=== PATIENT | female | born 1995 | race Caucasian/White ===

== ENCOUNTER 2024-05-28 10:17 | Outpatient (OUT) | payer OTHER, SELFPAY ==
--- NOTE | 2024-05-28 10:20 | US_ITS ---
[address] [address] Patient Name: GREGORIO HESS MRN: [id number] date: 1995 Sex: F Assigned Patient Location: [facility] Current Patient Location: Accession/Order Number: [id number] Exam Date: 05/28/2024 10:20 Report Date: 05/29/2024 04:13 At the request of: GIOVANY ARVIZU Procedure: US OB transvaginal EXAMINATION: US OB transvaginal HISTORY: ABDOMINAL CRAMPING IN EARLY COMPARISON: No relevant comparison available. FINDINGS: GESTATIONAL SAC: Present and normal appearing. YOLK SAC: Present and normal appearing. POLE: Present and normal appearing. CARDIAC: Present. UTERUS: Normal size and appearance. OVARIES: Right: Corpus lutein cyst. Left: Normal. CERVIX: 3.6 cm in length and closed. CUL-DE-SAC: Normal. OTHER: None. AGE BY LMP: 6 weeks 3 days PRICE BY LMP: 01/18/2025 AGE BY US CRL: 6 weeks 0 days PRICE BY US CRL: 01/21/2025 US/US OB transvaginal IMPRESSION: 1. Single live intrauterine . Electronically authenticated by: CONSUELO SILVERMAN Date: 05/29/2024 04:13
== END 2024-05-28 10:18 | disposition home or self-care (01) ==
LOC: NOMS 10:18
PROVIDERS: PCP Nurse Practitioner Family; Visit Provider Obstetrics & Gynecology
DX: O26.891 Other specified pregnancy related conditions, first trimester (principal); Z3A.01 Less than 8 weeks gestation of pregnancy; R10.9 Unspecified abdominal pain; N92.6 Irregular menstruation, unspecified
CPT/HCPCS: 76817

== ENCOUNTER 2024-06-26 06:43 | Outpatient (OUT) | payer OTHER, SELFPAY ==
--- OUTSIDE RECORDS SUMMARY | 2024-06-26 06:47 | XMS_ITS | CCD ---
Author Organization [facility] Care Team Providers Care Instructor Dancing Name Role Phone Delgado Segoviayse Torri Primary Care Physician [phone] [facility] Primary Care Unavailable EBEN BRUNNER Admitting Unavailable EBEN BRUNNER Attending Unavailable EBEN BRUNNER Consulting Unavailable AMEILA HAYWARD Attending Unavailable AMELIA HAYWARD Referring Unavailable MACHELLE VIVEROS Primary Care Physician [phone] AMELIA HAYWARD Admitting Unavailable AMELIA HAYWARD Attending Unavailable AMELIA HAYWARD Referring Unavailable MACHELLE VIVEROS Primary Care Unavailable Giovany GROSS R Attending Unavailable MACHELLE VIVEROS Primary Care Unavailable GINNY, Giovany R Admitting Unavailable AMELIA HAYWARD Attending Unavailable AMELIA HAYWARD Referring Unavailable GIOVANY GROSS Attending Unavailable MACHELLE VIVEROS Primary Care Unavailable GINNY, Giovany R Admitting Unavailable GINNY, Giovany R Attending Unavailable Gold ACUNA, p Primary Care Provider Medications Current Medications Medication Drug Class(es) Dates Sig (Normalized) Sig (Original) cephalexin 500 mg oral capsule (5 sources) Cephalosporin Antibacterial Start: 12-24-2021 take 1 capsule by mouth four times daily cephalexin 500 mg Cap 500 mg = 1 cap(s), Oral, QID, # 40 cap(s), Refills(s) 0, Pharmacy: [facility], 165.1, cm, 12/24/21 19:35:00 EDT, Height/Length Dosing, 77.5, kg, 12/24/21 19:35:00 EDT, Weight Dosing Start Date: 12/24/21 Status: Ordered ibuprofen 600 mg oral tablet (5 sources) Nonsteroidal Anti-inflammatory Drug Start: 06-12-2022 take 1 tablet by mouth every six hours ibuprofen 600 mg Tab 600 mg = 1 tab(s), Oral, q6hr, # 40 tab(s), Refills(s) 0, Pharmacy: [facility] 1985, 165.1, cm, 12/24/21 19:35:00 EDT, Height/Length Dosing, 77.5, kg, 12/24/21 19:35:00 EDT, Weight Dosing Start Date: 12/24/21 Status: Ordered norethindrone 0.35 mg oral tablet (6 sources) Start: 10-28-2017 take 1 tablet by mouth once daily norethindrone 0.35 mg oral tablet 0.35 mg = 1 tab(s), Oral, Daily, # 28 tab(s), Refills(s) 0 Start Date: 10/28/17 Status: Ordered Zofran ODT 4 mg Tab-Dis (6 sources) Start: 10-28-2017 take 1 tablet by mouth three times daily Zofran ODT 4 mg Tab-Dis 4 mg = 1 tab(s), Oral, TID, # 15 tab(s), Refills(s) 0 Start Date: 10/28/17 Status: Ordered Completed/Discontinued Medications Medication Drug Class(es) Dates Sig (Normalized) Sig (Original) [id number] 200 actuat albuterol 0.09 mg/actuat metered dose inhaler (2 sources) beta2-Adrenergic Agonist Start: 4 End: 4 albuterol HFA 90 mcg/act inhaler Inhale every 4 (four) hours if needed 10/29/2023 05/28/2024 Discontinued ALPRAZolam 0.5 mg oral tablet (2 sources) Benzodiazepine Start: 4 End: 4 take 1 tablet by mouth twice daily as needed ALPRAZolam (Xanax) 0.5 MG tablet Take 0.5 mg by mouth 2 (two) times a day as needed 08/01/2023 05/28/2024 Discontinued Ethinyl Estradiol / Ferrous fumarate / Norethindrone (2 sources) Estrogen Start: 4 End: 4 take 1 tablet by mouth once daily Caty Fe 08/03 1-20 MG-MCG tablet Take 1 tablet by mouth Daily 11/16/2023 05/28/2024 Discontinued 3 ml liraglutide 6 mg/ml pen injector (2 sources) GLP-1 Receptor Agonist Start: 3 End: 4 inject 1.8 mg by subcutaneous injection once daily Victoza 18 MG/3ML injection Inject 1.8 mg under the skin Daily 06/21/2023 05/28/2024 Discontinued lisdexamfetamine dimesylate 50 mg oral capsule (2 sources) Central Nervous System Stimulant End: 4 take 1 capsule by mouth in the morning lisdexamfetamine (Vyvanse) 50 MG capsule Take 60 mg by mouth in the morning. 1 capsule in the morning . 05/28/2024 Discontinued rizatriptan 10 mg oral tablet (2 sources) Serotonin-1b and Serotonin-1d Receptor Agonist Start: 4 End: 4 take 1 tablet by mouth once rizatriptan (Maxalt) 10 MG tablet Indications: Intractable migraine without aura and without status migrainosus (CMS/HCC) Take 1 tablet (10 mg) by mouth 1 (one) time if needed for migraine (may repeat x1) for up to 9 doses May repeat in 2 hours if unresolved. Do not exceed 30 mg in 24 hours. 9 tablet 11/18/2023 05/28/2024 Discontinued tiZANidine 4 mg oral tablet (2 sources) Central alpha-2 Adrenergic Agonist Start: 4 End: 4 tiZANidine (Zanaflex) 4 MG tablet Indications: Chronic daily headache 1/2-1 po QHS 30 tablet 2 11/18/2023 05/28/2024 Discontinued vortioxetine 10 mg oral tablet (2 sources) End: 4 take 1 tablet by mouth once daily Vortioxetine HBr (Trintellix) 10 MG tablet Take 1 tablet by mouth Daily 05/28/2024 Discontinued Problems Active Problems Problem Classification Problem Date Documented Da te Episodic/Chronic Headache; including migraine (4 sources) Migraine; Translations: [Migraine, unspecified, not intractable, without status migrainosus] Onset: 11-16-2023 11-16-2023 Chronic Menstrual disorders (2 sources) Missed period; Translations: [Irregular menstruation, unspecified] 05-28-2024 Chronic Nausea and vomiting (4 sources) Vomiting, unspecified; Translations: [VOMITING UNSPECIFIED] Onset: 09-25-2022 Episodic Other aftercare (1 source) 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; Translations: [OTH [facility] CURRENT DRUG THERAPY] Onset: 09-27-2022 Episodic Other complications of (2 sources) Complication of , childbirth and/or the puerperium; Translations: [Other specified related conditions, unspecified trimester] 05-28-2024 Episodic Other gastrointestinal disorders (1 source) Diarrhea, unspecified; Translations: [DIARRHEA UNSPECIFIED] Onset: 09-27-2022 Episodic Other nervous system disorders (6 sources) H/O: brain disorder 09-24-2014 Episodic Residual codes; unclassified (2 sources) Hypersomnia; Translations: [Hypersomnia, unspecified] Onset: 11-16-2023 11-16-2023 Chronic Skin and subcutaneous tissue infections (1 source) Cellulitis; Translations: [Cellulitis of unspecified part of limb] Onset: 12-24-2021 Episodic Past or Other Problems Problem Classification Problem Date Documented Da te Episodic/Chronic Epilepsy; convulsions (8 sources) Seizure; Translations: [Unspecified convulsions] Onset: 11-16-2023 12-31-2013 Episodic Headache; including migraine (2 sources) Chronic daily headache; Translations: [Chronic daily headache] Onset: 11-18-2023 11-18-2023 Episodic Unclassified (1 source) Exposure to 2019 novel coronavirus; Translations: [Contact with and (suspected) exposure to COVID19] Unclassified (3 sources) couplets( Confirmed ) 09-30-2012 Unclassified (12 sources) Onset: 06-14-2014 Resolved: 09-09-2016 01-20-2015 Unclassified (3 sources) couplets 09-30-2012 Results Test Name Value Interpretation Reference Range Facility Urinalysis macro (dipstick) panel (U)on 05-28-2024 Bilirubin, UA Negative Negative - 4(70) +++ mg/dL [facility] Blood, UA Negative Negative - 50 Theodore/mcL [facility] Clarity, UA Clear [facility] Color, UA Yellow [facility] Glucose, UA Negative Negative - 2000(110) ++++ mg/dL [facility] Interpretation and review of laboratory results Normal [facility] Ketones, UA Negative Negative - 160(16) ++++ mg/dL [facility] Leukocytes, UA Negative Negative - 500+++ Mike/mcL [facility] Nitrite, UA Negative Negative - Positive [facility] pH, UA 7 5 - 9 [facility] Healthcar [facility] Protein, UA Negative Negative - 2000(20) ++++ mg/dL [facility] Spec Grav, UA 1.025 1 - 1.03 [facility] Urobilinogen, UA 0.2 0.2 - 12 mg/dL [facility] BhCG Quanton 05-27-2024 [place] [address] m[IU]/mL High 1-3 [facility] Comment on above: Result Comment: 'F N ON < 1 - 3' ' 0.2 - 1 WEEK = 5 TO 50' ' 1 - 2 WEEKS = 50 - 500' ' 2 - 3 WEEKS = 100 - 5000' ' 3 - 4 WEEKS = 500 - 22590' ' 4 - 5 WEEKS = 1000 - 23508' ' 5 - 6 WEEKS = 60929 - 779073' ' 6 - 8 WEEKS = 43922 - 437715' ' 8 - 12 WEEKS = 29855 - 262173' Performed By: #### 2 [id number] #### [facility] [address] [place] [address] CHEMISTRYOrdered By: SYSTEM SYSTEM on 05-27-2024 [place] [address] m[IU]/mL High 1 - 3 mIU/mL [facility] Comment on above: Result Comment: 'F N ON < 1 - 3' ' 0.2 - 1 WEEK = 5 TO 50' ' 1 - 2 WEEKS = 50 - 500' ' 2 - 3 WEEKS = 100 - 5000' ' 3 - 4 WEEKS = 500 - 45113' ' 4 - 5 WEEKS = 1000 - 45360' ' 5 - 6 WEEKS = 19705 - 559916' ' 6 - 8 WEEKS = 01778 - 425548' ' 8 - 12 WEEKS = 58166 - 046679' MRI Brain w/o Contraston MRI Brain w/o Contrast Exam Date/Time: 11/21/2023 19:49 EDT Reason for Exam: R41.3 Report IMPRESSION: NO ACUTE INTRACRANIAL PROCESS. EXAM: MRI of the brain without contrast History: Changes and memory Technique: Multiplanar multisequence MRI of the brain was performed without contrast. Comparison: None available Findings: Brain volume is age-appropriate. Ventricular morphology is within normal limits. No edema, hemorrhage, mass, mass effect, midline shift, or abnormal extra-axial fluid collection. Midline structures are within normal limits. The posterior fossa is within normal limits. There is no diffusion restriction. No susceptibility artifact is identified on the gradient echo sequence. The major intracranial vascular flow voids are maintained. Cranial nerves 7/8 complexes appear grossly unremarkable. The visualized paranasal sinuses and bilateral mastoid air cells are clear. Ordering Provider: , FINAL REPORT Dictated: 11/24/2023 12:58 pm Ralph Galaviz DO Signed (Electronic Signature): 11/24/2023 12:58 pm Signed by: Ralph Galaviz DO Transcribed by: TEJAL Technologist: KALYN [facility] Consent for Treatmenton Consent for Treatment [id number] E9#1.00TIFF [facility] RAD - MRI Screening Formon 0 11-21-2023 RAD - MRI Screening Form [id number]#1.00TIFF [facility] Physician Orderon 11-20-2023 Physician Order [id number] C0#1.00TIFF [facility] CHEMISTRYOrdered By: SYSTEM SYSTEM on 10-29-2022 Cobalamin (Vitamin B12) [Mass/Vol] 460 pg/mL Normal 50 - 1500 pg/mL [facility] Remisol Folate [Mass/Vol] 8.4 ng/mL Normal >=6.7ng/mL [facility] Re misol Magnesium [Mass/Vol] 2.1 mg/dL Normal 1.3 - 2 .4 mg/dL [facility] Remisol AMYLASEon 09-25-2022 Amylase [Catalytic activity/Vol] 65 U/L Normal 25-115 [facility] Comment on above: Performed By: #### L IPA, DENNIS, CMP #### [facility] [address] [address] [address] Flores Arroyo CBC AUTO DIFFon 09-25-2022 BASO # 0.0 103/ul Normal 0.0-0.1 [facility] Comment on above: Performed By: #### C BC #### [facility] [address] [address] [address] Flores Arroyo Basophils/100 WBC (Bld) 0.2 % Normal 0.2-2.0 [facility] Comment on above: Performed By: #### C BC #### [facility] [address] [place] [address] Dr. Flores Arroyo EO # 0.1 103/ul Normal 0.0-0.7 [facility] Comment on above: Performed By: #### C BC #### [facility] [address] [place] [address] Dr. Flores Arroyo Eosinophils/100 WBC (Bld) 0.3 % Critically low 0.9-7.0 [facility] Comment on above: Performed By: #### C BC #### [facility] [address] [place] [address] Dr. Flores Arroyo Erythrocyte distribution width (RBC) [Ratio] 13.7 % Normal 11.0-15.0 [facility] Comment on above: Performed By: #### C BC #### [facility] [address] [place] [address] Dr. Flores Arroyo Hematocrit (Bld) [Volume fraction] 44.0 % Normal 36.0-48.0 [facility] Comment on above: Performed By: #### C BC #### [facility] [address] [place] [address] Dr. Flores Arroyo Hemoglobin (Bld) [Mass/Vol] 14.7 g/dL Normal 12.0-16.0 [facility] Comment on above: Performed By: #### C BC #### [facility] [address] [place] [address] Dr. Flores Arroyo IG # 0.07 10e3/ul Critically high 0.00-0.03 [facility] Comment on above: Performed By: #### C BC #### [facility] [address] [place] [address] Dr. Flores Arroyo IG % 0.4 % Normal 0.0-0.5 [facility] Comment on above: Performed By: #### C BC #### [facility] [address] [place] [address] Dr. Flores Arroyo LYMPH # 2.4 103/ul Normal 1.2-3.8 [facility] Comment on above: Performed By: #### C BC #### [facility] [address] [place] [address] Dr. Flores Arroyo Lymphocytes/100 WBC (Bld) 12.7 % Critically low 20.5-60.0 [facility] Comment on above: Performed By: #### C BC #### [facility] [address] [place] [address] Dr. Flores Arroyo MANUAL DIFF REQ NO Normal [facility] Comment on above: Performed By: #### C BC #### [facility] [address] [place] [address] Dr. Flores Arroyo MCH (RBC) [Entitic mass] 29.5 pg Normal 26.7-34.0 [facility] Comment on above: Performed By: #### C BC #### [facility] [address] [place] [address] Dr. Flores Arroyo MCHC (RBC) [Mass/Vol] 33.4 g/dL Normal 29.9-35.2 [facility] Comment on above: Performed By: #### C BC #### [facility] [address] [place] [address] Dr. Flores Arroyo MCV (RBC) [Entitic vol] 88.4 fL Normal 81.0-99.0 [facility] Comment on above: Performed By: #### C BC #### [facility] [address] [place] [address] Dr. Flores Arroyo MONO # 1.3 103/ul Critically high 0.3-0.8 [facility] Comment on above: Performed By: #### C BC #### [facility] [address] [address] [address] Flores Arroyo Monocytes/100 WBC (Bld) 7.2 % Normal 1.7-12.0 [facility] Comment on above: Performed By: #### C BC #### [facility] [address] [address] [address] Flores Arroyo NEUT # 14.8 103/ul Critically high 1.4-6.5 [facility] Comment on above: Performed By: #### C BC #### [facility] [address] [address] [address] Flores Arroyo Neutrophils/100 WBC (Bld) 79.2 % Critically high 43.0-75.0 [facility] Comment on above: Performed By: #### C BC #### [facility] [address] [place] [address] Dr. Flores Arroyo Platelet mean volume (Bld) [Entitic vol] 10.8 fL Normal 9.5-13.5 [facility] Comment on above: Performed By: #### C BC #### [facility] [address] [place] [address] Dr. Flores Arroyo PLT 306 103/ul Normal 150-450 [facility] Comment on above: Performed By: #### C BC #### [facility] [address] [place] [address] Dr. Flores Arroyo RBC 4.98 106/ul Normal 4.20-5.40 [facility] Comment on above: Performed By: #### C BC #### [facility] [address] [place] [address] Dr. Flores Arroyo WBC 18.7 103/ul Critically high 4.0-11.0 [facility] Comment on above: Performed By: #### C BC #### [facility] [address] [place] [address] Dr. Flores Arroyo CULTURE URINEon 09-25-2022 CULTURE URINE Culture Observations: MODERATE GROWTH OF MIXED GENITAL MIS. NO POTENTIAL PATHOGENS SEEN. Normal [facility] Comment on above: Performed By: #### U RCX #### [facility] [address] [address] [address] Flores Arroyo ER URINE PROFILEon 3 Bilirubin Ql (U) Negative Normal NEGATIVE [facility] Comment on above: Performed By: #### U MICRO, ERUR #### [facility] [address] [place] [address] Dr. Flores Arroyo Clarity (U) CLEAR Normal CLEAR [facility] Comment on above: Performed By: #### U MICRO, ERUR #### [facility] [address] [address] [address] Flores Arroyo Color (U) YELLOW Normal YELLOW [facility] Comment on above: Performed By: #### U MICRO, ERUR #### [facility] [address] [place] [address] Dr. Flores Arroyo ERUCHEYENNED A micrscopic examination will be performed if indicated. Normal [facility] Comment on above: Performed By: #### U MICRO, ERUR #### [facility] [address] [place] [address] Dr. Flores Arroyo Glucose Ql (U) Negative Normal NEGATIVE [facility] Comment on above: Performed By: #### U MICRO, ERUR #### [facility] [address] [place] [address] Dr. Flores Arroyo Hemoglobin Ql (U) Negative Normal NEGATIVE [facility] Comment on above: Performed By: #### U MICRO, ERUR #### [facility] [address] [address] [address] Flores Arroyo Ketones Ql (U) Negative Normal NEGATIVE [facility] Comment on above: Performed By: #### U MICRO, ERUR #### [facility] [address] [address] [address] Flores Arroyo LEUKOCYTES Negative Normal NEGATIVE [facility] Comment on above: Performed By: #### U MICRO, ERUR #### [facility] [address] [place] [address] Dr. Flores Arroyo Nitrite Ql (U) Negative Normal NEGATIVE [facility] Comment on above: Performed By: #### U MICRO, ERUR #### [facility] [address] [place] [address] Dr. Flores Arroyo pH (U) 5.5 [pH] Normal 5-9 [facility] Comment on above: Performed By: #### U MICRO, ERUR #### [facility] [address] [place] [address] Dr. Flores Arroyo Protein (U) [Mass/Vol] 30 mg/dL Abnormal NEGATIVE/ TRACE [facility] Comment on above: Performed By: #### U MICRO, ERUR #### [facility] [address] [place] [address] Dr. Flores Arroyo SPEC GRAVITY >=1.030 Abnormal 1.005-<=1.025 [facility] Comment on above: Performed By: #### U MICRO, ERUR #### [facility] [address] [place] [address] Dr. Flores Arroyo UR MICRO IND INDICATED Normal [facility] Comment on above: Performed By: #### U MICRO, ERUR #### [facility] [address] [place] [address] Dr. Flores Arroyo Urobilinogen Qn (U) 0.2 {Salty'U}/dL Normal 0.2 - 1. 0 [facility] Comment on above: Performed By: #### U MICRO, ERUR #### [facility] [address] [place] [address] Dr. Flores Arroyo LACTATE/LACTIC ACIDon 2022 Lactate [Moles/Vol] 1.6 mmol/L Normal 0.4-2.0 [facility] Comment on above: Performed By: #### L ACT #### [facility] [address] [place] [address] Dr. Flores Arroyo LIPASEon 09-25-2022 Lipase [Catalytic activity/Vol] 95.0 U/L Normal 73.0-393.0 [facility] Comment on above: Performed By: #### L IPA, DENNIS, CMP #### [facility] [address] [place] [address] Dr. Flores Arroyo PROF 14(COMP METB)on 023 Albumin [Mass/Vol] 4.4 g/dL Normal 3.4-5.0 [facility] Comment on above: Performed By: #### L DENNIS MARTINES, CMP #### [facility] [address] [address] [address] Flores Arroyo Albumin/Globulin [Mass ratio] 1.2 {ratio} Normal [facility] Comment on above: Performed By: #### L DENNIS MARTINES, CMP #### [facility] [address] [address] [address] Flores Arroyo ALP [Catalytic activity/Vol] 86 U/L Normal 46-116 [facility] Comment on above: Performed By: #### L DENNIS MARTINES, CMP #### [facility] [address] [address] [address] Flores Arroyo ALT [Catalytic activity/Vol] 41 U/L Normal 14-59 [facility] Comment on above: Performed By: #### L DENNIS MARTINES, CMP #### [facility] [address] [address] [address] Flores Arroyo Anion gap [Moles/Vol] 11.4 mmol/L Normal [facility] Comment on above: Performed By: #### L DENNIS MARTINES, CMP #### [facility] [address] [address] [address] Flores Arroyo AST [Catalytic activity/Vol] 29 U/L Normal 15-37 [facility] Comment on above: Performed By: #### L DENNIS MARTINES, CMP #### [facility] [address] [address] [address] Flores Arroyo Bilirubin [Mass/Vol] 0.3 mg/dL Normal 0.2-1.0 [facility] Comment on above: Performed By: #### L DENNIS MARTINES, CMP #### [facility] [address] [address] [address] Flores Arroyo Calcium [Mass/Vol] 9.3 mg/dL Normal 8.5-10.1 [facility] Comment on above: Performed By: #### L DENNIS MARTINES, CMP #### [facility] [address] [address] [address] Flores Arroyo Chloride [Moles/Vol] 102 mmol/L Normal 98-107 [facility] Comment on above: Performed By: #### L DENNIS MARTINES, CMP #### [facility] [address] [address] [address] Flores Arroyo CO2 [Moles/Vol] 26.3 mmol/L Normal 21.0-32.0 [facility] Comment on above: Performed By: #### L DENNIS MARTINES, CMP #### [facility] [address] [address] [address] Flores Arroyo Creatinine [Mass/Vol] 0.85 mg/dL Normal 0.55-1.02 [facility] Comment on above: Performed By: #### L DENNIS MARTINES, CMP #### [facility] [address] [place] [address] Dr. Flores Arroyo EGFR-AF ROMANIAN >60 Normal >=60 [facility] Comment on above: Performed By: #### L DENNIS MARTINES, CMP #### [facility] [address] [place] [address] Dr. Flores Arroyo EGFR-NON AF ROMANIAN >60 Normal >=60 [facility] Comment on above: Performed By: #### L DENNIS MARTINES, CMP #### [facility] [address] [place] [address] Dr. Flores Arroyo Globulin (S) [Mass/Vol] 3.8 g/dL Normal [facility] Comment on above: Performed By: #### L DENNIS MARTINES, CMP #### [facility] [address] [place] [address] Dr. Flores Arroyo Glucose [Mass/Vol] 159 mg/dL Critically high 74-106 [facility] Comment on above: Performed By: #### L DENNIS MARTINES, CMP #### [facility] [address] [place] [address] Dr. Flores Arroyo Potassium [Moles/Vol] 3.7 mmol/L Normal 3.5-5.1 [facility] Comment on above: Performed By: #### L DENNIS MARTINES, CMP #### [facility] [address] [place] [address] Dr. Flores Arroyo Protein [Mass/Vol] 8.2 g/dL Normal 6.4-8.2 [facility] Comment on above: Performed By: #### L DENNIS MARTINES, CMP #### [facility] [address] [place] [address] Dr. Flores Arroyo Sodium [Moles/Vol] 136 mmol/L Normal 136-145 [facility] Comment on above: Performed By: #### L DENNIS MARTINES, CMP #### [facility] [address] [place] [address] Dr. Flores Arroyo Urea nitrogen [Mass/Vol] 11.0 mg/dL Normal 7.0-18.0 [facility] Comment on above: Performed By: #### L DENNIS MARTINES, CMP #### [facility] [address] [place] [address] Dr. Flores Arroyo Urea nitrogen/Creatinine [Mass ratio] 12.9 mg/mg Normal [facility] Comment on above: Performed By: #### L DNENIS MARTINES, CMP #### [facility] [address] [place] [address] Dr. Flores Arroyo URINE MICROSCOPIC ONLYon BACTERIA SMALL Abnormal NONE SEEN [facility] Comment on above: Performed By: #### U MICRO, ERUR #### [facility] [address] [place] [address] Dr. Flores Arroyo Bacteria identified Cx Nom (U) INDICATED Normal [facility] Comment on above: Performed By: #### U MICRO, ERUR #### [facility] [address] [place] [address] Dr. Flores Arroyo CAST NONE SEEN Normal NONE SEEN [facility] Comment on above: Performed By: #### U MICRO, ERUR #### [facility] [address] [place] [address] Dr. Flores Arroyo Crystals LM Nom (Urine sed) NONE SEEN Normal NONE SEEN [facility] Comment on above: Performed By: #### U MICRO, ERUR #### [facility] [address] [address] [address] Flores rAroyo Epithelial cells LM Ql (Urine sed) MODERATE Abnormal NONE SEEN /RARE [facility] Comment on above: Performed By: #### U MICRO, ERUR #### [facility] [address] [address] [address] Flores Arroyo MUCOUS MODERATE Abnormal NONE SEEN [facility] [facility] Comment on above: Performed By: #### U MICRO, ERUR #### [facility] [address] [address] [address] Flores Arroyo RBC 0-2 Normal 0-2 [facility] Comment on above: Performed By: #### U MICRO, ERUR #### [facility] [address] [address] [address] Flores Arroyo WBC 2-5 Abnormal NONE SEEN [facility] Comment on above: Performed By: #### U MICRO, ERUR #### [facility] [address] [address] [address] Flores Arroyo MICRO OTHER TESTSOrdered By: Ines Michel on 07-21-2021 Rapid COV Int NEG Ctl [place] (07/21/21 11:06 AM) Normal [facility] Man Sero Rapid COV Int POS Ctl [place] (07/21/21 11:06 AM) Normal [facility] SARS-CoV+SARS-CoV-2 (COVID-19) Ag IA.rapid Ql (Resp) Not Detected (07/21/21 11:06 AM) Normal Not Detected [facility] Vital Signs Date Time Vital Sign Value Performing Clinician Facility 05-28-2024 09:39-0500 Body mass index (BMI) [Ratio] 27.66 kg/m2 [employer] Work Phone: [facility] 05-28-2024 09:39-0500 Body weight 77.75 kg [employer] Work Phone: [facility] 05-28-2024 09:39-0500 Diastolic blood pressure 68 mm[Hg] [employer] Work Phone: [facility] 05-28-2024 09:39-0500 Systolic blood pressure 110 mm[Hg] Parabel DO Work Phone: [facility] 12-24-2021 21:08-0400 Diastolic blood pressure 81 mm[Hg] Jalen Ezekiel [facility] 12-24-2021 21:08-0400 Heart rate 79 /min Jalen Ezekiel [facility] 12-24-2021 21:08-0400 Respiratory rate 18 /min Jalen Ezekiel [facility] 12-24-2021 21:08-0400 SaO2% (BldA) [Mass fraction] 100 % Jalen Ezekiel [facility] 12-24-2021 21:08-0400 Systolic blood pressure 114 mm[Hg] Jalen Ezekiel [facility] 12-24-2021 19:32-0400 Body temperature 98.06 [degF] Jalen Ezekiel [facility] 12-24-2021 19:32-0400 Diastolic blood pressure 85 mm[Hg] Jalen Ezekiel [facility] 12-24-2021 19:32-0400 Heart rate 100 /min Jalen Ezekiel [facility] 12-24-2021 19:32-0400 Respiratory rate 16 /min Jalen Ezekiel [facility] 12-24-2021 19:32-0400 SaO2% (BldA) [Mass fraction] 100 % Jalen Ezekiel [facility] 12-24-2021 19:32-0400 Systolic blood pressure 121 mm[Hg] Jalen Ezekiel [facility] Encounters Encounter Date Encounter Type Care Provider Facility Start: 05-28-2024 End: 05-28-2024 Office outpatient visit 15 minutes Giovany Ginny DO Work Phone: [facility] Comment on above: Abdominal cramping a ffecting ; Missed menses Start: 05-28-2024 End: 05-28-2024 ambulatory GIOVANY DE JESUSO Not Available Start: 05-27-2024 End: 05-27-2024 ambulatory Giovany R GINNY Facility:[facility] Start: 05-27-2024 End: 05-27-2024 Patient encounter procedure Giovany R GINNY [facility] Start: 11-21-2023 End: 11-21-2023 ambulatory AMELIA MARCIALMOR Facility:[facility] Start: 11-21-2023 End: 11-21-2023 Patient encounter procedure AMELIA BOTELLOR [facility] Start: 11-19-2023 End: 11-19-2023 ambulatory AMELIA GILLMOR Not Available Start: 11-19-2023 End: 11-19-2023 ambulatory AMELIA GILLMOR Not Available Start: 11-18-2023 End: 11-18-2023 ambulatory AMELIA GILLMOR Not Available Start: 11-18-2023 End: 11-18-2023 ambulatory AMELIA GILLMOR Not Available Start: 10-29-2022 End: 10-29-2022 Lab Drop off MACHELLE VIVEROS [facility] Start: 09-25-2022 End: 09-25-[address] DOCTOR BAILEY Facility: Start: 02-06-2022 End: 02-06-2022 Lab Drop off TIESHA FINLEY [facility] Start: 12-24-2021 End: 12-24-2021 Emergency department patient visit Jalen Falcon [facility] Start: 07-20-2021 End: 10-19-2021 Recurring Sumit Scott [facility] Procedures Date Procedure Procedure Detail Performing Clinician Start: 05-28-2024 Urnls dip stick/tabl et rgnt non-auto w/o micrscp Giovaynlaura Gross DO Work Phone: Tonsillectomy Sumit Scott Plan of Treatment Date Care Activity Detail Author Start: 06-25-2024 End: 06-25-2024 ambulatory 06/25/2024 2:30 PM EST Initial [facility] [address] [place] [address] [facility] Start: 06-25-2024 End: 06-25-2024 Professional / ancillary services management 06/25/2024 2:00 PM EST Ancillary Procedure [facility] [address] [place], [place] [address] [address] [facility] Start: 05-28-2024 End: 05-28-2025 US for US OB > 14 WEEKS Imaging Routine Abdominal cramping affecting Missed menses Expected: 05/28/2024 (Approximate), Expires: 05/28/2025 [facility] Comment on above: Expected: 05/28/2024 (Approximate), Expires: 05/28/2025 Start: 05-28-2024 End: 05-28-2025 US Pelvis transvaginal US OB transvaginal Imaging Routine Abdominal cramping affecting Missed menses Expected: 05/28/2024 (Approximate), Expires: 05/28/2025 [facility] Work Phone: Comment on above: Expected: 05/28/2024 (Approximate), Expires: 05/28/2025 Start: 03-15-2024 Influenza vaccination Influenza Vacc ine (#1) [facility] Immunizations Immunization Date Immunization Notes Care Provider Fa cili 04-27-2021 influenza virus vaccine, unspecified formulation Giovanylaura Gross DO Work Phone: [facility] 01-15-2015 measles, mumps and rubella virus vaccine Sumit Link [facility] Comment on above: Reason for Medicatio n: Other (see comment) 01-15-2015 tetanus toxoid, redu carly diphtheria toxoid, and acellular pertussis vaccine, adsorbed Sumit Link [facility] Comment on above: Reason for Medicatio n: Other (see comment) Payers Date Payer Category Payer Private Health Insurance [facility] MEDICAID [id number] 1995 Unknown [id number] 1995 Unknown [id number] 1996 Unknown [id number] 1996 Unknown [id number] 1996 Unknown [id number] 1996 Unknown [id number] 1959 Unknown [id number] Social History Date Type Detail Facility Tobacco smoking status Never smoker [facility] Start: 11-16-2023 End: 11-18-2023 Sex Assigned At Female [facility] Tobacco smoking status No Smokin g Status Entered [facility] Tobacco smoking status No Smokin g Status Entered [facility] Start: 11-18-2023 [facility] Start: 11-18-2023 Tobacco use and exposure Smokeless tobacco non-user [facility] Start: 05-28-2024 Alcoholic beverage intake Current drinker of alcohol (finding) [facility] Start: 11-16-2023 End: 11-18-2023 History of Social function [facility] How often to you hav e a drink containing alcohol? Monthly or less [facility] How many standard drinks containing alcohol do you have on a typical day? 1 or 2 [facility] How often do you hav e 6 or more drinks on 1 occasion? Never [facility] Start: 11-16-2023 Alcohol Comment caffeine: 1-2 cups per day [facility] Start: 1995 Sex assigned at Female [facility] Start: 04-15-2024 Gender identity Identifies as female gender (finding) [facility] Functional Status Date Assessment Result Facility 12-24-2021 Functional Status No [facility] History of Present illness Narrative 05-28-2024 Nano Reyez LPN - 05/28/2024 9:20 AM EST Note Date & Type Note Facility 05-28-2024 History of Presen t illness Narrative Reason for Appointment: Patient ID: Stephon Zuleta is a 29 y.o. female who presents for cramping in Patient presents today for Consult appointment. MEDICATIONS No current outpatient medications ALLERGIES No Known Allergies PROBLEMS Active Ambulatory Problems Diagnosis Date Noted Seizure (CMS/HCC) 11/16/2023 Migraine ([facility]/HCC) 11/16/2023 Intractable migraine without aura and without status migrainosus ([facility]) 11/16/2023 Hypersomnia 11/16/2023 Chronic daily headache 11/18/2023 Resolved Ambulatory Problems Diagnosis Date Noted No Resolved Ambulatory Problems Past Medical History: Diagnosis Date Anxiety Depression (CMS/HCC) HISTORY PAST MEDICAL HISTORY SOCIAL HISTORY Past Medical History: Diagnosis Date Anxiety Depression ([facility]) Social History Tobacco Use Smoking status: Never Smokeless tobacco: Never Substance Use Topics Alcohol use: Yes Comment: caffeine: 1-2 cups per day Drug use: Never FAMILY HISTORY Family History Problem Relation Name Age of Onset Achalasia Mother Hypertension Mother Migraines Mother Cancer Father SURGICAL HISTORY History reviewed. No pertinent surgical history. REVIEW OF SYSTEMS Review of Systems: Review of Systems All other systems reviewed and are negative. OBJECTIVE Objective: Physical Exam Constitutional: Appearance: Normal appearance. She is well-developed. Cardiovascular: Rate and Rhythm: Normal rate and regular rhythm. Pulmonary: Effort: Pulmonary effort is normal. Breath sounds: Normal breath sounds. Abdominal: General: Bowel sounds are normal. There is no distension. Palpations: Abdomen is soft. Tenderness: There is no abdominal tenderness. There is no guarding or rebound. Musculoskeletal: General: No swelling. Normal range of motion. Right lower leg: No edema. Left lower leg: No edema. Neurological: Mental Status: She is alert and oriented to person, place, and time. Skin: General: Skin is warm and dry. Psychiatric: Mood and Affect: Mood normal. Behavior: Behavior normal. Vitals and nursing note reviewed. Exam conducted with a traveling electrician present. Vitals: Estimated body mass index is 27.66 kg/m as calculated from the following: Height as of 11/18/23: 5' 6 . Weight as of this encounter: 171 lb 6.4 oz. BP: 110/68 Patient's last menstrual period was 04/13/2024. ASSESSMENT & PLAN ICD-10-CM 1. Abdominal cramping affecting O26.899 POCT urinalysis dipstick manually resulted R10.9 Patient presents today for abdominal cramps in early . Will order US for patient to have done for reassurance & patient to return to clinic as scheduled already. Documented by Nano Reyez LPN on behalf of: Giovany Gross DO documented in this encounter [facility] Evaluation + Plan note 10-29-2022 Note Date & Type Note Facility 10-29-2022 Evaluation + Plan note Diagnostic Tests PendingDHEAS 10/29/22Testosterone F&T 10/29/22Insulin Level Total 10/29/22FSH and LH 10/29/22Cortisol 10/29/22Estradiol Level 10/29/22 [facility] Evaluation + Plan note 02-06-2022 Note Date & Type Note Facility 02-06-2022 Evaluation + Plan note Diagnostic Tests PendingCOVID-19 ([facility]) 02/06/22 [facility] Hospital Discharge instructions 12-24-2021 Note Date & Type Note Facility 12-24-2021 Hospital Discharg e instructions Patient Education 12/24/2021 21:12:52 Cellulitis, Adult, Ebai-pc-Komb Cellulitis, Adult Cellulitis is a skin infection. The infected area is often warm, red, swollen, and sore. It occurs most often in the arms and lower legs. It is very important to get treated for this condition. What are the causes? This condition is caused by bacteria. The bacteria enter through a break in the skin, such as a cut, burn, insect bite, open sore, or crack. What increases the risk? This condition is more likely to occur in people who: Have a weak body defense system (immune system). Have open cuts, kirk, bites, or scrapes on the skin. Are older than 60 years of age. Have a blood sugar problem (diabetes). Have a long-lasting (chronic) liver disease (cirrhosis) or kidney disease. Are very overweight (obese). Have a skin problem, such as: ?Itchy rash (eczema). ?Slow movement of blood in the veins (venous stasis). ?Fluid buildup below the skin (edema). Have been treated with high-energy rays (radiation). Use IV drugs. What are the signs or symptoms? Symptoms of this condition include: Skin that is: ?Red. ?Streaking. ?Spotting. ?Swollen. ?Sore or painful when you touch it. ?Warm. A fever. Chills. Blisters. How is this diagnosed? This condition is diagnosed based on: Medical history. Physical exam. Blood tests. Imaging tests. How is this treated? Treatment for this condition may include: Medicines to treat infections or allergies. Home care, such as: ?Rest. ?Placing cold or warm cloths (compresses) on the skin. Hospital care, if the condition is very bad. Follow these instructions at home: Medicines Take qzrq-kij-mplpmcm and prescription medicines only as told by your doctor. If you were prescribed an antibiotic medicine, take it as told by your doctor. Do not stop taking it even if you start to feel better. General instructions Drink enough fluid to keep your pee (urine) pale yellow. Do not touch or rub the infected area. Raise (elevate) the infected area above the level of your heart while you are sitting or lying down. Place cold or warm cloths on the area as told by your doctor. Keep all follow-up visits as told by your doctor. This is important. Contact a doctor if: You have a fever. You do not start to get better after 1 2 days of treatment. Your bone or joint under the infected area starts to hurt after the skin has healed. Your infection comes back. This can happen in the same area or another area. You have a swollen bump in the area. You have new symptoms. You feel ill and have muscle aches and pains. Get help right away if: Your symptoms get worse. You feel very sleepy. You throw up (vomit) or have watery poop (diarrhea) for a long time. You see red streaks coming from the area. Your red area gets larger. Your red area turns dark in color. These symptoms may represent a serious problem that is an emergency. Do not wait to see if the symptoms will go away. Get medical help right away. Call your local emergency services (911 in the [place] Do not drive yourself to the hospital. Summary Cellulitis is a skin infection. The area is often warm, red, swollen, and sore. This condition is treated with medicines, rest, and cold and warm cloths. Take all medicines only as told by your doctor. Tell your doctor if symptoms do not start to get better after 1 2 days of treatment. This information is not intended to replace advice given to you by your health care provider. Make sure you discuss any questions you have with your health care provider. Document Released: 12/17/2008 Document Revised: 11/20/2018 Document Reviewed: 11/20/2018 [employer] Patient Education 2020 Jump or Fall. Follow Up Care 12/24/2021 19:31:22 With:Ros Segovia Address: [address] [place] [address]- Business (1) When:12/27/2021 20:50:34 [facility] Evaluation + Plan note Note Date & Type Note Facility Evaluation + Plan note No data available for this section [facility] Evaluation note Note Date & Type Note Facility Evaluation note Diagnosis Abdominal cramping affecting Missed menses documented in this encounter [facility] Hospital Discharge instructions Note Date & Type Note Facility Hospital Discharge instructions No data available for this section [facility] Progress note Note Date & Type Note Facility Progress note No data available for this section [facility] Summary Purpose Family History No Family History Records FoundNo Family History Records Found No data available for this section No data available for this section No Family History Records FoundNo Family History Records FoundNo Family History Records Found Advance Directives No Advanced Directives Records FoundNo Advanced Directives Records FoundNo Advanced Directives Records FoundNo Advanced Directives Records FoundNo Advanced Directives Records Found Additional Source Comments Care Team (unrecognized sect ion and content) Instructor Dancing Relationship Specialty Start Date End Date Lan Malcolm MD [address] [place] [id number] PCP - General Family Medicine 11/18/23 INFORMATION SOURCE (unrecogn ized section and content) DATE CREATED AUTHOR 10/01/2022 [facility] DATE CREATED AUTHOR AUTHOR'S ORGANIZ ATION 11/20/2023 [facility] EPIC DATE CREATED AUTHOR AUTHOR'S ORGANIZ ATION 05/30/2024 [facility] DATE CREATED AUTHOR AUTHOR'S ORGANIZ ATION 05/30/2024 [facility] EPIC DATE CREATED AUTHOR AUTHOR'S ORGANIZ ATION 06/02/2024 [facility] Reason for Visit (unrecogniz ed section and content) Reason Comments cramping in FOR RECORDS PERTAINING TO PATIENTS WHO ARE OR HAVE BEEN ENROLLED IN A CHEMICAL DEPENDENCY/SUBSTANCEABUSE PROGRAM, SOME INFORMATION MAY BE OMITTED. This clinical summary was aggregated from multiple sources. Caution should be exercised in using it in the provision of clinical care. This summary normalizes information from multiple sources, and as a consequence, information in this document may materially change the coding, format and clinical context of patient data. In addition, data may be omitted in some cases. CLINICAL DECISIONS SHOULD BE BASED ON THE PRIMARY CLINICAL RECORDS. [facility] [employer] [facility]. provides no warranty or guarantee of the accuracy or completeness of information in this document.
[2024-06-26 08:26] LABS: Basophils Percent Auto 0.1 % (0.2-2.0); Eosinophils Absolute Auto 0.1 10^3/uL (0.0-0.7); Eosinophils Percent Auto 0.9 % (0.9-7.0); Hematocrit 36.9 % (36.0-48.0); Hemoglobin 12.4 g/dL (12.0-16.0); Immature Granulocytes Abs Auto 0.03 10^3/uL (0.00-0.03); Immature Granulocytes Pct Auto 0.4 % (0.0-0.5); Lymphocytes Absolute Auto 2.2 10^3/uL (1.2-3.8); Lymphocytes Percent Auto 32.8 % (20.5-60.0); Mean Corpuscular HGB Conc 33.6 g/dL (29.9-35.2); Mean Corpuscular Volume 92.3 fL (81.0-99.0); Mean Platelet Volume 11.8 fL (9.5-13.5); Monocytes Absolute Auto 0.4 10^3/uL (0.3-0.8); Monocytes Percent Auto 6.3 % (1.7-12.0); Neutrophils Percent Auto 59.5 % (43.0-75.0); Platelet Count 193 10^3/uL (150-450); Red Cell Distribution Width 12.9 % (11.0-15.0); White Blood Count 6.7 10^3/uL (4.0-11.0)
[2024-06-26 08:26] LABS: Amphetamine Screen Urine NEGATIVE (NEGATIVE); Benzodiazepines Screen Urine NEGATIVE (NEGATIVE); Cannabinoid Screen Urine NEGATIVE (NEGATIVE); Cocaine Screen Urine NEGATIVE (NEGATIVE); Methamphetamines Screen Urine NEGATIVE (NEGATIVE); Opiate Screen Urine NEGATIVE (NEGATIVE); Phencyclidine Screen Urine NEGATIVE (NEGATIVE)
[2024-06-26 08:27] LABS: Barbiturates Screen Urine NEGATIVE (NEGATIVE); Buprenorphine Screen Urine NEGATIVE (NEGATIVE); Methadone Screen Urine NEGATIVE (NEGATIVE); Oxycodone Screen Urine NEGATIVE (NEGATIVE); Tricyclic Antidepressant Urine NEGATIVE (NEGATIVE)
[2024-06-26 10:05] LABS: Estimated Average Glucose 97 mg/dL
[2024-06-26 11:34] LABS: BOX Test Reference Lab UNITY; BOX Test Sent Out UNITY BOX
[2024-06-27 08:11] LABS: HBsAg Screen Negative (Negative); HCV Ab Non Reactive (Non Reactive); HIV Ab/p24 Ag Screen Non Reactive (Non Reactive)
[2024-06-27 09:11] LABS: Rubella Antibodies, IgG 1.04 index (Immune >0.99)
[2024-06-27 10:12] LABS: Rapid Plasma Reagin, Quant Non Reactive titer (NonRea<1:1)
== END 2024-06-26 06:44 | disposition home or self-care (01) ==
LOC: LAB 06:45
PROVIDERS: PCP Nurse Practitioner Family; Visit Provider Obstetrics & Gynecology
DX: Z34.01 Encounter for supervision of normal first pregnancy, first trimester (principal); Z36.0 Encounter for antenatal screening for chromosomal anomalies; N92.6 Irregular menstruation, unspecified
CPT/HCPCS: 36415; 80307; 83036; 85025; 86592; 86762; 86803; 86850; 86900; 86901; 87086; 87340; 87389

== ENCOUNTER 2024-08-04 11:36 | Emergency (ER) | payer OTHER, SELFPAY ==
[2024-08-04] VITALS (15 sets, daily range): BP systolic 90–144; BP diastolic 64–80; PULSE 101–145; TEMP 37.2–37.8; O2SAT 97–100; BMI 29.6
--- NOTE | 2024-08-04 11:51 | ECG_ITS ---
[facility] Test Date: 2024-08-04 Pat Name: GREGORIO HESS Department: Room: - Gender: Female Airport Guide: : 1995 Requested By: Order Number: [id number] Reading MD: VIVIENNE JARVIS Measurements Intervals [place] Rate: 139 P: 56 MA: 160 QRS: 35 QRSD: 70 T: 33 QT: 318 QTc: 399 Interpretive Statements 1120 Sinus tachycardia 4068 Nonspecific Twave abnormality 6220 Possible left atrial enlargement 9140 abnormal rhythm ECG No previous ECG available for comparison Electronically Signed On 08-04-2024 20:54:13 EST by VIVIENNE JARVIS
--- NOTE | 2024-08-04 11:52 | US_ITS ---
The [address] [address] Patient Name: GREGORIO HESS MRN: [id number] date: 1995 Sex: F Assigned Patient Location: ER Current Patient Location: ER Accession/Order Number: [id number] Exam Date: 08/04/2024 12:10 Report Date: 08/04/2024 12:43 At the request of: ANTONY ORO Procedure: US OB limited EXAMINATION: US OB limited HISTORY: cramping COMPARISON: Ultrasound OB transvaginal 05/28/2024 FINDINGS: GESTATIONAL SAC: Present YOLK SAC: Absent POLE: Present CARDIAC: 170 bpm UTERUS: Anterior placenta without abruption or subchorionic hematoma. OVARIES: Right: Not seen. Left: Not seen. CUL-DE-SAC: Normal. OTHER: None. AGE BY LMP: 16 weeks 1 day PRICE BY LMP: 01/18/2025 US/US OB limited IMPRESSION: 1. Single live intrauterine . 2. No acute or suspicious findings to account for patient's symptoms. Electronically authenticated by: CONSUELO SILVERMAN Date: 08/04/2024 12:43
--- OUTSIDE RECORDS SUMMARY | 2024-08-04 11:58 | XMS_ITS | CCD ---
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 Role Phone Ros Segovia Torri Primary [facility] Primary Care Unavailable EBEN BRUNNER Admitting Unavailable EBEN BRUNNER Attending Unavailable EBEN BRUNNER Consulting Unavailable AMELIA HAYWARD Attending Unavailable AMELIA HAYWARD Referring Unavailable MACHELLE VIVEROS Primary Care Physician [phone] AMELIA HAYWARD Admitting Unavailable AMELIA HAYWARD Attending Unavailable AMELIA HAYWARD Referring Unavailable MACHELLE VIVEROS Primary Care Unavailable Giovany GROSS Attending Unavailable MACHELLE VIVEROS Primary Care Unavailable GINNY, Giovany R Admitting Unavailable MACHELLE VIVEROS Primary Care Unavailable GINNY, Giovany R Admitting Unavailable GINNY, Giovany R Attending Unavailable Lan Malcolm MD Primary Care Provider [phone] AMELIA HAYWARD Attending Unavailable AMELIA HAYWARD Referring Unavailable GIOVANY GROSS Attending Unavailable GIOVANY GROSS Attending Unavailable Allergies Allergy Classification Reported Allergen(s) Allergy Type Date of Onset Reaction(s) Facility (5 sources) Losartan Drug Allergy 06-25-2024 [facility] Medications Current Medications Medication Drug Class(es) Dates Sig (Normalized) Sig (Original) cephalexin 500 mg oral capsule (5 sources) Cephalosporin Antibacterial Start: 12-24-2021 take 1 capsule by mouth four times daily cephalexin 500 mg Cap 500 mg = 1 cap(s), Oral, QID, # 40 cap(s), Refills(s) 0, Pharmacy: [facility] 1985, 165.1, cm, 12/24/21 19:35:00 EDT, Height/Length Dosing, 77.5, kg, 12/24/21 19:35:00 EDT, Weight Dosing Start Date: 12/24/21 Status: Ordered ibuprofen 600 mg oral tablet (5 sources) Nonsteroidal Anti-inflammatory Drug Start: 12-24-2021 take 1 tablet by mouth every six hours ibuprofen 600 mg Tab 600 mg = 1 tab(s), Oral, q6hr, # 40 tab(s), Refills(s) 0, Pharmacy: [facility], 165.1, cm, 12/24/21 19:35:00 EDT, Height/Length [...] Drug Class(es) Dates Sig (Normalized) Sig (Original) [id number] 200 actuat albuterol 0.09 mg/actuat metered dose [...] Documented Da te Episodic/Chronic Headache; including migraine (14 sources) Migraine; Translations: [Migraine, unspecified, not intractable, without status migrainosus] Onset: 11-16-2023 11-16-2023 Chronic Menstrual disorders (3 sources) Missed period; Translations: [Irregular menstruation, unspecified] 05-28-2024 Chronic Nausea and vomiting (4 sources) Vomiting, unspecified; Translations: [VOMITING UNSPECIFIED] Onset: 09-25-2022 Episodic Other aftercare (1 source) 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; Translations: [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] Onset: 09-27-2022 Episodic Other complications of (2 sources) Complication of , childbirth and/or the puerperium; Translations: [Other specified related conditions, unspecified trimester] 05-28-2024 Episodic Other gastrointestinal disorders (1 source) Diarrhea, unspecified; Translations: [DIARRHEA UNSPECIFIED] Onset: 09-27-2022 Episodic Other nervous system disorders (6 sources) H/O: brain disorder 09-24-2014 Episodic Other and delivery including normal (4 sources) ; Translations: [Encounter for supervision of normal , unspecified, unspecified trimester] 06-25-2024 Episodic Residual codes; unclassified (7 sources) Hypersomnia; Translations: [Hypersomnia, unspecified] Onset: 11-16-2023 11-16-2023 Chronic Residual codes; unclassified (2 sources) Gestation period, 12 weeks; Translations: [12 weeks gestation of ] 07-09-2024 Episodic Skin and subcutaneous tissue infections (1 source) Cellulitis; Translations: [Cellulitis of unspecified part of limb] Onset: 12-24-2021 Episodic Unclassified (3 sources) OB Reminders Onset: 06-27-2024 06-27-2024 Past or Other Problems Problem Classification Problem Date Documented Da te Episodic/Chronic Epilepsy; convulsions (13 sources) Seizure; Translations: [Unspecified convulsions] Onset: 11-16-2023 12-31-2013 Episodic Headache; including migraine (7 sources) Chronic daily headache; Translations: [Chronic daily headache] Onset: 11-18-2023 11-18-2023 Episodic Unclassified (1 source) Exposure to 2019 novel coronavirus; Translations: [Contact with and (suspected) exposure to COVID19] Unclassified (3 sources) couplets( Confirmed ) 09-30-2012 Unclassified (12 sources) Onset: 06-14-2014 Resolved: 09-09-2016 01-20-2015 Unclassified (3 sources) couplets 09-30-2012 Results Test Name Value Interpretation Reference Range Facility Urinalysis macro (dipstick) panel (U)on 07-09-2024 Bilirubin, UA Negative Negative - 4(70) +++ mg/dL [facility] Blood, UA Negative Negative - 50 Theodore/mcL [facility] Clarity, UA Clear [facility] re Color, UA Yellow [facility] e Glucose, UA Negative Negative - 1999(110) ++++ mg/dL [facility] Interpretation and review of laboratory results Abnormal [facility] Ketones, UA Positive Negative - 160(16) ++++ mg/dL [facility] Comment on above: trace Leukocytes, UA Negative Negative - 500+++ Mike/mcL [facility] Nitrite, UA Negative Negative - Positive [facility] pH, UA 6 5 - 9 [facility] Protein, UA Trace Negative - 1999(20) ++++ mg/dL [facility] Spec Grav, UA 1.025 1 - 1.03 [facility] Urobilinogen, UA 1.0 0.2 - 12 mg/dL [facility] HCG ( test) Ql (U)o n 06-26-2024 Interpretation and review of laboratory results Abnormal [facility] Preg Test, Ur Positive Negative [facility] TBH DRUG SCREEN RAPID (URINE )on 06-26-2024 AMPHETAMINE SCREEN URINE Negative NEGATIVE [facility] BARBITURATES SCREEN URINE Negative NEGATIVE [facility] BENZODIAZEPINES SCREEN URINE Negative NEGATIVE [facility] BUPRENORPHINE SCREEN URINE Negative NEGATIVE [facility] Comment on above: DRUG CLASS TEST SYST EM CUT-OFF CONCENTRATIONS ARE FOLLOWS: AMP (Amphetamine): 500 ng/mL BAR (Barbiturates): 200 ng/mL BZO (Benzodiazepines): 150 ng/mL BUP (Buprenorphine): 10 ng/mL JAYE (Cocaine): 150 ng/mL mAMP (Methamphetamine): 500 ng/mL MTD (Methadone): 200 ng/mL OPI (Opiates): 100 ng/mL OXY (Oxycodone): 100 ng/mL PCP (Phencyclidine): 25 ng/mL THC (Cannabinoids): 50 ng/mL TCA (Trycyclic Antidepressants): 300 ng/mL CANNABINOID SCREEN URINE Negative NEGATIVE [facility] COCAINE SCREEN URINE Negative NEGATIVE [facility] METHADONE SCREEN URINE Negative NEGATIVE [facility] METHAMPHETAMINES SCREEN URINE Negative NEGATIVE [facility] OPIATE SCREEN URINE Negative NEGATIVE [facility] OXYCODONE SCREEN URINE Negative NEGATIVE [facility] PHENCYCLIDINE SCREEN URINE Negative NEGATIVE [facility] TRICYCLIC ANTIDEPRESSANT URINE Negative NEGATIVE [facility] Urinalysis macro (dipstick) panel (U)on 06-26-2024 Bilirubin, UA Negative Negative - 4(70) +++ mg/dL [facility] Blood, UA Negative Negative - 50 Theodore/mcL [facility] Clarity, UA Clear [facility] re Color, UA Yellow [facility] Glucose, UA Negative Negative - 1999(110) ++++ mg/dL [facility] Interpretation and review of laboratory results Abnormal [facility] Ketones, UA Negative Negative - 160(16) ++++ mg/dL [facility] Leukocytes, UA Trace Negative - 500+++ Mike/mcL [facility] Nitrite, UA Negative Negative - Positive [facility] pH, UA 7 5 - 9 [facility] Protein, UA Negative Negative - 1999(20) ++++ mg/dL [facility] Spec Grav, UA 1.015 1 - 1.03 [facility] Urobilinogen, UA 1.0 0.2 - 12 mg/dL [facility] Urinalysis macro (dipstick) panel (U)on 05-28-2024 Bilirubin, UA Negative Negative - 4(70) +++ mg/dL [facility] Blood, UA Negative Negative - 50 Theodore/mcL [facility] Clarity, UA Clear [facility] Color, UA Yellow [facility] Glucose, UA Negative Negative - 1999(110) ++++ mg/dL [facility] Interpretation and review of laboratory results Normal [facility] Ketones, UA Negative Negative - 160(16) ++++ mg/dL [facility] Leukocytes, UA Negative Negative - 500+++ Mike/mcL [facility] Nitrite, UA Negative Negative - Positive [facility] pH, UA 7 5 - 9 [facility] Protein, UA Negative Negative - 1999(20) ++++ mg/dL [facility] Spec Grav, UA 1.025 1 - 1.03 [facility] Urobilinogen, UA 0.2 0.2 - 12 mg[facility] Quant[facility] 05-27-20[place] [address] m[IU]/mL High 1-3 [facility] Comment on above: Result Comment: 'F N ON < 1 - 3' ' 0.2 - 1 WEEK = 5 TO 50' ' 1 - 2 WEEKS = 50 - 500' ' 2 - 3 WEEKS = 100 - 5000' ' 3 - 4 WEEKS = 500 - 34227' ' 4 - 5 WEEKS = 1000 - 70804' ' 5 - 6 WEEKS = 72042 - 128225' ' 6 - 8 WEEKS = 48025 - 410981' ' 8 - 12 WEEKS = 06444 - 952902' Performed By: #### 2 [id number] #### [facility] [address] [place] [address] CHEMISTRYOrdered By: SYSTEM SYSTEM on 05-27-2024 [place] [address] m[IU]/mL High 1 - 3 mIU/mL [facility] Comment on above: Result Comment: 'F N ON < 1 - 3' ' 0.2 - 1 WEEK = 5 TO 50' ' 1 - 2 WEEKS = 50 - 500' ' 2 - 3 WEEKS = 100 - 5000' ' 3 - 4 WEEKS = 500 - 45266' ' 4 - 5 WEEKS = 1000 - 28041' ' 5 - 6 WEEKS = 06167 - 649038' ' 6 - 8 WEEKS = 86872 - 911858' ' 8 - 12 WEEKS = 83332 - 758550' MRI Brain w/o Contraston MRI Brain w/o [...] Galaviz DO Transcribed by: TEJAL Technologist: KALYN [facility] Consent for Treatmenton 05-0 Consent for Treatment [id number] E9#1.00TIFF [facility] RAD - MRI Screening Formon 0 11-21-2023 RAD - MRI Screening Form [id number]#1.00TIFF [facility] Physician Orderon 11-20-2023 Physician Order [id number] C0#1.00TIFF [facility] CHEMISTRYOrdered By: SYSTEM SYSTEM on 10-29-2022 Cobalamin (Vitamin B12) [Mass/Vol] 460 pg/mL Normal 50 - 1500 pg/mL [facility] Remisol Folate [Mass/Vol] 8.4 ng/mL Normal >=6.7ng/mL [facility] Re misol Magnesium [Mass/Vol] 2.1 mg/dL Normal 1.3 - 2 .4 mg/dL [facility] Remisol AMYLASEon 09-25-2022 Amylase [Catalytic activity/Vol] 65 U/L Normal 25-115 [facility] Comment on above: Performed By: #### L IPA, PAZ, CMP #### [facility] [address] [place] [address] Dr. Flores Arroyo CBC AUTO DIFFon 09-25-2022 BASO # 0.0 103/ul Normal 0.0-0.1 [facility] Comment on above: Performed By: #### C BC #### [facility] [address] [place] [address] Dr. Flores Arroyo Basophils/100 WBC (Bld) 0.2 % Normal 0.2-2.0 [facility] Comment on above: Performed By: #### C BC #### [facility] [address] [place] [address] Dr. Flores Arroyo EO # 0.1 103/ul Normal 0.0-0.7 [facility] Comment on above: Performed By: #### C BC #### [facility] [address] [place] [address] Dr. Flores Arroyo Eosinophils/100 WBC (Bld) 0.3 % Critically low 0.9-7.0 [facility] Comment on above: Performed By: #### C BC #### [facility] [address] [place] [address] Dr. Flores Arroyo Erythrocyte distribution width (RBC) [Ratio] 13.7 % Normal 11.0-15.0 [facility] Comment on above: Performed By: #### C BC #### [facility] [address] [place] [address] Dr. Flores Arroyo Hematocrit (Bld) [Volume fraction] 44.0 % Normal 36.0-48.0 [facility] Comment on above: Performed By: #### C BC #### [facility] [address] [place] [address] Dr. Flores Arroyo Hemoglobin (Bld) [Mass/Vol] 14.7 g/dL Normal 12.0-16.0 [facility] Comment on above: Performed By: #### C BC #### [facility] [address] [place] [address] Dr. Flores Arroyo IG # 0.07 10e3/ul Critically high 0.00-0.03 [facility] Comment on above: Performed By: #### C BC #### [facility] [address] [place] [address] Dr. Flores Arroyo IG % 0.4 % Normal 0.0-0.5 [facility] Comment on above: Performed By: #### C BC #### [facility] [address] [place] [address] Dr. Flores Arroyo LYMPH # 2.4 103/ul Normal 1.2-3.8 [facility] Comment on above: Performed By: #### C BC #### [facility] [address] [place] [address] Dr. Flores Arroyo Lymphocytes/100 WBC (Bld) 12.7 % Critically low 20.5-60.0 [facility] Comment on above: Performed By: #### C BC #### [facility] [address] [place] [address] Dr. Flores Arroyo MANUAL DIFF REQ NO Normal [facility] Comment on above: Performed By: #### C BC #### [facility] [address] [place] [address] Dr. Flores Arroyo MCH (RBC) [Entitic mass] 29.5 pg Normal 26.7-34.0 [facility] Comment on above: Performed By: #### C BC #### [facility] [address] [place] [address] Dr. Flores Arroyo MCHC (RBC) [Mass/Vol] 33.4 g/dL Normal 29.9-35.2 [facility] Comment on above: Performed By: #### C BC #### [facility] [address] [place] [address] Dr. Flores Arroyo MCV (RBC) [Entitic vol] 88.4 fL Normal 81.0-99.0 [facility] Comment on above: Performed By: #### C BC #### [facility] [address] [place] [address] Dr. Flores Arroyo MONO # 1.3 103/ul Critically high 0.3-0.8 [facility] Comment on above: Performed By: #### C BC #### [facility] [address] [place] [address] Dr. Flores Arroyo Monocytes/100 WBC (Bld) 7.2 % Normal 1.7-12.0 [facility] Comment on above: Performed By: #### C BC #### [facility] [address] [place] [address] Dr. Flores Arroyo NEUT # 14.8 103/ul Critically high 1.4-6.5 [facility] Comment on above: Performed By: #### C BC #### [facility] [address] [place] [address] Dr. Flores Arroyo Neutrophils/100 WBC (Bld) 79.2 % Critically high 43.0-75.0 [facility] Comment on above: Performed By: #### C BC #### [facility] [address] [place] [address] Dr. Flores Arroyo Platelet mean volume (Bld) [Entitic vol] 10.8 fL Normal 9.5-13.5 [facility] Comment on above: Performed By: #### C BC #### [facility] [address] [place] [address] Dr. Flores Arroyo PLT 306 103/ul Normal 150-450 [facility] Comment on above: Performed By: #### C BC #### [facility] [address] [place] [address] Dr. Flores Arroyo RBC 4.98 106/ul Normal 4.20-5.40 [facility] Comment on above: Performed By: #### C BC #### [facility] [address] [place] [address] Dr. Flores Arroyo WBC 18.7 103/ul Critically high 4.0-11.0 [facility] Comment on above: Performed By: #### C BC #### [facility] [address] [place] [address] Dr. Flores Arroyo CULTURE URINEon 09-25-2022 CULTURE URINE Culture Observations: MODERATE GROWTH OF MIXED GENITAL MIS. NO POTENTIAL PATHOGENS SEEN. Normal [facility] Comment on above: Performed By: #### U RCX #### [facility] [address] [place] [address] Dr. Flores Arroyo ER URINE PROFILEon 3 Bilirubin Ql (U) Negative Normal NEGATIVE [facility] Comment on above: Performed By: #### U MICRO, ERUR #### [facility] [address] [place] [address] Dr. Flores Arroyo Clarity (U) CLEAR Normal CLEAR [facility] Comment on above: Performed By: #### U MICRO, ERUR #### [facility] [address] [address] [address] Flores Arroyo Color (U) YELLOW Normal YELLOW [facility] Comment on above: Performed By: #### U MICRO, ERUR #### [facility] [address] [address] [address] Flores CAPPSAHD A micrscopic examination will be performed if indicated. Normal [facility] Comment on above: Performed By: #### U MICRO, ERUR #### [facility] [address] [address] [address] Flores Arroyo Glucose Ql (U) Negative Normal NEGATIVE [facility] Comment on above: Performed By: #### U MICRO, ERUR #### [facility] [address] [place] [address] Dr. Flores Arroyo Hemoglobin Ql (U) Negative Normal NEGATIVE [facility] Comment on above: Performed By: #### U MICRO, ERUR #### [facility] [address] [address] [address] Flores Arroyo Ketones Ql (U) Negative Normal NEGATIVE [facility] Comment on above: Performed By: #### U MICRO, ERUR #### [facility] [address] [address] [address] Flores Arroyo LEUKOCYTES Negative Normal NEGATIVE [facility] Comment on above: Performed By: #### U MICRO, ERUR #### [facility] [address] [address] [address] Flores Arroyo Nitrite Ql (U) Negative Normal NEGATIVE [facility] Comment on above: Performed By: #### U MICRO, ERUR #### [facility] [address] [address] [address] Flores Arroyo pH (U) 5.5 [pH] Normal 5-9 [facility] Comment on above: Performed By: #### U MICRO, ERUR #### [facility] [address] [address] [address] Flores Arroyo Protein (U) [Mass/Vol] 30 mg/dL Abnormal NEGATIVE/ TRACE [facility] Comment on above: Performed By: #### U MICRO, ERUR #### [facility] [address] [place] [address] Dr. Flores Arroyo SPEC GRAVITY >=1.030 Abnormal 1.005-<=1.025 [facility] Comment on above: Performed By: #### U MICRO, ERUR #### [facility] [address] [place] [address] Dr. Flores Arroyo UR MICRO IND INDICATED Normal [facility] Comment on above: Performed By: #### U MICRO, ERUR #### [facility] [address] [place] [address] Dr. Flores Arroyo Urobilinogen Qn (U) 0.2 {Salty'U}/dL Normal 0.2 - 1. 0 [facility] Comment on above: Performed By: #### U MICRO, ERUR #### [facility] [address] [place] [address] Dr. Flores Arroyo LACTATE/LACTIC ACIDon 2022 Lactate [Moles/Vol] 1.6 mmol/L Normal 0.4-2.0 [facility] Comment on above: Performed By: #### L ACT #### [facility] [address] [place] [address] Dr. Flores Arroyo LIPASEon 09-25-2022 Lipase [Catalytic activity/Vol] 95.0 U/L Normal 73.0-393.0 [facility] Comment on above: Performed By: #### L PAZ MARTINES, CMP #### [facility] [address] [place] [address] Dr. lFores Arroyo PROF 14(COMP METB)on 023 Albumin [Mass/Vol] 4.4 g/dL Normal 3.4-5.0 [facility] Comment on above: Performed By: #### L PAZ MARTINES, CMP #### [facility] [address] [place] [address] Dr. Flores Arroyo Albumin/Globulin [Mass ratio] 1.2 {ratio} Normal [facility] Comment on above: Performed By: #### L IPA, PAZ, CMP #### [facility] [address] [address] [address] Flores Arroyo ALP [Catalytic activity/Vol] 86 U/L Normal 46-116 [facility] Comment on above: Performed By: #### L IPA, PAZ, CMP #### [facility] [address] [address] [address] Flores Arroyo ALT [Catalytic activity/Vol] 41 U/L Normal 14-59 [facility] Comment on above: Performed By: #### L IPA, PAZ, CMP #### [facility] [address] [address] [address] Flores Arroyo Anion gap [Moles/Vol] 11.4 mmol/L Normal [facility] Comment on above: Performed By: #### L IPA, PAZ, CMP #### [facility] [address] [address] [address] Flores Arroyo AST [Catalytic activity/Vol] 29 U/L Normal 15-37 [facility] Comment on above: Performed By: #### L IPA, PAZ, CMP #### [facility] [address] [address] [address] Flores Arroyo Bilirubin [Mass/Vol] 0.3 mg/dL Normal 0.2-1.0 [facility] Comment on above: Performed By: #### L IPA, PAZ, CMP #### [facility] [address] [address] [address] Flores Arroyo Calcium [Mass/Vol] 9.3 mg/dL Normal 8.5-10.1 [facility] Comment on above: Performed By: #### L IPA, PAZ, CMP #### [facility] [address] [address] [address] Flores Arroyo Chloride [Moles/Vol] 102 mmol/L Normal 98-107 [facility] Comment on above: Performed By: #### L IPA, PAZ, CMP #### [facility] [address] [address] [address] Flores Arroyo CO2 [Moles/Vol] 26.3 mmol/L Normal 21.0-32.0 [facility] Comment on above: Performed By: #### L IPA, PAZ, CMP #### [facility] [address] [address] [address] Flores Arroyo Creatinine [Mass/Vol] 0.85 mg/dL Normal 0.55-1.02 [facility] Comment on above: Performed By: #### L IPA, PAZ, CMP #### [facility] [address] [address] [address] Flores Arroyo EGFR-AF TAIWANESE >60 Normal >=60 [facility] Comment on above: Performed By: #### L IPA, PAZ, CMP #### [facility] [address] [address] [address] Flores Arroyo EGFR-NON AF TAIWANESE >60 Normal >=60 [facility] Comment on above: Performed By: #### L IPA, PAZ, CMP #### [facility] [address] [address] [address] Flores Arroyo Globulin (S) [Mass/Vol] 3.8 g/dL Normal [facility] Comment on above: Performed By: #### L IPA, PAZ, CMP #### [facility] [address] [address] [address] Flores Arroyo Glucose [Mass/Vol] 159 mg/dL Critically high 74-106 [facility] Comment on above: Performed By: #### L IPA, PAZ, CMP #### [facility] [address] [address] [address] Flores Arroyo Potassium [Moles/Vol] 3.7 mmol/L Normal 3.5-5.1 [facility] Comment on above: Performed By: #### L IPA, PAZ, CMP #### [facility] [address] [address] [address] Flores Arroyo Protein [Mass/Vol] 8.2 g/dL Normal 6.4-8.2 [facility] Comment on above: Performed By: #### L IPA, PAZ, CMP #### [facility] [address] [address] [address] Flores Arroyo Sodium [Moles/Vol] 136 mmol/L Normal 136-145 [facility] Comment on above: Performed By: #### L PAZ MARTINES, CMP #### [facility] [address] [place] [address] Dr. Flores Arroyo Urea nitrogen [Mass/Vol] 11.0 mg/dL Normal 7.0-18.0 [facility] Comment on above: Performed By: #### L PAZ MARTINES, CMP #### [facility] [address] [place] [address] Dr. Flores Arroyo Urea nitrogen/Creatinine [Mass ratio] 12.9 mg/mg Normal [facility] Comment on above: Performed By: #### L PAZ MARTINES, CMP #### [facility] [address] [place] [address] Dr. Flores Arroyo URINE MICROSCOPIC ONLYon BACTERIA SMALL Abnormal NONE SEEN [facility] Comment on above: Performed By: #### U MICRO, ERUR #### [facility] [address] [place] [address] Dr. Flores Arroyo Bacteria identified Cx Nom (U) INDICATED Normal [facility] Comment on above: Performed By: #### U MICRO, ERUR #### [facility] [address] [place] [address] Dr. Flores Arroyo CAST NONE SEEN Normal NONE SEEN [facility] Comment on above: Performed By: #### U MICRO, ERUR #### [facility] [address] [place] [address] Dr. Flores Arroyo Crystals LM Nom (Urine sed) NONE SEEN Normal NONE SEEN [facility] Comment on above: Performed By: #### U MICRO, ERUR #### [facility] [address] [place] [address] Dr. Flores Arroyo Epithelial cells LM Ql (Urine sed) MODERATE Abnormal NONE SEEN /RARE [facility] Comment on above: Performed By: #### U MICRO, ERUR #### [facility] [address] [place] [address] Dr. Flores Arroyo MUCOUS MODERATE Abnormal NONE SEEN [facility] Comment on above: Performed By: #### U MICRO, ERUR #### [facility] [address] [address] [address] Flores Arroyo RBC 0-2 Normal 0-2 [facility] Comment on above: Performed By: #### U MICRO, ERUR #### [facility] [address] [address] [address] Flores Arroyo WBC 2-5 Abnormal NONE SEEN [facility] Comment on above: Performed By: #### U MICRO, ERUR #### [facility] [address] [address] [address] Flores ACOSTA OTHER TESTSOrdered By: Ines Michel on 07-21-2021 Rapid COV Int NEG Ctl [place] (07/21/21 11:06 AM) Normal [facility] Rapid COV Int POS [facility]l [place] (07/21/21 11:06 AM) Normal [facility] Sero SARS-CoV+SARS-CoV-2 (COVID-19) Ag IA.rapid Ql (Resp) Not Detected (07/21/21 11:06 AM) Normal Not Detected [facility] Vital Signs Date Time Vital Sign Value Performing Clinician Facility 07-09-2024 11:53-0500 Body mass index (BMI) [Ratio] 29.02 kg/m2 [employer] Work Phone: [facility] 07-09-2024 11:53-0500 Body weight 81.56 kg GiovanyWordster Work Phone: [facility] 07-09-2024 11:53-0500 Diastolic blood pressure 70 mm[Hg] [employer] Work Phone: [facility] 07-09-2024 11:53-0500 Systolic blood pressure 120 mm[Hg] [employer] Work Phone: [facility] 05-28-2024 09:39-0500 Body mass index (BMI) [Ratio] 27.66 kg/m2 [employer] Work Phone: [facility] 05-28-2024 09:39-0500 Body weight 77.75 kg [employer] Work Phone: [facility] 05-28-2024 09:39-0500 Diastolic blood pressure 68 mm[Hg] Giovany Ginny DO Work Phone: [facility] 05-28-2024 09:39-0500 Systolic blood pressure 110 mm[Hg] Giovany Ginny DO Work Phone: [facility] 12-24-2021 21:08-0400 Diastolic blood pressure 81 mm[Hg] Jalen Ezekiel [facility] 12-24-2021 21:08-0400 Heart rate 79 /min Jalen Ezekiel [facility] 12-24-2021 21:08-0400 Respiratory rate 18 /min Jalen Ezekiel [facility] 12-24-2021 21:08-0400 SaO2% (BldA) [Mass fraction] 100 % Jalen Ezekiel [facility] 12-24-2021 21:08-0400 Systolic blood pressure 114 mm[Hg] Jalen Ezekiel [facility] 12-24-2021 19:32-0400 Body temperature 98.06 [degF] Jalen Ezekiel [facility] 12-24-2021 19:32-0400 Diastolic blood pressure 85 mm[Hg] Jalen Ezekiel [facility] 12-24-2021 19:32-0400 Heart rate 100 /min Jalen Ezekiel [facility] 12-24-2021 19:32-0400 Respiratory rate 16 /min Jalen Ezekiel [facility] 12-24-2021 19:32-0400 SaO2% (BldA) [Mass fraction] 100 % Jalen Ezekiel [facility] 12-24-2021 19:32-0400 Systolic blood pressure 121 mm[Hg] Jalen Falcon [facility] Encounters Encounter Date Encounter Type Care Provider Facility Start: 07-09-2024 End: 07-09-2024 Bamboo flowsheet Giovany Ginny DO Work Phone: [facility] Start: 07-09-2024 End: 07-09-2024 Bamboo flowsheet Giovany Ginny DO Work Phone: [facility] Start: 07-09-2024 End: 07-09-2024 Office outpatient visit 15 minutes Giovany Ginny DO Work Phone: [facility] Comment on above: 12 weeks gestation o f ; First trimester Start: 07-09-2024 End: 07-09-2024 ambulatory GIOVANY GINNY Not Available Start: 06-26-2024 End: 06-26-2024 Clinisync Result Encounter Giovany Ginny DO Work Phone: [facility] Unsolicited Start: 06-26-2024 End: 06-26-2024 Clinisync Result Encounter Giovany Ginny DO Work Phone: [facility] Unsolicited Start: 06-25-2024 End: 06-25-2024 Office outpatient visit 5 minutes [facility] Ginny Nurse [facility] Comment on above: GA: 10w3d Start: 06-25-2024 End: 06-25-2024 ambulatory AMELIA HAYWARD Not Available Start: 05-28-2024 End: 05-28-2024 Office outpatient visit 15 minutes Giovany Ginny DO Work Phone: [facility] Comment on above: Abdominal cramping a ffecting ; Missed menses Start: 05-28-2024 End: 05-28-2024 ambulatory GIOVANY GINNY Not Available Start: 05-27-2024 End: 05-27-2024 ambulatory Giovany R GINNY [place] Start: 05-27-2024 End: 05-27-2024 Patient encounter procedure Giovany R GINNY [facility] Start: 11-21-2023 End: 11-21-2023 ambulatory AMELIA HAYWARD [facility] Start: 11-21-2023 End: 11-21-2023 Patient encounter procedure AMELIA HAYWARD [facility] Start: 11-19-2023 End: 11-19-2023 ambulatory AMELIA BOTELLOR Not Available Start: 11-19-2023 End: 11-19-2023 ambulatory AMELIA BOTELLOR Not Available Start: 11-18-2023 End: 11-18-2023 ambulatory AMELIA BOTELLOR Not Available Start: 11-18-2023 End: 11-18-2023 ambulatory AMELIA BOTELLOR Not Available Start: 10-29-2022 End: 10-29-2022 Lab Drop off MACHELLE VIVEROS [facility] Start: 09-25-2022 End: 09-25-[address] BRAGG [facility] Facility: Start: 02-06-2022 End: 02-06-2022 Lab Drop off TIESHA FINLEY [facility] Start: 12-24-2021 End: 12-24-2021 Emergency department patient visit Jalen Falcon [facility] Start: 07-20-2021 End: 10-19-2021 Recurring Sumit Scott [facility] Procedures Date Procedure Procedure Detail Performing Clinician Start: 07-09-2024 Urnls dip stick/tabl et rgnt non-auto w/o micrscp Giovany Ginny DO Work Phone: Start: 06-26-2024 End: 06-26-2024 Urnls dip stick/tablet rgnt non-auto w/o micrscp Giovany Ginny DO Work Phone: Start: 06-26-2024 [facility] DRUG SCREEN RAPI D (URINE) Giovany Ginny DO Work Phone: Start: 05-28-2024 Urnls dip stick/tabl et rgnt non-auto w/o micrscp Giovany Ginny DO Work Phone: Tonsillectomy Sumit Link Plan of Treatment Date Care Activity Detail Author Start: 08-10-2024 End: 08-10-2024 Patient encounter procedure 08/10/2024 9:50 AM EST Routine [facility] [address] [place] [address] Paz Varela PA [address] [place], [place] [id number] [facility] Start: 07-09-2024 End: 07-09-2024 Patient encounter procedure [facility] Comment on above: Arrived Start: 06-25-2024 End: 06-25-2024 ambulatory 06/25/2024 2:30 PM EST Initial [facility] [address] [place] [address] [facility] Start: 06-25-2024 End: 06-25-2025 ABO/Rh ABO/Rh Lab Routine Missed menses , unspecified gestational age Expected: 06/25/2024 (Approximate), Expires: 06/25/2025 [facility] Comment on above: Expected: 06/25/2024 (Approximate), Expires: 06/25/2025 Start: 06-25-2024 End: 06-25-2025 Blood type and Indirect antibody screen panel - Blood Type and screen Lab Routine Missed menses , unspecified gestational age Expected: 06/25/2024 (Approximate), Expires: 06/25/2025 [facility] Work Phone: Comment on above: Expected: 06/25/2024 (Approximate), Expires: 06/25/2025 Start: 06-25-2024 End: 06-25-2025 Drugs of abuse panel - Urine by Screen method Rapid drug screen, urine Lab Routine , unspecified gestational age Encounter for supervision of normal first in first trimester Expected: 06/25/2024 (Approximate), Expires: 06/25/2025 [facility] Comment on above: Expected: 06/25/2024 (Approximate), Expires: 06/25/2025 Start: 06-25-2024 End: 06-25-2024 Professional / ancillary services management 06/25/2024 2:00 PM EST Ancillary Procedure [facility] [address] [place] [address] [facility] Start: 06-25-2024 End: 06-25-2025 US Pelvis transvaginal US OB transvaginal Imaging Routine Missed menses Expected: 06/25/2024 (Approximate), Expires: 06/25/2025 [facility] Comment on above: Expected: 06/25/2024 (Approximate), Expires: 06/25/2025 Start: 05-28-2024 End: 05-28-2025 US for US OB > 14 WEEKS Imaging Routine Abdominal cramping affecting Missed menses Expected: 05/28/2024 (Approximate), Expires: 05/28/2025 [facility] Comment on above: Expected: 05/28/2024 (Approximate), Expires: 05/28/2025 Start: 05-28-2024 End: 05-28-2025 US Pelvis transvaginal US OB transvaginal Imaging Routine Abdominal cramping affecting Missed menses Expected: 05/28/2024 (Approximate), Expires: 05/28/2025 [facility] Work Phone: Comment on above: Expected: 05/28/2024 (Approximate), Expires: 05/28/2025 Start: 03-15-2024 Influenza vaccination Influenza Vacc ine (#1) [facility] Bacteria identified in Urine by Culture Urine culture Microbiology Routine Missed menses Ordered: 06/25/2024 [facility] Comment on above: Ordered: 06/25/2024 CBC W Auto Different ial panel - Blood CBC and differential Lab Routine Missed menses , unspecified gestational age Ordered: 06/25/2024 [facility] Comment on above: Ordered: 06/25/2024 Hemoglobin A1c/Hemoglobin.total in Blood Hemoglobin A1c Lab Routine Missed menses , unspecified gestational age Ordered: 06/25/2024 [facility] Comment on above: Ordered: 06/25/2024 Hepatitis B virus surface Ag [Presence] in Serum or Plasma by Immunoassay Hepatitis B surface antigen Lab Routine Missed menses , unspecified gestational age Ordered: 06/25/2024 [facility] Comment on above: Ordered: 06/25/2024 Hepatitis C virus Ab [Presence] in Serum or Plasma by Immunoassay Hepatitis C antibody Lab Routine Missed menses , unspecified gestational age Ordered: 06/25/2024 [facility] Comment on above: Ordered: 06/25/2024 HIV-1/HIV-2 antigen/antibody combination immunoassay HIV-1 and HIV-2 antibodies Lab Routine Missed menses , unspecified gestational age Ordered: 06/25/2024 [facility] Comment on above: Ordered: 06/25/2024 Reagin Ab [Presence] in Serum by RPR RPR Lab Routine Missed menses , unspecified gestational age Ordered: 06/25/2024 [facility] Comment on above: Ordered: 06/25/2024 Rubella antibody, IgG Rubella an tibody, IgG Lab Routine Missed menses , unspecified gestational age Ordered: 06/25/2024 [facility] Comment on above: Ordered: 06/25/2024 Immunizations Immunization Date Immunization Notes Care Provider Lexi edge 04-27-2021 influenza virus vaccine, unspecified formulation Giovany Gross DO Work Phone: [facility] 01-15-2015 measles, mumps and rubella virus vaccine [facility] Comment on above: Reason for Medicatio n: Other (see comment) 01-15-2015 tetanus toxoid, redu carly diphtheria toxoid, and acellular pertussis vaccine, adsorbed [facility] Comment on above: Reason for Medicatio n: Other (see comment) Payers Date Payer Category Payer Private Health Insurance [facility] MEDICAID [id number] 1996 Unknown [id number] 1996 Unknown [id number] 1259 1996 Unknown [id number] [id number] 1996 Unknown [id number] 1996 Unknown [id number] 1996 Unknown [id number] 1259 1996 Unknown [id number] 1259 1996 Unknown [id number] 1259 1996 Unknown [id number] 1259 1959 Unknown [id number] Social History Date Type Detail Facility Tobacco smoking status Never smoker [facility] Start: 11-16-2023 End: 11-18-2023 Sex Assigned At Female [facility] Tobacco smoking status No Smokin g Status Entered [facility] Tobacco smoking status No Smokin g Status Entered [facility] Start: 11-18-2023 Tobacco smoking stat us NHIS Never smoked tobacco [facility] Start: 11-18-2023 Tobacco use and exposure Smokeless tobacco non-user [facility] Start: 05-28-2024 End: 07-09-2024 Alcoholic beverage intake Current drinker of alcohol [...] Start: 1995 Sex assigned at Female [facility] Start: 04-15-2024 Gender identity Identifies as female gender (finding) [facility] Start: 04-27-2024 [facility] Goals Date Patient Goal Desired Activity /State Personal health goal Functional Status Date Assessment Result Facility 12-24-2021 Functional Status No [facility] Clinical Notes 12-24-2021 to 07-09-2024 Giovanna Wise, [facility] - 07/09/2024 11:30 AM Buffy Oneal, [facility] - 06/25/2024 2:30 PM Denise Reyez, [facility] - 05/28/2024 9:20 AM EST Note Date & Type Note Facility 07-09-2024 History of Presen t illness Narrative Reason for Appointment: Patient ID: Stephon Zuleta is a 29 y.o. female who presents for Routine Visit Patient presents today for Return OB appointment. MEDICATIONS No current outpatient medications ALLERGIES Allergies Allergen Reactions Losartan Other Reaction(s): Unknown PROBLEMS Active Ambulatory Problems Diagnosis Date Noted Seizure ([facility]) 11/16/2023 Migraine ([facility]) 11/16/2023 Intractable migraine without aura and without status migrainosus ([facility]) 11/16/2023 Hypersomnia 11/16/2023 Chronic daily headache 11/18/2023 Resolved Ambulatory Problems Diagnosis Date Noted No Resolved Ambulatory Problems Past Medical History: Diagnosis Date Anxiety Depression (CMS/HCC) History of petit-mal seizures HISTORY PAST MEDICAL HISTORY SOCIAL HISTORY Past Medical History: Diagnosis Date Anxiety Depression (CMS/HCC) History of petit-mal seizures Social History Tobacco Use Smoking status: Never Smokeless tobacco: Never Substance Use Topics Alcohol use: Yes Comment: caffeine: 1-2 cups per day Drug use: Never FAMILY HISTORY Family History Problem Relation Name Age of Onset Achalasia Mother Hypertension Mother Migraines Mother Cancer Father SURGICAL HISTORY History reviewed. No pertinent surgical history. REVIEW OF SYSTEMS Review of Systems: Review of Systems Constitutional: Negative. HENT: Negative. Eyes: Negative. Respiratory: Negative. Cardiovascular: Negative. Gastrointestinal: Negative. Genitourinary: Negative. Musculoskeletal: Negative. Skin: Negative. Neurological: Negative. All other systems reviewed and are negative. Hematological: Negative. Endocrine: Negative. Allergic/Immunologic: Negative. OBJECTIVE Objective: Physical Exam Constitutional: Appearance: Normal [...] nursing note reviewed. Exam conducted with a front desk clerk present. Vitals: Estimated body mass index is 29.02 kg/m as calculated from the following: Height as of 11/18/23: 5' 6 . Weight as of this encounter: 179 lb 12.8 oz. BP: 120/70 Patient's last menstrual period was 04/13/2024. ASSESSMENT & PLAN ICD-10-CM 1. 12 weeks gestation of Z3A.12 POCT urinalysis dipstick manually resulted 2. First trimester Z34.91 POCT urinalysis dipstick manually resulted New OB: Patient presents today for 1st time obstetrics appointment with provider. Patient is currently 12w3d . Patients history has been reviewed in great detail including any potential risks. Patient stated she currently has no complaints. Expectations throughout regarding labs, ultrasounds, and appointments have been discussed with the patient in detail. It was reiterated that the patient is to drink 6-8 glasses of water a day, eat 6 small meals a day, do not consume raw or undercooked meat, and stay away from [facility]. Patient has been consulted regarding any further do's and don'ts of . Patient voiced understanding and all questions and concerns were answered. Orders Placed This Encounter Procedures POCT urinalysis dipstick manually resulted Follow Up: Patient is to return in 4 weeks for routine OB appointment. Documented by Giovanna Wise LPN on behalf of: Giovany Gross DO documented in this encounter [facility] 06-25-2024 History of Presen t illness Narrative Reason for Appointment: Patient ID: Stephon Zuleta is a 29 y.o. female who presents for Amenorrhea Patient presents today for a Nurse OB Intake appointment. Patient is 10w4d with a Estimated Date of Delivery: 01/18/25 OB History Para Term AB Living 7 2 4 SAB IAB Ectopic Multiple Live Births # Outcome Date GA Lbr Bret/2nd Weight Sex Type Anes PTL Lv 7 Current 6 5 4 3 2 AB 1 AB Current Medications: currently has no medications in their medication list. Medical History: Active Ambulatory Problems Diagnosis Date Noted Seizure ([facility]) 11/16/2023 Migraine ([facility]) 11/16/2023 Intractable migraine without aura and without status migrainosus ([facility]) 11/16/2023 Hypersomnia 11/16/2023 Chronic daily headache 11/18/2023 Resolved Ambulatory Problems Diagnosis Date Noted No Resolved Ambulatory Problems Past Medical History: Diagnosis Date Anxiety Depression ([facility]) History of petit-mal seizures Family History Problem Relation Name Age of Onset Achalasia Mother Hypertension Mother Migraines Mother Cancer Father Social History Tobacco Use Smoking status: Never Smokeless tobacco: Never Substance Use Topics Alcohol use: Yes Comment: caffeine: 1-2 cups per day Drug use: Never History reviewed. No pertinent surgical history. Allergies Allergen Reactions Losartan Other Reaction(s): Unknown Vitals: Estimated body mass index is 27.66 kg/m as calculated from the following: Height as of 11/18/23: 5' 6 . Weight as of 05/28/24: 171 lb 6.4 oz. BP: Patient's last menstrual period was 04/13/2024. Assessment/Plan Diagnoses and all orders for this visit: Missed menses - Type and screen; Future - ABO/Rh; Future - CBC and differential - Hemoglobin A1c - RPR - Rubella antibody, IgG - Hepatitis B surface antigen - Hepatitis C antibody - HIV-1 and HIV-2 antibodies - Urine culture - US OB transvaginal; Future - POCT , urine manually resulted - POCT urinalysis dipstick manually resulted , unspecified gestational age - Type and screen; Future - ABO/Rh; Future - CBC and differential - Hemoglobin A1c - RPR - Rubella antibody, IgG - Hepatitis B surface antigen - Hepatitis C antibody - HIV-1 and HIV-2 antibodies - Rapid drug screen, urine; Future Encounter for supervision of normal first in first trimester - Rapid drug screen, urine; Future Nurse Note: OB Intake: Patient presents today for first OB visit. Patients history has been reviewed in great detail including any potential risks. Patient signed consent forms and patient desires testing in both trimesters. Patient currently has no complaints and has been advised to drink 6-8 glasses of water a day, eat no raw or undercooked meat, and stay away from [facility]. Patient has also been advised to not change litter boxes and eat 6 small meals a day. Patient has been consulted regarding the do's and don'ts of . Patient was given labs and all questions and concerns were answered. Follow Up: Patient is to return in 4 weeks for routine OB appointment. Follow Up: Patient is to have labs drawn at directed and return to office for initial OB appointment with provider. Patient may call office as needed with any concerns or questions. Nurse Visit Completed by: Suzanna Oneal LPN documented in this encounter [facility] 05-28-2024 History of Presen t illness Narrative Reason for Appointment: Patient ID: Stephon Zuleta is a 29 y.o. female who presents for cramping in Patient presents today for Consult appointment. MEDICATIONS No current outpatient medications ALLERGIES No Known Allergies PROBLEMS Active Ambulatory Problems Diagnosis Date Noted [place] 11/16/2023 Migraine [place] 11/16/2023 Intractable migraine without aura and without status migrainosus ([facility]) 11/16/2023 Hypersomnia 11/16/2023 Chronic daily headache 11/18/2023 Resolved Ambulatory Problems Diagnosis Date Noted No Resolved Ambulatory Problems Past Medical History: Diagnosis Date Anxiety Depression ([facility]) HISTORY PAST MEDICAL HISTORY SOCIAL HISTORY Past Medical History: Diagnosis Date Anxiety Depression ([facility]) Social History Tobacco Use Smoking status: Never [...] nursing note reviewed. Exam conducted with a front desk clerk present. Vitals: Estimated body mass index is [...] Giovany Gross DO documented in this encounter [facility] 10-29-2022 Evaluation + Plan note Diagnostic Tests PendingDHEAS 10/29/22Testosterone F&T 10/29/22Insulin Level Total 10/29/22FSH and LH 10/29/22Cortisol 10/29/22Estradiol Level 10/29/22 [facility] 02-06-2022 Evaluation + Plan note Diagnostic Tests PendingCOVID-19 ([facility] 02/06/22 [facility] 12-24-2021 Hospital Discharg e instructions Patient Education 12/24/2021 21:12:52 Cellulitis, Adult, [id number] Cellulitis, Adult Cellulitis is a skin infection. [...] Follow these instructions at home: Medicines Take etdm-mbr-ghfljea and prescription medicines only as told by [...] 12/17/2008 Document Revised: 11/20/2018 Document Reviewed: 11/20/2018 [employer] Patient Education 2020 [facility] Follow Up Care 12/24/2021 19:31:22 With:Ros Segovia Address: [address] [place] [address] [place] [address]- Business (1) When:12/27/2021 20:50:34 [facility] Evaluation + Plan note No data available for this section [facility] Evaluation note Diagnosis Abdominal cramping affecting Missed menses [facility] Diagnosis Missed menses , unspecified gestational age Encounter for supervision of normal first in first trimester [facility] Diagnosis 12 weeks gestation of First trimester state, incidental [facility] No data available for this section [facility] No data available for this section [facility] Summary Purpose Family History No Family History [...] Care Team (unrecognized sect ion and content) [employer] Relationship Specialty Start Date End Date Lan Malcolm MD [address] [place] [address] PCP - General Family Medicine 11/18/23 [employer] Relationship Specialty Start Date End Date Lan Malcolm MD [address] [place] [address] PCP - General Family Medicine 11/18/23 [employer] Relationship Specialty Start Date End Date Lan Malcolm MD [address] [place] [address] PCP - General Family Medicine 11/18/23 [employer] Relationship Specialty Start Date End Date Lan Malcolm MD [address] [place] [address] PCP - General [facility] 11/18/23 [employer] Relationship Specialty Start Date End Date Lan Malcolm MD [address] [place] [address] PCP - General Family Medicine 11/18/23 INFORMATION SOURCE (unrecogn ized section and content) DATE CREATED AUTHOR 10/01/[address] [facility] DATE CREATED AUTHOR AUTHOR'S ORGANIZ ATION 11/20/2023 [facility] DATE CREATED AUTHOR AUTHOR'S ORGANIZ ATION 05/30/2024 [facility] DATE CREATED AUTHOR AUTHOR'S ORGANIZ ATION 06/02/2024 [facility] DATE CREATED AUTHOR AUTHOR'S ORGANIZ ATION 07/10/2024 [facility] Reason for Visit (unrecogniz ed section and content) Reason Comments cramping in Reason Comments Amenorrhea Reason Comments Routine Visit FOR RECORDS PERTAINING TO PATIENTS WHO ARE [...] BE BASED ON THE PRIMARY CLINICAL RECORDS. [employer] provides no warranty or guarantee of the accuracy or completeness of information in this document.
[2024-08-04] MEDS: 0.9 % SODIUM CHLORIDE 1,000 ML 1000 ML IV ×2 (12:05→13:11)
[2024-08-04] MEDS: ACETAMINOPHEN 325 MG TABLET 650 MG PO (12:06)
[2024-08-04] MEDS: ONDANSETRON PF 4 MG/2 ML VIAL IV (12:06)
[2024-08-04 12:12] LABS: Bilirubin Urine NEGATIVE (NEGATIVE); Blood Urine NEGATIVE (NEGATIVE); Clarity Urine CLEAR (CLEAR); Color Urine YELLOW (YELLOW); Glucose Urine UA 250 mg/dL (NEGATIVE); Ketones Urine NEGATIVE (NEGATIVE); Leukocyte Esterase Urine TRACE (NEGATIVE); Nitrite Urine NEGATIVE (NEGATIVE); Protein Urine NEGATIVE (NEG/TRACE)
[2024-08-04 12:16] LABS: Basophils Percent Auto 0.1 % (0.2-2.0); Eosinophils Percent Auto 0.5 % (0.9-7.0); Hematocrit 37.4 % (36.0-48.0); Hemoglobin 12.8 g/dL (12.0-16.0); Immature Granulocytes Abs Auto 0.15 10^3/uL (0.00-0.03); Immature Granulocytes Pct Auto 1.8 % (0.0-0.5); Lymphocytes Absolute Auto 0.9 10^3/uL (1.2-3.8); Lymphocytes Percent Auto 10.3 % (20.5-60.0); Mean Corpuscular HGB Conc 34.2 g/dL (29.9-35.2); Mean Corpuscular Hemoglobin 30.8 pg (26.7-34.0); Mean Corpuscular Volume 90.1 fL (81.0-99.0); Mean Platelet Volume 12.3 fL (9.5-13.5); Monocytes Absolute Auto 0.6 10^3/uL (0.3-0.8); Monocytes Percent Auto 7.6 % (1.7-12.0); Neutrophils Absolute Auto 6.7 10^3/uL (1.4-6.5); Neutrophils Percent Auto 79.7 % (43.0-75.0); Platelet Count 173 10^3/uL (150-450); Red Blood Count 4.15 10^6/uL (4.20-5.40); Red Cell Distribution Width 12.9 % (11.0-15.0); White Blood Count 8.4 10^3/uL (4.0-11.0)
[2024-08-04 12:26] LABS: Urine Microscopic Indicated YES
[2024-08-04 12:29] LABS: Bacteria Urine MODERATE #/HPF (NONE SEEN); Mucus Urine SMALL (NONE SEEN); RBC Urine NONE SEEN #/HPF (0-2); Squamous Epithelial Cell Urine MODERATE #/LPF (NONE/RARE)
[2024-08-04 12:32] LABS: Urine Culture Indicated YES
[2024-08-04 12:35] LABS: Influenza Virus A Antigen Negative; Influenza Virus B Antigen Negative; Internal Control Within Normal Limits; Respiratory Syncytial Virus Not Detected (NOT DETECTE)
[2024-08-04 12:41] LABS: Alanine Aminotransferase 28 U/L (14-59); Albumin Globulin Ratio 0.8; Albumin Level 3.1 g/dL (3.4-5.0); Alkaline Phosphatase 66 U/L (46-116); Anion Gap 12.8; Aspartate Amino Transferase 19 U/L (15-37); BUN Creatinine Ratio 8.6; Bilirubin Total 0.2 mg/dL (0.2-1.0); Calcium 9.4 mg/dL (8.5-10.1); Carbon Dioxide 25.6 mmol/L (21.0-32.0); Chloride 101 mmol/L (98-107); Estimated GFR (African America >60 (>=60 mL/min/1.73m^2); Estimated GFR (Non-African Ame >60 (>=60 mL/min/1.73m^2); Glucose 88 mg/dL (74-106); Potassium 3.4 mmol/L (3.5-5.1); Sodium 136 mmol/L (136-145); Total Protein 7.1 g/dL (6.4-8.2)
[2024-08-04 12:43] LABS: Troponin I High Sensitivity <4.0 pg/mL (4.0-51.3)
--- NOTE | 2024-08-04 13:14 | ED_ITS ---
HPI - Syncope General Chief Complaint: Syncope Stated Complaint: 16 WEEKS ABDOMINAL CRAMPING DEHYDRATED Time Seen by Provider: 08/04/24 11:39 History of Present Illness HPI narrative: The patient coming to the ER after she has been exposed to her boyfriend who had similar symptoms, has been complaining of runny nose body aches and decreased appetite for the last 2 days she also mentioned some mild shortness of breath she denies any chest pain or any nausea vomiting or diarrhea She mentioned having left lower quadrant abdominal pain for the which is not new for her The patient is 16 weeks and this is her seventh , with 2 miscarriages history as well Related Data Previous Rx's ?Medication ?Instructions ?Recorded nitrofurantoin 100 mg PO BID 5 days #10 caps 08/04/24 monohydrate/macrocrystals 100 mg capsule (Macrobid) Allergies Allergy/AdvReac Type Severity Reaction Status Date / Time No Known Drug Allergies Allergy Verified 08/04/24 11:41 Review of Systems ROS Status of ROS 10 or more systems reviewed and unremark able except as noted in history and below PFSH PFSH Social History Little interest or pleasure in doing things: not at all Feeling down, depressed, or hopeless: not at all Exam Narrative Exam Narrative: Nurses notes and vital signs reviewed and patient is not hypoxic. General: Well-appearing and in no apparent distress. Skin: Warm, dry, no pallor noted. No rash. Head: Normocephalic, atraumatic. Neck: Supple, non-tender. Eye: Pupils are equal, round and EOMI. No scleral icterus. Ears, Nose, Mouth, and Throat: TM are clear, no nasal mucosal hypertrophy. Oral mucosa is moist, no posterior oropharynx erythema, uvula is mid-line Cardiovascular: Regular Rate and Rhythm without murmur, gallop or rub. Respiratory: No accessory muscle use or respiratory distress. Lungs are clear to auscultation, no wheezing, rales or rhonchi Chest Wall: no tenderness Back: No midline thoracic or lumbar vertebral tenderness. No CVA tenderness Musculoskeletal: normal ROM, no calf or popliteal tenderness, no lower extremity edema/swelling GI: Abdomen is soft, non-distended. Normal bowel sounds. No masses appreciated. No tenderness to palpation. No rebound, guarding, or rigidity noted. Neurological: A&O x4. No cranial nerve dysfunction observed. No truncal ataxia. Moves all extremities. Sensation intact. Psychiatric: Cooperative and interactive. Normal mood and affect. Constitutional Vital Signs, click to edit/add: Last Vital Signs Temp 98.9 F 08/04/24 13:00 Pulse 109 H 08/04/24 12:20 Resp 21 H 08/04/24 12:20 BP 109/68 08/04/24 12:03 Pulse Ox 100 08/04/24 12:20 O2 Del Method Room Air 08/04/24 11:41 Course Vital Signs Vital signs: Vital Signs Temperature 100.1 F 08/04/24 11:41 Pulse Rate 139 H 08/04/24 11:41 Respiratory Rate 20 08/04/24 11:41 Blood Pressure 144/80 H 08/04/24 11:41 Pulse Oximetry 100 08/04/24 11:41 Oxygen Delivery Method Room Air 08/04/24 11:41 Temperature 98.9 F 08/04/24 13:00 Pulse Rate 109 H 08/04/24 12:20 Respiratory Rate 21 H 08/04/24 12:20 Blood Pressure 109/68 08/04/24 12:03 Pulse Oximetry 100 08/04/24 12:20 Oxygen Delivery Method Room Air 08/04/24 11:41 MDM - Syncope MDM Narrative Medical decision making narrative: Other than tachycardia patient did not have any other concerning finding on examination EKG showing sinus tach cardia with a heart rate of [address] elevation or depression The patient mentioned that she felt that she was going to pass out while she is taking shower and she also mentioned that she was healing from a viral illness herself mostly sinus infection the patient had blood workup showed no acute pathology although her D-dimer was obtained just because of the tachycardia and it was elevated Chest x-ray showed no acute pathology the patient was not showing any distress at any time she also had no elevation in troponin and no hypoxemia at any moment The patient was feeling much better after being treated with 2 L of fluid she was able to ambulate with no difficulty and having no dizziness I did explain to her that right now she did not present to us with any hypoxemia and the fact that she has already exposure to her boyfriend who had a viral illness and her symptoms of runny nose and bodyaches mostly correlating with viral illness I do not think that she need to be exposed for congestion and irrigation with her for a low risk of the PE specially with her feeling much better She is to go home and hydrate well and monitor her symptom for the next 2 days with no exertion The patient agree with above-mentioned plan Patient also covered with Macrobid for asymptomatic bacteriuria in The patient is to follow up with primary care physician in next 2-3 days or to return to the emergency department should any of the signs or symptoms worsen or new symptoms develop. The patient agrees with the following Diagnosis and Treatment plan and the patient will be discharged home. Lab Data Labs: Lab Results 08/04/24 08/04/24 08/04/24 Range/Units 11:45 11:55 11:57 WBC 8.4 (4.0-11.0) 10^3/uL RBC 4.15 L (4.20-5.40) 10^6/uL Hgb 12.8 (12.0-16.0) g/dL Hct 37.4 (36.0-48.0) % MCV 90.1 (81.0-99.0) fL MCH 30.8 (26.7-34.0) pg MCHC 34.2 (29.9-35.2) g/dL RDW 12.9 (11.0-15.0) % Plt Count 173 (150-450) 10^3/uL MPV 12.3 (9.5-13.5) fL Neut % (Auto) 79.7 H (43.0-75.0) % Lymph % (Auto) 10.3 L (20.5-60.0) % Angelina % (Auto) 7.6 (1.7-12.0) % Eos % (Auto) 0.5 L (0.9-7.0) % Baso % (Auto) 0.1 L (0.2-2.0) % Neut # (Auto) 6.7 H (1.4-6.5) 10^3/uL Lymph # (Auto) 0.9 L (1.2-3.8) 10^3/uL Angelina # (Auto) 0.6 (0.3-0.8) 10^3/uL Eos # (Auto) 0.0 (0.0-0.7) 10^3/uL Baso # (Auto) 0.0 (0.0-0.1) 10^3/uL Abs Immat Gran (auto) 0.15 H (0.00-0.03) 10^3/uL Imm/Tot Granulo (auto) 1.8 H (0.0-0.5) % D-Dimer 0.69 H* (<=0.59) mg/L FEU Sodium 136 (136-145) mmol/L Potassium 3.4 L (3.5-5.1) mmol/L Chloride 101 (98-107) mmol/L Carbon Dioxide 25.6 (21.0-32.0) mmol/L Anion Gap 12.8 BUN 6.0 L (7.0-18.0) mg/dL Creatinine 0.70 (0.55-1.02) mg/dL Est GFR ( Amer) >60 (>=60 mL/min/1.73m^2) Est GFR (Non-Af Amer) >60 (>=60 mL/min/1.73m^2) BUN/Creatinine Ratio 8.6 Glucose 88 (74-106) mg/dL Calcium 9.4 (8.5-10.1) mg/dL Total Bilirubin 0.2 (0.2-1.0) mg/dL AST 19 (15-37) U/L ALT 28 (14-59) U/L Alkaline Phosphatase 66 (46-116) U/L Troponin I High Sens <4.0 L (4.0-51.3) pg/mL Total Protein 7.1 (6.4-8.2) g/dL Albumin 3.1 L (3.4-5.0) g/dL Globulin 4.0 g/dL Albumin/Globulin Ratio 0.8 Urine Color Yellow (YELLOW) Urine Clarity Clear (CLEAR) Urine pH 6.0 (5.0-9.0) Ur Specific Auxier 1.020 (1.005-1.025) Urine Protein Negative (NEG/TRACE) mg/dL Urine Glucose (UA) 250 A (NEGATIVE) mg/dL Urine Ketones Negative (NEGATIVE) mg/dL Urine Occult Blood Negative (NEGATIVE) Urine Nitrite Negative (NEGATIVE) Urine Bilirubin Negative (NEGATIVE) Urine Urobilinogen 1.0 (0.2-1.0) EU/dL Ur Leukocyte Esterase Trace A (NEGATIVE) Urine RBC None seen (0-2) #/HPF Urine WBC 2-5 A (NONE SEEN) #/HPF Ur Squamous Epith Cells Moderate A (NONE/RARE) #/LPF Urine Bacteria Moderate A (NONE SEEN) #/HPF Urine Mucus Small A (NONE SEEN) Ur Culture Indicated? Yes Influenza Type A Ag Negative Influenza Type B Ag Negative RSV Antigen Not detected (NOT DETECTE) SARS-CoV-2 Ag (CV2AG) (NEGATIVE) Blood Type O Positive Antibody Screen Negative 08/04/24 Range/Units 12:35 WBC (4.0-11.0) 10^3/uL RBC (4.20-5.40) 10^6/uL Hgb (12.0-16.0) g/dL Hct (36.0-48.0) % MCV (81.0-99.0) fL MCH (26.7-34.0) pg MCHC (29.9-35.2) g/dL RDW (11.0-15.0) % Plt Count (150-450) 10^3/uL MPV (9.5-13.5) fL Neut % (Auto) (43.0-75.0) % Lymph % (Auto) (20.5-60.0) % Angelina % (Auto) (1.7-12.0) % Eos % (Auto) (0.9-7.0) % Baso % (Auto) (0.2-2.0) % Neut # (Auto) (1.4-6.5) 10^3/uL Lymph # (Auto) (1.2-3.8) 10^3/uL Angelina # (Auto) (0.3-0.8) 10^3/uL Eos # (Auto) (0.0-0.7) 10^3/uL Baso # (Auto) (0.0-0.1) 10^3/uL Abs Immat Gran (auto) (0.00-0.03) 10^3/uL Imm/Tot Granulo (auto) (0.0-0.5) % D-Dimer (<=0.59) mg/L FEU Sodium (136-145) mmol/L Potassium (3.5-5.1) mmol/L Chloride (98-107) mmol/L Carbon Dioxide (21.0-32.0) mmol/L Anion Gap BUN (7.0-18.0) mg/dL Creatinine (0.55-1.02) mg/dL Est GFR ( Amer) (>=60 mL/min/1.73m^2) Est GFR (Non-Af Amer) (>=60 mL/min/1.73m^2) BUN/Creatinine Ratio Glucose (74-106) mg/dL Calcium (8.5-10.1) mg/dL Total Bilirubin (0.2-1.0) mg/dL AST (15-37) U/L ALT (14-59) U/L Alkaline Phosphatase (46-116) U/L Troponin I High Sens (4.0-51.3) pg/mL Total Protein (6.4-8.2) g/dL Albumin (3.4-5.0) g/dL Globulin g/dL Albumin/Globulin Ratio Urine Color (YELLOW) Urine Clarity (CLEAR) Urine pH (5.0-9.0) Ur Specific Auxier (1.005-1.025) Urine Protein (NEG/TRACE) mg/dL Urine Glucose (UA) (NEGATIVE) mg/dL Urine Ketones (NEGATIVE) mg/dL Urine Occult Blood (NEGATIVE) Urine Nitrite (NEGATIVE) Urine Bilirubin (NEGATIVE) Urine Urobilinogen (0.2-1.0) EU/dL Ur Leukocyte Esterase (NEGATIVE) Urine RBC (0-2) #/HPF Urine WBC (NONE SEEN) #/HPF Ur Squamous Epith Cells (NONE/RARE) #/LPF Urine Bacteria (NONE SEEN) #/HPF Urine Mucus (NONE SEEN) Ur Culture Indicated? Influenza Type A Ag Influenza Type B Ag RSV Antigen (NOT DETECTE) SARS-CoV-2 Ag (CV2AG) Negative (NEGATIVE) Blood Type Antibody Screen Discharge Plan Discharge Chief Complaint: Syncope Clinical Impression: Dehydration, Acute viral syndrome, Antepartum asymptomatic bacteriuria in second trimester Patient Disposition: Home, Self-Care Time of Disposition Decision: 14:04 Condition: Good Prescriptions / Home Meds: New nitrofurantoin monohyd/m-cryst [Macrobid] 100 mg capsule 100 mg PO BID 5 Days Qty: 10 0RF Rx Instructions: must administer with a meal/food Print Language: [place] Instructions: Dehydration (DC), Viral Syndrome (ED) Referrals: MACHELLE VIVEROS [Primary Care Provider] - 1 week
[2024-08-04 13:15] LABS: Internal Control Within Normal Limits; SARS-CoV-2 Ag NEGATIVE (NEGATIVE)
--- NOTE | 2024-08-04 13:16 | XR_ITS ---
The [address] [address] Patient Name: GREGORIO HESS MRN: [id number] date: 1995 Sex: F Assigned Patient Location: ER Current Patient Location: ER Accession/Order Number: [id number] Exam Date: 08/04/2024 13:10 Report Date: 08/04/2024 13:50 At the request of: ANTONY ORO Procedure: XR chest 1V EXAMINATION: XR chest 1V HISTORY: shortness of breath COMPARISON: No relevant comparison available. FINDINGS: LUNGS: No significant pulmonary parenchymal abnormalities. VASCULATURE: No increased pulmonary vasculature. PLEURA: No pneumothorax, effusion, or pleural thickening. CARDIAC: No cardiomegaly or cardiac silhouette abnormality. MEDIASTINUM: No visible mass or adenopathy. BONES: No fracture or visible bone lesion. OTHER: Negative. XR/XR chest 1V IMPRESSION: 1. No acute cardiopulmonary process. Electronically authenticated by: CONSUELO SILVERMAN Date: 08/04/2024 13:50
[2024-08-04 13:25] LABS: D Dimer 0.69 mg/L FEU (<=0.59)
== END 2024-08-04 14:13 | disposition home or self-care (01) ==
PROVIDERS: Emergency Provider Emergency Medicine; PCP Nurse Practitioner Family
DX: O99.282 Endocrine, nutritional and metabolic diseases complicating pregnancy, second trimester (principal); E86.0 Dehydration; O98.512 Other viral diseases complicating pregnancy, second trimester; B34.9 Viral infection, unspecified; O26.892 Other specified pregnancy related conditions, second trimester; R10.32 Left lower quadrant pain; R82.71 Bacteriuria; Z3A.16 16 weeks gestation of pregnancy
CPT/HCPCS: 36415; 71045; 76815; 80053; 81001; 84484; 84702; 85025; 85378; 86850; 86900; 86901; 87086; 87420; 87804; 87811; 93005; 96361; 96374; 99285; J2405

== ENCOUNTER 2024-08-13 19:08 | Outpatient (REF) | payer OTHER, SELFPAY ==
--- OUTSIDE RECORDS SUMMARY | 2024-08-13 19:14 | XMS_ITS | CCD ---
Author Organization [facility] Care Team Providers Care Menu Planner Name Role Phone Ros Segovia Torri Primary Care Physician [phone] DO Reyes Rodriguez Attending Provider MISTorri, DR BRAGG Primary Care Unavailable EBEN BRUNNER Admitting Unavailable EBEN BRUNNER Attending Unavailable EBEN BRUNNER Consulting Unavailable AMELIA HAYWARD Attending Unavailable AMELIA HAYWARD Referring Unavailable MACHELLE VIVEROS Primary Care Physician AMELIA HAYWARD Admitting Unavailable AMELIA HAYWARD Attending Unavailable AMELIA HAYWARD Referring Unavailable MACHELLE VIVEROS Primary Care Unavailable Giovany GROSS Attending Unavailable MACHELLE VIVEROS Primary Care Unavailable GINNY, Giovany R Admitting Unavailable MACHELLE VIVEROS Primary Care Unavailable GINNY, Giovany R Admitting Unavailable Betty GROSSy R Attending Unavailable Lan Malcolm MD Primary Care Provider AMELIA HAYWARD Attending Unavailable AMELIA HAYWARD Referring Unavailable GIOVANY GROSS Attending Unavailable GIOVANY GROSS Attending Unavailable Allergies Allergy Classification Reported Allergen(s) Allergy Type Date of Onset Reaction(s) Facility (8 sources) Losartan Drug Allergy 06-25-2024 [facility] Medications Current Medications Medication Drug Class(es) Dates Sig (Normalized) Sig (Original) cephalexin 500 mg oral capsule (5 sources) Cephalosporin Antibacterial Start: 12-24-2021 take 1 capsule by mouth four times daily cephalexin 500 mg Cap 500 mg = 1 cap(s), Oral, QID, # 40 cap(s), Refills(s) 0, Pharmacy: [facility], 165.1, cm, 12/24/21 19:35:00 EDT, Height/Length Dosing, 77.5, kg, 12/24/21 19:35:00 EDT, Weight Dosing Start Date: 12/24/21 Status: Ordered ibuprofen 600 mg oral tablet (5 sources) Nonsteroidal Anti-inflammatory Drug Start: 12-24-2021 take 1 tablet by mouth every six hours ibuprofen 600 mg Tab 600 mg = 1 tab(s), Oral, q6hr, # 40 tab(s), Refills(s) 0, Pharmacy: [facility] 1985, 165.1, cm, 12/24/21 19:35:00 EDT, Height/Length Dosing, 77.5, kg, 12/24/21 19:35:00 EDT, Weight Dosing Start Date: 12/24/21 Status: Ordered norethindrone 0.35 mg oral tablet (6 sources) Start: 10-28-2017 take 1 tablet by mouth once daily norethindrone 0.35 mg oral tablet 0.35 mg = 1 tab(s), Oral, Daily, # 28 tab(s), Refills(s) 0 Start Date: 10/28/17 Status: Ordered MV & Min w/FA-DHA ( ADULT GUMMY/DHA/FA PO) (3 sources) take 1 dose by mouth once daily MV & Min w/FA-DHA ( ADULT GUMMY/DHA/FA PO) Take 1 each by mouth Daily Active Vit-Fe Fumarate-FA ( Vitamins) 28-0.8 MG tablet (3 sources) Start: 08-06-2024 End: 08-06-2025 take 1 tablet by mouth once daily Vit-Fe Fumarate-FA ( Vitamins) 28-0.8 MG tablet Indications: 12 weeks gestation of Take 1 tablet by mouth Daily 30 tablet 08/06/2024 08/06/2025 Active Zofran ODT 4 mg Tab-Dis (6 sources) Start: 10-28-2017 take 1 tablet by mouth three times daily Zofran ODT 4 mg Tab-Dis 4 mg = 1 tab(s), Oral, TID, # 15 tab(s), Refills(s) 0 Start Date: 10/28/17 Status: Ordered Completed/Discontinued Medications Medication Drug Class(es) Dates Sig (Normalized) Sig (Original) [id number] 200 actuat albuterol 0.09 mg/actuat metered dose [...] (2 sources) Central alpha-2 Adrenergic Agonist Start: End: tiZANidine (Zanaflex) 4 MG tablet Indications: Chronic daily headache 1/2-1 po QHS 30 tablet 2 11/18/2023 05/28/2024 Discontinued vortioxetine 10 mg oral tablet (2 sources) End: take 1 tablet by mouth once daily Vortioxetine HBr (Trintellix) 10 MG tablet Take 1 tablet by mouth Daily 05/28/2024 Discontinued Problems Active Problems Problem Classification Problem Date Documented Da te Episodic/Chronic Headache; including migraine (20 sources) Migraine; Translations: [Migraine, unspecified, not intractable, without status migrainosus] Onset: 11-16-2023 11-16-2023 Chronic Immunizations and screening for infectious disease (2 sources) Exposure to sexually transmissible disorder; Translations: [Contact with and (suspected) exposure to infections with a predominantly sexual mode of transmission] 08-13-2024 Episodic Menstrual disorders (3 sources) Missed period; Translations: [Irregular menstruation, unspecified] 05-28-2024 Chronic Nausea and vomiting (4 sources) Vomiting, unspecified; Translations: [VOMITING UNSPECIFIED] Onset: 09-25-2022 Episodic Other aftercare (1 source) Other care home (current) drug therapy; Translations: [OTH HOT TAR ROOFER CURRENT DRUG THERAPY] Onset: 09-27-2022 Episodic Other complications of (2 sources) Complication of , childbirth and/or the puerperium; Translations: [Other specified related conditions, unspecified trimester] 05-28-2024 Episodic Other female genital disorders (2 sources) Vaginal discharge; Translations: [Other specified noninflammatory disorders of vagina] 08-13-2024 Episodic Other gastrointestinal disorders (1 source) Diarrhea, unspecified; Translations: [DIARRHEA UNSPECIFIED] Onset: 09-27-2022 Episodic Other nervous system disorders (6 sources) H/O: brain disorder 09-24-2014 Episodic Other and delivery including normal (6 sources) ; Translations: [Encounter for supervision of normal , unspecified, unspecified trimester] 06-25-2024 Episodic Other screening for suspected conditions (not mental disorders or infectious disease) (2 sources) Patient encounter status; Translations: [Encounter for other specified screening] 08-13-2024 Episodic Residual codes; unclassified (10 sources) Hypersomnia; Translations: [Hypersomnia, unspecified] Onset: 11-16-2023 11-16-2023 Chronic Residual codes; unclassified (2 sources) Gestation period, 12 weeks; Translations: [12 weeks gestation of ] 07-09-2024 Episodic Residual codes; unclassified (2 sources) Gestation period, 17 weeks; Translations: [17 weeks gestation of ] 08-13-2024 Episodic Skin and subcutaneous tissue infections (1 source) Cellulitis; Translations: [Cellulitis of unspecified part of limb] Onset: 12-24-2021 Episodic Unclassified (6 sources) OB Reminders Onset: 06-27-2024 06-27-2024 Past or Other Problems Problem Classification Problem Date Documented Da te Episodic/Chronic Epilepsy; convulsions (16 sources) Seizure; Translations: [Unspecified convulsions] Onset: 11-16-2023 12-31-2013 Episodic Headache; including migraine (10 sources) Chronic daily headache; Translations: [Chronic daily headache] Onset: 11-18-2023 11-18-2023 Episodic Unclassified (1 source) Exposure to 2019 novel coronavirus; Translations: [Contact with and (suspected) exposure to COVID19] Unclassified (3 sources) couplets( Confirmed ) 09-30-2012 Unclassified (12 sources) Onset: 06-14-2014 Resolved: 09-09-2016 01-20-2015 Unclassified (3 sources) couplets 09-30-2012 Results Test Name Value Interpretation Reference Range Facility Urinalysis macro (dipstick) panel (U)on 08-13-2024 Bilirubin, UA Negative Negative - 4(70) +++ mg/dL [facility] Blood, UA Negative Negative - 50 Theodore/mcL [facility] Clarity, UA Clear [facility] re Color, UA Yellow [facility] Glucose, UA Positive Negative - 2000(110) ++++ mg/dL [facility] Comment on above: 100 Interpretation and review of laboratory results Abnormal [facility] Ketones, UA Negative Negative - 160(16) ++++ mg/dL [facility] Leukocytes, UA Negative Negative - 500+++ Mike/mcL [facility] Nitrite, UA Negative Negative - Positive [facility] pH, UA 5.5 5 - 9 [facility] Protein, UA Trace Negative - 1999(20) ++++ mg/dL [facility] Spec Grav, UA 1.03 1 - 1.03 [facility] Urobilinogen, UA 0.2 0.2 - 12 mg/dL [facility] Urinalysis macro (dipstick) panel (U)on 07-09-2024 Bilirubin, UA Negative Negative - 4(70) +++ mg/dL [facility] Blood, UA Negative Negative - 50 Theodore/mcL [facility] Clarity, UA Clear [facility] re Color, UA Yellow [facility] Glucose, UA Negative Negative - 1999(110) ++++ mg/dL [facility] Interpretation and review of laboratory results Abnormal [facility] Ketones, UA Positive Negative - 160(16) ++++ mg/dL [facility] Comment on above: trace Leukocytes, UA Negative Negative - 500+++ Mike/mcL [facility] Nitrite, UA Negative Negative - Positive [facility] pH, UA 6 5 - 9 [facility] e Protein, UA Trace Negative - 1999(20) ++++ mg/dL [facility] Spec Grav, UA 1.025 1 - 1.03 [facility] Urobilinogen, UA 1.0 0.2 - 12 mg/dL [facility] HCG ( test) Ql (U)o n 06-26-2024 Interpretation and review of laboratory results Abnormal [facility] Preg Test, Ur Positive Negative [facility] DRUG SCREEN RAPID (URINE )on 06-26-2024 AMPHETAMINE SCREEN URINE Negative NEGATIVE [facility] BARBITURATES SCREEN URINE Negative NEGATIVE [facility] BENZODIAZEPINES SCREEN URINE Negative NEGATIVE [facility] BUPRENORPHINE SCREEN URINE Negative NEGATIVE [facility] Comment on above: DRUG CLASS TEST [...] 300 ng/mL CANNABINOID SCREEN URINE Negative NEGATIVE [facility] COCAINE SCREEN URINE Negative NEGATIVE [facility] METHADONE SCREEN URINE Negative NEGATIVE [facility] METHAMPHETAMINES SCREEN URINE Negative NEGATIVE [facility] OPIATE SCREEN URINE Negative NEGATIVE [facility] OXYCODONE SCREEN URINE Negative NEGATIVE [facility] PHENCYCLIDINE SCREEN URINE Negative NEGATIVE [facility] TRICYCLIC ANTIDEPRESSANT URINE Negative NEGATIVE [facility] Health[facility] e Urinalysis macro (dipstick) panel (U)on 06-26-2024 Bilirubin, UA Negative Negative - 4(70) +++ mg/dL [facility] Blood, UA Negative Negative - 50 Theodore/mcL [facility] Clarity, UA Clear [facility] Health[facility] re Color, UA Yellow [facility] Glucose, UA Negative Negative - 1999(110) ++++ mg/dL [facility] Interpretation and review of laboratory results Abnormal [facility] Ketones, UA Negative Negative - 160(16) ++++ mg/dL [facility] Leukocytes, UA Trace Negative - 500+++ Mike/mcL [facility] Nitrite, UA Negative Negative - Positive [facility] pH, UA 7 5 - 9 [facility], UA Negative Negative - 1999(20) ++++ mg/dL [facility] Spec Grav, UA 1.015 1 - 1.03 [facility] Urobilinogen, UA 1.0 0.2 - 12 mg/dL [facility] Urinalysis macro (dipstick) panel (U)on 05-28-2024 Bilirubin, UA Negative Negative - 4(70) +++ mg/dL [facility] Blood, UA Negative Negative - 50 Theodore/mcL [facility] Clarity, UA Clear [facility] Health[facility] re Color, UA Yellow [facility] Glucose, UA Negative Negative - 1999(110) ++++ mg/dL [facility] Interpretation and review of laboratory results Normal [facility] Ketones, UA Negative Negative - 160(16) ++++ mg/dL [facility] Leukocytes, UA Negative Negative - 500+++ Mike/mcL [facility] Nitrite, UA Negative Negative - Positive [facility] pH, UA 7 5 - 9 [facility] Protein, UA Negative Negative - 1999(20) ++++ mg/dL [facility] Spec Grav, UA 1.025 1 - 1.03 [facility] Urobilinogen, UA 0.2 0.2 - 12 mg/dL [facility] e BhCG Quanton 05-27-2024 [place] [address] m[IU]/mL High 1-[address] [facility] Comment on above: Result Comment: 'F N ON < 1 - 3' ' 0.2 - 1 WEEK = 5 TO 50' ' 1 - 2 WEEKS = 50 - 500' ' 2 - 3 WEEKS = 100 - 5000' ' 3 - 4 WEEKS = 500 - 80964' ' 4 - 5 WEEKS = 1000 - 13185' ' 5 - 6 WEEKS = 90288 - 087306' ' 6 - 8 WEEKS = 17144 - 186083' ' 8 - 12 WEEKS = 62405 - 190055' Performed By: #### 2 [id number] #### Haro [facility] [address] [place] [address] CHEMISTRYOrdered By: SYSTEM SYSTEM on 05-27-2024 [place] [address] m[IU]/mL High 1 - 3 mIU/mL [facility] Comment on above: Result Comment: 'F N ON < 1 - 3' ' 0.2 - 1 WEEK = 5 TO 50' ' 1 - 2 WEEKS = 50 - 500' ' 2 - 3 WEEKS = 100 - 5000' ' 3 - 4 WEEKS = 500 - 03104' ' 4 - 5 WEEKS = 1000 - 03886' ' 5 - 6 WEEKS = 89634 - 631711' ' 6 - 8 WEEKS = 39166 - 306886' ' 8 - 12 WEEKS = 50681 - 035481' MRI Brain w/o Contraston MRI Brain w/o [...] Galaviz DO Transcribed by: TEJAL Technologist: KALYN [facility] Consent for Treatmenton Consent for Treatment [id number] E9#[id number] [facility] RAD - MRI Screening Formon 0 11-21-2023 RAD - MRI Screening Form [id number]#1.00TIFF [facility] Physician Orderon 11-20-2023 Physician Order [id number] C0#1.00TIFF [facility] CHEMISTRYOrdered By: SYSTEM SYSTEM on 10-29-2022 Cobalamin (Vitamin B12) [Mass/Vol] 460 pg/mL Normal 50 - 1500 pg/mL [facility] Remisol Folate [Mass/Vol] 8.4 ng/mL Normal >=6.7ng/mL [facility] Re misol Magnesium [Mass/Vol] 2.1 mg/dL Normal 1.3 - 2 .4 mg/dL [facility] Remisol AMYLASEon 09-25-2022 Amylase [Catalytic activity/Vol] 65 U/L Normal 25-115 [facility] Comment on above: Performed By: #### L IPA, APZ, CMP #### [facility] [address] [place] [address] Dr. Flores Arroyo CBC AUTO DIFFon 09-25-2022 BASO # 0.0 103/ul Normal 0.0-0.1 [facility] Comment on above: Performed By: #### C BC #### [facility] [address] [place] [address] Dr. Flores Arroyo Basophils/100 WBC (Bld) 0.2 % Normal 0.2-2.0 [facility] Comment on above: Performed By: #### C BC #### [facility] [address] [place] [address] Dr. Flores Arroyo EO # 0.1 103/ul Normal 0.0-0.7 [facility] Comment on above: Performed By: #### C BC #### [facility] [address] [place] [address] Dr. Flores Arroyo Eosinophils/100 WBC (Bld) 0.3 % Critically low 0.9-7.0 [facility] Comment on above: Performed By: #### C BC #### [facility] [address] [place] [address] Dr. Flores Arroyo Erythrocyte distribution width (RBC) [Ratio] 13.7 % Normal 11.0-15.0 [facility] Comment on above: Performed By: #### C BC #### [facility] [address] [place] [address] Dr. Flores Arroyo Hematocrit (Bld) [Volume fraction] 44.0 % Normal 36.0-48.0 [facility] Comment on above: Performed By: #### C BC #### [facility] [address] [place] [address] Dr. Flores Arroyo Hemoglobin (Bld) [Mass/Vol] 14.7 g/dL Normal 12.0-16.0 [facility] Comment on above: Performed By: #### C BC #### [facility] [address] [place] [address] Dr. Flores Arroyo IG # 0.07 10e3/ul Critically high 0.00-0.03 [facility] Comment on above: Performed By: #### C BC #### [facility] [address] [place] [address] Dr. Flores Arroyo IG % 0.4 % Normal 0.0-0.5 [facility] Comment on above: Performed By: #### C BC #### [facility] [address] [place] [address] Dr. Flores Arroyo LYMPH # 2.4 103/ul Normal 1.2-3.8 [facility] Comment on above: Performed By: #### C BC #### [facility] [address] [place] [address] Dr. Flores Arroyo Lymphocytes/100 WBC (Bld) 12.7 % Critically low 20.5-60.0 [facility] Comment on above: Performed By: #### C BC #### [facility] [address] [place] [address] Dr. Flores Arroyo MANUAL DIFF REQ NO Normal [facility] Comment on above: Performed By: #### C BC #### [facility] [address] [place] [address] Dr. Flores Arroyo MCH (RBC) [Entitic mass] 29.5 pg Normal 26.7-34.0 [facility] Comment on above: Performed By: #### C BC #### [facility] [address] [place] [address] Dr. Flores Arroyo MCHC (RBC) [Mass/Vol] 33.4 g/dL Normal 29.9-35.2 [facility] Comment on above: Performed By: #### C BC #### [facility] [address] [place] [address] Dr. Flores Arroyo MCV (RBC) [Entitic vol] 88.4 fL Normal 81.0-99.0 [facility] Comment on above: Performed By: #### C BC #### [facility] [address] [place] [address] Dr. Flores Arroyo MONO # 1.3 103/ul Critically high 0.3-0.8 [facility] Comment on above: Performed By: #### C BC #### [facility] [address] [place] [address] Dr. Flores Arroyo Monocytes/100 WBC (Bld) 7.2 % Normal 1.7-12.0 [facility] Comment on above: Performed By: #### C BC #### [facility] [address] [address] [address] Flores Arroyo NEUT # 14.8 103/ul Critically high 1.4-6.5 [facility] Comment on above: Performed By: #### C BC #### [facility] [address] [place] [address] Dr. Flores Arroyo Neutrophils/100 WBC (Bld) 79.2 % Critically high 43.0-75.0 [facility] Comment on above: Performed By: #### C BC #### [facility] [address] [place] [address] Dr. Flores Arroyo Platelet mean volume (Bld) [Entitic vol] 10.8 fL Normal 9.5-13.5 [facility] Comment on above: Performed By: #### C BC #### [facility] [address] [place] [address] Dr. Flores Arroyo PLT 306 103/ul Normal 150-450 [facility] Comment on above: Performed By: #### C BC #### [facility] [address] [place] [address] Dr. Flores Arroyo RBC 4.98 106/ul Normal 4.20-5.40 [facility] Comment on above: Performed By: #### C BC #### [facility] [address] [place] [address] Dr. Flores Arroyo WBC 18.7 103/ul Critically high 4.0-11.0 [facility] Comment on above: Performed By: #### C BC #### [facility] [address] [place] [address] Dr. Flores Arroyo CULTURE URINEon 09-25-2022 CULTURE URINE Culture Observations: MODERATE GROWTH OF MIXED GENITAL MIS. NO POTENTIAL PATHOGENS SEEN. Normal [facility] Comment on above: Performed By: #### U RCX #### [facility] [address] [place] [address] Dr. Flores Arroyo ER URINE PROFILEon Bilirubin Ql (U) Negative Normal NEGATIVE [facility] Comment on above: Performed By: #### U MICRO, ERUR #### [facility] [address] [address] [address] Flores Arroyo Clarity (U) CLEAR Normal CLEAR [facility] Comment on above: Performed By: #### U MICRO, ERUR #### [facility] [address] [address] [address] Flores Arroyo Color (U) YELLOW Normal YELLOW [facility] Comment on above: Performed By: #### U MICRO, ERUR #### [facility] [address] [address] [address] Flores Arroyo ERUCHEYENNED A micrscopic examination will be performed if indicated. Normal [facility] Comment on above: Performed By: #### U MICRO, ERUR #### [facility] [address] [place] [address] Dr. Flores Arroyo Glucose Ql (U) Negative Normal NEGATIVE [facility] Comment on above: Performed By: #### U MICRO, ERUR #### [facility] [address] [place] [address] Dr. Flores Arroyo Hemoglobin Ql (U) Negative Normal NEGATIVE [facility] Comment on above: Performed By: #### U MICRO, ERUR #### [facility] [address] [address] [address] Flores Arroyo Ketones Ql (U) Negative Normal NEGATIVE [facility] Comment on above: Performed By: #### U MICRO, ERUR #### [facility] [address] [address] [address] Flores Arroyo LEUKOCYTES Negative Normal NEGATIVE [facility] Comment on above: Performed By: #### U MICRO, ERUR #### [facility] [address] [address] [address] Flores Arroyo Nitrite Ql (U) Negative Normal NEGATIVE [facility] Comment on above: Performed By: #### U MICRO, ERUR #### [facility] [address] [address] [address] Flores Arroyo pH (U) 5.5 [pH] Normal 5-9 [facility] Comment on above: Performed By: #### U MICRO, ERUR #### [facility] [address] [address] [address] Flores Arroyo Protein (U) [Mass/Vol] 30 mg/dL Abnormal NEGATIVE/ TRACE [facility] Comment on above: Performed By: #### U MICRO, ERUR #### [facility] [address] [address] [address] Flores Arroyo SPEC GRAVITY >=1.030 Abnormal 1.005-<=1.025 [facility] Comment on above: Performed By: #### U MICRO, ERUR #### [facility] [address] [address] [address] Flores Arroyo UR MICRO IND INDICATED Normal [facility] Comment on above: Performed By: #### U MICRO, ERUR #### [facility] [address] [place] [address] Dr. Flores Arroyo Urobilinogen Qn (U) 0.2 {Salty'U}/dL Normal 0.2 - 1. 0 [facility] Comment on above: Performed By: #### U MICRO, ERUR #### [facility] [address] [address] [address] Flores Arroyo LACTATE/LACTIC ACIDon 2022 Lactate [Moles/Vol] 1.6 mmol/L Normal 0.4-2.0 [facility] Comment on above: Performed By: #### L ACT #### [facility] [address] [place] [address] Dr. Flores Arroyo LIPASEon 09-25-2022 Lipase [Catalytic activity/Vol] 95.0 U/L Normal 73.0-393.0 [facility] Comment on above: Performed By: #### L APZ MARTINES, CMP #### [facility] [address] [place] [address] Dr. Flores Arroyo PROF 14(COMP METB)on 023 Albumin [Mass/Vol] 4.4 g/dL Normal 3.4-5.0 [facility] Comment on above: Performed By: #### L PAZ MARTINES, CMP #### [facility] [address] [address] [address] Flores Arroyo Albumin/Globulin [Mass ratio] 1.2 {ratio} Normal [facility] Comment on above: Performed By: #### L PAZ MARTINES, CMP #### [facility] [address] [address] [address] Flores Arroyo ALP [Catalytic activity/Vol] 86 U/L Normal 46-116 [facility] Comment on above: Performed By: #### L PAZ MARTINES, CMP #### [facility] [address] [address] [address] Flores Arroyo ALT [Catalytic activity/Vol] 41 U/L Normal 14-59 [facility] Comment on above: Performed By: #### L PAZ MARTINES, CMP #### [facility] [address] [address] [address] Flores Arroyo Anion gap [Moles/Vol] 11.4 mmol/L Normal [facility] Comment on above: Performed By: #### L PAZ MARTINES, CMP #### [facility] [address] [address] [address] Flores Arroyo AST [Catalytic activity/Vol] 29 U/L Normal 15-37 [facility] Comment on above: Performed By: #### L PAZ MARTINES, CMP #### [facility] [address] [address] [address] Flores Arroyo Bilirubin [Mass/Vol] 0.3 mg/dL Normal 0.2-1.0 [facility] Comment on above: Performed By: #### L PAZ MARTINES, CMP #### [facility] [address] [address] [address] Flores Arroyo Calcium [Mass/Vol] 9.3 mg/dL Normal 8.5-10.1 [facility] Comment on above: Performed By: #### L PAZ MARTINES, CMP #### [facility] [address] [address] [address] Flores Arroyo Chloride [Moles/Vol] 102 mmol/L Normal 98-107 [facility] Comment on above: Performed By: #### L PAZ MARTINES, CMP #### [facility] [address] [address] [address] Flores Arroyo CO2 [Moles/Vol] 26.3 mmol/L Normal 21.0-32.0 [facility] Comment on above: Performed By: #### L BOBBI PAZ, CMP #### [facility] [address] [address] [address] Flores Arroyo Creatinine [Mass/Vol] 0.85 mg/dL Normal 0.55-1.02 [facility] Comment on above: Performed By: #### L BOBBI PAZ, CMP #### [facility] [address] [address] [address] Flores Arroyo EGFR-AF [place] >60 Normal >=60 [facility] Comment on above: Performed By: #### L BOBBI PAZ, CMP #### [facility] [address] [address] [address] Flores Arroyo EGFR-NON AF [place] >60 Normal >=60 [facility] Comment on above: Performed By: #### L PAZ MARTINES, CMP #### [facility] [address] [address] [address] Flores Arroyo Globulin (S) [Mass/Vol] 3.8 g/dL Normal [facility] Comment on above: Performed By: #### L PAZ MARTINES, CMP #### [facility] [address] [address] [address] Flores Arroyo Glucose [Mass/Vol] 159 mg/dL Critically high 74-106 [facility] Comment on above: Performed By: #### L PAZ MARTINES, CMP #### [facility] [address] [address] [address] Flores Arroyo Potassium [Moles/Vol] 3.7 mmol/L Normal 3.5-5.1 [facility] Comment on above: Performed By: #### L PAZ MARTINES, CMP #### [facility] [address] [address] [address] Flores Arroyo Protein [Mass/Vol] 8.2 g/dL Normal 6.4-8.2 [facility] Comment on above: Performed By: #### L PAZ MARTINES, CMP #### [facility] [address] [address] [address] Flores Arroyo Sodium [Moles/Vol] 136 mmol/L Normal 136-145 [facility] Comment on above: Performed By: #### L PAZ MARTINES, CMP #### [facility] [address] [address] [address] Flores Arroyo Urea nitrogen [Mass/Vol] 11.0 mg/dL Normal 7.0-18.0 [facility] Comment on above: Performed By: #### L PAZ MARTINES, CMP #### [facility] [address] [address] [address] Flores Arroyo Urea nitrogen/Creatinine [Mass ratio] 12.9 mg/mg Normal [facility] Comment on above: Performed By: #### L PAZ MARTINES, CMP #### [facility] [address] [place] [address] Dr. Flores Arroyo URINE MICROSCOPIC ONLYon BACTERIA SMALL Abnormal NONE SEEN [facility] Comment on above: Performed By: #### U MICRO, ERUR #### [facility] [address] [address] [address] Flores Arroyo Bacteria identified Cx Nom (U) INDICATED Normal [facility] Comment on above: Performed By: #### U MICRO, ERUR #### [facility] [address] [place] [address] Dr. Flores Arroyo CAST NONE SEEN Normal NONE SEEN [facility] Comment on above: Performed By: #### U MICRO, ERUR #### [facility] [address] [address] [address] Flores Arroyo Crystals LM Nom (Urine sed) NONE SEEN Normal NONE SEEN [facility] Comment on above: Performed By: #### U MICRO, ERUR #### [facility] [address] [address] [address] Flores Arroyo Epithelial cells LM Ql (Urine sed) MODERATE Abnormal NONE SEEN /RARE [facility] Comment on above: Performed By: #### U MICRO, ERUR #### [facility] [address] [address] [address] Flores Arroyo MUCOUS MODERATE Abnormal NONE SEEN [facility] Comment on above: Performed By: #### U MICRO, ERUR #### [facility] [address] [address] [address] Flores Arroyo RBC 0-2 Normal 0-2 [facility] Comment on above: Performed By: #### U MICRO, ERUR #### [facility] [address] [address] [address] Flores Arroyo WBC 2-5 Abnormal NONE SEEN [facility] Comment on above: Performed By: #### U MICRO, ERUR #### [facility] [address] [address] [address] Flores Arroyo XR chest 1Von 10-31-2021 XR chest 1V [facility] Main [place] [address] [place] [address] XRay Report Signed Patient: GREGORIO HESS MR#: [id number] : 1995 Acct:[id number] Age/Sex: 26 / F ADM Date: 10/31/21 Loc: [place] Room: Type: [facility] Attending Dr: Reyes Rodriguez DO, [facility] Ordering Provider: Reyes Rodriguez DO Date of Service: 10/31/21 XR/XR chest 1V: POSITIVE PPD TEST Copies to: Reyes Rodriguez DO PA CHEST: CLINICAL HISTORY: Positive Tspot. COMPARISON: None FINDINGS: Heart is normal in size. Lungs are clear. No free air. XR/XR chest 1V IMPRESSION: NEGATIVE CHEST. Impression dictated by: Dirk Chaves Jr., D.OBeka10/31/2021 12:11 PM Dictation Location: [place] [address] Transcribed By: [facility] 10/31/21 1211 Dictated By: Dirk Chaves Jr, DO 10/31/21 1210 Signed By: 10/31/[address] [facility] MICRO OTHER TESTSOrdered By: Ines Michel on 07-21-2021 Rapid COV Int NEG Ctl Pass (07/21/21 11:06 AM) Normal [facility] Man Sero Rapid COV Int POS Ctl Pass (07/21/21 11:06 AM) Normal [facility] Man Sero SARS-CoV+SARS-CoV-2 (COVID-19) Ag IA.rapid Ql (Resp) Not Detected (07/21/21 11:06 AM) Normal Not Detected FT Man [facility] Vital Signs Date Time Vital Sign Value Performing Clinician Facility 08-13-2024 10:59-0500 Body mass index (BMI) [Ratio] 29.99 kg/m2 Paz SHIELDS Work Phone: [facility] 08-13-2024 10:59-0500 Body weight 84.28 kg Paz SHIELDS Work Phone: [facility] 08-13-2024 10:59-0500 Diastolic blood pressure 82 mm[Hg] Paz SHIELDS Work Phone: [facility] 08-13-2024 10:59-0500 Systolic blood pressure 120 mm[Hg] Paz SHIELDS Work Phone: [facility] 07-09-2024 11:53-0500 Body mass index (BMI) [Ratio] 29.02 kg/m2 Giovany Ginny DO Work Phone: [facility] 07-09-2024 11:53-0500 Body weight 81.56 kg Giovany Ginny DO Work Phone: [facility] 07-09-2024 11:53-0500 Diastolic blood pressure 70 mm[Hg] Giovany Ginny DO Work Phone: [facility] 07-09-2024 11:53-0500 Systolic blood pressure 120 mm[Hg] Giovany Ginny DO Work Phone: [facility] 05-28-2024 09:39-0500 Body mass index (BMI) [Ratio] 27.66 kg/m2 Giovany Ginny DO Work Phone: [facility] 05-28-2024 09:39-0500 Body weight 77.75 kg Giovany Ginny DO Work Phone: [facility] 05-28-2024 09:39-0500 Diastolic blood pressure 68 mm[Hg] Giovany Ginny DO Work Phone: [facility] 05-28-2024 09:39-0500 Systolic blood pressure 110 mm[Hg] Giovany Ginny DO Work Phone: [facility] 12-24-2021 21:08-0400 Diastolic blood pressure 81 mm[Hg] Jalen Ezekiel [facility] 12-24-2021 21:08-0400 Heart rate 79 /min Jalen Ezekiel [facility] 12-24-2021 21:08-0400 Respiratory rate 18 /min Jalen Ezekiel [facility] 12-24-2021 21:08-0400 SaO2% (BldA) [Mass fraction] 100 % Jalen Ezekiel [facility] 12-24-2021 21:08-0400 Systolic blood pressure 114 mm[Hg] Jalen Ezekiel [facility] 12-24-2021 19:32-0400 Body temperature 98.06 [degF] Jalen Ezekiel [facility] 12-24-2021 19:32-0400 Diastolic blood pressure 85 mm[Hg] Jalen Ezekiel [facility] 12-24-2021 19:32-0400 Heart rate 100 /min Jalen Ezekiel [facility] 12-24-2021 19:32-0400 Respiratory rate 16 /min Jalen Ezekiel [facility] 12-24-2021 19:32-0400 SaO2% (BldA) [Mass fraction] 100 % Jalen Ezekiel [facility] 12-24-2021 19:32-0400 Systolic blood pressure 121 mm[Hg] Jalen Ezekiel [facility] Encounters Encounter Date Encounter Type Care Provider Facility Start: 08-13-2024 End: 08-13-2024 Bamboo flowsheet Paz SHIELDS Work Phone: [facility] Start: 08-13-2024 End: 08-13-2024 Bamboo flowsheet Paz SHIELDS Work Phone: [facility] Start: 08-13-2024 End: 08-13-2024 Patient encounter procedure Paz SHILEDS Work Phone: [facility] Start: 08-13-2024 End: 08-13-2024 Periodic preventive med est patient 18-39 yrs Paz SHIELDS Work Phone: [facility] Comment on above: Screening, , for anatomic survey; Well woman exam with routine gynecological exam; Exposure to STD; Vaginal discharge; 17 weeks gestation of ; Second trimester Start: 07-09-2024 End: 07-09-2024 Bamboo flowsheet Giovany [...] 10w3d Start: 06-25-2024 End: 06-25-2024 ambulatory AMELIA MARCIALMOR Not Available Start: 05-28-2024 End: 05-28-2024 Office outpatient visit 15 minutes Giovany Ginny DO Work Phone: [facility] Comment on above: Abdominal cramping a ffecting ; Missed menses Start: 05-28-2024 End: 05-28-2024 ambulatory GIOVANY GINNY Not Available Start: 05-27-2024 End: 05-27-2024 ambulatory Giovany R GINNY Facility:[facility] Start: 05-27-2024 End: 05-27-2024 Patient encounter procedure Giovany R GINNY [facility] Start: 11-21-2023 End: 11-21-2023 ambulatory AMELIA MARCIALMOR Facility:[facility] Start: 11-21-2023 End: 11-21-2023 Patient encounter procedure AMELIA Jose MARCIALMOR [facility] Start: 11-19-2023 End: 11-19-2023 ambulatory AMELIA GILLMOR Not Available Start: 11-19-2023 End: 11-19-2023 ambulatory AMELIA GILLMOR Not Available Start: 11-18-2023 End: 11-18-2023 ambulatory AMELIA GILLMOR Not Available Start: 11-18-2023 End: 11-18-2023 ambulatory AMELIA GILLMOR Not Available Start: 10-29-2022 End: 10-29-2022 Lab Drop off MACHELLE VIVEROS [facility] Start: 09-25-2022 End: 09-25-[address] DOCTOR BAILEY Facility: Start: 02-06-2022 End: 02-06-2022 Lab Drop off TIESHA FINLEY [facility] Start: 12-24-2021 End: 12-24-2021 Emergency department patient visit Jalen Falcon [facility] Start: 10-31-2021 End: 10-31-2021 Departed Referred DO Reyes Rodriguez Work Phone: [facility] [address] Start: 07-20-2021 End: 10-19-2021 Recurring Sumit Scott [facility] Procedures Date Procedure Procedure Detail Performing Clinician Start: 08-13-2024 Urnls dip stick/tabl et rgnt non-auto w/o micrscp Paz SHIELDS Work Phone: Start: 07-09-2024 Urnls dip stick/tabl et rgnt non-auto w/o micrscp Giovany Ginny DO Work Phone: Start: 06-26-2024 End: 06-26-2024 Urnls dip stick/tablet rgnt non-auto w/o micrscp Giovany Ginny DO Work Phone: Start: 06-26-2024 [facility] DRUG SCREEN RAPI D (URINE) Giovany Ginny DO Work Phone: Start: 05-28-2024 Urnls dip stick/tabl et rgnt non-auto w/o micrscp Giovany Ginny DO Work Phone: Tonsillectomy Sumit Scott Plan of Treatment Date Care Activity Detail Author Start: 08-13-2024 End: 09-11-2024 Alpha fetoprotein, maternal Alpha fetoprotein, maternal Lab Routine 17 weeks gestation of Second trimester Expected: 08/13/2024 (Approximate), Expires: 09/11/2024 [facility] Comment on above: Expected: 08/13/2024 (Approximate), Expires: 09/11/2024 Start: 08-13-2024 End: 08-13-2025 US for US OB 14+ weeks anatomy scan Imaging Routine Screening, , for anatomic survey Expected: 08/13/2024, Expires: 08/13/2025 [facility] Comment on above: Expected: 08/13/2024 , Expires: 08/13/2025 Start: 08-13-2024 End: 08-13-2024 Patient encounter procedure 08/13/2024 10:50 AM EST Routine [facility] [address] [facility] [place] [address] Paz Varela PA [address] [place], [place] [id number] Arrived [facility] Comment on above: Arrived Start: 08-10-2024 End: 08-10-2024 Patient encounter procedure 08/10/2024 9:50 AM EST Routine [facility] [address] [facility] [place] [id number] Paz Varela PA [address] [place] [address] [facility] Start: 07-09-2024 End: 07-09-2024 Patient encounter procedure [facility] Comment on above: Arrived Start: 06-25-2024 End: 06-25-2024 ambulatory 06/25/2024 2:30 PM EST Initial [facility] [address] [facility] [place] [id number] [facility] Start: 06-25-2024 End: 06-25-2025 ABO/Rh ABO/Rh Lab Routine Missed menses , unspecified gestational age Expected: 06/25/2024 (Approximate), Expires: 06/25/2025 [facility] Comment on above: Expected: 06/25/2024 (Approximate), Expires: 06/25/2025 Start: 06-25-2024 End: 06-25-2025 Blood type and Indirect antibody screen panel - Blood Type and screen Lab Routine Missed menses , unspecified gestational age Expected: 06/25/2024 (Approximate), Expires: 06/25/2025 [facility] Work Phone: Comment on above: Expected: 06/25/2024 (Approximate), Expires: 06/25/2025 Start: 06-25-2024 End: 06-25-2025 Drugs of abuse panel - Urine by Screen method Rapid drug screen, urine Lab Routine , unspecified gestational age Encounter for supervision of normal first in first trimester Expected: 06/25/2024 (Approximate), Expires: 06/25/2025 [facility] Comment on above: Expected: 06/25/2024 (Approximate), Expires: 06/25/2025 Start: 06-25-2024 End: 06-25-2024 Professional / ancillary services management 06/25/2024 2:00 PM EST Ancillary Procedure [facility] [address] [place] [id number] [facility] Start: 06-25-2024 End: 06-25-2025 US Pelvis transvaginal US OB transvaginal Imaging Routine Missed menses Expected: 06/25/2024 (Approximate), Expires: 06/25/2025 [facility] Comment on above: Expected: 06/25/2024 (Approximate), Expires: 06/25/2025 Start: 05-28-2024 End: 05-28-2025 US for US OB > 14 WEEKS Imaging Routine Abdominal cramping affecting Missed menses Expected: 05/28/2024 (Approximate), Expires: 05/28/2025 [facility] Comment on above: Expected: 05/28/2024 (Approximate), Expires: 05/28/2025 Start: 05-28-2024 End: 05-28-2025 US Pelvis transvaginal US OB transvaginal Imaging Routine Abdominal cramping affecting Missed menses Expected: 05/28/2024 (Approximate), Expires: 05/28/2025 [facility] Work Phone: Comment on above: Expected: 05/28/2024 (Approximate), Expires: 05/28/2025 Start: 03-15-2024 Influenza vaccination Influenza Vacc ine (#1) [facility] Bacteria identified in Urine by Culture Urine culture Microbiology Routine Missed menses Ordered: 06/25/2024 [facility] Comment on above: Ordered: 06/25/2024 CBC W Auto Different ial panel - Blood CBC and differential Lab Routine Missed menses , unspecified gestational age Ordered: 06/25/2024 [facility] Comment on above: Ordered: 06/25/2024 CHLAMYDIA TRACHOMATI S (GENITO/STI) CHLAMYDIA TRACHOMATIS (GENITO/STI) Lab Routine Exposure to STD Ordered: 08/13/2024 [facility] Comment on above: Ordered: 08/13/2024 Cytology Cervical or vaginal smear or scraping study Pap Smear Pathology and Cytology Routine Well woman exam with routine gynecological exam Ordered: 08/13/2024 [facility] Comment on above: Ordered: 08/13/2024 Hemoglobin A1c/Hemoglobin.total in Blood Hemoglobin A1c Lab Routine Missed menses , unspecified gestational age Ordered: 06/25/2024 [facility] Comment on above: Ordered: 06/25/2024 Hepatitis B virus surface Ag [Presence] in Serum or Plasma by Immunoassay Hepatitis B surface antigen Lab Routine Missed menses , unspecified gestational age Ordered: 06/25/2024 [facility] Comment on above: Ordered: 06/25/2024 Hepatitis C virus Ab [Presence] in Serum or Plasma by Immunoassay Hepatitis C antibody Lab Routine Missed menses , unspecified gestational age Ordered: 06/25/2024 [facility] Comment on above: Ordered: 06/25/2024 HIV-1/HIV-2 antigen/antibody combination immunoassay HIV-1 and HIV-2 antibodies Lab Routine Missed menses , unspecified gestational age Ordered: 06/25/2024 [facility] Comment on above: Ordered: 06/25/2024 Neisseria gonorrhoea e DNA [Presence] in Unspecified specimen by DONALD with probe detection Neisseria gonorrhea DNA probe, direct Lab Routine Exposure to STD Ordered: 08/13/2024 [facility] Comment on above: Ordered: 08/13/2024 Reagin Ab [Presence] in Serum by RPR RPR Lab Routine Missed menses , unspecified gestational age Ordered: 06/25/2024 [facility] Comment on above: Ordered: 06/25/2024 Rubella antibody, IgG Rubella an tibody, IgG Lab Routine Missed menses , unspecified gestational age Ordered: 06/25/2024 [facility] Comment on above: Ordered: 06/25/2024 SURESWAB(R) ADVANCED VAGINITIS PLUS, TMA SURESWAB(R) ADVANCED VAGINITIS PLUS, TMA Pathology and Cytology Routine Vaginal discharge Ordered: 08/13/2024 [facility] Work Phone: Comment on above: Ordered: 08/13/2024 Immunizations Immunization Date Immunization Notes Care Provider Fa cility 04-27-2021 influenza virus vaccine, unspecified formulation Giovany Gross DO Work Phone: [facility] 01-15-2015 measles, mumps and rubella virus vaccine Sumit Link [facility] Comment on above: Reason for Medicatio n: Other (see comment) 01-15-2015 tetanus toxoid, redu carly diphtheria toxoid, and acellular pertussis vaccine, adsorbed Sumit Link [facility] Comment on above: Reason for Medicatio n: Other (see comment) Payers Date Payer Category Payer Private Health Insurance [facility]ICA[facility] [id number] 1995 Unknown [id number] 1996 Unknown [id number] 1259 1996 Unknown [id number]. 1259 1996 Unknown [id number] 1996 Unknown [id number] 727 1996 Unknown [id number] 9 1996 Unknown [id number] 9 1996 Unknown [id number] 9 1996 Unknown [id number] 1259 1959 Unknown [id number] Self-pay Self Pay [id number] Social History Date Type Detail Facility Tobacco smoking status Unknown if ever sm oked [facility] Start: 11-16-2023 End: 11-18-2023 Sex Assigned At Female [facility] Start: 1995 Sex Assigned At Female [facility] Tobacco smoking status No Smokin g Status Entered [facility] Tobacco smoking status No Smokin g Status Entered [facility] Start: 11-18-2023 Tobacco smoking stat [facility] Never smoked tobacco [facility] Start: 11-18-2023 [...] 1-2 cups per day [facility] Start: 04-15-2024 Gender identity Identifies as female gender (finding) [facility] Start: 04-27-2024 [facility] Go[facility] Date Patient Goal Desired Activity /State Personal health goal Functional Status Date Assessment Result Facility 12-24-2021 Functional Status No Haro - T [facility] Clinical Notes 12-24-2021 to 08-13-2024 Paz Varela, CORNELIUS - 08/13/2024 10:50 AM Celestine Wise, [facility] - 07/09/2024 11:30 AM Buffy Oneal, [facility] - 06/25/2024 2:30 PM Denise Reyez, [facility] - 05/28/2024 9:20 AM EST Note Date & Type Note Facility 08-13-2024 History of Presen t illness Narrative Reason for Appointment: Patient ID: Gregorio Hess is a 29 y.o. female who presents for Routine Visit Patient presents today for Annual Exam. and Return OB appointment. MEDICATIONS Current Outpatient Medications Medication Instructions MV & Min w/FA-DHA ( ADULT GUMMY/DHA/FA PO) 1 each, Daily Vit-Fe Fumarate-FA ( Vitamins) 28-0.8 MG tablet 1 tablet, Oral, Daily ALLERGIES Allergies Allergen Reactions Losartan Other Reaction(s): Unknown PROBLEMS Active Ambulatory Problems Diagnosis Date Noted Seizure (CMS/[facility]) 11/16/2023 Migraine ([facility]) 11/16/2023 Intractable migraine without aura and without status migrainosus (CMS/HCC) 11/16/2023 Hypersomnia 11/16/2023 Chronic daily headache 11/18/2023 Resolved Ambulatory Problems Diagnosis Date Noted No Resolved Ambulatory Problems Past Medical History: Diagnosis Date Anxiety Depression (CMS/[facility]) History of petit-mal seizures HISTORY PAST MEDICAL HISTORY SOCIAL HISTORY Past Medical History: Diagnosis Date Anxiety Depression ([facility]) History of petit-mal seizures Social History Tobacco [...] Constitutional: Appearance: Normal appearance. She is well-developed. Genitourinary: Vulva normal. Right Adnexa: not tender and no mass present. Left Adnexa: not tender and no mass present. No cervical discharge. Breasts: Breasts are soft. Right: Normal. Left: Normal. HENT: Head: Normocephalic. Nose: Nose normal. Mouth/Throat: Mouth: Mucous membranes are moist. Cardiovascular: Rate and Rhythm: Normal rate and regular rhythm. Pulmonary: Effort: Pulmonary effort is normal. Breath sounds: Normal breath sounds. Abdominal: General: Bowel sounds are normal. There is no distension. Palpations: Abdomen is soft. Tenderness: There is no abdominal tenderness. There is no guarding or rebound. Musculoskeletal: General: No swelling. Normal range of motion. Cervical back: Normal range of motion. Right lower leg: No edema. Left lower leg: No edema. Neurological: General: No focal deficit present. Mental Status: She is alert and oriented to person, place, and time. Skin: General: Skin is warm and dry. Psychiatric: Mood and Affect: Mood normal. Behavior: Behavior normal. Vitals and nursing note reviewed. Exam conducted with a insurance risk analyst present. Vitals: Estimated body mass index is 29.99 kg/m as calculated from the following: Height as of 11/18/23: 5' 6 . Weight as of this encounter: 185 lb 12.8 oz. BP: 120/82 Patient's last menstrual period was 04/13/2024. ASSESSMENT & PLAN ICD-10-CM 1. Screening, , for anatomic survey Z36.89 US OB 14+ weeks anatomy scan US OB 14+ weeks anatomy scan 2. Well woman exam with routine gynecological exam Z01.419 Pap Smear 3. Exposure to STD Z20.2 CHLAMYDIA TRACHOMATIS (GENITO/STI) Neisseria gonorrhea DNA probe, direct 4. Vaginal discharge N89.8 SURESWAB(R) ADVANCED VAGINITIS PLUS, TMA 5. 17 weeks gestation of Z3A.17 POCT urinalysis dipstick manually resulted Alpha fetoprotein, maternal Alpha fetoprotein, maternal 6. Second trimester Z34.92 Alpha fetoprotein, maternal Alpha fetoprotein, maternal Return OB/Annual Exam: Patient presents today for an annual exam/routine obstetrics appointment. Patient is currently 17w3d . Patient is doing well and states she has no complaints. Pap/cultures was obtained without difficulty and patient was given msAFP order to have obtained. Orders Placed This Encounter Procedures US OB 14+ weeks anatomy scan CHLAMYDIA TRACHOMATIS (GENITO/STI) Neisseria gonorrhea DNA probe, direct Alpha fetoprotein, maternal POCT urinalysis dipstick manually resulted Follow Up: Patient is to return to our office in 4 weeks for routine OB appointment Documented by Suzanna Oneal LPN on behalf of: CORNELIUS Crenshaw documented in this encounter [facility] 07-09-2024 History of Presen t illness Narrative Reason for Appointment: Patient ID: Gregorio Hess is a 29 y.o. female who presents for Routine Visit Patient presents today for Return OB appointment. MEDICATIONS No current outpatient medications ALLERGIES Allergies Allergen Reactions Losartan Other Reaction(s): Unknown PROBLEMS Active Ambulatory Problems Diagnosis Date Noted Seizure ([facility]) 11/16/2023 Migraine ([facility]) 11/16/2023 Intractable migraine without aura and without status migrainosus ([facility]) 11/16/2023 Hypersomnia 11/16/2023 Chronic daily headache 11/18/2023 Resolved Ambulatory Problems Diagnosis Date Noted No Resolved Ambulatory Problems Past Medical History: Diagnosis Date Anxiety Depression ([facility]) History of petit-mal seizures HISTORY PAST MEDICAL HISTORY SOCIAL HISTORY Past Medical History: Diagnosis Date Anxiety Depression ([facility]) History of petit-mal seizures Social History Tobacco [...] nursing note reviewed. Exam conducted with a insurance risk analyst present. Vitals: Estimated body mass index is [...] or undercooked meat, and stay away from [facility]. Patient has been consulted regarding any further do's and don'ts of . Patient voiced understanding and all questions and concerns were answered. Orders Placed This Encounter Procedures POCT urinalysis dipstick manually resulted Follow Up: Patient is to return in 4 weeks for routine OB appointment. Documented by Giovanna Wise LPN on behalf of: Giovany Gross DO documented in this encounter [facility] 06-25-2024 History of Presen t illness Narrative Reason for Appointment: Patient ID: Gregorio Hess is a 29 y.o. female who presents [...] Active Ambulatory Problems Diagnosis Date Noted Seizure ([facility]) 11/16/2023 Migraine ([facility]) 11/16/2023 Intractable migraine without aura and without status migrainosus ([facility]) 11/16/2023 Hypersomnia 11/16/2023 Chronic daily headache 11/18/2023 Resolved Ambulatory Problems Diagnosis Date Noted No Resolved Ambulatory Problems Past Medical History: Diagnosis Date Anxiety Depression ([facility]) History of petit-mal seizures Family History Problem [...] or undercooked meat, and stay away from [facility]. Patient has also been advised to not [...] Suzanna Oneal LPN documented in this encounter [facility] 05-28-2024 History of Presen t illness Narrative Reason for Appointment: Patient ID: Gregorio Hess is a 29 y.o. female who presents for cramping in Patient presents today for Consult appointment. MEDICATIONS No current outpatient medications ALLERGIES No Known Allergies PROBLEMS Active Ambulatory Problems Diagnosis Date Noted Seizure ([facility]) 11/16/2023 Migraine ([facility]) 11/16/2023 Intractable migraine without aura and without status migrainosus ([facility]) 11/16/2023 Hypersomnia 11/16/2023 Chronic daily headache 11/18/2023 Resolved Ambulatory Problems Diagnosis Date Noted No Resolved Ambulatory Problems Past Medical History: Diagnosis Date Anxiety Depression (CMS/HCC) HISTORY PAST MEDICAL HISTORY SOCIAL HISTORY Past Medical History: Diagnosis Date Anxiety Depression (CMS/HCC) Social History Tobacco Use Smoking status: Never [...] nursing note reviewed. Exam conducted with a insurance risk analyst present. Vitals: Estimated body mass index is [...] Giovany Gross DO documented in this encounter [facility] 10-29-2022 Evaluation + Plan note Diagnostic Tests PendingDHEAS 10/29/22Testosterone F&T 10/29/22Insulin Level Total 10/29/22FSH and LH 10/29/22Cortisol 10/29/22Estradiol Level 10/29/22 [facility] 02-06-2022 Evaluation + Plan note Diagnostic Tests PendingCOVID-19 ([facility]) 02/06/22 [facility] 12-24-2021 Hospital Discharg e instructions Patient Education 12/24/2021 21:12:52 Cellulitis, Adult, [id number] Cellulitis, Adult Cellulitis is a skin infection. [...] Follow these instructions at home: Medicines Take [id number]-[id number] and prescription medicines only as told by [...] 12/17/2008 Document Revised: 11/20/2018 Document Reviewed: 11/20/2018 [employer] Patient Education 2020 [employer]. Follow Up Care 12/24/2021 19:31:22 With:Ros Segovia Address: [address], [facility] [address] [place] [address] Business (1) When:12/27/2021 20:50:34 [facility] Evaluation + Plan note No data available for this section [facility] Evaluation note No assessment inform ation available [facility] Work Phone: Evaluation note Diagnosis Abdominal cramping affecting Missed menses documented in this encounter [facility] HealthcareEvaluation note* Diagnosis Missed menses , unspecified gestational age Encounter for supervision of normal first in first trimester documented in this encounter [facility] HealthcareEvaluation note* Diagnosis 12 weeks gestation of First trimester state, incidental documented in this encounter [facility]* Diagnosis Screening, , for anatomic survey Encounter for anatomic survey Well woman exam with routine gynecological exam Routine gynecological examination Exposure to STD Vaginal discharge Leukorrhea, not specified as infective 17 weeks gestation of Second trimester state, incidental documented in this encounter [facility] Dis[facility] No data available for this section [facility] No data available for this section [facility] Chief Complaint and Reason for Visit Chief Complaint X RAY Summary Purpose Family History No Family History [...] Directives Records Found Additional Source Comments Care Teams (unrecognized sec tion and content) Team Status: Inactive Member Role Status Dates Reyes Rodriguez , [facility] Attending Provider Active Menu Planner Relationship Specialty Start Date End Date Lan Malcolm MD [address] [place] [address] PCP - General Family Medicine 11/18/23 Menu Planner Relationship Specialty Start Date End Date Lan Malcolm MD [address] [place] [address] PCP - General Family Medicine 11/18/23 Menu Planner Relationship Specialty Start Date End Date Lan Malcolm MD [address] [place] [address] PCP - General Family Medicine 11/18/23 Menu Planner Relationship Specialty Start Date End Date Lan Malcolm MD [address] [place] [address] PCP - General Family Medicine 11/18/23 Menu Planner Relationship Specialty Start Date End Date Lan Malcolm MD [address] [place] [address] PCP - General Family Medicine 11/18/23 Menu Planner Relationship Specialty Start Date End Date Lan Malcolm MD [address] [place] [address] PCP - General Family Medicine 11/18/23 Goals (unrecognized section and content) Goals may be documented in a n alternate section INFORMATION SOURCE (unrecogn ized section and content) DATE CREATED AUTHOR 11/01/2021 [facility] DATE CREATED AUTHOR AUTHOR'S ORGANIZ ATION 10/01/2022 [facility] DATE CREATED AUTHOR AUTHOR'S ORGANIZ ATION 11/20/2023 [facility] EPIC DATE CREATED AUTHOR AUTHOR'S ORGANIZ ATION 05/30/2024 [facility] DATE CREATED AUTHOR AUTHOR'S ORGANIZ ATION 06/02/2024 [facility] DATE CREATED AUTHOR AUTHOR'S ORGANIZ ATION 07/10/2024 [facility] EPIC Reason for Visit (unrecogniz [...] BE BASED ON THE PRIMARY CLINICAL RECORDS. [employer] provides no warranty or guarantee of the accuracy or completeness of information in this document.
[2024-08-24 15:07] LABS: Age Gdln ACOG Testing Note (.); IGP, rfx Aptima HPV ASCU Note (.)
== END 2024-08-13 19:09 | disposition home or self-care (01) ==
LOC: LAB 19:08
PROVIDERS: PCP Nurse Practitioner Family; Visit Provider Physician Assistant
DX: Z01.419 Encounter for gynecological examination (general) (routine) without abnormal findings (principal)
CPT/HCPCS: 88175

== ENCOUNTER 2024-09-09 06:33 | Outpatient (OUT) | payer OTHER, SELFPAY ==
--- OUTSIDE RECORDS SUMMARY | 2024-09-09 06:36 | XMS_ITS | CCD ---
Author Organization [facility] Care Team Providers Care Electronic Equipment Repairer Name Role Phone Ros Segovia Primary Care Physician DO Reyes Rodriguez Attending Provider [phone] [facility] [place], [facility] BRAGG Primary Care Unavailable EBEN BRUNNER Admitting Unavailable EBEN BRUNNER Attending Unavailable EBEN BRUNNER Consulting Unavailable AMELIA HAYWARD Attending Unavailable AMELIA HAYWARD Referring Unavailable MACHELLE VIVEROS Primary Care Physician [phone] AMELIA HAYWARD Admitting Unavailable AMELIA HAYWARD Attending Unavailable AMELIA HAYWARD Referring Unavailable MACHELLE VIVEROS Primary Care Unavailable Giovany GROSS R Attending Unavailable MACHELLE VIVEROS Primary Care Unavailable GINNY, Giovany R Admitting Unavailable MACHELLE VIVEROS Primary Care Unavailable GINNY, Giovany R Admitting Unavailable GINNY, Giovany R Attending Unavailable Gold ACUNA, tony Primary Care Provider PAZ METZGER Attending Unavailable AMELIA HAYWARD Attending Unavailable AMELIA HAYWARD Referring Unavailable GIOVANY GROSS Attending Unavailable GIOVANY GROSS Attending Unavailable Allergies Allergy Classification Reported Allergen(s) Allergy Type Date of Onset Reaction(s) Facility (10 sources) Losartan Drug Allergy 06-25-2024 [facility] Healthcare Medications Current Medications Medication Drug Class(es) Dates Sig (Normalized) Sig (Original) cephalexin 500 mg oral capsule (5 sources) Cephalosporin Antibacterial Start: 12-24-2021 take 1 capsule by mouth four times daily cephalexin 500 mg Cap 500 mg = 1 cap(s), Oral, QID, # 40 cap(s), Refills(s) 0, Pharmacy: [facility] 1985, 165.1, cm, 12/24/21 19:35:00 EDT, Height/Length Dosing, 77.5, kg, 12/24/21 19:35:00 EDT, Weight Dosing Start Date: 12/24/21 Status: Ordered ibuprofen 600 mg oral tablet (5 sources) Nonsteroidal Anti-inflammatory Drug Start: 12-24-2021 take 1 tablet by mouth every six hours ibuprofen 600 mg Tab 600 mg = 1 tab(s), Oral, q6hr, # 40 tab(s), Refills(s) 0, Pharmacy: [facility], 165.1, cm, 12/24/21 [...] & Min w/FA-DHA ( ADULT GUMMY/DHA/FA PO) (5 sources) take 1 dose by mouth once daily MV & Min w/FA-DHA ( ADULT GUMMY/DHA/FA PO) Take 1 each by mouth Daily Active Vit-Fe Fumarate-FA ( Vitamins) 28-0.8 MG tablet (5 sources) Start: 08-06-2024 End: 08-06-2025 take 1 tablet by mouth once daily Vit-Fe Fumarate-FA ( Vitamins) 28-0.8 MG tablet Indications: 12 weeks gestation of Take 1 tablet by mouth Daily 30 tablet 11 08/06/2024 08/06/2025 Active Zofran ODT 4 mg Tab-Dis (6 sources) Start: 10-28-2017 take 1 tablet by mouth three times daily Zofran ODT 4 mg Tab-Dis 4 mg = 1 tab(s), Oral, TID, # 15 tab(s), Refills(s) 0 Start Date: 10/28/17 Status: Ordered Completed/Discontinued Medications Medication Drug Class(es) Dates Sig (Normalized) Sig (Original) [id number] 200 actuat albuterol 0.09 mg/actuat metered dose [...] 09-25-2022 Episodic Other aftercare (1 source) 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; Translations: [OTH SKILLED NURSING CURRENT DRUG THERAPY] Onset: 09-27-2022 Episodic Other [...] specified screening] 08-13-2024 Episodic Residual codes; unclassified (12 sources) Hypersomnia; Translations: [Hypersomnia, unspecified] Onset: 11-16-2023 11-16-2023 Chronic Residual codes; unclassified (2 sources) Gestation period, 12 weeks; Translations: [12 weeks gestation of ] 07-09-2024 Episodic Residual codes; unclassified (2 sources) Gestation period, 17 weeks; Translations: [17 weeks gestation of ] 08-13-2024 Episodic Skin and subcutaneous tissue infections (1 source) Cellulitis; Translations: [Cellulitis of unspecified part of limb] Onset: 12-24-2021 Episodic Unclassified (8 sources) OB Reminders Onset: 06-27-2024 06-27-2024 Past or Other Problems Problem Classification Problem Date Documented Da te Episodic/Chronic Epilepsy; convulsions (18 sources) Seizure; Translations: [Unspecified convulsions] Onset: 11-16-2023 12-31-2013 Episodic Headache; including migraine (12 sources) Chronic daily headache; Translations: [Chronic daily headache] Onset: 11-18-2023 11-18-2023 Episodic Unclassified (1 source) Exposure to 2019 novel coronavirus; Translations: [Contact with and (suspected) exposure to COVID19] Unclassified (3 sources) couplets( Confirmed ) 09-30-2012 Unclassified (12 sources) Onset: 06-14-2014 Resolved: 09-09-2016 01-20-2015 Unclassified (3 sources) couplets 09-30-2012 Results Test Name Value Interpretation Reference Range Facility IGP,APTIMA HPV,AGE GDLNon AGE GDLN ACOG TESTING Note . [facility] Comment on above: TESTS RESULT FLAG UN ITS REF RANGE LAB Clinician Provided Cytology Information Source.............Cervix Other.............. No. of containers..01 ThinPrep Vial Age Devang Olmos... FLAG LEGEND: L-Low Normal,H-High Normal,LL-Alert Low,HH-Alert High <-Panic Low,>-Panic High,A-Abnormal,AA-Critical Abnormal Performed at: 01 =G [facility] [address] [id number] Huma Hicks MD, IGP, RFX APTIMA HPV ASCU Note . [facility] Comment on above: TESTS RESULT FLAG UN ITS REF RANGE LAB DIAGNOSIS: 02 NEGATIVE FOR INTRAEPITHELIAL LESION OR MALIGNANCY. REACTIVE CELLULAR CHANGES AND/OR REPAIR ARE PRESENT. Specimen adequacy: 02 Satisfactory for evaluation. No endocervical component is identified. An endocervical component is not commonly seen in the patient. Performed by: 03 Yolanda Winter, Die Grinder (ASCP) Electronically si... 02 Keara Campos MD, Pathologist . 02 Note: Note 02 The Pap smear is a screening test designed to aid in the detection of premalignant and malignant conditions of the uterine cervix. It is not a diagnostic procedure and should not be used as the sole means of detecting cervical cancer. Both false-positive and false-negative reports do occur. Test Methodology: Note 02 The NightOwl(R) Acquisition Professional was unable to read this specimen. Therefore a manual review was performed. FLAG LEGEND: L-Low Normal,H-High Normal,LL-Alert Low,HH-Alert High <-Panic Low,>-Panic High,A-Abnormal,AA-Critical Abnormal Performed at: [address] [id number] Huma Hicks MD, 03 RUST [facility] [address] [address] [facility] [address] [place] [id number] Georgina Romeo MD, . 02 The HPV DNA reflex criteria were not met with this specimen result therefore, no HPV testing was performed. The HPV DNA reflex criteria were not met with this specimen result therefore, no HPV testing was performed. Performed at: = - [facility] [id number] Drill Press Operator: Huma Hicks MD, Phone: [phone] Performed at: [facility] [id number] Drill Press Operator: Huma Hicks MD, Phone: [phone] SPATULA-ALONE CERVIX [facility] RECURRENT VAGINITIS (HTRX)on 08-14-2024 ATOPOBIUM VAGINAE 0 [facility] ATOPOBIUM VAGINAE Not detected [facility] BVAB 2,3 (BACTERIAL VAGINOSIS ASSOCIATED BACTERIA 2, 3); MOBILUNCUS SPP 27.061 Abnormal [facility] BVAB 2,3 (BACTERIAL VAGINOSIS ASSOCIATED BACTERIA 2, 3); MOBILUNCUS SPP Detected Abnormal [facility] [place] ALBICANS, PARAPSILOSIS, TROPICALIS 0 [facility] [place] ALBICANS, PARAPSILOSIS, TROPICALIS Not detected [facility] [place] GLABRATA 0 [facility] [place] GLABRATA Not detected [facility] [place] KRUSEI 0 [facility] [place] KRUSEI Not detected [facility] CHLAMYDIA TRACHOMATIS 0 [facility] CHLAMYDIA TRACHOMATIS Not detected [facility] GARDNERELLA VAGINALIS 0 [facility] GARDNERELLA VAGINALIS Not detected [facility] Interpretation and review of laboratory results Abnormal [facility] MEGASPHAERA (TYPES 1, 2) 0 [facility] MEGASPHAERA (TYPES 1, 2) Not detected [facility] MYCOPLASMA GENITALIUM 0 [facility] MYCOPLASMA GENITALIUM Not detected [facility] NEISSERIA GONORRHOEAE 0 [facility] NEISSERIA GONORRHOEAE Not detected [facility] TRICHOMONAS VAGINALIS 0 [facility] TRICHOMONAS VAGINALIS Not detected [facility] US OB 14+ WEEKS ANATOMY SCAN on 08-13-2024 US OB 14+ WEEKS ANATOMY SCAN EXAM: US OB 14+ WEEKS ANATOMY SCAN HISTORY: anatomy. TECHNIQUE: Two-dimensional transabdominal grayscale ultrasound imaging of the pelvis was performed. FINDINGS: Gestation: Single Presentation: Cephalic Cardiac Activity: 156 beats per minute Placental Location: Anterior - low-lying Distance from Placental Tip to Cervix: 0.7 cm Cervical Length: 4.7 cm Amniotic Fluid: Appears adequate MEASUREMENTS: BPD: 4.7 cm EGA: 20 weeks 1 days HC: 17.8 cm EGA: 20 weeks 2 days AC: 15.5 cm EGA: 20 weeks 4 days FL: 3.4 cm EGA: 20 weeks 3 days HC/AC Ratio: 1.15 The gestational age by today's ultrasound is 20 weeks 3 days (+/- 10 days gestation). Estimated Weight: 360 grams, +/- 54 grams ( 0 lb 13 oz). Weight Percentile for gestational age: 68 % ANATOMY C-Spine: Unremarkable T-Spine: Unremarkable L-Spine: Unremarkable Sacrum: Unremarkable Four Chamber Heart: Unremarkable LVOT: Unremarkable RVOT: Unremarkable Stomach: Unremarkable Kidneys: Unremarkable Bladder: Unremarkable Diaphragm: Unremarkable Cord insertion: Unremarkable Cord vessels: Three Lateral Ventricles: Unremarkable Cerebellum: Unremarkable Cisterna Magna: Unremarkable Posterior Fossa: Unremarkable Right Femur: Unremarkable Left Femur: Unremarkable Right Tib/Fib: Unremarkable Left Tib/Fib: Unremarkable Right Rad/Ulnar: Unremarkable Left Rad/Ulnar: Unremarkable Right Humerus: Unremarkable Left Humerus: Unremarkable Nose/Lips: Unremarkable Profile: Unremarkable Orbits: Unremarkable IMPRESSION: 1. Single, live intrauterine gestation 20 weeks, 1 days by LMP. Today's ultrasound measurements correlate with a gestational age of 20 weeks 3 days. Estimated weight is 360 grams, +/- 54 grams ( 0 lb 13 oz) which correlates to 68 %. PRICE is 01/16/2025. 2. Unremarkable ultrasound of the anatomy. Electronically Signed:Electronically signed by TONE MITCHELL II, MD, PHD at 02-Sep-2024 08:04:31 AM [facility] Normal Not Available Comment on above: Order Comment: US OB ANATOMY SINGLE W US OB CERVICAL LENGTH Estimated Date of Delivery: 01/18/25 Gestational Age as of 08/13/2024: 17w3d Urinalysis macro (dipstick) panel (U)on 08-13-2024 Bilirubin, UA Negative Negative - 4(70) +++ mg/dL [facility] Blood, UA Negative Negative - 50 Theodore/mcL [facility] Clarity, UA Clear [facility] Color, UA Yellow [facility] Glucose, UA Positive Negative - 1999(110) ++++ mg/dL [facility] Comment on above: 100 Interpretation and review of laboratory results Abnormal [facility] Ketones, UA Negative Negative - 160(16) ++++ mg/dL [facility] Leukocytes, UA Negative Negative - 500+++ Mike/mcL [facility] Nitrite, UA Negative Negative - Positive [facility] pH, UA 5.5 5 - 9 [facility] Protein, UA Trace Negative - 1999(20) ++++ mg/dL [facility] Spec Grav, UA 1.03 1 - 1.03 [facility] Urobilinogen, UA 0.2 0.2 - 12 mg/dL [facility] Urinalysis macro (dipstick) panel (U)on 07-09-2024 Bilirubin, UA Negative Negative - 4(70) +++ mg/dL [facility] Blood, UA Negative Negative - 50 Theodore/mcL [facility] Clarity, UA Clear [facility] Color, UA Yellow [facility] Glucose, UA Negative Negative - 2000(110) ++++ mg/dL [facility] Interpretation and review of laboratory results Abnormal [facility] Ketones, UA Positive Negative - 160(16) ++++ mg/dL [facility] Comment on above: trace Leukocytes, UA Negative Negative - 500+++ Mike/mcL [facility] Nitrite, UA Negative Negative - Positive [facility] pH, UA 6 5 - 9 [facility] Protein, UA Trace Negative - 1999(20) ++++ mg/dL [facility] Spec Grav, UA 1.025 1 - 1.03 [facility] Urobilinogen, UA 1.0 0.2 - 12 mg/dL [facility] HCG ( test) Ql (U)o n 06-26-2024 Interpretation and review of laboratory results Abnormal [facility] Preg Test, Ur Positive Negative [facility] TBH DRUG SCREEN RAPID (URINE )on 06-26-2024 AMPHETAMINE SCREEN URINE Negative NEGATIVE [facility] BARBITURATES SCREEN URINE Negative NEGATIVE [facility] BENZODIAZEPINES SCREEN URINE Negative NEGATIVE [facility] BUPRENORPHINE SCREEN URINE Negative NEGATIVE [facility] Comment on above: DRUG CLASS TEST SYST [...] 300 ng/mL CANNABINOID SCREEN URINE Negative NEGATIVE [facility] COCAINE SCREEN URINE Negative NEGATIVE [facility] METHADONE SCREEN URINE Negative NEGATIVE [facility] METHAMPHETAMINES SCREEN URINE Negative NEGATIVE [facility] OPIATE SCREEN URINE Negative NEGATIVE [facility] OXYCODONE SCREEN URINE Negative NEGATIVE [facility] PHENCYCLIDINE SCREEN URINE Negative NEGATIVE [facility] TRICYCLIC ANTIDEPRESSANT URINE Negative NEGATIVE [facility] Urinalysis macro (dipstick) panel (U)on 06-26-2024 Bilirubin, UA Negative Negative - 4(70) +++ mg/dL [facility] Blood, UA Negative Negative - 50 Theodore/mcL [facility] Clarity, UA Clear [facility] Color, UA Yellow [facility] Glucose, UA Negative Negative - 1999(110) ++++ mg/dL [facility] Interpretation and review of laboratory results Abnormal [facility] Ketones, UA Negative Negative - 160(16) ++++ mg/dL [facility] Leukocytes, UA Trace Negative - 500+++ Mike/mcL [facility] Nitrite, UA Negative Negative - Positive [facility] pH, UA 7 5 - 9 [facility] Protein, UA Negative Negative - 1999(20) ++++ mg/dL [facility] Spec Grav, UA 1.015 1 - 1.03 [facility] Urobilinogen, UA 1.0 0.2 - 12 mg/dL [facility] Urinalysis macro (dipstick) panel (U)on 05-28-2024 Bilirubin, UA Negative Negative - 4(70) +++ mg/dL [facility] Blood, UA Negative Negative - 50 Theodore/mcL [facility] Clarity, UA Clear [facility] Color, UA Yellow [facility] Glucose, UA Negative Negative - 1999(110) ++++ mg/dL [facility] Interpretation and review of laboratory results Normal [facility] Ketones, UA Negative Negative - 160(16) ++++ mg/dL [facility] Leukocytes, UA Negative Negative - 500+++ Mike/mcL [facility] Nitrite, UA Negative Negative - Positive [facility] pH, UA 7 5 - 9 [facility] Protein, UA Negative Negative - 1999(20) ++++ mg/dL [facility] Spec Grav, UA 1.025 1 - 1.03 [facility] Urobilinogen, UA 0.2 0.2 - 12 mg/dL [facility] BhCG Quanton 05-27-2024 [place] [address] m[IU]/mL High 1-3 F [facility] Comment on above: Result Comment: 'F N ON < 1 - 3' ' 0.2 - 1 WEEK = 5 TO 50' ' 1 - 2 WEEKS = 50 - 500' ' 2 - 3 WEEKS = 100 - 5000' ' 3 - 4 WEEKS = 500 - 18979' ' 4 - 5 WEEKS = 1000 - 18279' ' 5 - 6 WEEKS = 45476 - 189917' ' 6 - 8 WEEKS = 70908 - 082809' ' 8 - 12 WEEKS = 90886 - 270308' Performed By: #### 2 [id number] #### [facility] [address] [place] [address] CHEMISTRYOrdered By: SYSTEM SYSTEM on 05-27-2024 [place] [address] m[IU]/mL High 1 - 3 mIU/mL [facility] Comment on above: Result Comment: 'F N ON < 1 - 3' ' 0.2 - 1 WEEK = 5 TO 50' ' 1 - 2 WEEKS = 50 - 500' ' 2 - 3 WEEKS = 100 - 5000' ' 3 - 4 WEEKS = 500 - 96999' ' 4 - 5 WEEKS = 1000 - 96260' ' 5 - 6 WEEKS = 85422 - 562203' ' 6 - 8 WEEKS = 80046 - 282009' ' 8 - 12 WEEKS = 27077 - 979874' MRI Brain w/o Contraston MRI Brain w/o [...] Galaviz DO Transcribed by: TEJAL Technologist: KALYN [facility] Consent for Treatmenton Consent for Treatment [id number]#1 .00TIFF [facility] RAD - MRI Screening Formon 0 11-21-2023 RAD - MRI Screening Form [id number]# 1.00TIFF [facility] Physician Orderon 11-20-2023 Physician Order [id number]#1 .00TIFF Normal [facility] CHEMISTRYOrdered By: SYSTEM SYSTEM on 10-29-2022 Cobalamin (Vitamin B12) [Mass/Vol] 460 pg/mL Normal 50 - 1500 pg/mL [facility] Remisol Folate [Mass/Vol] 8.4 ng/mL Normal >=6.7ng/mL [facility] Re misol Magnesium [Mass/Vol] 2.1 mg/dL Normal 1.3 - 2 .4 mg/dL [facility] Remisol AMYLASEon 09-25-2022 Amylase [Catalytic activity/Vol] 65 U/L Normal 25-115 [facility] Comment on above: Performed By: #### L IPA, PAZ, CMP #### [facility] [address] [place] [address] Dr. Flores Arroyo CBC AUTO DIFFon 09-25-2022 BASO # 0.0 103/ul Normal 0.0-0.1 [facility] Comment on above: Performed By: #### C BC #### [facility] [address] [place] [address] Dr. Flores Arroyo Basophils/100 WBC (Bld) 0.2 % Normal 0.2-2.0 [facility] Comment on above: Performed By: #### C BC #### [facility] [address] [place] [address] Dr. Flores Arroyo EO # 0.1 103/ul Normal 0.0-0.7 [facility] Comment on above: Performed By: #### C BC #### [facility] [address] [place] [address] Dr. Flores Arroyo Eosinophils/100 WBC (Bld) 0.3 % Critically low 0.9-7.0 [facility] Comment on above: Performed By: #### C BC #### [facility] [address] [place] [address] Dr. Flores Arroyo Erythrocyte distribution width (RBC) [Ratio] 13.7 % Normal 11.0-15.0 [facility] Comment on above: Performed By: #### C BC #### [facility] [address] [place] [address] Dr. Flores Arroyo Hematocrit (Bld) [Volume fraction] 44.0 % Normal 36.0-48.0 [facility] Comment on above: Performed By: #### C BC #### [facility] [address] [place] [address] Dr. Flores Arroyo Hemoglobin (Bld) [Mass/Vol] 14.7 g/dL Normal 12.0-16.0 [facility] Comment on above: Performed By: #### C BC #### [facility] [address] [place] [address] Dr. Flores Arroyo IG # 0.07 10e3/ul Critically high 0.00-0.03 [facility] Comment on above: Performed By: #### C BC #### [facility] [address] [place] [address] Dr. Flores Arroyo IG % 0.4 % Normal 0.0-0.5 [facility] Comment on above: Performed By: #### C BC #### [facility] [address] [place] [address] Dr. Flores Arroyo LYMPH # 2.4 103/ul Normal 1.2-3.8 [facility] Comment on above: Performed By: #### C BC #### [facility] [address] [place] [address] Dr. Flores Arroyo Lymphocytes/100 WBC (Bld) 12.7 % Critically low 20.5-60.0 [facility] Comment on above: Performed By: #### C BC #### [facility] [address] [place] [address] Dr. Flores Arroyo MANUAL DIFF REQ NO Normal [facility] Comment on above: Performed By: #### C BC #### [facility] [address] [place] [address] Dr. Flores Arroyo MCH (RBC) [Entitic mass] 29.5 pg Normal 26.7-34.0 [facility] Comment on above: Performed By: #### C BC #### [facility] [address] [address] [address] Flores Arroyo MCHC (RBC) [Mass/Vol] 33.4 g/dL Normal 29.9-35.2 [facility] Comment on above: Performed By: #### C BC #### [facility] [address] [address] [address] Flores Arroyo MCV (RBC) [Entitic vol] 88.4 fL Normal 81.0-99.0 [facility] Comment on above: Performed By: #### C BC #### [facility] [address] [address] [address] Flores Arroyo MONO # 1.3 103/ul Critically high 0.3-0.8 [facility] Comment on above: Performed By: #### C BC #### [facility] [address] [address] [address] Flores Arroyo Monocytes/100 WBC (Bld) 7.2 % Normal 1.7-12.0 [facility] Comment on above: Performed By: #### C BC #### [facility] [address] [address] [address] lFores Arroyo NEUT # 14.8 103/ul Critically high 1.4-6.5 [facility] Comment on above: Performed By: #### C BC #### [facility] [address] [place] [address] Dr. Flores Arroyo Neutrophils/100 WBC (Bld) 79.2 % Critically high 43.0-75.0 [facility] Comment on above: Performed By: #### C BC #### [facility] [address] [id number] [address] Flores Arroyo Platelet mean volume (Bld) [Entitic vol] 10.8 fL Normal 9.5-13.5 [facility] Comment on above: Performed By: #### C BC #### [facility] [address] [place] [address] Dr. Flores Arroyo PLT 306 103/ul Normal 150-450 [facility] Comment on above: Performed By: #### C BC #### [facility] [address] [place] [address] Dr. Flores Arroyo RBC 4.98 106/ul Normal 4.20-5.40 [facility] Comment on above: Performed By: #### C BC #### [facility] [address] [place] [address] Dr. Flores Arroyo WBC 18.7 103/ul Critically high 4.0-11.0 [facility] Comment on above: Performed By: #### C BC #### [facility] [address] [place] [address] Dr. Flores Arroyo CULTURE URINEon 09-25-2022 CULTURE URINE Culture Observations : MODERATE GROWTH OF MIXED GENITAL MIS. NO POTENTIAL PATHOGENS SEEN. Normal [facility] Comment on above: Performed By: #### U RCX #### [facility] [address] [place] [address] Dr. Flores Arroyo ER URINE PROFILEon 3 Bilirubin Ql (U) Negative Normal NEGATIVE [facility] Comment on above: Performed By: #### U MICRO, ERUR #### [facility] [address] [place] [address] Dr. Flores Arroyo Clarity (U) CLEAR Normal CLEAR [facility] Comment on above: Performed By: #### U MICRO, ERUR #### [facility] [address] [place] [address] Dr. Flores Arroyo Color (U) YELLOW Normal YELLOW [facility] Comment on above: Performed By: #### U MICRO, ERUR #### [facility] [address] [place] [address] Dr. Flores Arroyo ERUAHD A micrscopic examination will be performed if indicated. Normal The [facility] Comment on above: Performed By: #### U MICRO, ERUR #### [facility] [address] [place] [address] Dr. Flores Arroyo Glucose Ql (U) Negative Normal NEGATIVE [facility] Comment on above: Performed By: #### U MICRO, ERUR #### [facility] [address] [place] [address] Dr. Flores Arroyo Hemoglobin Ql (U) Negative Normal NEGATIVE [facility] Comment on above: Performed By: #### U MICRO, ERUR #### [facility] [address] [address] [address] Flores Arroyo Ketones Ql (U) Negative Normal NEGATIVE [facility] Comment on above: Performed By: #### U MICRO, ERUR #### [facility] [address] [place] [address] Dr. Flores Arroyo LEUKOCYTES Negative Normal NEGATIVE [facility] Comment on above: Performed By: #### U MICRO, ERUR #### [facility] [address] [address] [address] Flores Arroyo Nitrite Ql (U) Negative Normal NEGATIVE [facility] Comment on above: Performed By: #### U MICRO, ERUR #### [facility] [address] [place] [address] Dr. Flores Arroyo pH (U) 5.5 [pH] Normal 5-9 [facility] Comment on above: Performed By: #### U MICRO, ERUR #### [facility] [address] [place] [address] Dr. Flores Arroyo Protein (U) [Mass/Vol] 30 mg/dL Abnormal NEGATIVE/ TRACE [facility] Comment on above: Performed By: #### U MICRO, ERUR #### [facility] [address] [place] [address] Dr. Flores Arroyo SPEC GRAVITY >=1.030 Abnormal 1.005-<=1.025 The [facility] Comment on above: Performed By: #### U MICRO, ERUR #### [facility] [address] [place] [address] Dr. Flores Arroyo UR MICRO IND INDICATED Normal [facility] Comment on above: Performed By: #### U MICRO, ERUR #### [facility] [address] [place] [address] Dr. Flores Arroyo Urobilinogen Qn (U) 0.2 {Salty'U}/dL Normal 0.2 - 1. 0 [facility] Comment on above: Performed By: #### U MICRO, ERUR #### [facility] [address] [place] [address] Dr. Flores Arroyo LACTATE/LACTIC ACIDon 2022 Lactate [Moles/Vol] 1.6 mmol/L Normal 0.4-2.0 [facility] Comment on above: Performed By: #### L ACT #### [facility] [address] [place] [address] Dr. Flores Arroyo LIPASEon 09-25-2022 Lipase [Catalytic activity/Vol] 95.0 U/L Normal 73.0-393.0 [facility] Comment on above: Performed By: #### L IPA PAZ, CMP #### [facility] [address] [place] [address] Dr. Flores Arroyo PROF 14(COMP METB)on 023 Albumin [Mass/Vol] 4.4 g/dL Normal 3.4-5.0 [facility] Comment on above: Performed By: #### L IPA PAZ, CMP #### [facility] [address] [place] [address] Dr. Flores Arroyo Albumin/Globulin [Mass ratio] 1.2 {ratio} Normal [facility] Comment on above: Performed By: #### L IPA PAZ, CMP #### [facility] [address] [place] [address] Dr. Flores Arroyo ALP [Catalytic activity/Vol] 86 U/L Normal 46-116 [facility] Comment on above: Performed By: #### L IPA PAZ, CMP #### [facility] [address] [place] [address] Dr. Flores Arroyo ALT [Catalytic activity/Vol] 41 U/L Normal 14-59 [facility] Comment on above: Performed By: #### L IPA PAZ, CMP #### [facility] [address] [place] [address] Dr. Flores Arroyo Anion gap [Moles/Vol] 11.4 mmol/L Normal [facility] Comment on above: Performed By: #### L IPA, PAZ, CMP #### [facility] [address] [place] [address] Dr. Flores Arroyo AST [Catalytic activity/Vol] 29 U/L Normal 15-37 [facility] Comment on above: Performed By: #### L PAZ MARTINES, CMP #### [facility] [address] [place] [address] Dr. Flores Arroyo Bilirubin [Mass/Vol] 0.3 mg/dL Normal 0.2-1.0 [facility] Comment on above: Performed By: #### L PAZ MARTINES, CMP #### [facility] [address] [place] [address] Dr. Flores Arroyo Calcium [Mass/Vol] 9.3 mg/dL Normal 8.5-10.1 [facility] Comment on above: Performed By: #### L PAZ MARTINES, CMP #### [facility] [address] [place] [address] Dr. Flores Arroyo Chloride [Moles/Vol] 102 mmol/L Normal 98-107 [facility] Comment on above: Performed By: #### L PAZ MARTINES, CMP #### [facility] [address] [place] [address] Dr. Flores Arroyo CO2 [Moles/Vol] 26.3 mmol/L Normal 21.0-32.0 [facility] Comment on above: Performed By: #### L PAZ MARTINES, CMP #### [facility] [address] [place] [address] Dr. Flores Arroyo Creatinine [Mass/Vol] 0.85 mg/dL Normal 0.55-1.02 [facility] Comment on above: Performed By: #### L PAZ MARTINES, CMP #### [facility] [address] [place] [address] Dr. Flores Arroyo EGFR-AF SLOVAK >60 Normal >=60 [facility] Comment on above: Performed By: #### L PAZ MARTINES, CMP #### [facility] [address] [place] [address] Dr. Flores Arroyo EGFR-NON AF SLOVAK >60 Normal >=60 [facility] Comment on above: Performed By: #### L PAZ MARTINES, CMP #### [facility] [address] [place] [address] Dr. Flores Arroyo Globulin (S) [Mass/Vol] 3.8 g/dL Normal [facility] Comment on above: Performed By: #### L PAZ MARTINES, CMP #### [facility] [address] [place] [address] Dr. Flores Arroyo Glucose [Mass/Vol] 159 mg/dL Critically high 74-[address] [facility] Comment on above: Performed By: #### L PAZ MARTINES, CMP #### [facility] [address] [place] [address] Dr. Flores Arroyo Potassium [Moles/Vol] 3.7 mmol/L Normal 3.5-5.1 [facility] Comment on above: Performed By: #### L PAZ MARTINES, CMP #### [facility] [address] [place] [address] Dr. Folres Arroyo Protein [Mass/Vol] 8.2 g/dL Normal 6.4-8.2 [facility] Comment on above: Performed By: #### L PAZ MARTINES, CMP #### [facility] [address] [place] [address] Dr. Flores Arroyo Sodium [Moles/Vol] 136 mmol/L Normal 136-145 [facility] Comment on above: Performed By: #### L PAZ MARTINES, CMP #### [facility] [address] [place] [address] Dr. Flores Arroyo Urea nitrogen [Mass/Vol] 11.0 mg/dL Normal 7.0-18.0 [facility] Comment on above: Performed By: #### L PAZ MARTINES, CMP #### [facility] [address] [place] [address] Dr. Flores Arroyo Urea nitrogen/Creatinine [Mass ratio] 12.9 mg/mg Normal [facility] Comment on above: Performed By: #### L PAZ MARTINES, CMP #### [facility] [address] [place] [address] Dr. Flores Arroyo URINE MICROSCOPIC ONLYon BACTERIA SMALL Abnormal NONE SEEN The [facility] Comment on above: Performed By: #### U MICRO, ERUR #### [facility] [address] [address] [address] Flores Arroyo Bacteria identified Cx Nom (U) INDICATED Normal [facility] Comment on above: Performed By: #### U MICRO, ERUR #### [facility] [address] [address] [address] Flores Arroyo CAST NONE SEEN Normal NONE SEEN The [facility] Comment on above: Performed By: #### U MICRO, ERUR #### [facility] [address] [address] [address] Flores Arroyo Crystals LM Nom (Urine sed) NONE SEEN Normal NONE SEEN The [facility] Comment on above: Performed By: #### U MICRO, ERUR #### [facility] [address] [address] [address] Flores Arroyo Epithelial cells LM Ql (Urine sed) MODERATE Abnormal NONE SEEN /RARE [facility] Comment on above: Performed By: #### U MICRO, ERUR #### [facility] [address] [address] [address] Flores Arroyo MUCOUS MODERATE Abnormal NONE SEEN The [facility] Comment on above: Performed By: #### U MICRO, ERUR #### [facility] [address] [address] [address] Flores Arroyo RBC 0-2 Normal 0-2 [facility] Comment on above: Performed By: #### U MICRO, ERUR #### [facility] [address] [address] [address] Flores Arroyo WBC 2-5 Abnormal NONE SEEN The [facility] Comment on above: Performed By: #### U MICRO, ERUR #### [facility] [address] [address] [address] Flores Arroyo XR chest 1Von 10-31-2021 XR chest 1V [facility] [address] XRay Report Signed Patient: GREGORIO HESS MR#: [id number] : 1995 Acct:[id number] Age/Sex: 26 / F ADM Date: 10/31/21 Loc: [place] Room: Type: REG REF Attending Dr: Reyes Rodriguez DO, [facility] Ordering Provider: Reyes Rodriguez DO Date of Service: 10/31/21 XR/XR chest 1V: POSITIVE PPD TEST Copies to: Reyes Rodriguez DO PA CHEST: CLINICAL HISTORY: Positive Tspot. COMPARISON: None FINDINGS: Heart is normal in size. Lungs are clear. No free air. XR/XR chest 1V IMPRESSION: NEGATIVE CHEST. Impression dictated by: Dirk Chaves Jr., D.OBeka10/31/2021 12:11 PM Dictation Location: [address] [address] Transcribed By: [facility] 10/31/21 1211 Dictated By: Dirk Chaves Jr, DO 10/31/21 1210 Signed By: 10/31/21 1211 [facility] MICRO OTHER TESTSOrdered By: Ines Michel on 07-21-2021 Rapid COV Int NEG Ctl Pass (07/21/21 11:06 AM) Normal [facility] Man Sero Rapid COV Int POS Ctl Pass (07/21/21 11:06 AM) Normal [facility] SARS-CoV+SARS-CoV-2 (COVID-19) Ag IA.rapid Ql (Resp) Not Detected (07/21/21 11:06 AM) Normal Not Detected [facility] Vital Signs Date Time Vital Sign Value Performing Clinician Facility 08-13-2024 10:59-0500 Body mass index (BMI) [Ratio] 29.99 kg/m2 Paz SHIELDS Work Phone: [facility] 08-13-2024 10:59-0500 Body weight 84.28 kg Paz SHIELDS Work Phone: [facility] 08-13-2024 10:59-0500 Diastolic blood pressure 82 mm[Hg] Paz SHIELDS Work Phone: [facility] 08-13-2024 10:59-0500 Systolic blood pressure 120 mm[Hg] Paz SHIELDS Work Phone: [facility] 07-09-2024 11:53-0500 Body mass index (BMI) [Ratio] 29.02 kg/m2 Giovany Ginny DO Work Phone: [facility] 07-09-2024 11:53-0500 Body weight 81.56 kg Giovany Ginny DO Work Phone: [facility] 07-09-2024 11:53-0500 Diastolic blood pressure 70 mm[Hg] Giovany Ginny DO Work Phone: [facility] 07-09-2024 11:53-0500 Systolic blood pressure 120 mm[Hg] Giovany Ginny DO Work Phone: [facility] 05-28-2024 09:39-0500 Body mass index (BMI) [Ratio] 27.66 kg/m2 Giovany Ginny DO Work Phone: [facility] 05-28-2024 09:39-0500 Body weight 77.75 kg Giovany Ginny DO Work Phone: [facility] 05-28-2024 09:39-0500 Diastolic blood pressure 68 mm[Hg] Giovany Ginny DO Work Phone: [facility] 05-28-2024 09:39-0500 Systolic blood pressure 110 mm[Hg] Giovany Ginny DO Work Phone: [facility] 12-24-2021 21:08-0400 Diastolic blood pressure 81 mm[Hg] Jalen Ezekiel [facility] 12-24-2021 21:08-0400 Heart rate 79 /min Jalen Ezekiel [facility] 12-24-2021 21:08-0400 Respiratory rate 18 /min Jalen Ezekiel [facility] 12-24-2021 21:08-0400 SaO2% (BldA) [Mass fraction] 100 % Jalen Ezekiel [facility] 12-24-2021 21:08-0400 Systolic blood pressure 114 mm[Hg] Jalen Ezekiel [facility] 12-24-2021 19:32-0400 Body temperature 98.06 [degF] Jalen Falcon [facility] 12-24-2021 19:32-0400 Diastolic blood pressure 85 mm[Hg] Jalen Ezekiel [facility] 12-24-2021 19:32-0400 Heart rate 100 /min Jalen Ezekiel [facility] 12-24-2021 19:32-0400 Respiratory rate 16 /min Jalen Ezekiel [facility] 12-24-2021 19:32-0400 SaO2% (BldA) [Mass fraction] 100 % Jalen Ezekiel [facility] 12-24-2021 19:32-0400 Systolic blood pressure 121 mm[Hg] [facility] Encounters Encounter Date Encounter Type Care Provider Facility Start: 09-01-2024 End: 09-01-2024 ambulatory PAZ METZGER Not Available Start: 08-13-2024 End: 08-13-2024 Bamboo flowsheet Paz SHIELDS Work Phone: [facility] Start: 08-13-2024 End: 08-24-2024 Bamboo flowsheet Paz SHIELDS Work Phone: [facility] Start: 08-13-2024 End: 08-24-2024 Clinisync Result Encounter Paz SHIELDS Work Phone: [facility] Unsolicited Start: 08-13-2024 End: 08-14-2024 External Result Encounter Paz SHIELDS Work Phone: [facility] Unsolicited Start: 08-13-2024 End: 08-13-2024 Patient encounter procedure Paz SHIELDS Work Phone: [facility] Start: 08-13-2024 End: 08-13-2024 Periodic preventive med est patient 18-39 yrs Paz [place] PA Work Phone: [facility] Comment on above: Screening, , for anatomic survey; Well woman exam with routine gynecological exam; Exposure to STD; Vaginal discharge; 17 weeks gestation of ; Second trimester Start: 08-13-2024 End: 08-13-2024 ambulatory PAZ METZGER Not Available Start: 07-09-2024 End: 07-09-2024 Bamboo flowsheet Giovany [...] End: 06-25-2024 Office outpatient visit 5 minutes [facility] Ginny Nurse [facility] Comment on above: GA: 10w3d Start: 06-25-2024 End: 06-25-2024 ambulatory PAZ METZGER Not Available Start: 05-28-2024 End: 05-28-2024 Office outpatient visit 15 minutes Giovany Ginny DO Work Phone: [facility] Comment on above: Abdominal cramping a ffecting ; Missed menses Start: 05-28-2024 End: 05-28-2024 ambulatory GIOVANY GINNY Not Available Start: 05-27-2024 End: 05-27-2024 ambulatory Giovany R GINNY Facility:[facility] Start: 05-27-2024 End: 05-27-2024 Patient encounter procedure Giovanylaura DE JESUSO [facility] Start: 11-21-2023 End: 11-21-2023 ambulatory AMELIA HAYWARD Facility:[facility] Start: 11-21-2023 End: 11-21-2023 Patient encounter procedure AMELIA HAYWARD [facility] Start: 11-19-2023 End: 11-19-2023 ambulatory AMELIA MARCIALMOR Not Available Start: 11-19-2023 End: 11-19-2023 ambulatory AMELIA GILLMOR Not Available Start: 11-18-2023 End: 11-18-2023 ambulatory AMELIA GILLMOR Not Available Start: 11-18-2023 End: 11-18-2023 ambulatory AMELIA GILLMOR Not Available Start: 10-29-2022 End: 10-29-2022 Lab Drop off MACHELLE VIVEROS [facility] Start: 09-25-2022 End: 09-25-[address] DOCTOR BAILEY Facility: Start: 02-06-2022 End: 02-06-2022 Lab Drop off TIESHA FINLEY [facility] Start: 12-24-2021 End: 12-24-2021 Emergency department patient visit Jalen Falcon [facility] Start: 10-31-2021 End: 10-31-2021 Departed Referred DO Reyes Rodriguez Work Phone: [facility] [address] Start: 07-20-2021 End: 10-19-2021 Recurring Sumit Scott [facility] Procedures Date Procedure Procedure Detail Performing Clinician Start: 08-13-2024 RECURRENT VAGINITIS (HTRX) Paz SHIELDS Work Phone: Start: 08-13-2024 Urnls dip stick/tabl et rgnt non-auto w/o micrscp Paz SHIELDS Work Phone: Start: 08-13-2024 IGP,APTIMA HPV,AGE GDLN Paz SHIELDS Work Phone: Start: 07-09-2024 Urnls dip stick/tabl et rgnt non-auto w/o micrscp Giovany Ginny DO Work Phone: Start: 06-26-2024 End: 06-26-2024 Urnls dip stick/tablet rgnt non-auto w/o micrscp Giovany Ginny DO Work Phone: Start: 06-26-2024 [facility] DRUG SCREEN RAPI D (URINE) Giovany Ginny DO Work Phone: Start: 05-28-2024 Urnls dip stick/tabl et rgnt non-auto w/o micrscp Giovany Ginny DO Work Phone: Tonsillectomy Sumit Scott Plan of Treatment Date Care Activity Detail Author Start: 09-10-2024 End: 09-10-2024 Patient encounter procedure 09/10/2024 8:40 AM EST Routine [facility] [address] [place] [address] Giovany Gross, DO [address], [place] [id number] [facility] Start: 09-01-2024 End: 09-01-2024 Professional / ancillary services management 09/01/2024 2:30 PM EST Ancillary Procedure [facility] [address] [place] [address] [facility] Start: 08-13-2024 End: 09-11-2024 Alpha fetoprotein, maternal Alpha fetoprotein, maternal Lab Routine 17 weeks gestation of Second trimester Expected: 08/13/2024 (Approximate), Expires: 09/11/2024 [facility] Comment on above: Expected: 08/13/2024 (Approximate), Expires: 09/11/2024 Start: 08-13-2024 End: 08-13-2025 US for US OB 14+ weeks anatomy scan Imaging Routine Screening, , for anatomic survey Expected: 08/13/2024, Expires: 08/13/2025 [facility] Comment on above: Expected: 08/13/2024 , Expires: 08/13/2025 Start: 08-13-2024 End: 08-13-2024 Patient encounter procedure 08/13/2024 10:50 AM EST Routine [facility] [address] [place] [address] Paz Metzger, PA [address] [place] [address] Arrived [facility] Comment on above: Arrived Start: 08-10-2024 End: 08-10-2024 Patient encounter procedure 08/10/2024 9:50 AM EST Routine [facility] [address] [place] [address] Paz Metzger, PA [address] [place] [address] [facility] Start: 07-09-2024 End: 07-09-2024 Patient encounter procedure [facility] Comment on above: Arrived Start: 06-25-2024 End: 06-25-2024 ambulatory 06/25/2024 2:30 PM EST Initial [facility] [address] [place] [address] [facility] Start: 06-25-2024 End: 06-25-2025 ABO/Rh ABO/Rh Lab Routine Missed menses , unspecified gestational age Expected: 06/25/2024 (Approximate), Expires: 06/25/2025 [facility] Comment on above: Expected: 06/25/2024 (Approximate), Expires: 06/25/2025 Start: 06-25-2024 End: 06-25-2025 Blood type and Indirect antibody screen panel - Blood Type and screen Lab Routine Missed menses , unspecified gestational age Expected: 06/25/2024 (Approximate), Expires: 06/25/2025 [facility] Work Phone: Comment on above: Expected: 06/25/2024 (Approximate), Expires: 06/25/2025 Start: 06-25-2024 End: 06-25-2025 Drugs of abuse panel - Urine by Screen method Rapid drug screen, urine Lab Routine , unspecified gestational age Encounter for supervision of normal first in first trimester Expected: 06/25/2024 (Approximate), Expires: 06/25/2025 [facility] Comment on above: Expected: 06/25/2024 (Approximate), Expires: 06/25/2025 Start: 06-25-2024 End: 06-25-2024 Professional / ancillary services management 06/25/2024 2:00 PM EST Ancillary Procedure [facility] [address] [facility] [place] [id number] [facility] Start: 06-25-2024 End: 06-25-2025 US Pelvis transvaginal US OB transvaginal Imaging Routine Missed menses Expected: 06/25/2024 (Approximate), Expires: 06/25/2025 [facility] Comment on above: Expected: 06/25/2024 (Approximate), Expires: 06/25/2025 Start: 05-28-2024 End: 05-28-2025 US for US OB > 14 WEEKS Imaging Routine Abdominal cramping affecting Missed menses Expected: 05/28/2024 (Approximate), Expires: 05/28/2025 [facility] Comment on above: Expected: 05/28/2024 (Approximate), Expires: 05/28/2025 Start: 05-28-2024 End: 05-28-2025 US Pelvis transvaginal US OB transvaginal Imaging Routine Abdominal cramping affecting Missed menses Expected: 05/28/2024 (Approximate), Expires: 05/28/2025 [facility] Work Phone: Comment on above: Expected: 05/28/2024 (Approximate), Expires: 05/28/2025 Start: 03-15-2024 Influenza vaccination Influenza Vacc ine (#1) [facility] Bacteria identified in Urine by Culture Urine culture Microbiology Routine Missed menses Ordered: 06/25/2024 [facility] Comment on above: Ordered: 06/25/2024 CBC W Auto Different ial panel - Blood CBC and differential Lab Routine Missed menses , unspecified gestational age Ordered: 06/25/2024 [facility] Comment on above: Ordered: 06/25/2024 CHLAMYDIA TRACHOMATI S (GENITO/STI) CHLAMYDIA TRACHOMATIS (GENITO/STI) Lab Routine Exposure to STD Ordered: 08/13/2024 [facility] Comment on above: Ordered: 08/13/2024 Cytology Cervical or vaginal smear or scraping study Pap Smear Pathology and Cytology Routine Well woman exam with routine gynecological exam Ordered: 08/13/2024 [facility] Comment on above: Ordered: 08/13/2024 Hemoglobin A1c/Hemoglobin.total in Blood Hemoglobin A1c Lab Routine Missed menses , unspecified gestational age Ordered: 06/25/2024 [facility] Comment on above: Ordered: 06/25/2024 Hepatitis B virus surface Ag [Presence] in Serum or Plasma by Immunoassay Hepatitis B surface antigen Lab Routine Missed menses , unspecified gestational age Ordered: 06/25/2024 [facility] Comment on above: Ordered: 06/25/2024 Hepatitis C virus Ab [Presence] in Serum or Plasma by Immunoassay Hepatitis C antibody Lab Routine Missed menses , unspecified gestational age Ordered: 06/25/2024 [facility] Comment on above: Ordered: 06/25/2024 HIV-1/HIV-2 antigen/antibody combination immunoassay HIV-1 and HIV-2 antibodies Lab Routine Missed menses , unspecified gestational age Ordered: 06/25/2024 [facility] Comment on above: Ordered: 06/25/2024 Neisseria gonorrhoea e DNA [Presence] in Unspecified specimen by DONALD with probe detection Neisseria gonorrhea DNA probe, direct Lab Routine Exposure to STD Ordered: 08/13/2024 [facility] Comment on above: Ordered: 08/13/2024 Reagin Ab [Presence] in Serum by RPR RPR Lab Routine Missed menses , unspecified gestational age Ordered: 06/25/2024 [facility] Comment on above: Ordered: 06/25/2024 Rubella antibody, IgG Rubella an tibody, IgG Lab Routine Missed menses , unspecified gestational age Ordered: 06/25/2024 [facility] Comment on above: Ordered: 06/25/2024 SURESWAB(R) ADVANCED VAGINITIS PLUS, TMA SURESWAB(R) ADVANCED VAGINITIS PLUS, TMA Pathology and Cytology Routine Vaginal discharge Ordered: 08/13/2024 [facility] Work Phone: Comment on above: Ordered: 08/13/2024 Immunizations Immunization Date Immunization Notes Care Provider Fa minesh 04-27-2021 influenza virus vaccine, unspecified formulation Giovanylaura Gross DO Work Phone: [facility] 01-15-2015 measles, mumps and rubella virus vaccine Sumit Link [facility] Comment on above: Reason for Medicatio n: Other (see comment) 01-15-2015 tetanus toxoid, redu carly diphtheria toxoid, and acellular pertussis vaccine, adsorbed Sumit Link [facility] Comment on above: Reason for Medicatio n: Other (see comment) Payers Date Payer Category Payer Private Health Insurance [facility] [id number] 1996 Unknown [id number] [id number]. 593 1996 Unknown [id number] 2.16.840.1.210171.3.579.2. 9 1996 Unknown [id number] 2.16.840.1.603968.3.579.2. 1259 1996 Unknown [id number] 2.16.840.1.485587.3.579.2. 727 1996 Unknown [id number] 2.16.840.1.635139.3.579.2. 727 1996 Unknown [id number] 2.16.840.1.981359.3.579.2. 1259 1996 Unknown [id number] 2.16.840.1.306807.3.579.2. 9 1996 Unknown [id number] 2.16.840.1.520902.3.579.2. 9 1996 Unknown [id number] 2.16.840.1.539520.3.579.2. 1259 1996 Unknown [id number] 2.16.840.1.559360.3.579.2. 1259 1996 Unknown [id number] 2.16.840.1.545244.3.579.2. 1259 1959 Unknown [id number] Self-pay Self Pay [id number] Social History Date Type Detail Facility Tobacco smoking status Unknown if ever sm oked [facility] Start: 11-16-2023 End: 11-18-2023 Sex Assigned At Female [facility] Start: 1996 Sex Assigned At Female [facility] Tobacco smoking status No Smokin g Status Entered [facility] Tobacco smoking status No Smokin g Status Entered [facility] Start: 11-18-2023 [facility] Start: 11-18-2023 Tobacco use and exposure Smokeless tobacco non-user [facility] Start: 05-28-2024 End: 08-13-2024 Alcoholic beverage intake Current drinker of alcohol [...] Assessment Result Facility 12-24-2021 Functional Status No [facility] Clinical Notes 12-24-2021 to 08-13-2024 CORNELIUS Crenshaw - 08/13/2024 10:50 AM Celestine Wise, [facility] - 07/09/2024 11:30 AM Buffy Oneal, [facility] - 06/25/2024 2:30 PM Denise Reyez, [facility] - 05/28/2024 9:20 AM EST Note [...] Diagnosis Date Noted Seizure (CMS/HCC) 11/16/2023 Migraine (CMS/HCC) 11/16/2023 Intractable migraine without aura and without [...] nursing note reviewed. Exam conducted with a superintendent building present. Vitals: Estimated body mass index is [...] obtained without difficulty and patient was given [facility] order to have obtained. Orders Placed This Encounter Procedures US OB 14+ weeks anatomy scan CHLAMYDIA TRACHOMATIS (GENITO/STI) Neisseria gonorrhea DNA probe, direct Alpha fetoprotein, maternal POCT urinalysis dipstick manually resulted Follow Up: Patient is to return to our office in 4 weeks for routine OB appointment Documented by Suzanna Oneal LPN on behalf of: CORNELIUS Crenshaw documented in this encounter [facility] 07-09-2024 History of Presen t illness Narrative Reason for Appointment: Patient ID: Gregorio Hess is a 29 y.o. female who presents for Routine Visit Patient presents today for Return OB appointment. MEDICATIONS No current outpatient medications ALLERGIES Allergies Allergen Reactions Losartan Other Reaction(s): Unknown PROBLEMS Active Ambulatory Problems Diagnosis Date Noted Seizure (CMS/HCC) 11/16/2023 Migraine (CMS/HCC) 11/16/2023 Intractable migraine without aura and without status migrainosus (CMS/[facility]) 11/16/2023 Hypersomnia 11/16/2023 Chronic daily headache 11/18/2023 Resolved Ambulatory Problems Diagnosis Date Noted No Resolved Ambulatory Problems Past Medical History: Diagnosis Date Anxiety Depression (CMS/[facility]) History of petit-mal seizures HISTORY PAST MEDICAL HISTORY SOCIAL HISTORY Past Medical History: Diagnosis Date Anxiety Depression ([facility]) History of petit-mal seizures Social History Tobacco [...] nursing note reviewed. Exam conducted with a superintendent building present. Vitals: Estimated body mass index is [...] or undercooked meat, and stay away from formerly [facility]. Patient has been consulted regarding any further do's and don'ts of . Patient voiced understanding and all questions and concerns were answered. Orders Placed This Encounter Procedures POCT urinalysis dipstick manually resulted Follow Up: Patient is to return in 4 weeks for routine OB appointment. Documented by Giovanna Wise LPN on behalf of: Giovany Gross DO documented in this encounter [facility] 06-25-2024 History of Presen t illness Narrative [...] Active Ambulatory Problems Diagnosis Date Noted Seizure ([facility]) 11/16/2023 Migraine ([facility]) 11/16/2023 Intractable migraine without aura and without status migrainosus ([facility]) 11/16/2023 Hypersomnia 11/16/2023 Chronic daily headache 11/18/2023 Resolved Ambulatory Problems Diagnosis Date Noted No Resolved Ambulatory Problems Past Medical History: Diagnosis Date Anxiety Depression ([facility]) History of petit-mal seizures Family History Problem [...] or undercooked meat, and stay away from formerly [facility]. Patient has also been advised to not [...] Suzanna Oneal LPN documented in this encounter [facility] 05-28-2024 History of Presen t illness Narrative Reason for Appointment: Patient ID: Gregorio Hess is a 29 y.o. female who presents for cramping in Patient presents today for Consult appointment. MEDICATIONS No current outpatient medications ALLERGIES No Known Allergies PROBLEMS Active Ambulatory Problems Diagnosis Date Noted Seizure ([facility]) 11/16/2023 Migraine ([facility]) 11/16/2023 Intractable migraine without aura and without status migrainosus ([facility]) 11/16/2023 Hypersomnia 11/16/2023 Chronic daily headache 11/18/2023 Resolved Ambulatory Problems Diagnosis Date Noted No Resolved Ambulatory Problems Past Medical History: Diagnosis Date Anxiety Depression ([facility]) HISTORY PAST MEDICAL HISTORY SOCIAL HISTORY Past Medical History: Diagnosis Date Anxiety Depression ([facility]) Social History Tobacco Use Smoking status: [...] nursing note reviewed. Exam conducted with a superintendent building present. Vitals: Estimated body mass index is [...] Giovany Gross DO documented in this encounter [facility] 10-29-2022 Evaluation + Plan note Diagnostic Tests PendingDHEAS 10/29/22Testosterone F&T 10/29/22Insulin Level Total 10/29/22FSH and LH 10/29/22Cortisol 10/29/22Estradiol Level 10/29/22 [facility] 02-06-2022 Evaluation + Plan note Diagnostic Tests PendingCOVID-19 (FT) 02/06/22 [facility] 12-24-2021 Hospital Discharg e instructions Patient Education 12/24/2021 21:12:52 Cellulitis, Adult, [id number] Cellulitis, Adult Cellulitis is a skin infection. [...] Follow these instructions at home: Medicines Take [id number] and prescription medicines only as told by [...] 12/17/2008 Document Revised: 11/20/2018 Document Reviewed: 11/20/2018 [employer] Patient Education 2020 [employer] Follow Up Care 12/24/2021 19:31:22 With:Ros Segovia Address: [address] [place] [address]- Business (1) When:12/27/2021 20:50:34 [facility] Evaluation + Plan note No data available for this section [facility] Evaluation note No assessment inform ation available [facility] Work Phone: Evaluation note Diagnosis Abdominal cramping [...] instructions No data available for this section [facility] No data available for this section [facility] Chief Complaint and Reason for Visit Chief [...] Inactive Member Role Status Dates Reyes Rodriguez DO [facility] Attending Provider Active Electronic Equipment Repairer Relationship Specialty Start Date End Date Lan Malcolm MD [address] [place] [address] PCP - General Family Medicine 11/18/23 Electronic Equipment Repairer Relationship Specialty Start Date End Date Lan Malcolm MD [address] [place] [address] PCP - General Family Medicine 11/18/23 Electronic Equipment Repairer Relationship Specialty Start Date End Date Lan Malcolm MD [address] [place] [address] PCP - General Family Medicine 11/18/23 Electronic Equipment Repairer Relationship Specialty Start Date End Date Lan Malcolm MD [address] [place] [address] PCP - General Family Medicine 11/18/23 Electronic Equipment Repairer Relationship Specialty Start Date End Date Lan Malcolm MD [address] [place] [address] PCP - General Family Medicine 11/18/23 Electronic Equipment Repairer Relationship Specialty Start Date End Date Lan Malcolm MD [address] [place] [address] PCP - General Family Medicine 11/18/23 Electronic Equipment Repairer Relationship Specialty Start Date End Date Lan Malcolm MD [address] [place] [id number] PCP - General Family Medicine 11/18/23 Goals (unrecognized section and content) Goals may be documented in a n alternate section INFORMATION SOURCE (unrecogn ized section and content) DATE CREATED AUTHOR 11/01/2021 [facility] DATE CREATED AUTHOR AUTHOR'S ORGANIZ ATION 10/01/2022 [facility] DATE CREATED AUTHOR AUTHOR'S ORGANIZ ATION 11/20/2023 [facility] DATE CREATED AUTHOR AUTHOR'S ORGANIZ ATION 05/30/2024 [facility] DATE CREATED AUTHOR AUTHOR'S ORGANIZ ATION 06/02/2024 [facility] DATE CREATED AUTHOR AUTHOR'S ORGANIZ ATION 09/03/2024 [facility] EPIC Reason for Visit (unrecogniz [...] BE BASED ON THE PRIMARY CLINICAL RECORDS. [facility]. provides no warranty or guarantee of the accuracy or completeness of information in this document.
[2024-09-11 01:08] LABS: AFP Value 47.8 ng/mL (.); Gest. Age on Collection Date 21.3 weeks (.); Insulin Dep Diabetes No (.); Maternal Age At EDD 28.8 yr (.); OSBR Risk 1 IN 10000 (.); Results Report (.)
== END 2024-09-09 06:34 | disposition home or self-care (01) ==
LOC: LAB 06:34
PROVIDERS: PCP Nurse Practitioner Family; Visit Provider Obstetrics & Gynecology
DX: Z34.92 Encounter for supervision of normal pregnancy, unspecified, second trimester (principal)
CPT/HCPCS: 36415; 82105

== ENCOUNTER 2024-09-29 06:23 | Outpatient (OUT) | payer OTHER, SELFPAY ==
--- OUTSIDE RECORDS SUMMARY | 2024-09-29 06:27 | XMS_ITS | CCD ---
Author Organization [facility] Care Team Providers Care Flat Polisher Name Role Phone Ros Segovia Primary Care Physician [phone] DO Reyes Rodriguez Attending Provider LYNN, DR BRAGG Primary Care Unavailable EBEN BRUNNER [...] GINNY, Giovany R Attending Unavailable Gold ACUNA, Lan Primary Care Provider PAZ METZGER Attending Unavailable GIOVANY GROSS Attending Unavailable AMELIA HAYWARD Attending Unavailable AMELIA HAYWARD Referring Unavailable GIOVANY GROSS Attending Unavailable GIOVANY GROSS Attending Unavailable Allergies Allergy Classification Reported Allergen(s) Allergy Type Date of Onset Reaction(s) Facility (14 sources) Losartan Drug Allergy 06-25-2024 [facility] Medications Current Medications Medication Drug Class(es) Dates Sig (Normalized) Sig (Original) cephalexin 500 mg oral capsule (5 sources) Cephalosporin Antibacterial Start: 12-24-2021 take 1 capsule by mouth four times daily cephalexin 500 mg Cap 500 mg = 1 cap(s), Oral, QID, # 40 cap(s), Refills(s) 0, Pharmacy: [facility], 165.1, cm, 12/24/21 19:35:00 EDT, Height/Length Dosing, 77.5, kg, 12/24/21 19:35:00 EDT, Weight Dosing Start Date: 12/24/21 Status: Ordered ibuprofen 600 mg oral tablet (5 sources) Nonsteroidal Anti-inflammatory Drug Start: 12-24-2021 take 1 tablet by mouth every six hours ibuprofen 600 mg Tab 600 mg = 1 tab(s), Oral, q6hr, # 40 tab(s), Refills(s) 0, Pharmacy: [facility] 1986, 165.1, cm, 12/24/21 19:35:00 EDT, Height/Length Dosing, [...] & Min w/FA-DHA ( ADULT GUMMY/DHA/FA PO) (9 sources) take 1 dose by mouth once daily MV & Min w/FA-DHA ( ADULT GUMMY/DHA/FA PO) Take 1 each by mouth Daily Active Vit-Fe Fumarate-FA ( Vitamins) 28-0.8 MG tablet (9 sources) Start: 08-06-2024 End: 08-06-2025 take 1 [...] Drug Class(es) Dates Sig (Normalized) Sig (Original) [id number] 200 actuat albuterol 0.09 mg/actuat metered dose [...] sources) Central alpha-2 Adrenergic Agonist Start: End: 4 tiZANidine (Zanaflex) 4 MG tablet [...] without status migrainosus] Onset: 11-16-2023 11-16-2023 Chronic Hemorrhage during ; abruptio placenta; placenta previa (2 sources) Low lying placenta; Translations: [Low lying placenta NOS or without hemorrhage, unspecified trimester] 09-10-2024 Episodic Immunizations and screening for infectious disease (2 sources) Exposure to sexually transmissible disorder; Translations: [Contact with and (suspected) exposure to infections with a predominantly sexual mode of transmission] 08-13-2024 Episodic Menstrual disorders (3 sources) Missed period; Translations: [Irregular menstruation, unspecified] 05-28-2024 Chronic Nausea and vomiting (4 sources) Vomiting, unspecified; Translations: [VOMITING UNSPECIFIED] Onset: 09-25-2022 Episodic Other aftercare (1 source) Other mcc (current) drug therapy; Translations: [OTH SENIOR CARE CURRENT DRUG THERAPY] Onset: 09-27-2022 Episodic Other [...] 09-24-2014 Episodic Other and delivery including normal (8 sources) ; Translations: [Encounter for supervision of normal , unspecified, unspecified trimester] 06-25-2024 Episodic Other screening for suspected conditions (not mental disorders or infectious disease) (4 sources) Patient encounter status; Translations: [Encounter for other specified screening] 08-13-2024 Episodic Residual codes; unclassified (16 sources) Hypersomnia; Translations: [Hypersomnia, unspecified] Onset: 11-16-2023 11-16-2023 Chronic Residual codes; unclassified (2 sources) Gestation period, 12 weeks; Translations: [12 weeks gestation of ] 07-09-2024 Episodic Residual codes; unclassified (2 sources) Gestation period, 17 weeks; Translations: [17 weeks gestation of ] 08-13-2024 Episodic Residual codes; unclassified (2 sources) Gestation period, 21 weeks; Translations: [21 weeks gestation of ] 09-10-2024 Episodic Skin and subcutaneous tissue infections (1 source) Cellulitis; Translations: [Cellulitis of unspecified part of limb] Onset: 12-24-2021 Episodic Unclassified (12 sources) OB Reminders Onset: 06-27-2024 06-27-2024 Past or Other Problems Problem Classification Problem Date Documented Da te Episodic/Chronic Epilepsy; convulsions (20 sources) Seizure; Translations: [Unspecified convulsions] Onset: 11-16-2023 12-31-2013 Episodic Headache; including migraine (16 sources) Chronic daily headache; Translations: [Chronic daily headache] Onset: 11-18-2023 11-18-2023 Episodic Unclassified (1 source) Exposure to 2019 novel coronavirus; Translations: [Contact with and (suspected) exposure to COVID19] Unclassified (3 sources) couplets( Confirmed ) 09-30-2012 Unclassified (12 sources) Onset: 06-14-2014 Resolved: 09-09-2016 01-20-2015 Unclassified (3 sources) couplets 09-30-2012 Results Test Name Value Interpretation Reference Range Facility AFP, SERUM, OPEN SPINA BIFID Aon 09-11-2024 AFP MOM 0.83 . [facility] AFP VALUE 47.8 ng/mL . [facility] COMMENT: Comment . [facility] Comment on above: Marci Cox , Ph.D., [facility] Director References: Available Upon Request. Multiples Of Median Cutoffs For AFP Elevations Webster 2.5 Black 2.8 IDD 2.0 Twins 4.5 Abbreviation Definitions IDD - Insulin Dep Diabetes OSBR - Open Spina Bifida Risk For further inquiries contact [facility] at [phone]. This test was developed and its performance characteristics determined by [employer]. It has not been cleared or approved by the Food and Drug Administration. Performed at: [facility] [address], [place] [id number] Zmt Operator: Arie Shipman [facility], Phone: [phone] GEST. AGE ON COLLECTION DATE 21.3 . weeks [facility] GESTAT. AGE BASED ON LMP . [facility] Comment on above: Recalculations are n ot recommended when gestational dating by LMP and ultrasound are within 10 days. INSULIN DEP DIABETES No . [facility] INTERPRETATION Comment . [facility] Comment on above: Interpretation: Scre en Negative This result is screen negative for OSB. The AFP MoM calculated is based on the gestational age provided. MS-AFP can identify up to 80% of open neural tube defects. Closed neural tube defects and some open defects may not be detected by this test. This test does not screen for Down Syndrome or Trisomy 18. If screening for Down Syndrome or Trisomy 18 is desired, contact [facility] to discuss available options. The [employer] recommends amniocentesis be offered to women age 35 and older. [age] [facility] MULTIPLE GESTATION No . [facility] OSBR RISK 1 [place] [id number] . [facility] RACE . [facility] RESULTS Report . [facility] TEST RESULTS: Negative . [facility] WEIGHT 186 . lbs [facility] N N LMP [id number] 3 17 N 1 186 N N N N N White/ [facility] IGP,APTIMA HPV,AGE GDLNon AGE GDLN ACOG TESTING Note . [facility] Comment on above: TESTS RESULT FLAG UN ITS REF RANGE LAB Clinician Provided Cytology Information Source.............Cervix Other.............. No. of containers..01 ThinPrep Vial Age Devang Olmos... FLAG LEGEND: L-Low Normal,H-High Normal,LL-Alert Low,HH-Alert High <-Panic Low,>-Panic High,A-Abnormal,AA-Critical Abnormal Performed at: 01 =G [facility] [address] Huma Hicks MD, IGP, RFX APTIMA HPV ASCU Note . [facility] Comment on above: TESTS RESULT FLAG UN ITS REF RANGE LAB DIAGNOSIS: 02 NEGATIVE FOR INTRAEPITHELIAL LESION OR MALIGNANCY. REACTIVE CELLULAR CHANGES AND/OR REPAIR ARE PRESENT. Specimen adequacy: 02 Satisfactory for evaluation. No endocervical component is identified. An endocervical component is not commonly seen in the patient. Performed by: 03 Yolanda Winter, [employer] (ASC) Electronically si... 02 Keara Campos MD, Pathologist [...] do occur. Test Methodology: Note 02 [employer](R) Director Radio was unable to read this specimen. Therefore a manual review was performed. FLAG LEGEND: L-Low Normal,H-High Normal,LL-Alert Low,HH-Alert High <-Panic Low,>-Panic High,A-Abnormal,AA-Critical Abnormal Performed at: [address] [address] Huma Hicks MD, 03 [facility] [address] [place] [address] Georgina Romeo MD, . 02 The HPV DNA reflex criteria were not met with this specimen result therefore, no HPV testing was performed. The HPV DNA reflex criteria were not met with this specimen result therefore, no HPV testing was performed. Performed at: = - [address] [id number] Zmt Operator: Huma Hicks MD, Phone: [phone] Performed at: [address] [id number] Zmt Operator: Huma Hicks MD, Phone: [phone] [facility] RECURRENT VAGINITIS (HTRX)on 08-14-2024 ATOPOBIUM VAGINAE 0 [facility] ATOPOBIUM VAGINAE Not detected [facility] BVAB 2,3 (BACTERIAL VAGINOSIS ASSOCIATED BACTERIA 2, 3); MOBILUNCUS SPP 27.061 Abnormal [facility] BVAB 2,3 (BACTERIAL VAGINOSIS ASSOCIATED BACTERIA [...] II, MD, PHD at 02-Sep-2024 08:04:31 AM [facility] Normal Not Available Comment on above: Order Comment: US OB ANATOMY SINGLE W US OB CERVICAL LENGTH Estimated Date of Delivery: 01/18/25 Gestational Age as of 08/13/2024: 17w3d Urinalysis macro (dipstick) panel (U)on 08-13-2024 Bilirubin, UA Negative Negative - 4(70) +++ mg/dL [facility] Blood, UA Negative Negative - 50 Theodore/mcL [facility] Clarity, UA Clear [facility] Color, UA Yellow [facility] Glucose, UA Positive Negative - 1999(110) ++++ mg/dL [facility] Comment on above: 100 Interpretation and review of laboratory results Abnormal [facility] Ketones, UA Negative Negative - 160(16) ++++ mg/dL [facility] Leukocytes, UA Negative Negative - 500+++ Mike/mcL [facility] Nitrite, UA Negative Negative - Positive [facility] pH, UA 5.5 5 - 9 [facility] Protein, UA Trace Negative - 2000(20) ++++ mg/dL [facility] Spec Grav, UA 1.03 1 - 1.03 [facility] Urobilinogen, UA 0.2 0.2 - 12 mg/dL [facility] Urinalysis macro (dipstick) panel (U)on 07-09-2024 Bilirubin, UA Negative Negative - 4(70) +++ mg/dL [facility] Blood, UA Negative Negative - 50 Theodore/mcL [facility] Clarity, UA Clear [facility] Color, UA Yellow [facility] Glucose, UA Negative Negative - 1999(110) ++++ mg/dL [facility] Interpretation and review of laboratory results Abnormal [facility] Ketones, UA Positive Negative - 160(16) ++++ mg/dL [facility] Comment on above: trace Leukocytes, UA Negative Negative - 500+++ Mike/mcL [facility] Nitrite, UA Negative Negative - Positive [facility] pH, UA 6 5 - 9 [facility] Protein, UA Trace Negative - 2000(20) ++++ mg/dL [facility] Spec Grav, UA 1.025 1 - 1.03 [facility] Urobilinogen, UA 1.0 0.2 - 12 mg/dL [facility] HCG ( test) Ql (U)o n 06-26-2024 Interpretation and review of laboratory results Abnormal [facility] Preg Test, Ur Positive Negative [facility] TBH DRUG SCREEN RAPID (URINE )on 06-26-2024 AMPHETAMINE SCREEN URINE Negative NEGATIVE [facility] BARBITURATES SCREEN URINE Negative NEGATIVE [facility] BENZODIAZEPINES SCREEN URINE Negative NEGATIVE [facility] BUPRENORPHINE SCREEN URINE Negative NEGATIVE [facility] Comment on above: DRUG CLASS TEST SYST [...] 300 ng/mL CANNABINOID SCREEN URINE Negative NEGATIVE [facility] COCAINE SCREEN URINE Negative NEGATIVE [facility] METHADONE SCREEN URINE Negative NEGATIVE [facility] METHAMPHETAMINES SCREEN URINE Negative NEGATIVE [facility] OPIATE SCREEN URINE Negative NEGATIVE [facility] OXYCODONE SCREEN URINE Negative NEGATIVE [facility] PHENCYCLIDINE SCREEN URINE Negative NEGATIVE [facility] TRICYCLIC ANTIDEPRESSANT URINE Negative NEGATIVE [facility] Urinalysis macro (dipstick) panel (U)on 06-26-2024 Bilirubin, UA Negative Negative - 4(70) +++ mg/dL [facility] Blood, UA Negative Negative - 50 Theodore/mcL [facility] Clarity, UA Clear [facility] Color, UA Yellow [facility] Glucose, UA Negative Negative - 1999(110) ++++ mg/dL [facility] Interpretation and review of laboratory results Abnormal [facility] Ketones, UA Negative Negative - 160(16) ++++ mg/dL [facility] Leukocytes, UA Trace Negative - 500+++ Mike/mcL [facility] Nitrite, UA Negative Negative - Positive [facility] pH, UA 7 5 - 9 [facility] Protein, UA Negative Negative - 1999(20) ++++ mg/dL [facility] Spec Grav, UA 1.015 1 - 1.03 [facility] Urobilinogen, UA 1.0 0.2 - 12 mg/dL [facility] Urinalysis macro (dipstick) panel (U)on 05-28-2024 Bilirubin, UA Negative Negative - 4(70) +++ mg/dL [facility] Blood, UA Negative Negative - 50 Theodore/mcL [facility] Clarity, UA Clear [facility] Color, UA Yellow [facility] Glucose, UA Negative Negative - 1999(110) ++++ mg/dL [facility] Interpretation and review of laboratory results Normal [facility] Ketones, UA Negative Negative - 160(16) ++++ mg/dL [facility] Leukocytes, UA Negative Negative - 500+++ Mike/mcL [facility] Nitrite, UA Negative Negative - Positive [facility] pH, UA 7 5 - 9 [facility] Protein, UA Negative Negative - 1999(20) ++++ mg/dL [facility] Spec Grav, UA 1.025 1 - 1.03 [facility] Urobilinogen, UA 0.2 0.2 - 12 mg/dL [facility] BhCG Quanton 05-27-2024 [place] [address] m[IU]/mL High 1-3 [facility] Comment on above: Result Comment: 'F N ON < 1 - 3' ' 0.2 - 1 WEEK = 5 TO 50' ' 1 - 2 WEEKS = 50 - 500' ' 2 - 3 WEEKS = 100 - 5000' ' 3 - 4 WEEKS = 500 - 04313' ' 4 - 5 WEEKS = 1000 - 40205' ' 5 - 6 WEEKS = 75013 - 824486' ' 6 - 8 WEEKS = 77145 - 607829' ' 8 - 12 WEEKS = 07072 - 580123' Performed By: #### 2 [id number] #### [facility] [address] [place] [address] CHEMISTRYOrdered By: SYSTEM SYSTEM on 05-27-2024 [place] [address] m[IU]/mL High 1 - 3 mIU/mL [facility] Comment on above: Result Comment: 'F N ON < 1 - 3' ' 0.2 - 1 WEEK = 5 TO 50' ' 1 - 2 WEEKS = 50 - 500' ' 2 - 3 WEEKS = 100 - 5000' ' 3 - 4 WEEKS = 500 - 48004' ' 4 - 5 WEEKS = 1000 - 56089' ' 5 - 6 WEEKS = 62197 - 916942' ' 6 - 8 WEEKS = 58483 - 641368' ' 8 - 12 WEEKS = 45610 - 268174' MRI Brain w/o Contraston MRI Brain w/o [...] Galaviz DO Transcribed by: TEJAL Technologist: KALYN Haro [facility] Consent for Treatmenton Consent for Treatment [id number]#1 .00TIFF Normal [facility] RAD - MRI Screening Formon 0 11-21-2023 RAD - MRI Screening Form [id number]# 1.00TIFF Normal [facility] Physician Orderon 11-20-2023 Physician Order [id number]#1 .00TIFF Normal [facility] CHEMISTRYOrdered By: SYSTEM SYSTEM on 10-29-2022 Cobalamin (Vitamin B12) [Mass/Vol] 460 pg/mL Normal 50 - 1500 pg/mL [facility] Remisol Folate [Mass/Vol] 8.4 ng/mL Normal >=6.7ng/mL [facility] Re misol Magnesium [Mass/Vol] 2.1 mg/dL Normal 1.3 - 2 .4 mg/dL [facility] Remisol AMYLASEon 09-25-2022 Amylase [Catalytic activity/Vol] 65 U/L Normal 25-115 [facility] Comment on above: Performed By: #### L IPA, PAZ, CMP #### [facility] [address] [place] [address] Dr. Flores Arroyo CBC AUTO DIFFon 09-25-2022 BASO # 0.0 103/ul Normal 0.0-0.1 [facility] Comment on above: Performed By: #### C BC #### [facility] [address] [place] [address] Dr. Flores Arroyo Basophils/100 WBC (Bld) 0.2 % Normal 0.2-2.0 [facility] Comment on above: Performed By: #### C BC #### [facility] [address] [place] [address] Dr. Flores Arroyo EO # 0.1 103/ul Normal 0.0-0.7 [facility] Comment on above: Performed By: #### C BC #### [facility] [address] [place] [address] Dr. Flores Arroyo Eosinophils/100 WBC (Bld) 0.3 % Critically low 0.9-7.0 [facility] Comment on above: Performed By: #### C BC #### [facility] [address] [place] [address] Dr. Flores Arroyo Erythrocyte distribution width (RBC) [Ratio] 13.7 % Normal 11.0-15.0 [facility] Comment on above: Performed By: #### C BC #### [facility] [address] [place] [address] Dr. Flores Arroyo Hematocrit (Bld) [Volume fraction] 44.0 % Normal 36.0-48.0 [facility] Comment on above: Performed By: #### C BC #### [facility] [address] [place] [address] Dr. Flores Arroyo Hemoglobin (Bld) [Mass/Vol] 14.7 g/dL Normal 12.0-16.0 [facility] Comment on above: Performed By: #### C BC #### [facility] [address] [place] [address] Dr. Flores Arroyo IG # 0.07 10e3/ul Critically high 0.00-0.03 [facility] Comment on above: Performed By: #### C BC #### [facility] [address] [place] [address] Dr. Flores Arroyo IG % 0.4 % Normal 0.0-0.5 [facility] Comment on above: Performed By: #### C BC #### [facility] [address] [place] [address] Dr. Flores Arroyo LYMPH # 2.4 103/ul Normal 1.2-3.8 [facility] Comment on above: Performed By: #### C BC #### [facility] [address] [place] [address] Dr. Flores Arroyo Lymphocytes/100 WBC (Bld) 12.7 % Critically low 20.5-60.0 [facility] Comment on above: Performed By: #### C BC #### [facility] [address] [place] [address] Dr. Flores Arroyo MANUAL DIFF REQ NO Normal [facility] Comment on above: Performed By: #### C BC #### [facility] [address] [address] [address] Flores Arroyo MCH (RBC) [Entitic mass] 29.5 pg Normal 26.7-34.0 [facility] Comment on above: Performed By: #### C BC #### [facility] [address] [place] [address] Dr. Flores Arroyo MCHC (RBC) [Mass/Vol] 33.4 g/dL Normal 29.9-35.2 [facility] Comment on above: Performed By: #### C BC #### [facility] [address] [place] [address] Dr. Flores Arroyo MCV (RBC) [Entitic vol] 88.4 fL Normal 81.0-99.0 [facility] Comment on above: Performed By: #### C BC #### [facility] [address] [place] [address] Dr. Flores Arroyo MONO # 1.3 103/ul Critically high 0.3-0.8 [facility] Comment on above: Performed By: #### C BC #### [facility] [address] [place] [address] Dr. Flores Arroyo Monocytes/100 WBC (Bld) 7.2 % Normal 1.7-12.0 [facility] Comment on above: Performed By: #### C BC #### [facility] [address] [place] [address] Dr. Flores Arroyo NEUT # 14.8 103/ul Critically high 1.4-6.5 [facility] Comment on above: Performed By: #### C BC #### [facility] [address] [place] [address] Dr. Flores Arroyo Neutrophils/100 WBC (Bld) 79.2 % Critically high 43.0-75.0 [facility] Comment on above: Performed By: #### C BC #### [facility] [address] [place] [address] Dr. Flores Arroyo Platelet mean volume (Bld) [Entitic vol] 10.8 fL Normal 9.5-13.5 [facility] Comment on above: Performed By: #### C BC #### [facility] [address] [place] [address] Dr. Flores Arroyo PLT 306 103/ul Normal 150-450 [facility] Comment on above: Performed By: #### C BC #### [facility] [address] [place] [address] Dr. Flores Arroyo RBC 4.98 106/ul Normal 4.20-5.40 [facility] Comment on above: Performed By: #### C BC #### [facility] [address] [place] [address] Dr. Flores Arroyo WBC 18.7 103/ul Critically high 4.0-11.0 [facility] Comment on above: Performed By: #### C BC #### [facility] [address] [place] [address] Dr. Flores Arroyo CULTURE URINEon 09-25-2022 CULTURE URINE Culture Observations : MODERATE GROWTH OF MIXED GENITAL MIS. NO POTENTIAL PATHOGENS SEEN. Normal [facility] Comment on above: Performed By: #### U RCX #### [facility] [address] [place] [address] Dr. Flores Arroyo ER URINE PROFILEon 3 Bilirubin Ql (U) Negative Normal NEGATIVE [facility] Comment on above: Performed By: #### U MICRO, ERUR #### [facility] [address] [place] [address] Dr. Flores Arroyo Clarity (U) CLEAR Normal CLEAR [facility] Comment on above: Performed By: #### U MICRO, ERUR #### [facility] [address] [place] [address] Dr. Flores Arroyo Color (U) YELLOW Normal YELLOW [facility] Comment on above: Performed By: #### U MICRO, ERUR #### [facility] [address] [place] [address] Dr. Flores MCHUGH A micrscopic examination will be performed if indicated. Normal [facility] Comment on above: Performed By: #### U MICRO, ERUR #### [facility] [address] [place] [address] Dr. Flores Arroyo Glucose Ql (U) Negative Normal NEGATIVE [facility] Comment on above: Performed By: #### U MICRO, ERUR #### [facility] [address] [address] [address] Flores Arroyo Hemoglobin Ql (U) Negative Normal NEGATIVE [facility] Comment on above: Performed By: #### U MICRO, ERUR #### [facility] [address] [address] [address] Flores Arroyo Ketones Ql (U) Negative Normal NEGATIVE [facility] Comment on above: Performed By: #### U MICRO, ERUR #### [facility] [address] [place] [address] Dr. Flores Arroyo LEUKOCYTES Negative Normal NEGATIVE [facility] Comment on above: Performed By: #### U MICRO, ERUR #### [facility] [address] [place] [address] Dr. Flores Arroyo Nitrite Ql (U) Negative Normal NEGATIVE [facility] Comment on above: Performed By: #### U MICRO, ERUR #### [facility] [address] [place] [address] Dr. Flores Arroyo pH (U) 5.5 [pH] Normal 5-9 [facility] Comment on above: Performed By: #### U MICRO, ERUR #### [facility] [address] [place] [address] Dr. Flores Arroyo Protein (U) [Mass/Vol] 30 mg/dL Abnormal NEGATIVE/ TRACE [facility] Comment on above: Performed By: #### U MICRO, ERUR #### [facility] [address] [place] [address] Dr. Flores Arroyo SPEC GRAVITY >=1.030 Abnormal 1.005-<=1.025 [facility] Comment on above: Performed By: #### U MICRO, ERUR #### [facility] [address] [place] [address] Dr. Flores Arroyo UR MICRO IND INDICATED Normal [facility] Comment on above: Performed By: #### U MICRO, ERUR #### [facility] [address] [place] [address] Dr. lFores Arroyo Urobilinogen Qn (U) 0.2 {Salty'U}/dL Normal 0.2 - 1. 0 [facility] Comment on above: Performed By: #### U MICRO, ERUR #### [facility] [address] [place] [address] Dr. Flores Arroyo LACTATE/LACTIC ACIDon 2022 Lactate [Moles/Vol] 1.6 mmol/L Normal 0.4-2.0 [facility] Comment on above: Performed By: #### L ACT #### [facility] [address] [place] [address] Dr. Flores Arroyo LIPASEon 09-25-2022 Lipase [Catalytic activity/Vol] 95.0 U/L Normal 73.0-393.0 [facility] Comment on above: Performed By: #### L IPA PAZ, CMP #### [facility] [address] [place] [address] Dr. Flores Arroyo PROF 14(COMP METB)on 023 Albumin [Mass/Vol] 4.4 g/dL Normal 3.4-5.0 [facility] Comment on above: Performed By: #### L IPA PAZ, CMP #### [facility] [address] [place] [address] Dr. Flores Arroyo Albumin/Globulin [Mass ratio] 1.2 {ratio} Normal [facility] Comment on above: Performed By: #### L IPA PAZ, CMP #### [facility] [address] [place] [address] Dr. Flores Arroyo ALP [Catalytic activity/Vol] 86 U/L Normal 46-116 [facility] Comment on above: Performed By: #### L IPA PAZ, CMP #### [facility] [address] [place] [address] Dr. Flores Arroyo ALT [Catalytic activity/Vol] 41 U/L Normal 14-59 [facility] Comment on above: Performed By: #### L IPA PAZ, CMP #### [facility] [address] [place] [address] Dr. Flores Arroyo Anion gap [Moles/Vol] 11.4 mmol/L Normal Th e [facility] Comment on above: Performed By: #### L PAZ MARTINES, CMP #### [facility] [address] [place] [address] Dr. Flores Arroyo AST [Catalytic activity/Vol] 29 U/L Normal 15-37 [facility] Comment on above: Performed By: #### L APZ MARTINES, CMP #### [facility] [address] [place] [address] Dr. Flores Arroyo Bilirubin [Mass/Vol] 0.3 mg/dL Normal 0.2-1.0 [facility] Comment on above: Performed By: #### L PAZ MARTINES, CMP #### [facility] [address] [place] [address] Dr. Flores Arroyo Calcium [Mass/Vol] 9.3 mg/dL Normal 8.5-10.1 [facility] Comment on above: Performed By: #### L PAZ MARTINES, CMP #### [facility] [address] [place] [address] Dr. Flores Arroyo Chloride [Moles/Vol] 102 mmol/L Normal 98-107 [facility] Comment on above: Performed By: #### L PAZ MARTINES, CMP #### [facility] [address] [place] [address] Dr. Flores Arroyo CO2 [Moles/Vol] 26.3 mmol/L Normal 21.0-32.0 [facility] Comment on above: Performed By: #### L PAZ MARTINES, CMP #### [facility] [address] [place] [address] Dr. Flores Arroyo Creatinine [Mass/Vol] 0.85 mg/dL Normal 0.55-1.02 [facility] Comment on above: Performed By: #### L PAZ MARTINES, CMP #### [facility] [address] [place] [address] Dr. Flores Arroyo EGFR-AF MAURITANIAN >60 Normal >=60 [facility] Comment on above: Performed By: #### L PAZ MARTINES, CMP #### [facility] [address] [place] [address] Dr. Flores Arroyo EGFR-NON AF MAURITANIAN >60 Normal >=60 [facility] Comment on above: Performed By: #### L PAZ MARTINES, CMP #### [facility] [address] [address] [address] Flores Arroyo Globulin (S) [Mass/Vol] 3.8 g/dL Normal [facility] Comment on above: Performed By: #### L PAZ MARTINES, CMP #### [facility] [address] [address] [address] Flores Arroyo Glucose [Mass/Vol] 159 mg/dL Critically high 74-106 [facility] Comment on above: Performed By: #### L PAZ MARTINES, CMP #### [facility] [address] [address] [address] Flores Arroyo Potassium [Moles/Vol] 3.7 mmol/L Normal 3.5-5.1 [facility] Comment on above: Performed By: #### L PAZ MARTINES, CMP #### [facility] [address] [place] [address] Dr. Flores Arroyo Protein [Mass/Vol] 8.2 g/dL Normal 6.4-8.2 [facility] Comment on above: Performed By: #### L PAZ MARTINES, CMP #### [facility] [address] [place] [address] Dr. Flores Arroyo Sodium [Moles/Vol] 136 mmol/L Normal 136-145 [facility] Comment on above: Performed By: #### L PAZ MARTINES, CMP #### [facility] [address] [place] [address] Dr. Flores Arroyo Urea nitrogen [Mass/Vol] 11.0 mg/dL Normal 7.0-18.0 [facility] Comment on above: Performed By: #### L PAZ MARTINES, CMP #### [facility] [address] [place] [address] Dr. Flores Arroyo Urea nitrogen/Creatinine [Mass ratio] 12.9 mg/mg Normal [facility] Comment on above: Performed By: #### L PAZ MARTINES, CMP #### [facility] [address] [address] [address] Flores Arroyo URINE MICROSCOPIC ONLYon BACTERIA SMALL Abnormal NONE SEEN [facility] Comment on above: Performed By: #### U MICRO, ERUR #### [facility] [address] [address] [address] Flores Arroyo Bacteria identified Cx Nom (U) INDICATED Normal [facility] Comment on above: Performed By: #### U MICRO, ERUR #### [facility] [address] [address] [address] Flores Arroyo CAST NONE SEEN Normal NONE SEEN [facility] Comment on above: Performed By: #### U MICRO, ERUR #### [facility] [address] [address] [address] Flores Arroyo Crystals LM Nom (Urine sed) NONE SEEN Normal NONE SEEN [facility] Comment on above: Performed By: #### U MICRO, ERUR #### [facility] [address] [address] [address] Flores Arroyo Epithelial cells LM Ql (Urine sed) MODERATE Abnormal NONE SEEN /RARE [facility] Comment on above: Performed By: #### U MICRO, ERUR #### [facility] [address] [address] [address] Flores Arroyo MUCOUS MODERATE Abnormal NONE SEEN [facility] Comment on above: Performed By: #### U MICRO, ERUR #### [facility] [address] [address] [address] Flores Arroyo RBC 0-2 Normal 0-2 [facility] Comment on above: Performed By: #### U MICRO, ERUR #### [facility] [address] [address] [address] Flores Arroyo WBC 2-5 Abnormal NONE SEEN [facility] Comment on above: Performed By: #### U MICRO, ERUR #### [facility] [address] [place] [address] Dr. Flores Arroyo XR chest 1Von 10-31-2021 XR chest 1V [facility] [place] [address] [place] [address] XRay Report Signed Patient: GREGORIO HESS MR#: [id number] : 1995 Acct:[id number] Age/Sex: 26 / F ADM Date: 10/31/21 Loc: [place] Room: Type: [facility] REF Attending Dr: Reyes Rodriguez DO, [facility] Ordering Provider: Reyes Rodriguez DO Date of Service: 10/31/21 XR/XR chest 1V: POSITIVE PPD TEST Copies to: Reyes Rodriguez DO PA CHEST: CLINICAL HISTORY: Positive Tspot. COMPARISON: None FINDINGS: Heart is normal in size. Lungs are clear. No free air. XR/XR chest 1V IMPRESSION: NEGATIVE CHEST. Impression dictated by: Dirk Chaves Jr., D.O.10/31/2021 12:11 PM Dictation Location: [place] [address] Transcribed By: [facility] 10/31/21 1211 Dictated By: Dirk Chaves Jr, DO 10/31/21 1210 Signed By: 10/31/21 1211 [facility] MICRO OTHER TESTSOrdered By: Ines Michel on 07-21-2021 Rapid COV Int NEG Ctl Pass (07/21/21 11:06 AM) Normal [facility] Man Sero Rapid COV Int POS Ctl Pass (07/21/21 11:06 AM) Normal [facility] Man Sero SARS-CoV+SARS-CoV-2 (COVID-19) Ag IA.rapid Ql (Resp) Not Detected (07/21/21 11:06 AM) Normal Not Detected [facility] Man Sero Vital Signs Date Time Vital Sign Value Performing Clinician Facility 09-10-2024 08:35-0500 Body mass index (BMI) [Ratio] 31.28 kg/m2 [facility] Work Phone: [facility] 09-10-2024 08:35-0500 Body weight 87.91 kg [employer] Work Phone: [facility] 09-10-2024 08:35-0500 Diastolic blood pressure 74 mm[Hg] [employer] Work Phone: [facility] 09-10-2024 08:35-0500 Systolic blood pressure 118 mm[Hg] Giovany Ginny DO Work Phone: [facility] 08-13-2024 10:59-0500 Body mass index (BMI) [Ratio] 29.99 kg/m2 Paz Metzger PA Work Phone: [facility] 08-13-2024 10:59-0500 Body weight 84.28 kg Paz Metzger PA Work Phone: [facility] 08-13-2024 10:59-0500 Diastolic blood pressure 82 mm[Hg] Paz Metzger PA Work Phone: [facility] 08-13-2024 10:59-0500 Systolic blood pressure 120 mm[Hg] Paz Metzger PA Work Phone: [facility] 07-09-2024 11:53-0500 Body mass index (BMI) [Ratio] 29.02 kg/m2 Giovany Ginny DO Work Phone: [facility] 07-09-2024 11:53-0500 Body weight 81.56 kg Giovany Ginny DO Work Phone: [facility] 07-09-2024 11:53-0500 Diastolic blood pressure 70 mm[Hg] Giovany Ginny DO Work Phone: [facility] 07-09-2024 11:53-0500 Systolic blood pressure 120 mm[Hg] Giovany Ginny DO Work Phone: [facility] 05-28-2024 09:39-0500 Body mass index (BMI) [Ratio] 27.66 kg/m2 Giovany Ginny DO Work Phone: [facility] 05-28-2024 09:39-0500 Body weight 77.75 kg Giovany Ginny DO Work Phone: [facility] 05-28-2024 09:39-0500 Diastolic blood pressure 68 mm[Hg] Giovany Ginny DO Work Phone: [facility] 05-28-2024 09:39-0500 Systolic blood pressure 110 mm[Hg] Giovany Ginny DO Work Phone: [facility] 12-24-2021 21:08-0400 Diastolic blood pressure 81 mm[Hg] Jalen Ezekiel [facility] 12-24-2021 21:08-0400 Heart rate 79 /min Jalen Ezekiel [facility] 12-24-2021 21:08-0400 Respiratory rate 18 /min Jalen Ezekiel [facility] 12-24-2021 21:08-0400 SaO2% (BldA) [Mass fraction] 100 % Jalen Ezekiel [facility] 12-24-2021 21:08-0400 Systolic blood pressure 114 mm[Hg] Jalen Ezekiel [facility] 12-24-2021 19:32-0400 Body temperature 98.06 [degF] Jalen Ezekiel [facility] 12-24-2021 19:32-0400 Diastolic blood pressure 85 mm[Hg] Jalen Ezekiel [facility] 12-24-2021 19:32-0400 Heart rate 100 /min Jalen Ezekiel [facility] 12-24-2021 19:32-0400 Respiratory rate 16 /min Jalen Ezekiel [facility] 12-24-2021 19:32-0400 SaO2% (BldA) [Mass fraction] 100 % Jalen Ezekiel [facility] 12-24-2021 19:32-0400 Systolic blood pressure 121 mm[Hg] Jalen Ezekiel [facility] Encounters Encounter Date Encounter Type Care Provider Facility Start: 09-10-2024 End: 09-10-2024 Bamboo flowsheet Giovany Ginny DO Work Phone: [facility] Start: 09-10-2024 End: 09-10-2024 Bamboo flowsheet Giovany Ginny DO Work Phone: [facility] Start: 09-10-2024 End: 09-10-2024 Office outpatient visit 15 minutes Giovany Ginny DO Work Phone: [facility] Comment on above: Second trimester pre gnancy; 21 weeks gestation of ; Diabetes mellitus screening; Low-lying placenta Start: 09-10-2024 End: 09-10-2024 ambulatory GIOVANY GINNY Not Available Start: 09-09-2024 End: 09-11-2024 Clinisync Result Encounter Giovany Ginny DO Work Phone: [facility] Unsolicited Start: 09-09-2024 End: 09-11-2024 Clinisync Result Encounter Giovany Ginny DO Work Phone: [facility] Unsolicited Start: 09-01-2024 End: 09-01-2024 ambulatory PAZ METZGER [...] Patient encounter procedure Paz SHIELDS Work Phone: [facility] Start: 08-13-2024 End: 08-13-2024 Periodic preventive med est patient 18-39 yrs Paz SHIELDS Work Phone: [facility] Comment on above: Screening, , for anatomic survey; Well woman exam with routine gynecological exam; Exposure to STD; Vaginal discharge; 17 weeks gestation of ; Second trimester Start: 08-13-2024 End: 08-13-2024 ambulatory PAZ DOMENICA Not Available Start: 07-09-2024 End: 07-09-2024 Bamboo [...] 10w3d Start: 06-25-2024 End: 06-25-2024 ambulatory PAZ DOMENICA Not Available Start: 05-28-2024 End: 05-28-2024 Office outpatient visit 15 minutes Giovany Ginny DO Work Phone: [facility] Comment on above: Abdominal cramping a ffecting ; Missed menses Start: 05-28-2024 End: 05-28-2024 ambulatory GIOVANY GINNY Not Available Start: 05-27-2024 End: 05-27-2024 ambulatory Giovany R GINNY Facility:[facility] Start: 05-27-2024 End: 05-27-2024 Patient encounter procedure Giovany GROSS [facility] Start: 11-21-2023 End: 11-21-2023 ambulatory AMELIA BOTELLOR Facility:[facility] Start: 11-21-2023 End: 11-21-2023 Patient encounter procedure AMELIA HAYWARD [facility] Start: 11-19-2023 End: 11-19-2023 ambulatory AMELIA GILLMOR Not Available Start: 11-19-2023 End: 11-19-2023 ambulatory AMELIA GILLMOR Not Available Start: 11-18-2023 End: 11-18-2023 ambulatory AMELIA GILLMOR Not Available Start: 11-18-2023 End: 11-18-2023 ambulatory AMELIA ANIKETMOR Not Available Start: 10-29-2022 End: 10-29-2022 Lab Drop off MACHELLE VIVEROS [facility] Start: 09-25-2022 End: 09-25-[address] BRAGG [facility] Facility: Start: 02-06-2022 End: 02-06-2022 Lab Drop off TIESHA FINLEY [facility] Start: 12-24-2021 End: 12-24-2021 Emergency department patient visit Jalen Falcon [facility] Start: 10-31-2021 End: 10-31-2021 Departed Referred DO Reyes Rodriguez Work Phone: [facility] [address] Start: 07-20-2021 End: 10-19-2021 Recurring Sumit Scott [facility] Procedures Date Procedure Procedure Detail Performing Clinician Start: 09-09-2024 AFP, SERUM, OPEN SPI NA BIFIDA Giovany Ginny DO Work Phone: Start: 08-13-2024 RECURRENT VAGINITIS (HTRX) Paz SHIELDS [...] Giovany Ginny DO Work Phone: Start: 06-26-2024 TB DRUG SCREEN RAPI D (URINE) Giovany Ginny DO Work Phone: Start: 05-28-2024 Urnls dip stick/tabl et rgnt non-auto w/o micrscp Giovany Ginny DO Work Phone: Tonsillectomy Sumit Link Plan of Treatment Date Care Activity Detail Author Start: 10-01-2024 End: 10-01-2024 Patient encounter procedure 10/01/2024 11:40 AM EDT Routine [facility] [address] [place] [address] Giovany Gross, DO [address] [place] [address] [facility] Start: 10-01-2024 End: 10-01-2024 Professional / ancillary services management 10/01/2024 10:30 AM EDT Ancillary Procedure [facility] [address] [place] [id number] [facility] Start: 09-10-2024 End: 09-10-2025 CBC panel - Blood by Automated count CBC Lab Routine Diabetes mellitus screening Expected: 09/10/2024 (Approximate), Expires: 09/10/2025 [facility] Work Phone: Comment on above: Expected: 09/10/2024 (Approximate), Expires: 09/10/2025 Start: 09-10-2024 End: 09-10-2025 Measurement of glucose 1 hour after glucose challenge for glucose tolerance test Glucose tolerance, 1 hour Lab Routine Diabetes mellitus screening Expected: 09/10/2024 (Approximate), Expires: 09/10/2025 [facility] Comment on above: Expected: 09/10/2024 (Approximate), Expires: 09/10/2025 Start: 09-10-2024 End: 09-10-2025 US for US OB limited 1+ fetuses Imaging Routine Low-lying placenta Expected: 09/10/2024, Expires: 09/10/2025 [facility] Comment on above: Expected: 09/10/2024 , Expires: 09/10/2025 Start: 09-10-2024 End: 09-10-2024 Patient encounter procedure [facility] Comment on above: Arrived Start: 09-01-2024 End: 09-01-2024 Professional / ancillary services management 09/01/2024 2:30 PM EST Ancillary Procedure [facility] [address] [place] [address] [facility] Start: 08-13-2024 End: 09-11-2024 Alpha fetoprotein, maternal Alpha fetoprotein, maternal Lab Routine 17 weeks gestation of Second trimester Expected: 08/13/2024 (Approximate), Expires: 09/11/2024 [facility] Comment on above: Expected: 08/13/2024 (Approximate), Expires: 09/11/2024 Start: 08-13-2024 End: 08-13-2025 US for US OB 14+ weeks anatomy scan Imaging Routine Screening, , for anatomic survey Expected: 08/13/2024, Expires: 08/13/2025 [facility] Comment on above: Expected: 08/13/2024 , Expires: 08/13/2025 Start: 08-13-2024 End: 08-13-2024 Patient encounter procedure 08/13/2024 10:50 AM EST Routine [facility] [address] [place] [address] Paz Metzger, PA [address] [place], [place] [id number] Arrived [facility] Comment on above: Arrived Start: 08-10-2024 End: 08-10-2024 Patient encounter procedure 08/10/2024 9:50 AM EST Routine [facility] [address] [place] [address] Paz Metzger, PA [address] [place] [address] [facility] Start: 07-09-2024 End: 07-09-2024 Patient encounter procedure [facility] Comment on above: Arrived Start: 06-25-2024 End: 06-25-2024 ambulatory 06/25/2024 2:30 PM EST Initial [facility] [address] [place] [id number] [facility] Start: 06-25-2024 End: 06-25-2025 [...] first trimester Expected: 06/25/2024 (Approximate), Expires: 06/25/2025 [facility] Comment on above: Expected: 06/25/2024 (Approximate), Expires: 06/25/2025 Start: 06-25-2024 End: 06-25-2024 Professional / ancillary services management 06/25/2024 2:00 PM EST Ancillary Procedure [facility] [address] [place] [address] [facility] Start: 06-25-2024 End: 06-25-2025 US Pelvis transvaginal US OB transvaginal Imaging Routine Missed menses Expected: 06/25/2024 (Approximate), Expires: 06/25/2025 [facility] Comment on above: Expected: 06/25/2024 (Approximate), Expires: 06/25/2025 Start: 05-28-2024 End: 05-28-2025 US for US OB > 14 WEEKS Imaging Routine Abdominal cramping affecting Missed menses Expected: 05/28/2024 (Approximate), Expires: 05/28/2025 [facility] Comment on above: Expected: 05/28/2024 (Approximate), Expires: 05/28/2025 Start: 05-28-2024 End: 05-28-2025 US Pelvis transvaginal US OB transvaginal Imaging Routine Abdominal cramping affecting Missed menses Expected: 05/28/2024 (Approximate), Expires: 05/28/2025 [facility] Work Phone: Comment on above: Expected: 05/28/2024 (Approximate), Expires: 05/28/2025 Start: 03-15-2024 Influenza vaccination Influenza Vacc ine (#1) [facility] Bacteria identified in Urine by Culture Urine culture Microbiology Routine Missed menses Ordered: 06/25/2024 [facility] Comment on above: Ordered: 06/25/2024 CBC W Auto Different ial panel - Blood CBC and differential Lab Routine Missed menses , unspecified gestational age Ordered: 06/25/2024 [facility] Comment on above: Ordered: 06/25/2024 CHLAMYDIA TRACHOMATI S (GENITO/STI) CHLAMYDIA TRACHOMATIS (GENITO/STI) Lab Routine Exposure to STD Ordered: 08/13/2024 [facility] Comment on above: Ordered: 08/13/2024 Cytology Cervical or vaginal smear or scraping study Pap Smear Pathology and Cytology Routine Well woman exam with routine gynecological exam Ordered: 08/13/2024 [facility] Comment on above: Ordered: 08/13/2024 Hemoglobin A1c/Hemoglobin.total in Blood Hemoglobin A1c Lab Routine Missed menses , unspecified gestational age Ordered: 06/25/2024 [facility] Comment on above: Ordered: 06/25/2024 Hepatitis B virus surface Ag [Presence] in Serum or Plasma by Immunoassay Hepatitis B surface antigen Lab Routine Missed menses , unspecified gestational age Ordered: 06/25/2024 [facility] Comment on above: Ordered: 06/25/2024 Hepatitis C virus Ab [Presence] in Serum or Plasma by Immunoassay Hepatitis C antibody Lab Routine Missed menses , unspecified gestational age Ordered: 06/25/2024 [facility] Comment on above: Ordered: 06/25/2024 HIV-1/HIV-2 antigen/antibody combination immunoassay HIV-1 and HIV-2 antibodies Lab Routine Missed menses , unspecified gestational age Ordered: 06/25/2024 [facility] Comment on above: Ordered: 06/25/2024 Neisseria gonorrhoea e DNA [Presence] in Unspecified specimen by DONALD with probe detection Neisseria gonorrhea DNA probe, direct Lab Routine Exposure to STD Ordered: 08/13/2024 [facility] Comment on above: Ordered: 08/13/2024 Reagin Ab [Presence] in Serum by RPR RPR Lab Routine Missed menses , unspecified gestational age Ordered: 06/25/2024 [facility] Comment on above: Ordered: 06/25/2024 Rubella antibody, IgG Rubella an tibody, IgG Lab Routine Missed menses , unspecified gestational age Ordered: 06/25/2024 [facility] Comment on above: Ordered: 06/25/2024 SURESWAB(R) ADVANCED VAGINITIS PLUS, TMA SURESWAB(R) ADVANCED VAGINITIS PLUS, TMA Pathology and Cytology Routine Vaginal discharge Ordered: 08/13/2024 [facility] Work Phone: Comment on above: Ordered: 08/13/2024 Immunizations Immunization Date Immunization Notes Care Provider Lexi edge 04-27-2021 influenza virus vaccine, unspecified formulation Giovany Gross DO Work Phone: [facility] 01-15-2015 measles, mumps and rubella virus vaccine Sumit Link [facility] Comment on above: Reason for Medicatio n: Other (see comment) 01-15-2015 tetanus toxoid, redu carly diphtheria toxoid, and acellular pertussis vaccine, adsorbed Sumit Link [facility] Comment on above: Reason for Medicatio n: Other (see comment) Payers Date Payer Category Payer Private Health Insurance [facility] MEDICAID [id number] 1995 Unknown [id number]. 593 1996 Unknown [id number] [id number]. 1259 1996 Unknown [id number] [id number]. 1259 1996 Unknown [id number]. 727 1996 Unknown [id number] [id number]. 727 1996 Unknown [id number] [id number]. 9 1996 Unknown [id number] [id number]. 1259 1996 Unknown [id number] [id number]. 9 1996 Unknown [id number] [id number]. 9 1996 Unknown [id number] 2.16.840.1.718268.3.579.2. 9 1996 Unknown [id number] [id number]. 1259 1996 Unknown [id number] [id number]. 1259 1959 Unknown [id number] Self-pay Self Pay [id number] Social History Date Type Detail Facility Tobacco smoking status Unknown if ever sm oked [facility] Start: 11-16-2023 End: 11-18-2023 Sex Assigned At Female [facility] Start: 1995 Sex Assigned At Female F [facility] Tobacco smoking status No Smokin g Status Entered [facility] Tobacco smoking status No Smokin g Status Entered [facility] Start: 11-18-2023 Tobacco smoking stat [facility] Never smoked tobacco [facility] Start: 11-18-2023 [...] Assessment Result Facility 12-24-2021 Functional Status No [facility] Clinical Notes 12-24-2021 to 09-10-2024 Nano Reyez, [facility] - 09/10/2024 8:40 AM Vernon Metzger, [facility] - 08/13/2024 10:50 AM Celestine Wise, [facility] - 07/09/2024 11:30 AM Buffy Oneal, [facility] - 06/25/2024 2:30 PM EST Note Date & Type Note Facility 09-10-2024 History of Presen t illness Narrative Reason for Appointment: Patient ID: Gregorio Hess is a 29 y.o. female who presents for Routine Visit Patient presents today for Return OB appointment. MEDICATIONS Current Outpatient Medications Medication Instructions MV & Min w/FA-DHA ( ADULT GUMMY/DHA/FA PO) 1 each, Daily Vit-Fe Fumarate-FA ( Vitamins) 28-0.8 MG tablet 1 tablet, Oral, Daily ALLERGIES Allergies Allergen Reactions Losartan Other Reaction(s): Unknown PROBLEMS Active Ambulatory Problems Diagnosis Date Noted Seizure ([facility]) 11/16/2023 Migraine ([facility]) 11/16/2023 Intractable migraine without aura and without status migrainosus ([facility]) 11/16/2023 Hypersomnia 11/16/2023 Chronic daily headache 11/18/2023 Resolved Ambulatory Problems Diagnosis Date Noted No Resolved Ambulatory Problems Past Medical History: Diagnosis Date Anxiety Depression ([facility]) History of petit-mal seizures HISTORY PAST MEDICAL HISTORY SOCIAL HISTORY Past Medical History: Diagnosis Date Anxiety Depression ([facility]) History of petit-mal seizures Social History Tobacco Use Smoking status: Never Smokeless tobacco: Never Substance Use Topics Alcohol use: Yes Comment: caffeine: 1-2 cups per day Drug use: Never FAMILY HISTORY Family History Problem Relation Name Age of Onset Achalasia Mother Hypertension Mother Migraines Mother Cancer Father SURGICAL HISTORY No past surgical history on file. REVIEW OF SYSTEMS Review of Systems: Review [...] nursing note reviewed. Exam conducted with a machine sneller present. Vitals: Estimated body mass index is 31.28 kg/m as calculated from the following: Height as of 11/18/23: 5' 6 . Weight as of this encounter: 193 lb 12.8 oz. BP: 118/74 Patient's last menstrual period was 04/13/2024. ASSESSMENT & PLAN ICD-10-CM 1. Second trimester Z34.92 POCT urinalysis dipstick manually resulted 2. 21 weeks gestation of Z3A.21 POCT urinalysis dipstick manually resulted 3. Diabetes mellitus screening Z13.1 CBC Glucose tolerance, 1 hour CBC Glucose tolerance, 1 hour 4. Low-lying placenta O44.40 US OB limited 1+ fetuses Patient presents today for a routine obstetrics appointment. Patient is currently 21w3d with a Estimated Date of Delivery: 01/18/25. Reviewed US with patient and pt given follow up order to check placenta. Patient to be on pelvic rest until low lying placenta clears. Patient start baby aspirin 81mg daily. Patient to RTC in 4 weeks. Documented by Nano Reyez LPN on behalf of: Giovany Gross DO documented in this encounter [facility] 08-13-2024 History of Presen t illness Narrative [...] Active Ambulatory Problems Diagnosis Date Noted Seizure ([facility]) 11/16/2023 Migraine ([facility]) 11/16/2023 Intractable migraine without aura and without status migrainosus ([facility]) 11/16/2023 Hypersomnia 11/16/2023 Chronic daily headache 11/18/2023 Resolved Ambulatory Problems Diagnosis Date Noted No Resolved Ambulatory Problems Past Medical History: Diagnosis Date Anxiety Depression ([facility]) History of petit-mal seizures HISTORY PAST MEDICAL HISTORY SOCIAL HISTORY Past Medical History: Diagnosis Date Anxiety Depression ([facility]) History of petit-mal seizures Social History [...] nursing note reviewed. Exam conducted with a machine sneller present. Vitals: Estimated body mass index is [...] obtained without difficulty and patient was given [facility] order to have obtained. Orders Placed This Encounter Procedures US OB 14+ weeks anatomy scan CHLAMYDIA TRACHOMATIS (GENITO/STI) Neisseria gonorrhea DNA probe, direct Alpha fetoprotein, maternal POCT urinalysis dipstick manually resulted Follow Up: Patient is to return to our office in 4 weeks for routine OB appointment Documented by Suzanna Oneal LPN on behalf of: CORNELIUS Crenshaw documented in this encounter [facility] 07-09-2024 History of Presen t illness Narrative Reason for Appointment: Patient ID: Gregorio Hess is a 29 y.o. female who presents for Routine Visit Patient presents today for Return OB appointment. MEDICATIONS No current outpatient medications ALLERGIES Allergies Allergen Reactions Losartan Other Reaction(s): Unknown PROBLEMS Active Ambulatory Problems Diagnosis Date Noted Seizure ([facility]) 11/16/2023 Migraine ([facility]) 11/16/2023 Intractable migraine without aura and without status migrainosus ([facility]) 11/16/2023 Hypersomnia 11/16/2023 Chronic daily headache 11/18/2023 Resolved Ambulatory Problems Diagnosis Date Noted No Resolved Ambulatory Problems Past Medical History: Diagnosis Date Anxiety Depression ([facility]) History of petit-mal seizures HISTORY PAST MEDICAL HISTORY SOCIAL HISTORY Past Medical History: Diagnosis Date Anxiety Depression ([facility]) History of petit-mal seizures Social History [...] nursing note reviewed. Exam conducted with a machine sneller present. Vitals: Estimated body mass index is [...] or undercooked meat, and stay away from [facility]. Patient has been consulted regarding any further do's and don'ts of . Patient voiced understanding and all questions and concerns were answered. Orders Placed This Encounter Procedures POCT urinalysis dipstick manually resulted Follow Up: Patient is to return in 4 weeks for routine OB appointment. Documented by Giovanna Wise LPN on behalf of: Giovany Gross DO documented in this encounter [facility] 06-25-2024 History of Presen t illness Narrative [...] Active Ambulatory Problems Diagnosis Date Noted Seizure ([facility]) 11/16/2023 Migraine ([facility]) 11/16/2023 Intractable migraine without aura and without status migrainosus ([facility]) 11/16/2023 Hypersomnia 11/16/2023 Chronic daily headache 11/18/2023 Resolved Ambulatory Problems Diagnosis Date Noted No Resolved Ambulatory Problems Past Medical History: Diagnosis Date Anxiety Depression (CMS/HCC) History of petit-mal seizures Family History Problem [...] or undercooked meat, and stay away from [facility]. Patient has also been advised to [...] Suzanna Oneal LPN documented in this encounter [facility] 05-28-2024 History of Presen t illness Narrative Reason for Appointment: Patient ID: Gregorio Hess is a 29 y.o. female who presents for cramping in Patient presents today for Consult appointment. MEDICATIONS No current outpatient medications ALLERGIES No Known Allergies PROBLEMS Active Ambulatory Problems Diagnosis Date Noted Seizure ([facility]) 11/16/2023 Migraine ([facility]) 11/16/2023 Intractable migraine without aura and without status migrainosus ([facility]) 11/16/2023 Hypersomnia 11/16/2023 Chronic daily headache 11/18/2023 Resolved Ambulatory Problems Diagnosis Date Noted No Resolved Ambulatory Problems Past Medical History: Diagnosis Date Anxiety Depression ([facility]) HISTORY PAST MEDICAL HISTORY SOCIAL HISTORY Past Medical History: Diagnosis Date Anxiety Depression ([facility]) Social History Tobacco Use Smoking [...] nursing note reviewed. Exam conducted with a machine sneller present. Vitals: Estimated body mass index is [...] Giovany Gross DO documented in this encounter [facility] 10-29-2022 Evaluation + Plan note Diagnostic Tests PendingDHEAS 10/29/22Testosterone F&T 10/29/22Insulin Level Total 10/29/22FSH and LH 10/29/22Cortisol 10/29/22Estradiol Level 10/29/22 [facility] 02-06-2022 Evaluation + Plan note Diagnostic Tests PendingCOVID-19 ([facility]) 02/06/22 [facility] 12-24-2021 Hospital Discharg e instructions Patient Education 12/24/2021 21:12:52 Cellulitis, Adult, Ueqv-qu-Umgf Cellulitis, Adult Cellulitis is a skin infection. [...] Follow these instructions at home: Medicines Take lmuy-yzb-xepykcw and prescription medicines only as told by [...] 12/17/2008 Document Revised: 11/20/2018 Document Reviewed: 11/20/2018 [employer] Patient Education 2020 [employer]. Follow Up Care 12/24/2021 19:31:22 With:Ros Segovia Address: [address] [place], [place] [address]dict Valeria Flynn , [address] [address] Business (1) When:12/27/2021 20:50:34 [facility] Evaluation + Plan note No data available for this section [facility] Evaluation note No assessment inform ation available [facility] Work Phone: Evaluation note Diagnosis Abdominal cramping affecting Missed menses [facility] Diagnosis Missed menses , unspecified gestational age Encounter for supervision of normal first in first trimester [facility]* Diagnosis 12 weeks gestation of First trimester state, incidental documented in this encounter [facility]* Diagnosis Screening, , for anatomic survey Encounter for anatomic survey Well woman exam with routine gynecological exam Routine gynecological examination Exposure to STD Vaginal discharge Leukorrhea, not specified as infective 17 weeks gestation of Second trimester state, incidental [facility]* Diagnosis Second trimester state, incidental 21 weeks gestation of Diabetes mellitus screening Screening for diabetes mellitus Low-lying placenta Hemorrhage from placenta previa, unspecified as to episode of care documented in this encounter [facility] Discharge instructions No data available for this section [facility] No data available for this section [facility] Chief Complaint and Reason for [...] Member Role Status Dates Reyes Rodriguez , DO [facility] Attending Provider Active Flat Polisher Relationship Specialty Start Date End Date Lan Malcolm MD [address] [place] [address] PCP - General Family Medicine 11/18/23 Flat Polisher Relationship Specialty Start Date End Date Lan Malcolm MD [address] [place] [address] PCP - General Family Medicine 11/18/23 Flat Polisher Relationship Specialty Start Date End Date Lan Malcolm MD [address] [place] [address] PCP - General Family Medicine 11/18/23 Flat Polisher Relationship Specialty Start Date End Date Lan Malcolm MD [address] [place] [address] PCP - General Family Medicine 11/18/23 Flat Polisher Relationship Specialty Start Date End Date Lan Malcolm MD [address] [place] [address] PCP - General Family Medicine 11/18/23 Flat Polisher Relationship Specialty Start Date End Date Lan Malcolm MD [address] [place] [address] PCP - General Family Medicine 11/18/23 Flat Polisher Relationship Specialty Start Date End Date Lan Malcolm MD [address] [place] [address] PCP - General [facility] Medicine 11/18/23 Flat Polisher Relationship Specialty Start Date End Date Lan Malcolm MD [address] [place] [address] PCP - General Family Medicine 11/18/23 Goals (unrecognized section and content) Goals may be documented in a n alternate section INFORMATION SOURCE (unrecogn ized section and content) DATE CREATED AUTHOR 11/01/2021 [facility] DATE CREATED AUTHOR AUTHOR'S ORGANIZ ATION 10/01/2022 [facility] DATE CREATED AUTHOR AUTHOR'S ORGANIZ ATION 11/20/2023 [facility] EPIC DATE CREATED AUTHOR AUTHOR'S ORGANIZ ATION 05/30/2024 [facility] DATE CREATED AUTHOR AUTHOR'S ORGANIZ ATION 06/02/2024 [facility] DATE CREATED AUTHOR AUTHOR'S ORGANIZ ATION 09/12/2024 [facility] EPIC Reason for [...] BE BASED ON THE PRIMARY CLINICAL RECORDS. [employer] provides no warranty or guarantee of the accuracy or completeness of information in this document.
[2024-09-29 07:40] LABS: Basophils Percent Auto 0.2 % (0.2-2.0); Eosinophils Absolute Auto 0.1 10^3/uL (0.0-0.7); Eosinophils Percent Auto 0.7 % (0.9-7.0); Hematocrit 32.2 % (36.0-48.0); Hemoglobin 10.6 g/dL (12.0-16.0); Immature Granulocytes Abs Auto 0.15 10^3/uL (0.00-0.03); Immature Granulocytes Pct Auto 1.7 % (0.0-0.5); Lymphocytes Absolute Auto 1.7 10^3/uL (1.2-3.8); Lymphocytes Percent Auto 19.7 % (20.5-60.0); Mean Corpuscular HGB Conc 32.9 g/dL (29.9-35.2); Mean Corpuscular Hemoglobin 30.1 pg (26.7-34.0); Mean Corpuscular Volume 91.5 fL (81.0-99.0); Mean Platelet Volume 11.8 fL (9.5-13.5); Monocytes Absolute Auto 0.5 10^3/uL (0.3-0.8); Monocytes Percent Auto 5.5 % (1.7-12.0); Neutrophils Absolute Auto 6.3 10^3/uL (1.4-6.5); Neutrophils Percent Auto 72.2 % (43.0-75.0); Platelet Count 178 10^3/uL (150-450); Red Blood Count 3.52 10^6/uL (4.20-5.40); Red Cell Distribution Width 14.3 % (11.0-15.0); White Blood Count 8.7 10^3/uL (4.0-11.0)
[2024-09-29 09:39] LABS: Glucose 1 Hour 131 mg/dL (<130)
== END 2024-09-29 06:24 | disposition home or self-care (01) ==
LOC: LAB 06:24
PROVIDERS: PCP Nurse Practitioner Family; Visit Provider Obstetrics & Gynecology
DX: Z13.1 Encounter for screening for diabetes mellitus (principal)
CPT/HCPCS: 36415; 82950; 85025

== ENCOUNTER 2024-10-15 08:40 | Outpatient (OUT) | payer OTHER, SELFPAY ==
[2024-10-15 09:01] LABS: Basophils Percent Auto 0.1 % (0.2-2.0); Eosinophils Percent Auto 0.3 % (0.9-7.0); Hematocrit 32.5 % (36.0-48.0); Hemoglobin 10.7 g/dL (12.0-16.0); Immature Granulocytes Abs Auto 0.14 10^3/uL (0.00-0.03); Immature Granulocytes Pct Auto 1.3 % (0.0-0.5); Lymphocytes Absolute Auto 1.9 10^3/uL (1.2-3.8); Mean Corpuscular HGB Conc 32.9 g/dL (29.9-35.2); Mean Corpuscular Hemoglobin 29.6 pg (26.7-34.0); Mean Corpuscular Volume 89.8 fL (81.0-99.0); Monocytes Absolute Auto 0.6 10^3/uL (0.3-0.8); Neutrophils Absolute Auto 7.8 10^3/uL (1.4-6.5); Neutrophils Percent Auto 74.3 % (43.0-75.0); Platelet Count 188 10^3/uL (150-450); Red Blood Count 3.62 10^6/uL (4.20-5.40); Red Cell Distribution Width 14.6 % (11.0-15.0); White Blood Count 10.5 10^3/uL (4.0-11.0)
[2024-10-16 05:07] LABS: Transferrin 418 mg/dL (192-364)
== END 2024-10-15 08:41 | disposition home or self-care (01) ==
LOC: LAB 08:41
PROVIDERS: PCP Nurse Practitioner Family; Visit Provider Obstetrics & Gynecology
DX: O99.013 Anemia complicating pregnancy, third trimester (principal)
CPT/HCPCS: 36415; 82728; 84466; 85025

== ENCOUNTER 2024-11-09 18:52 | Outpatient (OUT) | payer OTHER, SELFPAY ==
[2024-11-09 19:01] VITALS: BP 133/83; PULSE 104
== END 2024-11-09 19:30 | disposition home or self-care (01) ==
LOC: FBCO 18:52 → FBC 18:54
PROVIDERS: PCP Nurse Practitioner Family; Visit Provider Obstetrics & Gynecology
DX: O26.893 Other specified pregnancy related conditions, third trimester (principal); Z3A.30 30 weeks gestation of pregnancy
CPT/HCPCS: 59025

== ENCOUNTER 2024-11-12 09:47 | Outpatient (OUT) | payer OTHER, SELFPAY ==
--- NOTE | 2024-11-12 09:54 | US_ITS ---
[place] [id number] Patient Name: GREGORIO HESS MRN: [id number] date: 1995 Sex: F Assigned Patient Location: [facility] Current Patient Location: [facility] Accession/Order Number: [id number] Exam Date: 11/12/2024 10:30 Report Date: 11/12/2024 10:32 At the request of: GIOVANY ARVIZU DO Procedure: US OB BPP w non-stress Biophysical profile. History of preeclampsia. COMPARISON: None. TECHNIQUE: Transabdominal imaging of the gravid uterus was obtained Findings: Curb And Gutter Laborer reports a biophysical profile 8 out of 8. AIME is normal at 10.2 cm. heart rate 155 bpm. US/US OB BPP w non-stress Impression: BPP 8 out of 8. Impression dictated by: Dirk Chaves Jr., D.O. 11/12/2024 10:32 AM Dictation Location: [employer] Electronically authenticated by: [id number] Y Date: 11/12/2024 10:32
[2024-11-12 10:22] VITALS: BP 119/77; PULSE 95
== END 2024-11-12 10:57 | disposition home or self-care (01) ==
LOC: US 09:47 → FBC 09:49
PROVIDERS: PCP Nurse Practitioner Family; Visit Provider Obstetrics & Gynecology
DX: O09.893 Supervision of other high risk pregnancies, third trimester (principal); O09.293 Supervision of pregnancy with other poor reproductive or obstetric history, third trimester
CPT/HCPCS: 76818

== ENCOUNTER 2024-11-19 09:42 | Outpatient (OUT) | payer OTHER, SELFPAY ==
--- NOTE | 2024-11-19 | US_ITS ---
[place] [id number] Patient Name: GREGORIO HESS MRN: [id number] date: 1995 Sex: F Assigned Patient Location: [place] Current Patient Location: Accession/Order Number: [id number] Exam Date: 11/19/2024 10:58 Report Date: 11/19/2024 10:59 At the request of: GIOVANY ARVIZU DO Procedure: US OB BPP w non-stress Biophysical profile. History of preeclampsia. COMPARISON: 11/12/2024 TECHNIQUE: Transabdominal imaging of the gravid uterus was obtained Findings: Lead Tank Mechanic reports a biophysical profile 8 out of 8. AIME is normal at 13.3 cm. heart rate 148 bpm. US/US OB BPP w non-stress Impression: BPP 8 out of 8. Impression dictated by: Dirk Chaves Jr., D.O. 11/19/2024 10:59 AM Dictation Location: [employer] Electronically authenticated by: [id number] Y Date: 11/19/2024 10:59
[2024-11-19 10:24] VITALS: BP 132/78; PULSE 88
== END 2024-11-19 10:56 | disposition home or self-care (01) ==
LOC: US 09:43 → FBC 10:14
PROVIDERS: PCP Nurse Practitioner Family; Visit Provider Obstetrics & Gynecology
DX: O26.893 Other specified pregnancy related conditions, third trimester (principal)
CPT/HCPCS: 76818

== ENCOUNTER 2024-11-26 09:36 | Outpatient (OUT) | payer OTHER, SELFPAY ==
[2024-11-26 09:45] VITALS: BP 136/84; PULSE 100
--- OUTSIDE RECORDS SUMMARY | 2024-11-26 09:58 | XMS_ITS | CCD ---
Author Organization [facility] Care Team Providers Care Hander In Name Role Phone Ros Segovia Primary Care Physician [phone] DO Reyes Rodriguez Attending Provider MISTorri, DR BRAGG Primary Care Unavailable EBEN BRUNNER Admitting Unavailable EBEN BRUNNER Attending Unavailable EBEN BRUNNER Consulting Unavailable AMELIA HAYWARD Attending Unavailable AMELIA HAYWARD Referring Unavailable MACHELLE VIVEROS Primary Care Physician AMELIA HAYWARD Admitting Unavailable AMELIA HAYWARD Attending Unavailable AMELIA HAYWARD Referring Unavailable MACHELLE VIVEROS Primary Care Unavailable GINNY, Giovany R Attending Unavailable MACHELLE VIVEROS Primary Care Unavailable GINNY, Giovany R Admitting Unavailable MACHELLE VIVEROS Primary Care Unavailable GINNY, Giovany R Admitting Unavailable GINNY, Giovany R Attending Unavailable Lan Malcolm MD Primary Care Provider PAZ METZGER Attending Unavailable GINNY, GIOVANY Attending Unavailable GINNY, GIOVANY Referring Unavailable GINNY, GIOVANY Attending Unavailable GINNY, GIOVANY Attending Unavailable GINNY, GIOVANY Attending Unavailable GINNY, GIOVANY Attending Unavailable PAZ METZGER Attending Unavailable Allergies Allergy Classification Reported Allergen(s) Allergy Type Date of Onset Reaction(s) Facility (20 sources) Losartan Drug Allergy 06-25-2024 [facility] Healthcare Medications Current Medications Medication Drug Class(es) Dates Sig (Normalized) Sig (Original) cephalexin 500 mg oral capsule (5 sources) Cephalosporin Antibacterial Start: 12-24-2021 take 1 capsule by mouth four times daily cephalexin 500 mg Cap 500 mg = 1 cap(s), Oral, QID, # 40 cap(s), Refills(s) 0, Pharmacy: [facility], 165.1, cm, 12/24/21 19:35:00 EDT, Height/Length Dosing, 77.5, kg, 12/24/21 19:35:00 EDT, Weight Dosing Start Date: 12/24/21 Status: Ordered ibuprofen 600 mg oral tablet (5 sources) Nonsteroidal Anti-inflammatory Drug Start: 12-24-2021 take 1 tablet by mouth every six hours ibuprofen 600 mg Tab 600 mg = 1 tab(s), Oral, q6hr, # 40 tab(s), Refills(s) 0, Pharmacy: [facility] 1985, 165.1, cm, 12/24/21 19:35:00 EDT, Height/Length Dosing, 77.5, kg, 12/24/21 19:35:00 EDT, Weight Dosing Start Date: 12/24/21 Status: Ordered norethindrone 0.35 mg oral tablet (6 sources) Start: 10-28-2017 take 1 tablet by mouth once daily norethindrone 0.35 mg oral tablet 0.35 mg = 1 tab(s), Oral, Daily, # 28 tab(s), Refills(s) 0 Start Date: 10/28/17 Status: Ordered polysaccharide iron complex 391 mg oral capsule (3 sources) Start: 10-01-2024 End: 10-31-2024 take 1 capsule by mouth once daily iron polysaccharides (ProFe) 391.3 (180 Fe) MG capsule Indications: Anemia, unspecified type Take 1 capsule (391.3 mg) by mouth Daily 30 capsule 6 10/01/2024 10/31/2024 Active MV & Min w/FA-DHA ( ADULT GUMMY/DHA/FA PO) (19 sources) take 1 dose by mouth once daily MV & Min w/FA-DHA ( ADULT GUMMY/DHA/FA PO) Take 1 each by mouth Daily Active Vit-Fe Fumarate-FA ( Vitamins) 28-0.8 MG tablet (19 sources) Start: 08-06-2024 End: 08-06-2025 take 1 [...] Drug Class(es) Dates Sig (Normalized) Sig (Original) [id number] 200 actuat albuterol 0.09 mg/actuat metered dose [...] sources) Serotonin-1b and Serotonin-1d Receptor Agonist Start: End: take 1 tablet by mouth once rizatriptan [...] Classification Problem Date Documented Da te Episodic/Chronic Cardiac dysrhythmias (4 sources) Palpitations; Translations: [Palpitations] 11-06-2024 Episodic Deficiency and other anemia (2 sources) Anemia; Translations: [Anemia, unspecified] 10-01-2024 Episodic Headache; including migraine (20 sources) Migraine; Translations: [...] 09-25-2022 Episodic Other aftercare (1 source) 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; Translations: [OTH 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 CURRENT DRUG THERAPY] Onset: 09-27-2022 Episodic Other complications of (2 sources) Complication of , childbirth and/or the puerperium; Translations: [Other specified related conditions, unspecified trimester] 05-28-2024 Episodic Other complications of (2 sources) History of pre-eclampsia; Translations: [Supervision of with other poor reproductive or obstetric history, unspecified trimester] 11-05-2024 Episodic Other complications of (2 sources) H/O: premature delivery; Translations: [Supervision of other high risk pregnancies, unspecified trimester] 11-05-2024 Episodic Other female genital disorders (2 sources) Vaginal discharge; Translations: [Other specified noninflammatory disorders of vagina] 08-13-2024 Episodic Other gastrointestinal disorders (1 source) Diarrhea, unspecified; Translations: [DIARRHEA UNSPECIFIED] Onset: 09-27-2022 Episodic Other lower respiratory disease (4 sources) Dyspnea; Translations: [Shortness of breath] 11-06-2024 Episodic Other nervous system disorders (6 sources) H/O: brain disorder 09-24-2014 Episodic Other and delivery including normal (14 sources) ; Translations: [Encounter for supervision of normal , unspecified, unspecified trimester] 06-25-2024 Episodic Other screening for suspected conditions (not mental disorders or infectious disease) (4 sources) Patient encounter status; Translations: [Encounter for other specified screening] 08-13-2024 Episodic Residual codes; unclassified (20 sources) Hypersomnia; Translations: [Hypersomnia, unspecified] Onset: 11-16-2023 11-16-2023 Chronic Residual codes; unclassified (2 sources) Gestation period, 12 weeks; Translations: [12 weeks gestation of ] 07-09-2024 Episodic Residual codes; unclassified (2 sources) Gestation period, 17 weeks; Translations: [17 weeks gestation of ] 08-13-2024 Episodic Residual codes; unclassified (2 sources) Gestation period, 21 weeks; Translations: [21 weeks gestation of ] 09-10-2024 Episodic Residual codes; unclassified (2 sources) Gestation period, 24 weeks; Translations: [24 weeks gestation of ] 10-01-2024 Episodic Residual codes; unclassified (2 sources) Gestation period, 29 weeks; Translations: [29 weeks gestation of ] 11-05-2024 Episodic Residual codes; unclassified (2 sources) Gestation period, 31 weeks; Translations: [31 weeks gestation of ] 11-19-2024 Episodic Skin and subcutaneous tissue infections (1 source) Cellulitis; Translations: [Cellulitis of unspecified part of limb] Onset: 12-24-2021 Episodic Syncope (4 sources) Near syncope; Translations: [Syncope and collapse] 11-06-2024 Episodic Unclassified (20 sources) OB Reminders Onset: 06-27-2024 06-27-2024 Past or Other Problems Problem Classification Problem Date Documented Da te Episodic/Chronic Epilepsy; convulsions (20 sources) Seizure; Translations: [Unspecified convulsions] Onset: 11-16-2023 12-31-2013 Episodic Headache; including migraine (20 sources) Chronic daily headache; Translations: [Chronic daily headache] Onset: 11-18-2023 11-18-2023 Episodic Unclassified (1 source) Exposure to 2019 novel coronavirus; Translations: [Contact with and (suspected) exposure to COVID19] Unclassified (3 sources) couplets( Confirmed ) 09-30-2012 Unclassified (12 sources) Onset: 06-14-2014 Resolved: 09-09-2016 01-20-2015 Unclassified (3 sources) couplets 09-30-2012 Results Test Name Value Interpretation Reference Range Facility OB BPP W NON-STRESS on 11-19-2024 [place] [address] Ultrasound Report Signed Patient: GREGORIO HESS MR#: [id number] : 1995 Acct:[id number] Age/Sex: 29 / F ADM Date: 11/19/24 Loc: US Attending Dr: Giovany Gross D.O. Ordering Physician: Giovany Gross D.O. Date of Service: 11/19/24 Procedure(s): US OB BPP w non-stress Accession Number(s): [id number] cc: MACHELLE VIVEROS; Giovany Gross D.O. [place] [id number] Patient Name: GREGORIO HESS MRN: [facility]:[id number] date: 1995 Sex: F Assigned Patient Location: US Current Patient Location: Accession/Order Number: [id number] Exam Date: 11/19/2024 10:58 Report Date: 11/19/2024 10:59 At the request of: GIOVANY GROSS DO Procedure: US OB BPP w non-stress Biophysical profile. History of preeclampsia. COMPARISON: 11/12/2024 TECHNIQUE: Transabdominal imaging of the gravid uterus was obtained Findings: Edger Runner reports a biophysical profile 8 out of 8. AIME is normal at 13.3 cm. heart rate 148 bpm. US/US OB BPP w non-stress Impression: BPP 8 out of 8. Impression dictated by: Dirk Chaves Jr., D.O. 11/19/2024 10:59 AM Dictation Location: [place] [address] Electronically authenticated by: [id number] Y Date: 11/19/2024 10:59 Dictated By: Dirk Chaves M.D. Signed By: 11/19/24 1102 DD/ 1059 TD/TT: Vision Impaired Teacher: [facility] Radiology, Radiologist, MD - 11/19/2024 [place] [address] Ultrasound Report Signed Patient: GREGORIO HESS MR#: [id number] : 1995 Acct:[id number] Age/Sex: 29 / F ADM Date: 11/19/24 Loc: US Attending Dr: Giovany Gross D.O. Ordering Physician: Giovany Gross D.O. Date of Service: 11/19/24 Procedure(s): US OB BPP w non-stress Accession Number(s): [id number] cc: MACHELLE VIVEROS; Giovany Gross D.O. The [place] [id number] Patient Name: GREGORIO HESS MRN: [id number] date: 1995 Sex: F Assigned Patient Location: US Current Patient Location: Accession/Order Number: [id number] Exam Date: 11/19/2024 10:58 Report Date: 11/19/2024 10:59 At the request of: GIOVANY GROSS DO Procedure: US OB BPP w non-stress Biophysical profile. History of preeclampsia. COMPARISON: 11/12/2024 TECHNIQUE: Transabdominal imaging of the gravid uterus was obtained Findings: Edger Runner reports a biophysical profile 8 out of 8. AIME is normal at 13.3 cm. heart rate 148 bpm. US/US OB BPP w non-stress Impression: BPP 8 out of 8. Impression dictated by: Dirk Chaves Jr., D.O. 11/19/2024 10:59 AM Dictation Location: [place] [address] Electronically authenticated by: [id number] Y Date: 11/19/2024 10:59 Dictated By: Dirk Chaves M.D. Signed By: 11/19/24 1102 DD/ 1059 TD/TT: Vision Impaired Teacher: [facility] Radiology Study observation (narrative) [facility] US OB BPP W NON-STRESS Ordered By: Radiologist Radiology on 11-19-2024 [facility] Work Phone: US OB FOLLOW UP TRANSABDOMIN AL APPROACHon 11-19-2024 US OB FOLLOW UP TRANSABDOMINAL APPROACH EXAM: US OB FOLLOW UP TRANSABDOMINAL APPROACH [...] II, MD, PHD at 22-Nov-2024 08:21:01 PM [facility] Normal Not Available Comment on above: Order Comment: US OB SCAN FOR GROWTH Estimated Date of Delivery: 01/18/25 Gestational Age as of 11/05/2024: 29w3d Urinalysis macro (dipstick) panel (U)on 11-19-2024 Bilirubin, UA Negative Negative - 4(70) +++ mg/dL [facility] Blood, UA Negative Negative - 50 Theodore/mcL [facility] Clarity, UA Clear [facility] Color, UA Yellow [facility] Glucose, UA Positive Negative - 1999(110) ++++ mg/dL [facility] Comment on above: 100mg/dL Interpretation and review of laboratory results Abnormal [facility] Ketones, UA Negative Negative - 160(16) ++++ mg/dL [facility] Leukocytes, UA Trace Negative - 500+++ Mike/mcL [facility] Nitrite, UA Negative Negative - Positive [facility] pH, UA 6 5 - 9 [facility] Protein, UA Negative Negative - 2000(20) ++++ mg/dL [facility] Spec Grav, UA 1.01 1 - 1.03 [facility] Urobilinogen, UA 0.2 0.2 - 12 mg/dL [facility] US OB BPP W NON-STRESS on 11-12-2024 The [facility] [address] [place] [address] Ultrasound Report Signed Patient: GREGORIO HESS MR#: [id number] : 1995 Acct:[id number] Age/Sex: 29 / F ADM Date: 11/12/24 Loc: [facility] 250-[address]: Giovany Gross D.O. Ordering Physician: Giovany Gross D.O. Date of Service: 11/12/24 Procedure(s): US OB BPP w non-stress Accession Number(s): [id number] cc: MACHELLE VIVEROS; Giovany Gross D.O. The [place] [address] Patient Name: GREGORIO HESS MRN: [facility]:[id number] date: 1995 Sex: F Assigned Patient Location: [facility] Current Patient Location: [facility] Accession/Order Number: [id number] Exam Date: 11/12/2024 10:30 Report Date: 11/12/2024 10:32 At the request of: GIOVANY GROSS DO Procedure: US OB BPP w non-stress Biophysical profile. History of preeclampsia. COMPARISON: None. TECHNIQUE: Transabdominal imaging of the gravid uterus was obtained Findings: Edger Runner reports a biophysical profile 8 out of 8. AIME is normal at 10.2 cm. heart rate 155 bpm. US/US OB BPP w non-stress Impression: BPP 8 out of 8. Impression dictated by: Dirk Chaves Jr., D.O. 11/12/2024 10:32 AM Dictation Location: [place] [address] Electronically authenticated by: [id number] Y Date: 11/12/2024 10:32 Dictated By: Dirk Chaves M.D. Signed By: 11/12/24 1034 DD/ 1032 TD/TT: Vision Impaired Teacher: [facility] Radiology, Radiologist, MD - 11/12/2024 [place] [address] Ultrasound Report Signed Patient: GREGORIO HESS MR#: [id number] : 1995 Acct:[id number] Age/Sex: 29 / F ADM Date: 11/12/24 Loc: [facility] 250-[address]: Giovany Gross D.O. Ordering Physician: Giovany Gross D.O. Date of Service: 11/12/24 Procedure(s): US OB BPP w non-stress Accession Number(s): [id number] cc: MACHELLE VIVEROS; Giovany Gross D.O. [place] [address] Patient Name: GREGORIO HESS MRN: [facility]:[id number] date: 1995 Sex: F Assigned Patient Location: [facility] Current Patient Location: [facility] Accession/Order Number: [id number] Exam Date: 11/12/2024 10:30 Report Date: 11/12/2024 10:32 At the request of: GIOVANY GROSS DO Procedure: US OB BPP w non-stress Biophysical profile. History of preeclampsia. COMPARISON: None. TECHNIQUE: Transabdominal imaging of the gravid uterus was obtained Findings: Edger Runner reports a biophysical profile 8 out of 8. AIME is normal at 10.2 cm. heart rate 155 bpm. US/US OB BPP w non-stress Impression: BPP 8 out of 8. Impression dictated by: Dirk Chaves Jr., D.O. 11/12/2024 10:32 AM Dictation Location: [place] [address] Electronically authenticated by: [id number] Y Date: 11/12/2024 10:32 Dictated By: Dirk Chaves M.D. Signed By: 11/12/24 1034 DD/ 1032 TD/TT: Vision Impaired Teacher: [facility] Radiology Study observation (narrative) [facility] US OB BPP W NON-STRESS Ordered By: Radiologist Radiology on 11-12-2024 [facility] Work Phone: Urinalysis macro (dipstick) panel (U)on 11-05-2024 Bilirubin, UA Negative Negative - 4(70) +++ mg/dL [facility] Blood, UA Negative Negative - 50 Theodore/mcL [facility] Clarity, UA Clear [facility] Color, UA Yellow [facility] Glucose, UA Negative Negative - 2000(110) ++++ mg/dL [facility] Interpretation and review of laboratory results Normal [facility] Ketones, UA Negative Negative - 160(16) ++++ mg/dL [facility] Leukocytes, UA Trace Negative - 500+++ Mike/mcL [facility] Nitrite, UA Negative Negative - Positive [facility] pH, UA 7 5 - 9 [facility] Protein, UA Negative Negative - 2000(20) ++++ mg/dL [facility] Spec Grav, UA 1.015 1 - 1.03 [facility] Urobilinogen, UA 0.2 0.2 - 12 mg/dL [facility] ALL CBC WITH AUTO DIFFon BASOPHILS ABSOLUTE AUTO 0 [facility] Basophils/100 WBC (Bld) 0.1 % Low 0.2 - 2.0 % [facility] Eosinophils/100 WBC (Bld) 0.3 % Low 0.9 - 7.0 % [facility] Erythrocyte distribution width (RBC) [Ratio] 14.6 % 11.0 - 15.0 % [facility] Hematocrit (Bld) [Volume fraction] 32.5 % Low 36.0 - 48.0 % [facility] Hemoglobin (Bld) [Mass/Vol] 10.7 g/dL Low 12.0 - 16.0 g/dL [facility] IMMATURE GRANULOCYTES ABS AUTO 0.14 High [facility] Immature granulocytes/100 WBC (Bld) 1.3 % High 0.0 - 0.5 % [facility] Interpretation and review of laboratory results Abnormal [facility] LYMPHOCYTES ABSOLUTE AUTO 1.9 [facility] Lymphocytes/100 WBC (Bld) 18 % Low 20.5 - 60.0 % [facility] MCH (RBC) [Entitic mass] 29.6 pg 26.7 - 34.0 pg [facility] MCHC (RBC) [Mass/Vol] 32.9 g/dL 29.9 - 35.2 g/dL [facility] MCV (RBC) [Entitic vol] 89.8 fL 81.0 - 99.0 fL [facility] MONOCYTES ABSOLUTE AUTO 0.6 [facility] Monocytes/100 WBC (Bld) 6 % 1.7 - 12.0 % [facility] NEUTROPHILS ABSOLUTE AUTO 7.8 High [facility] Neutrophils/100 WBC (Bld) 74.3 % 43.0 - 75.0 % [facility] Platelet mean volume (Bld) [Entitic vol] 12 fL 9.5 - 13.5 fL [facility] EO # 0 [facility] PLT 188 [facility] RBC 3.62 Low [facility] WBC 10.5 [facility] US OB LIMITED 1+ FETUSESon 0 10-01-2024 US OB LIMITED 1+ FETUSES EXAM: US OB LIMITED 1+ FETUSES HISTORY: Low-lying placenta. COMPARISON: Ob ultrasound 09/01/2024. TECHNIQUE: Two-dimensional transabdominal grayscale ultrasound imaging of the pelvis was performed. FINDINGS: Gestation: Single Presentation: Cephalic Cardiac Activity: 145 beats per minute Placental Location: Anterior with no sonographic abnormalities identified. Distance from Placental Tip to Cervix: 6.5 cm Cervical Length: 5 cm Amniotic Fluid: Appears adequate IMPRESSION: 1. Single, live intrauterine gestation 24 weeks, 3 days by LMP. PRICE is 01/18/2025. 2. Placenta location is within normal limits. No evidence of low-lying placenta. Electronically Signed:Electronically signed by TONE MITCHELL II, MD, PHD at 02-Oct-2024 08:30:32 PM [facility] Normal Not Available Comment on above: Order Comment: US OB INCOMPLETE ANATOMY W US OB TRANSVAGINAL Estimated Date of Delivery: 01/18/25 Gestational Age as of 09/10/2024: 21w3d Urinalysis macro (dipstick) panel (U)on 10-01-2024 Bilirubin, UA Positive Negative - 4(70) +++ mg/dL [facility] Comment on above: small Blood, UA Negative Negative - 50 Theodore/mcL [facility] Clarity, UA Clear [facility] Color, UA Yellow [facility] Glucose, UA Positive Negative - 1999(110) ++++ mg/dL [facility] Comment on above: 100mg/dL Interpretation and review of laboratory results Abnormal [facility] Ketones, UA Positive Negative - 160(16) ++++ mg/dL [facility] Comment on above: 15mg/dL Leukocytes, UA Trace Negative - 500+++ Mike/mcL [facility] Nitrite, UA Negative Negative - Positive [facility] pH, UA 5.5 5 - 9 [facility] Protein, UA Positive Negative - 1999(20) ++++ mg/dL [facility] Comment on above: 100mg/dL Spec Grav, UA 1.03 1 - 1.03 [facility] Urobilinogen, UA 1.0 0.2 - 12 mg/dL [facility] AFP, SERUM, OPEN SPINA BIFID Aon 09-11-2024 AFP MOM 0.83 . [facility] AFP VALUE 47.8 ng/mL . [facility] COMMENT: Comment . [facility] Comment on above: Marci Cox , Ph.D., [facility] Director References: Available Upon Request. Multiples Of Median Cutoffs For AFP Elevations Webster 2.5 Black 2.8 IDD 2.0 Twins 4.5 Abbreviation Definitions IDD - Insulin Dep Diabetes OSBR - Open Spina Bifida Risk For further inquiries contact [facility] at [phone]. This test was developed and its performance characteristics determined by [employer]. It has not been cleared or approved by the Food and Drug Administration. Performed at: [facility] [address], [place] [id number] Economics Professor: Arie Shipman [facility], Phone: [phone] GEST. AGE ON COLLECTION DATE 21.3 . weeks [facility] GESTAT. AGE BASED ON LMP . [facility] Comment on above: Recalculations are n ot recommended when gestational dating by LMP and ultrasound are within 10 days. INSULIN DEP DIABETES No . [facility] INTERPRETATION Comment . [facility] Comment on above: Interpretation: Scre en Negative [...] Customer Services to discuss available options. The [employer] recommends amniocentesis be offered to women age 35 and older. [age]ICE [age] [facility] MULTIPLE GESTATION No . [facility] OSBR RISK 1 [place] [id number] . [facility] RACE . [facility] RESULTS Report . [facility] TEST RESULTS: Negative . [facility] WEIGHT 186 . lbs [facility] N N LMP [id number] 3 17 N 1 186 N N N N N White/ [facility] IGP,APTIMA HPV,AGE GDLNon AGE GDLN ACOG TESTING Note . [facility] Comment on above: TESTS RESULT [facility] REF RANGE LAB Clinician Provided Cytology Information Source.............Cervix Other.............. No. of containers..01 ThinPrep Vial Age Algo ACOG Amarilis... FLAG LEGEND: L-Low Normal,H-High Normal,LL-Alert Low,HH-Alert High <-Panic Low,>-Panic High,A-Abnormal,AA-Critical Abnormal Performed at: 01 =G [facility] [address] Huma Hicks MD, IGP, RFX APTIMA HPV ASCU Note . [facility] Comment on above: TESTS RESULT [facility] REF RANGE LAB DIAGNOSIS: 02 NEGATIVE FOR INTRAEPITHELIAL LESION OR MALIGNANCY. REACTIVE CELLULAR CHANGES AND/OR REPAIR ARE PRESENT. Specimen adequacy: 02 Satisfactory for evaluation. No endocervical component is identified. An endocervical component is not commonly seen in the patient. Performed by: 03 Yolanda Winter, Patient Accounts Manager (ASCP) Electronically si... Keara Campos MD, Pathologist . 02 Note: Note 02 The Pap smear is a screening test designed to aid in the detection of premalignant and malignant conditions of the uterine cervix. It is not a diagnostic procedure and should not be used as the sole means of detecting cervical cancer. Both false-positive and false-negative reports do occur. Test Methodology: Note 02 The [facility] Physician Assistant was unable to read this specimen. Therefore a manual review was performed. FLAG LEGEND: L-Low Normal,H-High Normal,LL-Alert Low,HH-Alert High <-Panic Low,>-Panic High,A-Abnormal,AA-Critical Abnormal Performed at: [address] [address] Huma Hicks MD, 03 [facility] [place] [address] [place] [address] [address] Georgina Romeo MD, . 02 The HPV DNA reflex criteria were not met with this specimen result therefore, no HPV testing was performed. The HPV DNA reflex criteria were not met with this specimen result therefore, no HPV testing was performed. Performed at: =[address] [id number] Economics Professor: Huma Hicks MD, Phone: [phone] Performed at: [address] [id number] Economics Professor: Huma Hicks MD, Phone: [phone] SPATULA-ALONE CERVIX [facility] Healthcare RECURRENT VAGINITIS (HTRX)on 08-14-2024 ATOPOBIUM VAGINAE 0 [facility] Healthcare ATOPOBIUM VAGINAE Not detected [facility] BVAB 2,3 (BACTERIAL VAGINOSIS ASSOCIATED BACTERIA 2, 3); MOBILUNCUS SPP 27.061 Abnormal [facility] BVAB 2,3 (BACTERIAL VAGINOSIS ASSOCIATED BACTERIA 2, 3); MOBILUNCUS SPP Detected Abnormal [facility] Healthcare [place] ALBICANS, PARAPSILOSIS, TROPICALIS 0 [facility] [place] ALBICANS, PARAPSILOSIS, TROPICALIS Not detected [facility] [place] GLABRATA 0 [facility] [place] GLABRATA Not detected [facility] [place] KRUSEI 0 [facility] [place] KRUSEI Not detected [facility] CHLAMYDIA TRACHOMATIS 0 [facility] CHLAMYDIA TRACHOMATIS Not detected [facility] GARDNERELLA VAGINALIS 0 [facility] GARDNERELLA VAGINALIS Not detected N S [facility] Interpretation and review of laboratory results Abnormal [facility] MEGASPHAERA (TYPES 1, 2) 0 [facility] MEGASPHAERA (TYPES 1, 2) Not detected [facility] MYCOPLASMA GENITALIUM 0 [facility] MYCOPLASMA GENITALIUM Not detected [facility] NEISSERIA GONORRHOEAE 0 [facility] NEISSERIA GONORRHOEAE Not detected [facility] TRICHOMONAS VAGINALIS 0 [facility] TRICHOMONAS VAGINALIS Not detected [facility] US OB 14+ WEEKS ANATOMY SCAN [...] II, MD, PHD at 02-Sep-2024 08:04:31 AM [facility] Normal Not Available Comment on above: Order Comment: US OB ANATOMY SINGLE W US OB CERVICAL LENGTH Estimated Date of Delivery: 01/18/25 Gestational Age as of 08/13/2024: 17w3d Urinalysis macro (dipstick) panel (U)on 08-13-2024 Bilirubin, UA Negative Negative - 4(70) +++ mg/dL [facility] Blood, UA Negative Negative - 50 Theodore/mcL [facility] Clarity, UA Clear [facility] Color, UA Yellow [facility] Glucose, UA Positive Negative - 1999(110) ++++ mg/dL [facility] Comment on above: 100 Interpretation and review of laboratory results Abnormal [facility] Ketones, UA Negative Negative - 160(16) ++++ mg/dL [facility] Leukocytes, UA Negative Negative - 500+++ Mike/mcL [facility] Nitrite, UA Negative Negative - Positive [facility] pH, UA 5.5 5 - 9 [facility] Protein, UA Trace Negative - 2000(20) ++++ mg/dL [facility] Spec Grav, UA 1.03 1 - 1.03 [facility] Urobilinogen, UA 0.2 0.2 - 12 mg/dL [facility] Urinalysis macro (dipstick) panel (U)on 07-09-2024 Bilirubin, UA Negative Negative - 4(70) +++ mg/dL [facility] Blood, UA Negative Negative - 50 Theodore/mcL [facility] Clarity, UA Clear [facility] Color, UA Yellow [facility] Glucose, UA Negative Negative - 1999(110) ++++ mg/dL [facility] Interpretation and review of laboratory results Abnormal [facility] Ketones, UA Positive Negative - 160(16) ++++ mg/dL [facility] Comment on above: trace Leukocytes, UA Negative Negative - 500+++ Mike/mcL [facility] Nitrite, UA Negative Negative - Positive [facility] pH, UA 6 5 - 9 [facility] Protein, UA Trace Negative - 1999(20) ++++ mg/dL [facility] Spec Grav, UA 1.025 1 - 1.03 [facility] Urobilinogen, UA 1.0 0.2 - 12 mg/dL [facility] HCG ( test) Ql (U)o n 06-26-2024 Interpretation and review of laboratory results Abnormal [facility] Preg Test, Ur Positive Negative [facility] TBH DRUG SCREEN RAPID (URINE )on 06-26-2024 AMPHETAMINE SCREEN URINE Negative NEGATIVE [facility] BARBITURATES SCREEN URINE Negative NEGATIVE [facility] BENZODIAZEPINES SCREEN URINE Negative NEGATIVE [facility] BUPRENORPHINE SCREEN URINE Negative NEGATIVE [facility] Comment on above: DRUG CLASS TEST [...] 300 ng/mL CANNABINOID SCREEN URINE Negative NEGATIVE [facility] COCAINE SCREEN URINE Negative NEGATIVE [facility] METHADONE SCREEN URINE Negative NEGATIVE [facility] METHAMPHETAMINES SCREEN URINE Negative NEGATIVE [facility] OPIATE SCREEN URINE Negative NEGATIVE [facility] OXYCODONE SCREEN URINE Negative NEGATIVE [facility] PHENCYCLIDINE SCREEN URINE Negative NEGATIVE [facility] TRICYCLIC ANTIDEPRESSANT URINE Negative NEGATIVE [facility] CLINISYNC [facility] Urinalysis macro (dipstick) panel (U)on 06-26-2024 Bilirubin, UA Negative Negative - 4(70) +++ mg/dL [facility] Blood, UA Negative Negative - 50 Theodore/mcL [facility] Clarity, UA Clear [facility] Color, UA Yellow [facility] Glucose, UA Negative Negative - 1999(110) ++++ mg/dL [facility] Interpretation and review of laboratory results Abnormal [facility] Ketones, UA Negative Negative - 160(16) ++++ mg/dL [facility] Leukocytes, UA Trace Negative - 500+++ Mike/mcL [facility] Nitrite, UA Negative Negative - Positive [facility] pH, UA 7 5 - 9 [facility] Protein, UA Negative Negative - 1999(20) ++++ mg/dL [facility] Spec Grav, UA 1.015 1 - 1.03 [facility] Urobilinogen, UA 1.0 0.2 - 12 mg/dL [facility] Urinalysis macro (dipstick) panel (U)on 05-28-2024 Bilirubin, UA Negative Negative - 4(70) +++ mg/dL [facility] Blood, UA Negative Negative - 50 Theodore/mcL [facility] Clarity, UA Clear [facility] Color, UA Yellow [facility] Glucose, UA Negative Negative - 1999(110) ++++ mg/dL [facility] Interpretation and review of laboratory results Normal [facility] Ketones, UA Negative Negative - 160(16) ++++ mg/dL [facility] Leukocytes, UA Negative Negative - 500+++ Mike/mcL [facility] Nitrite, UA Negative Negative - Positive [facility] pH, UA 7 5 - 9 [facility] Protein, UA Negative Negative - 1999(20) ++++ mg/dL [facility] Spec Grav, UA 1.025 1 - 1.03 [facility] Urobilinogen, UA 0.2 0.2 - 12 mg/dL [facility] BhCG Quanton 05-27-2024 [place] [address] m[IU]/mL High 1-3 [facility] Comment on above: Result Comment: 'F N ON < 1 - 3' ' 0.2 - 1 WEEK = 5 TO 50' ' 1 - 2 WEEKS = 50 - 500' ' 2 - 3 WEEKS = 100 - 5000' ' 3 - 4 WEEKS = 500 - 05575' ' 4 - 5 WEEKS = 1000 - 22141' ' 5 - 6 WEEKS = 71560 - 575976' ' 6 - 8 WEEKS = 92530 - 995161' ' 8 - 12 WEEKS = 80399 - 651677' Performed By: #### 2 [id number] #### [facility] [address] [place] [address] CHEMISTRYOrdered By: SYSTEM SYSTEM on 05-27-2024 [place] [address] m[IU]/mL High 1 - 3 mIU/mL [facility] Comment on above: Result Comment: 'F N ON < 1 - 3' ' 0.2 - 1 WEEK = 5 TO 50' ' 1 - 2 WEEKS = 50 - 500' ' 2 - 3 WEEKS = 100 - 5000' ' 3 - 4 WEEKS = 500 - 54416' ' 4 - 5 WEEKS = 1000 - 11275' ' 5 - 6 WEEKS = 91860 - 168889' ' 6 - 8 WEEKS = 19951 - 769418' ' 8 - 12 WEEKS = 64137 - 396299' MRI Brain w/o Contraston MRI Brain w/o [...] Galaviz DO Transcribed by: TEJAL Technologist: KALYN Sh[facility] Consent for Treatmenton Consent for Treatment [id number] .00TIFF [facility] RAD - MRI Screening Formon 0 11-21-2023 RAD - MRI Screening Form [id number] 1.00TIFF [facility] Physician Orderon 11-20-2023 Physician Order [id number]#1 .00TIFF [facility] CHEMISTRYOrdered By: SYSTEM SYSTEM on 10-29-2022 Cobalamin (Vitamin B12) [Mass/Vol] 460 pg/mL Normal 50 - 1500 pg/mL [facility] Remisol Folate [Mass/Vol] 8.4 ng/mL Normal >=6.7ng/mL [facility] Re misol Magnesium [Mass/Vol] 2.1 mg/dL Normal 1.3 - 2 .4 mg/dL [facility] Remisol AMYLASEon 09-25-2022 Amylase [Catalytic activity/Vol] 65 U/L Normal 25-115 [facility] Comment on above: Performed By: #### L IPA, PAZ, CMP #### [facility] [address] [place] [address] Dr. Flores Arroyo CBC AUTO DIFFon 09-25-2022 BASO # 0.0 103/ul Normal 0.0-0.1 [facility] Comment on above: Performed By: #### C BC #### [facility] [address] [place] [address] Dr. Flores Arroyo Basophils/100 WBC (Bld) 0.2 % Normal 0.2-2.0 [facility] Comment on above: Performed By: #### C BC #### [facility] [address] [place] [address] Dr. Flores Arroyo EO # 0.1 103/ul Normal 0.0-0.7 [facility] Comment on above: Performed By: #### C BC #### [facility] [address] [place] [address] Dr. Flores Arroyo Eosinophils/100 WBC (Bld) 0.3 % Critically low 0.9-7.0 [facility] Comment on above: Performed By: #### C BC #### [facility] [address] [place] [address] Dr. Flores Arroyo Erythrocyte distribution width (RBC) [Ratio] 13.7 % Normal 11.0-15.0 [facility] Comment on above: Performed By: #### C BC #### [facility] [address] [place] [address] Dr. Flores Arroyo Hematocrit (Bld) [Volume fraction] 44.0 % Normal 36.0-48.0 [facility] Comment on above: Performed By: #### C BC #### [facility] [address] [place] [address] Dr. Flores Arroyo Hemoglobin (Bld) [Mass/Vol] 14.7 g/dL Normal 12.0-16.0 [facility] Comment on above: Performed By: #### C BC #### [facility] [address] [place] [address] Dr. Flores Arroyo IG # 0.07 10e3/ul Critically high 0.00-0.03 [facility] Comment on above: Performed By: #### C BC #### [facility] [address] [place] [address] Dr. Flores Arroyo IG % 0.4 % Normal 0.0-0.5 [facility] Comment on above: Performed By: #### C BC #### [facility] [address] [place] [address] Dr. Flores Arroyo LYMPH # 2.4 103/ul Normal 1.2-3.8 [facility] Comment on above: Performed By: #### C BC #### [facility] [address] [place] [address] Dr. Flores Arroyo Lymphocytes/100 WBC (Bld) 12.7 % Critically low 20.5-60.0 [facility] Comment on above: Performed By: #### C BC #### [facility] [address] [place] [address] Dr. Flores Arroyo MANUAL DIFF REQ NO Normal [facility] Comment on above: Performed By: #### C BC #### [facility] [address] [place] [address] Dr. Flores Arroyo MCH (RBC) [Entitic mass] 29.5 pg Normal 26.7-34.0 [facility] Comment on above: Performed By: #### C BC #### [facility] [address] [place] [address] Dr. Flores Arroyo MCHC (RBC) [Mass/Vol] 33.4 g/dL Normal 29.9-35.2 [facility] Comment on above: Performed By: #### C BC #### [facility] [address] [place] [address] Dr. Flores Arroyo MCV (RBC) [Entitic vol] 88.4 fL Normal 81.0-99.0 [facility] Comment on above: Performed By: #### C BC #### [facility] [address] [place] [address] Dr. Flores Arroyo MONO # 1.3 103/ul Critically high 0.3-0.8 [facility] Comment on above: Performed By: #### C BC #### [facility] [address] [place] [address] Dr. Flores Arroyo Monocytes/100 WBC (Bld) 7.2 % Normal 1.7-12.0 [facility] Comment on above: Performed By: #### C BC #### [facility] [address] [place] [address] Dr. Flores Arroyo NEUT # 14.8 103/ul Critically high 1.4-6.5 [facility] Comment on above: Performed By: #### C BC #### [facility] [address] [place] [address] Dr. Flores Arroyo Neutrophils/100 WBC (Bld) 79.2 % Critically high 43.0-75.0 [facility] Comment on above: Performed By: #### C BC #### [facility] [address] [address] [address] Flores Arroyo Platelet mean volume (Bld) [Entitic vol] 10.8 fL Normal 9.5-13.5 [facility] Comment on above: Performed By: #### C BC #### [facility] [address] [place] [address] Dr. Flores Arroyo PLT 306 103/ul Normal 150-450 [facility] Comment on above: Performed By: #### C BC #### [facility] [address] [place] [address] Dr. Flores Arroyo RBC 4.98 106/ul Normal 4.20-5.40 [facility] Comment on above: Performed By: #### C BC #### [facility] [address] [place] [address] Dr. Flores Arroyo WBC 18.7 103/ul Critically high 4.0-11.0 [facility] Comment on above: Performed By: #### C BC #### [facility] [address] [place] [address] Dr. Flores Arroyo CULTURE URINEon 09-25-2022 CULTURE URINE Culture Observations : MODERATE GROWTH OF MIXED GENITAL MIS. NO POTENTIAL PATHOGENS SEEN. Normal [facility] Comment on above: Performed By: #### U RCX #### [facility] [address] [place] [address] Dr. Flores Arroyo ER URINE PROFILEon 3 Bilirubin Ql (U) Negative Normal NEGATIVE [facility] Comment on above: Performed By: #### U MICRO, ERUR #### [facility] [address] [place] [address] Dr. Flores Arroyo Clarity (U) CLEAR Normal CLEAR [facility] Comment on above: Performed By: #### U MICRO, ERUR #### [facility] [address] [place] [address] Dr. Flores Arroyo Color (U) YELLOW Normal YELLOW [facility] Comment on above: Performed By: #### U MICRO, ERUR #### [facility] [address] [address] [address] Flores MCHUGH A micrscopic examination will be performed if indicated. Normal [facility] Comment on above: Performed By: #### U MICRO, ERUR #### [facility] [address] [address] [address] Flores Arroyo Glucose Ql (U) Negative Normal NEGATIVE [facility] Comment on above: Performed By: #### U MICRO, ERUR #### [facility] [address] [address] [address] Flores Arroyo Hemoglobin Ql (U) Negative Normal NEGATIVE [facility] Comment on above: Performed By: #### U MICRO, ERUR #### [facility] [address] [address] [address] Flores Arroyo Ketones Ql (U) Negative Normal NEGATIVE [facility] Comment on above: Performed By: #### U MICRO, ERUR #### [facility] [address] [address] [address] Flores Arroyo LEUKOCYTES Negative Normal NEGATIVE [facility] Comment on above: Performed By: #### U MICRO, ERUR #### [facility] [address] [address] [address] Flores Arroyo Nitrite Ql (U) Negative Normal NEGATIVE [facility] Comment on above: Performed By: #### U MICRO, ERUR #### [facility] [address] [address] [address] Flores Arroyo pH (U) 5.5 [pH] Normal 5-9 [facility] Comment on above: Performed By: #### U MICRO, ERUR #### [facility] [address] [address] [address] Flores Arroyo Protein (U) [Mass/Vol] 30 mg/dL Abnormal NEGATIVE/ TRACE [facility] Comment on above: Performed By: #### U MICRO, ERUR #### [facility] [address] [place] [address] Dr. Flores Arroyo SPEC GRAVITY >=1.030 Abnormal 1.005-<=1.025 [facility] Comment on above: Performed By: #### U MICRO, ERUR #### [facility] [address] [address] [address] Flores Arroyo UR MICRO IND INDICATED Normal [facility] Comment on above: Performed By: #### U MICRO, ERUR #### [facility] [address] [address] [address] Flores Arroyo Urobilinogen Qn (U) 0.2 {Salty'U}/dL Normal 0.2 - 1. 0 [facility] Comment on above: Performed By: #### U MICRO, ERUR #### [facility] [address] [address] [address] Flores Arroyo LACTATE/LACTIC ACIDon 2022 Lactate [Moles/Vol] 1.6 mmol/L Normal 0.4-2.[address] [facility] Comment on above: Performed By: #### L ACT #### [facility] [address] [place] [address] Dr. Flores Arroyo LIPASEon 09-25-2022 Lipase [Catalytic activity/Vol] 95.0 U/L Normal 73.0-393.0 [facility] Comment on above: Performed By: #### L PAZ MARTINES, CMP #### [facility] [address] [place] [address] Dr. Flores Arroyo PROF 14(COMP METB)on 023 Albumin [Mass/Vol] 4.4 g/dL Normal 3.4-5.0 [facility] Comment on above: Performed By: #### L PAZ MARTINES, CMP #### [facility] [address] [place] [address] Dr. Flores Arroyo Albumin/Globulin [Mass ratio] 1.2 {ratio} Normal [facility] Comment on above: Performed By: #### L PAZ MARTINES, CMP #### [facility] [address] [place] [address] Dr. Flores Arroyo ALP [Catalytic activity/Vol] 86 U/L Normal 46-116 [facility] Comment on above: Performed By: #### L PAZ MARTINES, CMP #### [facility] [address] [address] [address] Flores Arroyo ALT [Catalytic activity/Vol] 41 U/L Normal 14-59 [facility] Comment on above: Performed By: #### L PAZ MARTINES, CMP #### [facility] [address] [address] [address] Folres Arroyo Anion gap [Moles/Vol] 11.4 mmol/L Normal [facility] Comment on above: Performed By: #### L PAZ MARTINES, CMP #### [facility] [address] [address] [address] Flores Arrooy AST [Catalytic activity/Vol] 29 U/L Normal 15-37 [facility] Comment on above: Performed By: #### L PAZ MARTINES, CMP #### [facility] [address] [place] [address] Dr. Flores Arroyo Bilirubin [Mass/Vol] 0.3 mg/dL Normal 0.2-1.0 [facility] Comment on above: Performed By: #### L PAZ MARTINES, CMP #### [facility] [address] [address] [address] Flores Arroyo Calcium [Mass/Vol] 9.3 mg/dL Normal 8.5-10.1 [facility] Comment on above: Performed By: #### L PAZ MARTINES, CMP #### [facility] [address] [place] [address] Dr. Flores Arroyo Chloride [Moles/Vol] 102 mmol/L Normal 98-107 [facility] Comment on above: Performed By: #### L PAZ MARTINES, CMP #### [facility] [address] [address] [address] Flores Arroyo CO2 [Moles/Vol] 26.3 mmol/L Normal 21.0-32.0 [facility] Comment on above: Performed By: #### L PAZ MARTINES, CMP #### [facility] [address] [address] [address] Flores Arroyo Creatinine [Mass/Vol] 0.85 mg/dL Normal 0.55-1.02 [facility] Comment on above: Performed By: #### L IPA PAZ, CMP #### [facility] [address] [address] [address] Flores Arroyo EGFR-AF PAKISTANI >60 Normal >=60 [facility] Comment on above: Performed By: #### L IPA, PAZ, CMP #### [facility] [address] [address] [address] Flores Arroyo EGFR-NON AF PAKISTANI >60 Normal >=60 [facility] Comment on above: Performed By: #### L IPA PAZ, CMP #### [facility] [address] [address] [address] Flores Arroyo Globulin (S) [Mass/Vol] 3.8 g/dL Normal [facility] Comment on above: Performed By: #### L BOBBI PAZ, CMP #### [facility] [address] [address] [address] Flores Arroyo Glucose [Mass/Vol] 159 mg/dL Critically high 74-106 [facility] Comment on above: Performed By: #### L PAZ MARTINES, CMP #### [facility] [address] [address] [address] Flores Arroyo Potassium [Moles/Vol] 3.7 mmol/L Normal 3.5-5.1 [facility] Comment on above: Performed By: #### L PAZ MARTINES, CMP #### [facility] [address] [address] [address] Flores Arroyo Protein [Mass/Vol] 8.2 g/dL Normal 6.4-8.2 [facility] Comment on above: Performed By: #### L PAZ MARTINES, CMP #### [facility] [address] [address] [address] Flores Arroyo Sodium [Moles/Vol] 136 mmol/L Normal 136-145 [facility] Comment on above: Performed By: #### L BOBBI PAZ, CMP #### [facility] [address] [address] [address] Flores Arroyo Urea nitrogen [Mass/Vol] 11.0 mg/dL Normal 7.0-18.0 [facility] Comment on above: Performed By: #### L PAZ MARTINES, CMP #### [facility] [address] [address] [address] Flores Arroyo Urea nitrogen/Creatinine [Mass ratio] 12.9 mg/mg Normal [facility] Comment on above: Performed By: #### L PAZ MARTINES, CMP #### [facility] [address] [place] [address] Dr. Flores Arroyo URINE MICROSCOPIC ONLYon BACTERIA SMALL Abnormal NONE SEEN [facility] Comment on above: Performed By: #### U MICRO, ERUR #### [facility] [address] [place] [address] Dr. Flores Arroyo Bacteria identified Cx Nom (U) INDICATED Normal [facility] Comment on above: Performed By: #### U MICRO, ERUR #### [facility] [address] [place] [address] Dr. Flores Arroyo CAST NONE SEEN Normal NONE SEEN [facility] Comment on above: Performed By: #### U MICRO, ERUR #### [facility] [address] [place] [address] Dr. Flores Arroyo Crystals LM Nom (Urine sed) NONE SEEN Normal NONE SEEN [facility] Comment on above: Performed By: #### U MICRO, ERUR #### [facility] [address] [place] [address] Dr. Flores Arroyo Epithelial cells LM Ql (Urine sed) MODERATE Abnormal NONE SEEN /RARE [facility] Comment on above: Performed By: #### U MICRO, ERUR #### [facility] [address] [place] [address] Dr. Flores Arroyo MUCOUS MODERATE Abnormal NONE SEEN [facility] Comment on above: Performed By: #### U MICRO, ERUR #### [facility] [address] [place] [address] Dr. Flores Arroyo RBC 0-2 Normal 0-2 [facility] Comment on above: Performed By: #### U MICRO, ERUR #### [facility] [address] [place] [address] Dr. Flores Arroyo WBC 2-5 Abnormal NONE SEEN [facility] Comment on above: Performed By: #### U MICRO, ERUR #### [facility] [address] [place], [place] [address] Dr. Flores Arroyo XR chest 1Von 10-31-2021 XR chest 1V [facility] [place] [address] [place] [id number] XRay Report Signed Patient: GREGORIO HESS MR#: [id number] : 1995 Acct:[id number] Age/Sex: 26 / F ADM Date: 10/31/21 Loc: [place] Room: Type: [facility] REF Attending Dr: Reyes Rodriguez DO, [facility] Ordering Provider: Reyes Rodriguez DO Date of Service: 10/31/21 XR/XR chest 1V: POSITIVE PPD TEST Copies to: DO CORNELIUS Smith CHEST: CLINICAL HISTORY: Positive Tspot. COMPARISON: None FINDINGS: Heart is normal in size. Lungs are clear. No free air. XR/XR chest 1V IMPRESSION: NEGATIVE CHEST. Impression dictated by: Dirk Chaves Jr., D.OBeka10/31/2021 12:11 PM Dictation Location: [place] [address] Transcribed By: [facility] 10/31/21 1211 Dictated By: Dirk Chaves Jr, DO 10/31/21 1210 Signed By: 10/31/21 1211 [facility] MICRO OTHER TESTSOrdered By: Ines Michel on 07-21-2021 Rapid COV Int NEG [facility] [place] (07/21/21 11:06 AM) Normal [facility] Sero Rapid COV Int POS Ctl [place] (07/21/21 11:06 AM) Normal [facility] SARS-CoV+SARS-CoV-2 (COVID-19) Ag IA.rapid Ql (Resp) Not Detected (07/21/21 11:06 AM) Normal Not Detected [facility] Vital Signs Date Time Vital Sign Value Performing Clinician Facility 11-19-2024 11:41-0400 Body mass index (BMI) [Ratio] 35.27 kg/m2 [facility] Work Phone: [facility] 11-19-2024 11:41-0400 Body weight 99.11 kg Paz SH[facility]EL[facility] Work Phone: [facility] 11-19-2024 11:41-0400 Diastolic blood pressure 72 mm[Hg] Paz Avery SHIELDS Work Phone: [facility] 11-19-2024 11:41-0400 Systolic blood pressure 114 mm[Hg] Paz Avery SHIELDS Work Phone: [facility] 11-05-2024 10:51-0400 Body mass index (BMI) [Ratio] 34.06 kg/m2 Giovany Ginny DO Work Phone: [facility] 11-05-2024 10:51-0400 Body weight 95.71 kg Giovany Ginny DO Work Phone: [facility] 11-05-2024 10:51-0400 Diastolic blood pressure 78 mm[Hg] Giovany Ginny DO Work Phone: [facility] 11-05-2024 10:51-0400 Systolic blood pressure 124 mm[Hg] Giovany Ginny DO Work Phone: [facility] 10-01-2024 10:43-0400 Body mass index (BMI) [Ratio] 32.3 kg/m2 Giovany Ginny DO Work Phone: [facility] 10-01-2024 10:43-0400 Body weight 90.77 kg Giovany Ginny DO Work Phone: [facility] 10-01-2024 10:43-0400 Diastolic blood pressure 82 mm[Hg] Giovany Ginny DO Work Phone: [facility] 10-01-2024 10:43-0400 Systolic blood pressure 110 mm[Hg] Giovany Ginny DO Work Phone: [facility] 09-10-2024 08:35-0500 Body mass index (BMI) [Ratio] 31.28 kg/m2 Giovany Ginny DO Work Phone: [facility] 09-10-2024 08:35-0500 Body weight 87.91 kg Giovany Ginny DO Work Phone: [facility] 09-10-2024 08:35-0500 Diastolic blood pressure 74 mm[Hg] Giovany Ginny DO Work Phone: [facility] 09-10-2024 08:35-0500 Systolic blood pressure 118 mm[Hg] Giovany Ginny DO Work Phone: [facility] 08-13-2024 10:59-0500 Body mass index (BMI) [Ratio] 29.99 kg/m2 Paz [place] PA Work Phone: [facility] 08-13-2024 10:59-0500 Body weight 84.28 kg Paz [place] PA Work Phone: [facility] 08-13-2024 10:59-0500 Diastolic blood pressure 82 mm[Hg] Paz [place] PA Work Phone: [facility] 08-13-2024 10:59-0500 Systolic blood pressure 120 mm[Hg] Paz Avery PA Work Phone: [facility] 07-09-2024 11:53-0500 Body mass index (BMI) [Ratio] 29.02 kg/m2 Giovany Ginny DO Work Phone: [facility] 07-09-2024 11:53-0500 Body weight 81.56 kg Giovany Ginny DO Work Phone: [facility] 07-09-2024 11:53-0500 Diastolic blood pressure 70 mm[Hg] Giovany Ginny DO Work Phone: [facility] 07-09-2024 11:53-0500 Systolic blood pressure 120 mm[Hg] Giovany Ginny DO Work Phone: [facility] 05-28-2024 09:39-0500 Body mass index (BMI) [Ratio] 27.66 kg/m2 Giovany Ginny DO Work Phone: [facility] 05-28-2024 09:39-0500 Body weight 77.75 kg Giovany Ginny DO Work Phone: [facility] 05-28-2024 09:39-0500 Diastolic blood pressure 68 mm[Hg] Giovany Ginny DO Work Phone: [facility] 05-28-2024 09:39-0500 Systolic blood pressure 110 mm[Hg] Giovany Ginny DO Work Phone: [facility] 12-24-2021 21:08-0400 Diastolic blood pressure 81 mm[Hg] Jalen Ezekiel [facility] 12-24-2021 21:08-0400 Heart rate 79 /min Jalen Ezekiel [facility] 12-24-2021 21:08-0400 Respiratory rate 18 /min Jalen Ezekiel [facility] 12-24-2021 21:08-0400 SaO2% (BldA) [Mass fraction] 100 % Jalen Ezekiel [facility] 12-24-2021 21:08-0400 Systolic blood pressure 114 mm[Hg] Jalen Ezekiel [facility] 12-24-2021 19:32-0400 Body temperature 98.06 [degF] Jalen Ezekiel [facility] 12-24-2021 19:32-0400 Diastolic blood pressure 85 mm[Hg] Jalen Ezekiel [facility] 12-24-2021 19:32-0400 Heart rate 100 /min Jalen Ezekiel [facility] 12-24-2021 19:32-0400 Respiratory rate 16 /min Jalen Ezekiel [facility] 12-24-2021 19:32-0400 SaO2% (BldA) [Mass fraction] 100 % Jalen Ezekiel [facility] 12-24-2021 19:32-0400 Systolic blood pressure 121 mm[Hg] Jalen Falcon [facility] Encounters Encounter Date Encounter Type Care Provider Facility Start: 11-19-2024 End: 11-19-2024 Clinisync Result Encounter Giovany Ginny DO Work Phone: [facility] Unsolicited Start: 11-19-2024 End: 11-19-2024 Clinisync Result Encounter Giovany Ginny DO Work Phone: [facility] Unsolicited Start: 11-19-2024 End: 11-19-2024 Office outpatient visit 15 minutes Paz SHIELDS Work Phone: [facility] Comment on above: Third trimester preg angelica; 31 weeks gestation of Start: 11-19-2024 End: 11-19-2024 ambulatory PAZ METZGER Not Available Start: 11-12-2024 End: 11-12-2024 Clinisync Result Encounter Giovany Ginny DO Work Phone: [facility] Unsolicited Start: 11-12-2024 End: 11-12-2024 Clinisync Result Encounter Giovany Ginny DO Work Phone: [facility] Unsolicited Start: 11-05-2024 End: 11-05-2024 Bamboo flowsheet Giovany Ginny DO Work Phone: [facility] Start: 11-05-2024 End: 11-05-2024 Bamboo flowsheet Giovany Ginny DO Work Phone: [facility] Start: 11-05-2024 End: 11-05-2024 Office outpatient visit 15 minutes Giovany Ginny DO Work Phone: [facility] Comment on above: Third trimester preg angelica; 29 weeks gestation of ; H/O pre-eclampsia in prior , currently ; H/O delivery, currently ; Heart palpitations; Shortness of breath; Seizures (CMS/HCC); Syncope, near Start: 11-05-2024 End: 11-05-2024 ambulatory GIOVANY GINNY Not Available Start: 10-15-2024 End: 10-15-2024 Clinisync Result Encounter Giovany Ginny DO Work Phone: [facility] Unsolicited Start: 10-15-2024 End: 10-15-2024 Clinisync Result Encounter Giovany Ginny DO Work Phone: [facility] Unsolicited Start: 10-01-2024 End: 10-01-2024 Office outpatient visit 15 minutes Giovany Ginny DO Work Phone: [facility] Comment on above: Anemia, unspecified type (Primary Dx); Second trimester ; 24 weeks gestation of Start: 10-01-2024 End: 10-01-2024 ambulatory GIOVANY GINNY Not Available Start: 09-10-2024 End: 09-10-2024 Bamboo flowsheet Giovany [...] patient 18-39 yrs Paz SHIELDS Work Phone: [facility] Comment on above: Screening, [...] 06-26-2024 End: 06-26-2024 Clinisync Result Encounter Giovany Elliottzio DO Work Phone: [facility] Unsolicited [...] 05-27-2024 End: 05-27-2024 ambulatory Giovany R GINNY Facility:[facility] Start: 05-27-2024 End: 05-27-2024 Patient encounter procedure Giovany R GINNY [facility] Start: 11-21-2023 End: 11-21-2023 ambulatory AMELIA M ANIKETMOR Facility:[facility] Start: 11-21-2023 End: 11-21-2023 Patient encounter procedure AMELIA M ANIKETMOR [facility] Start: 11-19-2023 End: 11-19-2023 ambulatory AMELIA ANIKETMOR Not Available Start: 11-18-2023 End: 11-18-2023 ambulatory AMELIA GILLMOR Not Available Start: 10-29-2022 End: 10-29-2022 Lab Drop off MACHELLE VIVEROS [facility] Start: 09-25-2022 End: 09-25-[address] DOCTOR BAILEY Facility: Start: 02-06-2022 End: 02-06-2022 Lab Drop off TIESHA FINLEY [facility] Start: 12-24-2021 End: 12-24-2021 Emergency department patient visit Jalen Falcon [facility] Start: 10-31-2021 End: 10-31-2021 Departed Referred DO Reyes Rodriguez Work Phone: [facility] [address] Start: 07-20-2021 End: 10-19-2021 Recurring Sumit Scott [facility] Procedures Date Procedure Procedure Detail Performing Clinician Start: 11-19-2024 Urnls dip stick/tabl et rgnt non-auto w/o micrscp Giovany Ginny DO Work Phone: Start: 11-19-2024 US OB BPP W NON-STRESS Giovany Ginny DO Work Phone: Start: 11-12-2024 US OB BPP W NON-STRESS Giovany Ginny DO Work Phone: Start: 11-05-2024 Urnls dip stick/tabl et rgnt non-auto w/o micrscp Giovany Ginny DO Work Phone: Start: 10-15-2024 ALL CBC WITH AUTO DIFF Giovany Ginny DO Work Phone: Start: 10-01-2024 Urnls dip stick/tabl et rgnt non-auto w/o micrscp Giovany Ginny DO Work Phone: Start: 09-09-2024 AFP, SERUM, OPEN SPI NA [...] Treatment Date Care Activity Detail Author Start: 03-15-2025 Influenza vaccination Influenz a Vaccine (Season Ended) [facility] Start: 12-03-2024 End: 12-03-2024 Patient encounter procedure 12/03/2024 10:00 AM EDT Routine [facility] [address] [place] [address] Giovany Gross DO [address] [facility] [address] [place], [place] [id number] [facility] Start: 11-19-2024 End: 11-19-2024 Patient encounter procedure 11/19/2024 11:30 AM EDT Routine [facility] [address] [facility] [place] [address] Paz Metzger PA [address] [place], [place] [id number] [facility] Start: 11-19-2024 End: 11-19-2024 Professional / ancillary services management 11/19/2024 11:00 AM EDT Ancillary Procedure [facility] [address] [facility] [place] [id number] [facility] Start: 11-05-2024 End: 05-07-2025 US biophysical profile w non stress test US biophysical profile w non stress test Imaging Routine H/O pre-eclampsia in prior , currently H/O delivery, currently Expected: 11/05/2024 (Approximate), Expires: 05/07/2025 [facility] Comment on above: Expected: 11/05/2024 (Approximate), Expires: 05/07/2025 Start: 11-05-2024 End: 03-07-2025 US for US OB follow up transabdominal approach Imaging Routine H/O pre-eclampsia in prior , currently H/O delivery, currently Expected: 11/05/2024, Expires: 03/07/2025 [facility] Work Phone: Comment on above: Expected: 11/05/2024 , Expires: 03/07/2025 Start: 11-05-2024 End: 11-05-2024 Patient encounter procedure 11/05/2024 10:40 AM EDT Routine [facility] [address] [place] [address] Giovany Gross DO [address] [place] [address] Arrived [facility] Comment on above: Arrived Start: 10-29-2024 End: 10-29-2024 Patient encounter procedure 10/29/2024 8:30 AM EDT Routine [facility] [address] [place] [id number] Paz Metzger PA [address] [place] [address] [facility] Start: 10-01-2024 End: 10-01-2024 Patient encounter procedure 10/01/2024 11:40 AM EDT Routine [facility] [address] [place] [id number] Giovany Gross, DO [address] [place], [place] [id number] [facility] Start: 10-01-2024 End: 10-01-2024 Professional / ancillary services management 10/01/2024 10:30 AM EDT Ancillary Procedure [facility] [address] [place] [address] [facility] Start: 09-10-2024 End: 09-10-2025 CBC panel - Blood by Automated count CBC Lab Routine Diabetes mellitus screening Expected: 09/10/2024 (Approximate), Expires: 09/10/2025 [facility] Work Phone: Comment on above: Expected: 09/10/2024 (Approximate), Expires: 09/10/2025 Start: 09-10-2024 End: 09-10-2025 Measurement of glucose 1 hour after glucose challenge for glucose tolerance test Glucose tolerance, 1 hour Lab Routine Diabetes mellitus screening Expected: 09/10/2024 (Approximate), Expires: 09/10/2025 [facility] Comment on above: Expected: 09/10/2024 (Approximate), Expires: 09/10/2025 Start: 09-10-2024 End: 09-10-2025 US for US OB limited 1+ fetuses Imaging Routine Low-lying placenta Expected: 09/10/2024, Expires: 09/10/2025 [facility] Comment on above: Expected: 09/10/2024 , Expires: 09/10/2025 Start: 09-10-2024 End: 09-10-2024 Patient encounter procedure [facility] Comment on above: Arrived Start: 09-01-2024 End: 09-01-2024 Professional / ancillary services management 09/01/2024 2:30 PM EST Ancillary Procedure [facility] [address] [place] [address] [facility] Start: 08-13-2024 End: [...] Routine [facility] [address] [place] [address] Paz Metzger, PA [address] [place] [address] Arrived [facility] Comment on above: Arrived Start: 08-10-2024 End: 08-10-2024 Patient encounter procedure 08/10/2024 9:50 AM EST Routine [facility] [address] [place] [address] Paz Metzger, PA [address] [place] [address] [facility] Start: 07-09-2024 End: 07-09-2024 Patient encounter procedure [facility] Comment on above: Arrived Start: 06-25-2024 End: 06-25-2024 ambulatory 06/25/2024 2:30 PM EST Initial [facility] [address] [place] [address] [facility] Start: 06-25-2024 End: 06-25-2025 ABO/Rh ABO/Rh Lab Routine Missed menses , unspecified gestational age Expected: 06/25/2024 (Approximate), Expires: 06/25/2025 [facility] Comment on above: Expected: 06/25/2024 [...] first trimester Expected: 06/25/2024 (Approximate), Expires: 06/25/2025 [facility] Comment on above: Expected: 06/25/2024 (Approximate), Expires: 06/25/2025 Start: 06-25-2024 End: 06-25-2024 Professional / ancillary services management 06/25/2024 2:00 PM EST Ancillary Procedure [facility] [address] [place] [address] [place] [address] [facility] Start: 06-25-2024 End: 06-25-2025 US Pelvis transvaginal US OB transvaginal Imaging Routine Missed menses Expected: 06/25/2024 (Approximate), Expires: 06/25/2025 [facility] Comment on above: Expected: 06/25/2024 (Approximate), [...] Missed menses Expected: 05/28/2024 (Approximate), Expires: 05/28/2025 [facility] Work Phone: Comment on above: Expected: 05/28/2024 (Approximate), Expires: 05/28/2025 Start: 03-15-2024 Influenza vaccination Influenza Vacc ine (#1) [facility] Bacteria identified in Urine by Culture Urine culture Microbiology Routine Missed menses Ordered: 06/25/2024 [facility] Comment on above: Ordered: 06/25/2024 CBC W Auto Different ial panel - Blood CBC and differential Lab Routine Missed menses , unspecified gestational age Ordered: 06/25/2024 [facility] Comment on above: Ordered: 06/25/2024 CBC W Auto Different ial panel - Blood CBC and differential Lab Routine Anemia, unspecified type Ordered: 10/01/2024 [facility] Work Phone: Comment on above: Ordered: 10/01/2024 CHLAMYDIA TRACHOMATI S (GENITO/STI) CHLAMYDIA TRACHOMATIS (GENITO/STI) Lab Routine Exposure to STD Ordered: 08/13/2024 [facility] Comment on above: Ordered: 08/13/2024 Cytology Cervical or vaginal smear or scraping study Pap Smear Pathology and Cytology Routine Well woman exam with routine gynecological exam Ordered: 08/13/2024 [facility] Comment on above: Ordered: 08/13/2024 Hemoglobin A1c/Hemoglobin.total in Blood Hemoglobin A1c Lab Routine Missed menses , unspecified gestational age Ordered: 06/25/2024 [facility] Comment on above: Ordered: 06/25/2024 Hepatitis B virus surface Ag [Presence] in Serum or Plasma by Immunoassay Hepatitis B surface antigen Lab Routine Missed menses , unspecified gestational age Ordered: 06/25/2024 [facility] Comment on above: Ordered: 06/25/2024 Hepatitis C virus Ab [Presence] in Serum or Plasma by Immunoassay Hepatitis C antibody Lab Routine Missed menses , unspecified gestational age Ordered: 06/25/2024 [facility] Comment on above: Ordered: 06/25/2024 HIV-1/HIV-2 antigen/antibody combination immunoassay HIV-1 and HIV-2 antibodies Lab Routine Missed menses , unspecified gestational age Ordered: 06/25/2024 [facility] Comment on above: Ordered: 06/25/2024 Neisseria gonorrhoea e DNA [Presence] in Unspecified specimen by DONALD with probe detection Neisseria gonorrhea DNA probe, direct Lab Routine Exposure to STD Ordered: 08/13/2024 [facility] Comment on above: Ordered: 08/13/2024 Reagin Ab [Presence] in Serum by RPR RPR Lab Routine Missed menses , unspecified gestational age Ordered: 06/25/2024 [facility] Comment on above: Ordered: 06/25/2024 Rubella antibody, IgG Rubella an tibody, IgG Lab Routine Missed menses , unspecified gestational age Ordered: 06/25/2024 [facility] Comment on above: Ordered: 06/25/2024 SURESWAB(R) ADVANCED VAGINITIS PLUS, TMA SURESWAB(R) ADVANCED VAGINITIS PLUS, TMA Pathology and Cytology Routine Vaginal discharge Ordered: 08/13/2024 [facility] Work Phone: Comment on above: Ordered: 08/13/2024 Immunizations Immunization Date Immunization Notes Care Provider [facility] 04-27-2021 influenza virus vaccine, unspecified formulation Giovany Gross DO Work Phone: [facility] 01-15-2015 measles, mumps and rubella virus vaccine Sumit Link [facility] Comment on above: Reason for Medicatio n: Other (see comment) 01-15-2015 tetanus toxoid, redu carly diphtheria toxoid, and acellular pertussis vaccine, adsorbed Sumit Link [facility] Comment on above: Reason for Medicatio n: Other (see comment) Payers Date Payer Category Payer Private Health Insurance [facility] [employer] [id number] 1996 Unknown [id number] [id number]. 593 1996 Unknown [id number] 2.16.840.1.805801.3.579.2. 1258 1996 Unknown [id number] 2.16.840.1.288428.3.579.2. 1258 1996 Unknown [id number] 2.16.840.1.190920.3.579.2. 727 1996 Unknown [id number] 2.16.840.1.950897.3.579.2. 72 1996 Unknown [id number] 2.16.840.1.227743.3.579.2. 1258 1996 Unknown [id number] 2.16840.1.406025.3.579.2. 1258 1996 Unknown [id number] 2.16840.1.619983.3.579.2. 1258 1996 Unknown [id number] 2.16840.1.337667.3.579.2. 1258 1996 Unknown [id number] 2.16.840.1.825924.3.579.2. 1258 1996 Unknown [id number] 2.16.840.1.885789.3.579.2. 1258 1996 Unknown [id number] 2.16.840.1.815508.3.579.2. 1258 1996 Unknown [id number] 2.16.840.1.863197.3.579.2. 1258 1996 Unknown [id number] 2.16.840.1.851055.3.579.2. 1258 1996 Unknown [id number] 2.16.840.1.632332.3.579.2. 1259 1996 Unknown [id number] 2.16.840.1.100202.3.579.2. 1259 1996 Unknown [id number] 2.16.840.1.103195.3.579.2. 1259 1959 Unknown [id number] Self-pay Self Pay [id number] Social History Date Type Detail Facility Tobacco smoking status Unknown if ever sm oked [facility] Start: 11-16-2023 End: 11-18-2023 Sex Assigned At Female [facility] Start: 1995 Sex Assigned At Female [facility] Tobacco smoking status No Smokin g Status Entered [facility] Tobacco smoking status No Smokin g Status Entered [facility] Start: 11-18-2023 Tobacco smoking stat [facility] Never smoked tobacco [facility] [...] Assessment Result Facility 12-24-2021 Functional Status No [facility] Clinical Notes 12-24-2021 to 11-19-2024 Sana Patel NP - 11/19/2024 11:30 AM Jyothi Pandey MA - 11/05/2024 10:40 AM Vance Reyez LPN - 09/10/2024 8:40 AM CORNELIUS Ojeda - 08/13/2024 10:50 AM EST Note Date & Type Note Facility 11-19-2024 History of Presen t illness Narrative Reason [...] Active Ambulatory Problems Diagnosis Date Noted Seizure ([facility]) 11/16/2023 Migraine 11/16/2023 Intractable migraine without aura and without status migrainosus ([facility]) 11/16/2023 Hypersomnia 11/16/2023 Chronic daily headache 11/18/2023 Resolved Ambulatory Problems Diagnosis Date Noted No Resolved Ambulatory Problems Past Medical History: Diagnosis Date Anxiety Depression ([facility]) History of petit-mal seizures HISTORY PAST MEDICAL HISTORY SOCIAL HISTORY Past Medical History: Diagnosis Date Anxiety Depression ([facility]) History of petit-mal seizures Social History Tobacco [...] nursing note reviewed. Exam conducted with a yard operator present. Vitals: Estimated body mass index is 35.27 kg/m as calculated from the following: Height [...] NP on behalf of: Sana Patel MSN, CMM TECHNICIAN-BC documented in this encounter [facility] 11-05-2024 History of Presen t illness Narrative Reason [...] Diagnosis Date Noted Seizure (CMS/HCC) 11/16/2023 Migraine 11/16/2023 Intractable migraine without aura [...] SYSTEMS Review of Systems: Review of Systems Cardiovascular: Positive for palpitations. Neurological: Positive for syncope. All other systems reviewed and are negative. OBJECTIVE Objective: OBGyn Exam Vitals: Estimated body mass index is 34.06 kg/m as calculated from the following: Height as of 11/18/23: 5' 6 . Weight as of this encounter: 211 lb. BP: 124/78 Patient's last menstrual period was 04/13/2024. ASSESSMENT & PLAN ICD-10-CM 1. Third trimester Z34.93 POCT urinalysis dipstick manually resulted 2. 29 weeks gestation of Z3A.29 3. H/O pre-eclampsia in prior , currently O09.299 US OB follow up transabdominal approach US biophysical profile w non stress test 4. H/O delivery, currently O09.899 US OB follow up transabdominal approach US biophysical profile w non stress test 5. Heart palpitations R00.2 Ambulatory referral to Cardiology 6. Shortness of breath R06.02 Ambulatory referral to Cardiology No complaints at this time--11/05/24 7. Seizures (CMS/HCC) R56.9 Ambulatory referral to Neurology 8. Syncope, near R55 Ambulatory referral to Cardiology Return OB: Patient presents today for a routine obstetrics appointment. Patient is currently 29w3d . Patient states she is doing well but has complaints of being tired due to current . Patient complains of having chest pains, headaches in the morning, swelling and the seizures have started up again. Patient just had a seizure this week while cooking and spilled boiling water on her belly. Pt has a h/o seizures. Patient has verbalizes frequent movement. labor precautions was discussed/given and patient was instructed to perform kick counts three times a day. Patient complaints of episodes of shortness of breath, palpitations, near syncope episodes and that seizures and started back up. Patient will be referred to cardiology and neurology for workup. Orders Placed This Encounter Procedures US OB follow up transabdominal approach US biophysical profile w non stress test Ambulatory referral to Neurology Ambulatory referral to Cardiology POCT urinalysis dipstick manually resulted Follow Up: Patient is to return to office in 3 week for routine OB appointment. NST/BPP and Growth US orders were given to patient to schedule at [facility]. Documented by Hazel Pandey MA on behalf of: Giovany Gross DO documented in this encounter [facility] 09-10-2024 History of Presen t illness Narrative [...] Active Ambulatory Problems Diagnosis Date Noted Seizure ([facility]) 11/16/2023 Migraine (CMS/[facility]) 11/16/2023 Intractable migraine without aura and without status migrainosus ([facility]) 11/16/2023 Hypersomnia 11/16/2023 Chronic daily headache 11/18/2023 Resolved Ambulatory Problems Diagnosis Date Noted No Resolved Ambulatory Problems Past Medical History: Diagnosis Date Anxiety Depression ([facility]) History of petit-mal seizures HISTORY PAST MEDICAL HISTORY SOCIAL HISTORY Past Medical History: Diagnosis Date Anxiety Depression (CMS/[facility]) History of petit-mal seizures Social History Tobacco [...] nursing note reviewed. Exam conducted with a yard operator present. Vitals: Estimated body mass index is [...] Giovany Gross DO documented in this encounter [facility] 08-13-2024 History of Presen t illness Narrative [...] Active Ambulatory Problems Diagnosis Date Noted Seizure ([facility]) 11/16/2023 Migraine ([facility]) 11/16/2023 Intractable migraine without aura and without status migrainosus ([facility]) 11/16/2023 Hypersomnia 11/16/2023 Chronic daily headache 11/18/2023 Resolved Ambulatory Problems Diagnosis Date Noted No Resolved Ambulatory Problems Past Medical History: Diagnosis Date Anxiety Depression ([facility]) History of petit-mal seizures HISTORY PAST MEDICAL HISTORY SOCIAL HISTORY Past Medical History: Diagnosis Date Anxiety Depression ([facility]) History of petit-mal seizures Social History Tobacco [...] nursing note reviewed. Exam conducted with a yard operator present. Vitals: Estimated body mass index is [...] obtained without difficulty and patient was given [facility] order to have obtained. Orders Placed This Encounter Procedures US OB 14+ weeks anatomy scan CHLAMYDIA TRACHOMATIS (GENITO/STI) Neisseria gonorrhea DNA probe, direct Alpha fetoprotein, maternal POCT urinalysis dipstick manually resulted Follow Up: Patient is to return to our office in 4 weeks for routine OB appointment Documented by Suzanna Oneal LPN on behalf of: CORNELIUS Crenshaw documented in this encounter [facility] 07-09-2024 History of Presen t illness Narrative Reason for Appointment: Patient ID: Gregorio Hess is a 29 y.o. female who presents for Routine Visit Patient presents today for Return OB appointment. MEDICATIONS No current outpatient medications ALLERGIES Allergies Allergen Reactions Losartan Other Reaction(s): Unknown PROBLEMS Active Ambulatory Problems Diagnosis Date Noted Seizure ([facility]) 11/16/2023 Migraine ([facility]) 11/16/2023 Intractable migraine without aura and without status migrainosus ([facility]) 11/16/2023 Hypersomnia 11/16/2023 Chronic daily headache 11/18/2023 Resolved Ambulatory Problems Diagnosis Date Noted No Resolved Ambulatory Problems Past Medical History: Diagnosis Date Anxiety Depression ([facility]) History of petit-mal seizures HISTORY PAST MEDICAL HISTORY SOCIAL HISTORY Past Medical History: Diagnosis Date Anxiety Depression ([facility]) History of petit-mal seizures Social History Tobacco [...] nursing note reviewed. Exam conducted with a yard operator present. Vitals: Estimated body mass index is [...] or undercooked meat, and stay away from [facility]. Patient has been consulted regarding any further do's and don'ts of . Patient voiced understanding and all questions and concerns were answered. Orders Placed This Encounter Procedures POCT urinalysis dipstick manually resulted Follow Up: Patient is to return in 4 weeks for routine OB appointment. Documented by Giovanna Wise LPN on behalf of: Giovayn Gross DO documented in this encounter [facility] 06-25-2024 History of Presen t illness [...] Active Ambulatory Problems Diagnosis Date Noted Seizure ([facility]) 11/16/2023 Migraine ([facility]) 11/16/2023 Intractable migraine without aura and without status migrainosus ([facility]) 11/16/2023 Hypersomnia 11/16/2023 Chronic daily headache 11/18/2023 Resolved Ambulatory Problems Diagnosis Date Noted No Resolved Ambulatory Problems Past Medical History: Diagnosis Date Anxiety Depression ([facility]) History of petit-mal seizures Family History Problem [...] or undercooked meat, and stay away from [facility]. Patient has also been advised to not [...] Suzanna Oneal LPN documented in this encounter [facility] 05-28-2024 History of Presen t illness Narrative Reason for Appointment: Patient ID: Gregorio Hess is a 29 y.o. female who presents for cramping in Patient presents today for Consult appointment. MEDICATIONS No current outpatient medications ALLERGIES No Known Allergies PROBLEMS Active Ambulatory Problems Diagnosis Date Noted Seizure ([facility]) 11/16/2023 Migraine ([facility]) 11/16/2023 Intractable migraine without aura and without status migrainosus ([facility]) 11/16/2023 Hypersomnia 11/16/2023 Chronic daily headache 11/18/2023 Resolved Ambulatory Problems Diagnosis Date Noted No Resolved Ambulatory Problems Past Medical History: Diagnosis Date Anxiety Depression ([facility]) HISTORY PAST MEDICAL HISTORY SOCIAL HISTORY Past Medical History: Diagnosis Date Anxiety Depression ([facility]) Social History Tobacco Use Smoking status: Never [...] nursing note reviewed. Exam conducted with a yard operator present. Vitals: Estimated body mass index is [...] Giovany Gross DO documented in this encounter [facility] 10-29-2022 Evaluation + Plan note Diagnostic Tests PendingDHEAS 10/29/22Testosterone F&T 10/29/22Insulin Level Total 10/29/22FSH and LH 10/29/22Cortisol 10/29/22Estradiol Level 10/29/22 [facility] 02-06-2022 Evaluation + Plan note Diagnostic Tests PendingCOVID-19 ([facility]) 02/06/22 [facility] 12-24-2021 Hospital Discharg e instructions Patient Education 12/24/2021 21:12:52 Cellulitis, Adult, Xmnk-ns-Vsvo Cellulitis, Adult Cellulitis is a skin infection. [...] Follow these instructions at home: Medicines Take thge-ete-xoeixfd and prescription medicines only as told by [...] 12/17/2008 Document Revised: 11/20/2018 Document Reviewed: 11/20/2018 [employer] Patient Education 2020 [employer]. Follow Up Care 12/24/2021 19:31:22 With:Ros Segovia Address: [address] [place], [place] [address]dict Rina, [address], [address] [address] Business (1) When:12/27/2021 20:50:34 [facility] Evaluation + Plan note No data available for this section [facility] Evaluation note No assessment inform ation available [facility] Work Phone: Evaluation note Diagnosis [...] episode of care [facility] Diagnosis Anemia, unspecified type- Primary Second trimester state, incidental 24 weeks gestation of documented [facility] Diagnosis Third trimester state, incidental 29 weeks gestation of H/O pre-eclampsia in prior , currently H/O delivery, currently Heart palpitations Palpitations Shortness of breath Seizures (CMS/HCC) Other convulsions Syncope, near [facility] Diagnosis Third trimester state, incidental 31 weeks gestation of documented in this [facility] illness Narrative* CORNELIUS Crenshaw - 10/01/2024 11:40 AM EDT Reason for Appointment: Patient ID: Gregorio Hess [...] Exam Constitutional: Appearance: Normal appearance. She is normal weight. HENT: Head: Normocephalic. Cardiovascular: Rate and Rhythm: Normal rate. Pulses: Normal pulses. Pulmonary: Effort: Pulmonary effort is normal. Breath sounds: Normal breath sounds. Abdominal: Palpations: Abdomen is soft. Musculoskeletal: General: Normal range of motion. Neurological: General: No focal deficit present. Mental Status: She is alert and oriented to person, place, and time. Psychiatric: Mood and Affect: Mood normal. Behavior: Behavior normal. Thought Content: Thought content normal. Judgment: Judgment normal. Vitals and nursing note reviewed. Vitals: Estimated body mass index is 32.3 kg/m as calculated from the following: Height as of 11/18/23: 5' 6 . Weight as of this encounter: 200 lb 1.9 oz. BP: 110/82 Patient's last menstrual period was 04/13/2024. ASSESSMENT & PLAN ICD-10-CM 1. Second trimester Z34.92 POCT urinalysis dipstick manually resulted 2. 24 weeks gestation of Z3A.24 Return OB: Patient presents today for a routine obstetrics appointment. Patient is currently 24w3d . Patient states she is doing well but has complaints of being tired due to current . Patient has verbalizes frequent movement. Orders Placed This Encounter Procedures POCT urinalysis dipstick manually resulted Follow Up: Patient is to return to office in 4 week for routine OB appointment. Documented by CORNELIUS Crenshaw on behalf of: Giovany Gross DO [facility] No data available for this section [facility] No data available for this section [facility] Chief Complaint and Reason for [...] Member Role Status Dates Reyes Rodriguez DO [facility] Attending Provider Active Hander In Relationship Specialty Start Date End Date Lan Malcolm MD [address] [place] [address] PCP - General Family Medicine 11/18/23 Hander In Relationship Specialty Start Date End Date Lan Malcolm MD [address] [place] [address] PCP - General Family Medicine 11/18/23 Hander In Relationship Specialty Start Date End Date Lan Malcolm MD [address] [place] [address] PCP - General Family Medicine 11/18/23 Hander In Relationship Specialty Start Date End Date Lan Malcolm MD [address] [place] [address] PCP - General Family Medicine 11/18/23 Hander In Relationship Specialty Start Date End Date Lan Maclolm MD [address] [place] [address] PCP - General Family Medicine 11/18/23 Hander In Relationship Specialty Start Date End Date Lan Malcolm MD [address] [place] [address] PCP - General Family Medicine 11/18/23 Hander In Relationship Specialty Start Date End Date Lan Malcolm MD [address] [place] [address] PCP - General Family Medicine 11/18/23 Hander In Relationship Specialty Start Date End Date Lan Malcolm MD [address] [place] [id number] PCP - General Family Medicine 11/18/23 Hander In Relationship Specialty Start Date End Date Lan Malcolm MD [address] [place] [address] PCP - General Family Medicine 11/18/23 Hander In Relationship Specialty Start Date End Date Lan Malcolm MD [address] [place] [address] PCP - General Family Medicine 11/18/23 Hander In Relationship Specialty Start Date End Date Lan Malcolm MD [address] [place] [address] PCP - General Family Medicine 11/18/23 Hander In Relationship Specialty Start Date End Date Lan Malcolm MD [address] [place] [address] PCP - General Family Medicine 11/18/23 Goals (unrecognized section and content) Goals may be documented in a n alternate section INFORMATION SOURCE (unrecogn ized section and content) DATE CREATED AUTHOR 11/01/2021 [facility] DATE CREATED AUTHOR AUTHOR'S ORGANIZ ATION 10/01/2022 [facility] DATE CREATED AUTHOR AUTHOR'S ORGANIZ ATION 11/20/2023 [facility] EPIC DATE CREATED AUTHOR AUTHOR'S ORGANIZ ATION 05/30/2024 [facility] DATE CREATED AUTHOR AUTHOR'S ORGANIZ ATION 06/02/2024 [facility] [employer] [facility] DATE CREATED AUTHOR AUTHOR'S ORGANIZ ATION 11/23/2024 [facility] EPIC Reason for Visit (unrecogniz ed section and content) Reason Comments cramping in Reason Comments Amenorrhea Reason Comments Routine Visit Reason Comments Routine Visit FOR RECORDS PERTAINING [...] BE BASED ON THE PRIMARY CLINICAL RECORDS. [facility]. provides no warranty or guarantee of the accuracy or completeness of information in this document.
--- NOTE | 2024-11-26 10:06 | US_ITS ---
[place] [id number] Patient Name: GREGORIO HESS MRN: [id number] date: 1995 Sex: F Assigned Patient Location: [facility] Current Patient Location: Accession/Order Number: [id number] Exam Date: 11/26/2024 11:46 Report Date: 11/26/2024 11:47 At the request of: GIOVANY ARVIZU DO Procedure: US OB BPP w non-stress US OB BPP w non-stress 11/26/2024 10:31 AM SIGNS AND SYMPTOMS: ^H/O PRE-ECLAMPSIA O09.299 COMPARISON: None. TECHNIQUE: Limited pelvic ultrasound using transvesical sonography. FINDINGS: A heart rate is identified at 169 bpm. A normal amount of amniotic fluid is present. The amniotic fluid index is 12.56 cm. Biophysical profile: Gross movements: 2/2 tone: 2/2 breathin/2 Amniotic fluid volume: 2/2 (amniotic fluid index 12.56 cm) US/US OB BPP w non-stress IMPRESSION: The amniotic fluid index is 12.56 cm. Biophysical profile score: 8/8 Impression dictated by: Addison Costello M.D. 11/26/2024 11:47 AM Dictation Location: [facility] Policy Manager Electronically authenticated by: [id number] Y Date: 11/26/2024 11:47
[2024-11-26 10:07] LABS: Basophils Percent Auto 0.1 % (0.2-2.0); Eosinophils Absolute Auto 0.1 10^3/uL (0.0-0.7); Eosinophils Percent Auto 0.5 % (0.9-7.0); Hematocrit 30.2 % (36.0-48.0); Hemoglobin 9.7 g/dL (12.0-16.0); Immature Granulocytes Abs Auto 0.22 10^3/uL (0.00-0.03); Immature Granulocytes Pct Auto 2.2 % (0.0-0.5); Lymphocytes Absolute Auto 1.7 10^3/uL (1.2-3.8); Lymphocytes Percent Auto 16.9 % (20.5-60.0); Mean Corpuscular HGB Conc 32.1 g/dL (29.9-35.2); Mean Corpuscular Hemoglobin 27.6 pg (26.7-34.0); Mean Corpuscular Volume 85.8 fL (81.0-99.0); Mean Platelet Volume 11.4 fL (9.5-13.5); Monocytes Absolute Auto 0.8 10^3/uL (0.3-0.8); Monocytes Percent Auto 7.8 % (1.7-12.0); Neutrophils Absolute Auto 7.4 10^3/uL (1.4-6.5); Neutrophils Percent Auto 72.5 % (43.0-75.0); Platelet Count 172 10^3/uL (150-450); Red Blood Count 3.52 10^6/uL (4.20-5.40); Red Cell Distribution Width 14.8 % (11.0-15.0); White Blood Count 10.2 10^3/uL (4.0-11.0)
[2024-11-26 10:23] LABS: Alanine Aminotransferase 16 U/L (14-59); Aspartate Amino Transferase 17 U/L (15-37); Estimated GFR (African America >60 (>=60 mL/min/1.73m^2); Estimated GFR (Non-African Ame >60 (>=60 mL/min/1.73m^2); Uric Acid 2.3 mg/dL (2.6-6.0)
[2024-11-26 10:52] LABS: INR <0.93; Partial Thromboplastin Time 21.5 sec (22.3-36.2); Prothrombin Time 9.5 sec (9.0-11.6)
[2024-11-26 10:53] LABS: Fibrinogen 478 mg/dL (200-400)
== END 2024-11-26 11:20 | disposition home or self-care (01) ==
LOC: US 09:37 → FBC 09:39
PROVIDERS: Family Medicine Addiction Medicine; PCP Nurse Practitioner Family; Visit Provider Obstetrics & Gynecology
DX: O09.293 Supervision of pregnancy with other poor reproductive or obstetric history, third trimester (principal); Z87.59 Personal history of other complications of pregnancy, childbirth and the puerperium; Z3A.32 32 weeks gestation of pregnancy
CPT/HCPCS: 36415; 76818; 82565; 84450; 84460; 84520; 84550; 85025; 85384; 85610; 85730

== ENCOUNTER 2024-11-27 11:15 | Outpatient (REF) | payer OTHER, SELFPAY ==
[2024-11-27 12:15] LABS: Creatinine Urine Random 67.14 mg/dL (20.00-300.00); Total Protein Urine Random 15.1 mg/dL (<=11.9)
[2024-11-27 12:51] LABS: Total Protein 24 Hour Urine 226.5 mg/24hr (<=149.1); Total Volume 24 Hour Urine 1500 mL/24hr
--- NOTE | 2024-11-27 12:59 | PC.NURSE ---
11/27/2024 @ 1259pm: Dr. Davalos called and notified of total urine protein results. No further orders given at this time.
== END 2024-11-27 11:16 | disposition home or self-care (01) ==
LOC: LAB 11:15
PROVIDERS: PCP Nurse Practitioner Family; Visit Provider Family Medicine Addiction Medicine
DX: R51.9 Headache, unspecified (principal); R42 Dizziness and giddiness; H53.8 Other visual disturbances
CPT/HCPCS: 82570; 84156

== ENCOUNTER 2024-12-03 10:38 | Observation (INO) | payer OTHER, SELFPAY ==
--- OUTSIDE RECORDS SUMMARY | 2024-07-24 07:30 | XMS_ITS ---
Author Organization [facility] Address [address] [place] [address] Care Team Providers Care Rotary Bar Operator Name Role Phone Evelyn West Primary Care Provider Corine Hendrickson Unavailable [phone] REASON FOR VISIT 2 month Encounters Encounter Location Date Provider Diagnosis [address] [place] [address] 07/24/2024 Corine Hendrickson Plan Of Treatment No Information Progress Notes * GREGORIO HESS RDOB: 6 (29 yo F)Acc No.[id number]:07/24/2024 Behavioral Health Patient: Torri HARDEN GREGORIO Goyal Appointment Provider: BOB FULLER :1995 A ge:29 Y S ex:Female Date:07/24/2024 Address:[address] [place], [place] [id number] Pcp:Evelyn West Subjective: * Chief Complaints: * 1 . 2 month. * Medical History: Objective: * Vitals: Assessment: Plan: * Treatment: Care Plan: * Problems: * Images: * Electronic signature of MU Sullivan i on 12/03/2024 at 09:35 AM EDT Sign off status: Pending * Appointment Provider: BOB FULLER Date: 07/24/2024 Generated for Tereza herrera/Juan/Zhouitting on: 0 12/03/2024 09:35 AM EDT
--- OUTSIDE RECORDS SUMMARY | 2024-11-19 11:00 | XMS_ITS | Encounter Summary ---
Author Organization [facility] Address [address] [facility] [address] [place] [address] Care Team Providers Care Meteorology Teacher Name Role Phone Lan Malcolm MD Primary Care Provider [phone] Encounter Details Date Type Department Care Team (Latest Contact Info) Description 11/19/2024 11:00 AM EDT Ancillary Procedure [facility] [address] [place] [address] [place] [id number] H/O pre-eclampsia in prior , currently ; H/O delivery, currently Social History Tobacco Use Types Packs/Day Years Used Date Smoking Tobacco: Never Smokeless Tobacco: Never Alcohol Use Standard Drinks/Week Comments Yes 0 (1 standard drink = 0.6 oz pur e alcohol) caffeine: 1-2 cups per day AUDIT-C Answer Date Recorded Q1: How often do you have a drink containing alc ohol? Monthly or less 11/16/2023 Q2: How many drinks containi ng alcohol do you have on a typical day when you are drinking? 1 or 2 11/16/2023 Q3: How often do you have si x or more drinks on one occasion? Never 11/16/2023 Estimated Date of Delivery Comme nts Yes 01/18/2025 Based on last me nstrual period of 04/13/2024 Sex and Gender Information Value Date Recorded Sex Assigned at Female 04/15/2024 3:55 PM EDT Legal Sex Female 10:14 PM EDT Gender Identity Female 04/15/2024 3:55 PM EDT Sexual Orientation Not on file documented as of this encounter Plan of Treatment Upcoming Encounters Date Type Department Care Team (Late st Contact Info) Description 12/17/2024 10:20 AM EDT Routine [facility] [address] [place] [id number] P[place] [address] [place] [address] documented as of this encounter Goals Goal Patient Goal Type Associated Problems Recent Progress Patient-Stated? Author Reminders Care Plan OB Reminders No Open Scheduling, Background documented as of this encounter Procedures Procedure Name Priority Date/Time Associated Diagnosis Comments US OB FOLLOW UP TRANSABDOMINAL APPROACH Routine 11/19/2024 11:16 AM EDT H/O pre-eclampsia in prior , currently H/O delivery, currently documented in this encounter Results * US OB follow up transabdominal approach (11/19/2024 11:16 AM EDT) Anatomical Region Laterality Modality Body Ultrasound 11/22/2024 8:22 PM EDT Narrative 11/22/2024 8:22 PM EDT EXAM: US OB FOLLOW UP TRANSABDOMINAL APPROACH HISTORY: History of preeclampsia and delivery PRICE 01/18/2025. A2. COMPARISON: U/S OB 10/01/2024 TECHNIQUE: Two-dimensional transabdominal grayscale ultrasound imaging of the pelvis was performed. FINDINGS: Gestation: Single Presentation: Cephalic Cardiac Activity: 158 beats per minute Placental Location: Anterior with no sonographic abnormalities identified. Distance from Placental Tip to Cervix: Not visualized Cervical Length: Obscured by overlying fetus Amniotic Fluid Index: 12.6 cm; MVP: 3.9 cm MEASUREMENTS: BPD: 8.2 cm EGA: 33 weeks 0 days HC: 29.5 cm EGA: 32 weeks 4 days AC: 28.1 cm EGA: 32 weeks 1 days FL: 6.2 cm EGA: 32 weeks 0 days HC/AC Ratio: 1.05 (0.96 - 1.13) Gestational age by today's ultrasound is 32 weeks 3 days (+/- 16 days gestation). Estimated Weight: 1928 grams, +/- 289 grams ( 4 lb 4 oz). Weight Percentile for gestational age: 65 % IMPRESSION: 1. Single, live intrauterine gestation 31 weeks, 3 days by LMP. Today's ultrasound measurements correlate with a gestational age of 32 weeks 3 days. Fetus is in the 65th weight percentile. Interpreted by: Electronically signed by TONE MITCHELL II, MD, PHD at 22-Nov-2024 08:21:01 PM [facility] Procedure Note Tone Mitchell MD - 11/22/2024 EXAM: US OB FOLLOW UP TRANSABDOMINAL APPROACH HISTORY: History of preeclampsia and delivery PRICE 01/18/2025.A2. COMPARISON: U/S OB 10/01/2024 TECHNIQUE: Two-dimensional transabdominal grayscale ultrasound imaging ofthe pelvis was performed. FINDINGS: Gestation: Single Presentation: Cephalic Cardiac Activity: 158 beats per minute Placental Location: Anterior with no sonographic abnormalitiesidentified. Distance from Placental Tip to Cervix: Not visualized Cervical Length: Obscured by overlying fetus Amniotic Fluid Index: 12.6 cm; MVP: 3.9 cm MEASUREMENTS: BPD: 8.2 cm EGA: 33 weeks 0 days HC: 29.5 cm EGA: 32 weeks 4 days AC: 28.1 cm EGA: 32 weeks 1 days FL: 6.2 cm EGA: 32 weeks 0 days HC/AC Ratio: 1.05 (0.96 - 1.13) Gestational age by today's ultrasound is 32 weeks 3 days (+/- 16 daysgestation). Estimated Weight: 1928 grams, +/- 289 grams ( 4 lb 4 oz). Weight Percentile for gestational age: 65 % IMPRESSION: 1. Single, live intrauterine gestation 31 weeks, 3 days by LMP. Today'sultrasound measurements correlate with a gestational age of 32 weeks 3days. Fetus is in the 65th weight percentile. Interpreted by: Electronically signed by TONE MITCHELL II, MD, PHD [id number] 08:21:01 PM [facility] us Baltazar Gross DO IM OB US PROCEDURES Final Resul t documented in this encounter Visit Diagnoses Diagnosis H/O pre-eclampsia in prior , currently H/O delivery, currently documented in this encounter Additional Health Concerns Active Problems Noted Date Diagnosed Date OB Reminders 06/27/2024 documented as of this encounter Care Teams Meteorology Teacher Relationship Specialty Start Date End Date Lan Malcolm MD [address] [place] [address] PCP - General Family Medicine 11/18/23 documented as of this encounter
--- OUTSIDE RECORDS SUMMARY | 2024-11-19 11:30 | XMS_ITS | Encounter Summary ---
Author Organization [facility] [address] [place] [address] Care Team Providers Care Long Term Acute Care Registered Nurse Name Role Phone Lan Malcolm MD Primary Care Provider [phone] Reason for Visit * Reason Comments Routine Visit Encounter Details Date Type Department Care Team (Late st Contact Info) Description 11/19/2024 11:30 AM EDT Routine [facility] [address] [place] [id number] Paz Varela PA [address] [place], [place] [address] Third trimester ; 31 weeks gestation of Social History Tobacco Use Types Packs/Day Years [...] on file documented as of this encounter Last Filed Vital Signs Vital Sign Reading Time Taken Comments Blood Pressure 114/72 11/19/2024 11:41 AM EDT Pulse - - Temperature - - Respiratory Rate - - Oxygen Saturation - - Inhaled Oxygen Concentration - - Weight 99.1 kg (218 lb 8 oz) 11/19/2024 11:41 AM EDT Height - - Body Mass Index 35.27 11/18/2023 11:23 AM EDT documented in this encounter Progress Notes * Sana Patel NP - 11/19/2024 11:30 AM EDT Reason for Appointment: Patient ID: Stephon Zuleta [...] Active Ambulatory Problems Diagnosis Date Noted Seizure ([facility]) 11/16/2023 Migraine 11/16/2023 Intractable migraine without aura and without status migrainosus ([facility]) 11/16/2023 Hypersomnia 11/16/2023 Chronic daily headache 11/18/2023 Resolved Ambulatory Problems Diagnosis Date Noted No Resolved Ambulatory Problems Past Medical History: Diagnosis Date Anxiety Depression ([facility]) History of petit-mal seizures HISTORY PAST MEDICAL HISTORY SOCIAL HISTORY Past Medical History: Diagnosis Date Anxiety Depression ([facility]) History of petit-mal seizures Social History Tobacco [...] nursing note reviewed. Exam conducted with a store deli manager present. Vitals: Estimated body mass index is 35.27 kg/m?? as calculated from the following: Height as of 11/18/23: 5' 6 . Weight as of this encounter: 218 lb 8 oz. BP: 114/72 Patient's last menstrual period was 04/13/2024. ASSESSMENT & PLAN ICD-10-CM 1. Third trimester Z34.93 POCT urinalysis dipstick manually resulted 2. 31 weeks gestation of Z3A.31 Return OB: Patient presents today for a routine obstetrics appointment. Patient is currently 31w3d . Patient states she is doing well but has complaints of being tired due to current . Patient has verbalizes frequent movement. labor precautions was discussed/given and patient was instructed to perform kick counts three times a day. Orders Placed This Encounter Procedures POCT urinalysis dipstick manually resulted Follow Up: Patient is to return to office in 2 week for routine OB appointment. Documented by Sana Patel NP on behalf of: Sana Patel MSN, [employer] documented in this encounter Plan of Treatment Upcoming Encounters Date Type Department Care Team (Late st Contact Info) Description 12/17/2024 10:20 AM EDT Routine [facility] [address] [place] [phone] Paz Varela PA [address] [place] [address] documented as of this encounter Goals Goal Patient Goal Type Associated Problems Recent Progress Patient-Stated? Author Reminders Care Plan OB Reminders No Open Scheduling, Background documented as of this encounter Procedures Procedure Name Priority Date/Time Associated Diagnosis Comments POCT URINALYSIS DIPSTICK Routine 11/19/2024 11:51 AM EDT Third trimester documented in this encounter Results * (ABNORMAL) POCT urinalysis dipstick manually resulted (11/19/2024 11:51 AM EDT) Color, UA Yellow Clarity, UA Clear Glucose, UA Positive Negative - 2000(110) ++++ mg/dL Comment:100mg/dL Bilirubin, UA Negative Negative - 4(70) +++ mg/dL Ketones, UA Negative Negative - 160(16) ++++ mg/dL Spec Grav, UA 1.010 1 - 1.03 Blood, UA Negative Negative - 50 Theodore/mcL pH, UA 6.0 5 - 9 Protein, UA Negative Negative - 2000(20) ++++ mg/dL Urobilinogen, UA 0.2 0.2 - 12 mg/dL Leukocytes, UA Trace Negative - 500+++ Mike/mcL Nitrite, UA Negative Negative - Positive Urine 11/19/2024 11:5 1 AM EDT Baltazar Ginny DO POINT OF CARE TEST ENTER/EDIT OR DERABLES Final Result documented in this encounter Visit Diagnoses Diagnosis Third trimester state, incidental 31 weeks gestation of documented in this encounter Additional Health Concerns Active Problems Noted Date Diagnosed Date OB Reminders 06/27/2024 documented as of this encounter Care Teams Long Term Acute Care Registered Nurse Relationship Specialty Start Date End Date [place] [address] PCP - General Family Medicine 11/18/23 documented as of this encounter
--- OUTSIDE RECORDS SUMMARY | 2024-12-03 09:35 | XMS_ITS ---
[...] Next of Kin Unknown [phone] MATTHWE DAVILA Next of Kin Unknown + PASTORA, [...] + PASTORA, SUHAS Next of Kin Unknown [phone] SUHAS GUILLORY Next of Kin [address] [place] [address] + Care Team Providers Care University Demonstrator Name Role Phone NOLBERTO, Giovany R Attending [...] Observed: 11/19/2024 10:55 AM Status: F Source: [facility] EPIC Order Comment: US [...] II, MD, PHD at 22-Nov-2024 08:21:01 PM [facility] US OB LIMITED 1+ FETUSES Observed: 10/01 10:12 AM Status: F Source: [facility] EPIC Order Comment: US OB INCOMPL [...] II, MD, PHD at 02-Oct-2024 08:30:32 PM [facility] US OB 14+ WEEKS ANATOMY SCAN Observed: 0 08/13/2024 10:50 AM Status: F Source: [facility] Order Comment: US OB ANATOMY SINGLE W [...] II, MD, PHD at 02-Sep-2024 08:04:31 AM [facility] [place] Collected: 05/27/2024 5:02 PM Status: F Source: [facility] TYPE CODE TESTS RESULT OUT OF RANGE REFERENCE UNITS LAB 91318-6([facility]) CHORIOGONADOT ROPIN.BETA SUBUNIT:ACNC: PT:SER/PLAS:Q N: [id number] High 1-3 mIU/mL Result Comment: 'F NONPREGNA NT < 1 - 3' ' 0.2 - 1 WEEK = 5 TO 50' ' 1 - 2 WEEKS = 50 - 500' ' 2 - 3 WEEKS = 100 - 5000' ' 3 - 4 WEEKS = 500 - 54022' ' 4 - 5 WEEKS = 1000 - 46471' ' 5 - 6 WEEKS = 14118 - 362235' ' 6 - 8 WEEKS = 47274 - 198560' ' 8 - 12 WEEKS = 10826 - 078571' Performed By: #### [id number] # ### [facility] [address] [place] [address] ALLERGIES DATE TYPE / CODE NAME / CODE REACTION SEVERITY SOURCE [id number](SNOMED CT) No Known Allergies [facility] ENCOUNTERS ADMIT/DISCHARGE ACCOUNT NUMBER ADMITTING ENCOUNTER CLASS LOCATION SOURCE 12/03/2024/12/04/19 [id number] Ambulatory Building:[facility] EPIC 11/19/2024/11/20/19 [id number] Ambulatory Building:[facility] EPIC 11/19/2024/11/20/19 [id number] Ambulatory Building:[facility] EPIC 11/05/2024/11/06/19 [id number] Ambulatory Building:[facility] EPIC 10/01/2024/10/02/19 25 [id number] Ambulatory Building:[facility] EPIC 10/01/2024/10/02/19 25 [id number] Ambulatory Building:[facility] EPIC 09/10/2024/09/10/19 25 [id number] Ambulatory Building:[facility] EPIC 09/01/2024/09/01/19 25 [id number] Ambulatory Building:[facility] EPIC 08/13/2024/08/13/19 25 [id number] Ambulatory Building:[facility] EPIC 07/09/2024/07/09/20 24 [id number] Ambulatory Building:[facility] EPIC 06/25/2024/06/25/20 24 [id number] Ambulatory Building:[facility] EPIC 06/25/2024/06/25/20 24 [id number] Ambulatory Building:[facility] EPIC 05/28/2024/05/28/20 24 [id number] Ambulatory Building:[facility] EPIC 05/27/2024 [id number] Giovany ARVIZU [facility] 05/27/2024/05/27/20 [id number] [facility]VIZU [facility] PAYERS ENCOUNTER GUARANTOR PAYER SUBSCRIBER SOURCE 12/03/2024 GREGORIO HESSB: [place], [place] [address]Fig: (HP) Primary Insurance:[facility] MEDICAIDPolicy Number: [id number] Date:2022-09-12 LEXIHillaryCHINOShin HESSDOB: [id number] [place] [address] [facility] EPIC 11/19/2024 GREGORIO HESSDOB: [place], [place] [address]Xad: (HP) Primary Insurance:[facility] MEDICAIDPolicy Number: [id number] Date:2022-09-12 GEORGINACHINOShin HESSDOB: [id number] [place] [address] [facility] EPIC 11/19/2024 GREGORIO HESSDOB: [place], [place] [address]Fkf: () Primary Insurance:[facility] MEDICAIDPolicy Number: [id number] Date:2022-09-12 GREGORIO HESSDOB: [id number] [place] [address] [facility] EPIC 11/05/2024 GREGORIO HESSDOB: [place], [place] [address]Heu: (HP) Primary Insurance:[facility] MEDICAIDPolicy Number: [id number] Date:2022-09-12 GREGORIO HESSDOB: [id number] [place] [address] [facility] EPIC 10/01/2024 GREGORIO DIGGSB: [place], [place] [address]Fqz: (HP) [facility] Insurance:[facility] MEDICAIDPolicy Number: [id number] Date:2022-09-12 GREGORIO HESSDOB: [id number] [place] [address] [facility] EPIC 10/01/2024 GREGORIO HESSDOB: [place], [place] [address]Rgo: (HP) Primary Insurance:[facility] MEDICAIDPolicy Number: [id number] Date:2022-09-12 GREGORIO HESSB: [id number] [place] [address] [facility] EPIC 09/10/2024 GREGORIO HESSDOB: [place], [place] [address]Das: (HP) Primary Insurance:[facility] MEDICAIDPolicy Number: [id number] Date:2022-09-12 GREGORIO HESSDOB: [id number] [place] [address] [facility] EPIC 09/01/2024 GREGORIO HESSDOB: [place], [place] [address]Fbs: (HP) Primary Insurance:[facility] MEDICAIDPolicy Number: [id number] Date:2022-09-12 GREGORIO HESSDOB: [id number] [place] [address] [facility] EPIC 08/13/2024 DESIRAEShin JIMENADOB: [place], [place] [address]Hoq: (HP) Primary Insurance:[facility] MEDICAIDPolicy Number: [id number] Date:2022-09-12 GREGORIO HESSB: [id number] [place] [address] [facility] EPIC 07/09/2024 GREGORIO HESSDOB: [place], [place] [address]Sqy: (HP) Primary Insurance:[facility] MEDICAIDPolicy Number: [id number] Date:2022-09-12 GREGORIO DIGGSB: [id number] [place] [address] [facility] EPIC 06/25/2024 GREGORIO HESSDOB: [place], [place] [address]Jsj: (HP) Primary Insurance:[facility] MEDICAIDPolicy Number: [id number] Date:2022-09-12 GREGORIO HESSDOB: [id number] [place] [address] [facility] EPIC 06/25/2024 LEXIKEANUShin JIMENAB: [place], [place] [address]Vzo: (HP) Primary Insurance:[facility] MEDICAIDPolicy Number: [id number] Date:2022-09-12 GREGORIO HESSB: [id number] [place] [address] [facility] EPIC 05/28/2024 GREGORIO DIGGSB: [place], [place] [address]Obp: (HP) Primary Insurance:[facility] MEDICAIDPolicy Number: [id number] Date:2022-09-12 GREGORIO HESSDOB: [id number] [place] [address] [facility] EPIC 05/27/2024 GREGORIO DIGGSB: PSYCHIATRICTel: [phone] (HP) Primary Insurance:CARESOURCEPo licy Number: [id number] Date:[id number] [address]AA: GREGORIO PIERSON [facility]
--- OUTSIDE RECORDS SUMMARY | 2024-12-03 10:00 | XMS_ITS | Encounter Summary ---
Author Organization [facility] Address [address] [place] [address] Care Team Providers Care Pneumatic Deicer Inspector Name Role Phone Lan Malcolm MD Primary Care Provider [phone] Reason for Visit * Reason Comments Routine Visit Encounter Details Date Type Department Care Team (Late Contact Info) Description 12/03/2024 10:00 AM EDT Routine [facility] [address] [place] [phone] Baltazar Gross, DO [address] [place] [address] Third trimester ; 33 weeks gestation of ; Decreased appetite Social History Tobacco Use Types Packs/Day Years [...] Sign Reading Time Taken Comments Blood Pressure 130/80 12/03/2024 9:58 AM EDT Pulse - - Temperature - - Respiratory Rate - - Oxygen Saturation - - Inhaled Oxygen Concentration - - Weight 98.4 kg (217 lb) 12/03/2024 9:58 AM EDT Height - - Body Mass Index 35.02 11/18/2023 11:23 AM EDT documented in this encounter Plan of Treatment Upcoming Encounters Date Type Department Care Team (Late st Contact Info) Description 12/17/2024 10:20 AM EDT Routine [facility] [address] [place] [phone] Paz Varela PA [address] [place], [place] [id number] documented as of this encounter Goals Goal Patient Goal Type Associated Problems Recent Progress Patient-Stated? Author Reminders Care Plan OB Reminders No Open Scheduling, Background documented as of this encounter Procedures Procedure Name Priority Date/Time Associated Diagnosis Comments POCT URINALYSIS DIPSTICK Routine 12/03/2024 10:05 AM EDT Third trimester documented in this encounter Results * (ABNORMAL) POCT urinalysis dipstick manually resulted (12/03/2024 10:05 AM EDT) Color, UA Yellow Clarity, UA Clear Glucose, UA Positive Negative - 1999(110) ++++ mg/dL Comment:250 Bilirubin, UA Negative Negative - 4(70) +++ mg/dL Ketones, UA Negative Negative - 160(16) ++++ mg/dL Spec Grav, UA 1.005 1 - 1.03 Blood, UA Negative Negative - 50 Theodore/mcL pH, UA 6.0 5 - 9 Protein, UA Negative Negative - 1999(20) ++++ mg/dL Urobilinogen, UA 0.2 0.2 - 12 mg/dL Leukocytes, UA Negative Negative - 500+++ Mike/mcL Nitrite, UA Negative Negative - Positive Urine 12/03/2024 10:0 5 AM EDT Baltazar Gross DO POINT OF CARE TEST ENTER/EDIT OR DERABLES Final Result documented in this encounter Visit Diagnoses Diagnosis Third trimester state, incidental 33 weeks gestation of Decreased appetite Anorexia documented in this encounter Additional Health Concerns Active Problems Noted Date Diagnosed Date OB Reminders 06/27/2024 documented as of this encounter Care Teams Pneumatic Deicer Inspector Relationship Specialty Start Date End Date Lan Malcolm MD [address] [place] [address] PCP - General Family Medicine 11/18/23 documented as of this encounter
--- NOTE | 2024-12-03 10:41 | US_ITS ---
The [address] [address] Patient Name: GREGORIO HESS MRN: [id number] date: 1995 Sex: F Assigned Patient Location: US Current Patient Location: US Accession/Order Number: [id number] Exam Date: 12/03/2024 11:21 Report Date: 12/03/2024 11:32 At the request of: GIOVANY ARVIZU DO Procedure: US OB BPP w non-stress CLINICAL DATA: Cramping, leaking and decreased movement. BIOPHYSICAL PROFILE: COMPARISON: 11/26/2024 There is a single live intrauterine gestation in cephalic presentation. The reported gestational age is 33 weeks 3 days. The heart rate beats per minute. FINDINGS: TONE: 1 or more episodes of activity extension and flexion of extremity or opening and closing of the hand [Y] 2/2 GROSS BODY MOVEMENTS: 3 or more discrete body or limb movements [Y] 2/2 BREATHING MOVEMENTS: 1 or more episodes of breathing lasting at least 30 seconds [Y] 2/2 AIME: A single deepest vertical pocket of amniotic fluid greater than 2 cm [Y] 2/2 AIME: 9.5 cm . The 5th percentile is 8.3 cm. Total score: 8/8 US/US OB cervical length IMPRESSION: NORMAL BIOPHYSICAL PROFILE. ULTRASOUND OB CERVICAL LENGTH COMPARISON: 05/28/2024 The cervix was evaluated using a transvaginal probe. The cervix is closed. Estimated length is 4 cm. There is no evidence of previa. IMPRESSION: CLOSED CERVIX Impression dictated by: Giovanna High M.D. 12/03/2024 11:32 AM Dictation Location: [place] [address] Electronically authenticated by: [id number] Y Date: 12/03/2024 11:32
--- NOTE | 2024-12-03 10:41 | US_ITS ---
The [address] [address] Patient Name: GREGORIO HESS MRN: [id number] date: 1995 Sex: F Assigned Patient Location: Current Patient Location: US Accession/Order Number: [id number] Exam Date: 12/03/2024 11:21 Report Date: 12/03/2024 11:32 At the request of: GIOVANY ARVIZU DO Procedure: US OB BPP w non-stress CLINICAL DATA: Cramping, leaking and decreased movement. BIOPHYSICAL PROFILE: COMPARISON: 11/26/2024 There is a single live intrauterine gestation in cephalic presentation. The reported gestational age is 33 weeks 3 days. The heart rate beats per minute. FINDINGS: TONE: 1 or more episodes of activity extension and flexion of extremity or opening and closing of the hand [Y] 2/2 GROSS BODY MOVEMENTS: 3 or more discrete body or limb movements [Y] 2/2 BREATHING MOVEMENTS: 1 or more episodes of breathing lasting at least 30 seconds [Y] 2/2 AIME: A single deepest vertical pocket of amniotic fluid greater than 2 cm [Y] 2/2 AIME: 9.5 cm . The 5th percentile is 8.3 cm. Total score: 8/8 US/US OB BPP w non-stress IMPRESSION: NORMAL BIOPHYSICAL PROFILE. ULTRASOUND OB CERVICAL LENGTH COMPARISON: 05/28/2024 The cervix was evaluated using a transvaginal probe. The cervix is closed. Estimated length is 4 cm. There is no evidence of previa. IMPRESSION: CLOSED CERVIX Impression dictated by: Giovanna High M.D. 12/03/2024 11:32 AM Dictation Location: [place] [address] Electronically authenticated by: [id number] Y Date: 12/03/2024 11:32
--- OUTSIDE RECORDS SUMMARY | 2024-12-03 10:41 | XMS_ITS | Encounter Summary ---
Author Organization [facility] Address [address] [place] [address] Care Team Providers Care Keno Manager Name Role Phone Lan Malcolm MD Primary Care Provider Encounter Details Date Type Department Care Team (Late st Contact Info) Description 11/30/2024 Telephone [facility] [address] [place] [address] Suzanna Oneal LPN [address] [place] [address] Social History Tobacco Use Types Packs/Day Years [...] on file documented as of this encounter Miscellaneous Notes * Telephone Encounter - Suzanna DEJAN Oneal - 11/30/2024 10:29 AM EDT Pt called stating that she went to the [facility] with complaints of headaches and vision changes. She sates that she has a history of preeclampsia. The box order person doctor told he to call us to make sure we gotresults. I called pt back to let her know that we had not received anything but I did get on the [employer] site and print off everything. I old her to monitor things and when Dr. Gross got back tomorrow, I would see if he wanted to do anything further. PVU. I also told pt that if symptoms got worse to go straight to [facility] to get evaluated. PVU documented in this encounter Plan of Treatment Upcoming Encounters Date Type Department Care Team (Late st Contact Info) Description 12/17/2024 10:20 AM EDT Routine [facility] [address] [place] [address] Paz Varela PA [address] [facility] [place] [address] documented as of this encounter Goals Goal Patient Goal Type Associated Problems Recent Progress Patient-Stated? Author Reminders Care Plan OB Reminders No Open Scheduling, Background documented as of this encounter Visit Diagnoses Not on filedocumented in this encounter Additional Health Concerns Active Problems Noted Date Diagnosed Date OB Reminders 06/27/2024 documented as of this encounter Care Teams Keno Manager Relationship Specialty Start Date End Date Lan [place] [address] PCP - General Family Medicine 11/18/23 documented as of this encounter
--- OUTSIDE RECORDS SUMMARY | 2024-12-03 10:41 | XMS_ITS | Clinical Summary ---
Author Organization [facility] Address [address] [place] [address] Care Team Providers Care Communication Center Coordinator Name Role Phone Lan Malcolm MD Primary Care Provider [phone] Allergies Active Allergy Reactions Criticality Noted Date Comments Losartan 06/25/2024 Other Reaction(s): Unknown Other Reaction(s): Other Medications MV & Min w/FA-DHA ( ADULT GUMMY/DHA/FA PO) Take 1 each by mouth Daily Active Vit-Fe Fumarate-FA ( Vitamins) 28-0.8 MG tabletIndication s:12 weeks gestation of Take 1 tablet by mouth Daily 30 tablet 11 08/06/2024 Active Active Problems Problem Noted Date Diagnosed Date Chronic daily headache 11/18/2023 Seizure 11/16/2023 Migraine 11/16/2023 Intractable migraine without aura and without status migrainosus 11/16/2023 Hypersomnia 11/16/2023 Estimated Date of Delivery Comme nts Yes 01/18/2025 Based on last me nstrual period of 04/13/2024 Encounters Date Type Department Care Team Description 12/03/2024 10:00 AM EDT Routine [facility] [address] [place] [phone] Giovany Gross DO Third trimester ; 33 weeks gestation of ; Decreased appetite 12/03/2024 Bamboo flowsheet [facility] OB [address] [place] [address] Giovany Gross, DO 12/02/2024 Abstract [facility] OB [address] [place] [address] [place] [address] Giovany Gross, DO 12/01/2024 Travel 11/30/2024 Telephone [facility] OB [address] [place] [address] [place] [address] Suzanna Oneal LPN 11/26/2024 Clinisync Result Encounter [facility]OM[facility] External Department Unsolicited Giovany Gross, DO 11/19/2024 11:30 AM EDT Routine [facility] [address] [place], [place] [address] [address] Paz Varela PA Third trimester ; 31 weeks gestation of 11/19/2024 11:00 AM EDT Ancillary Procedure [facility] OB [address] [place] [address] [place] [address] H/O pre-eclampsia in prior , currently ; H/O delivery, currently 11/19/2024 Clinisync Result Encounter [facility] External Department Unsolicited Giovany Gross, DO 11/12/2024 Clinisync Result Encounter [facility]OMS External Department Unsolicited Giovany Gross, DO 11/05/2024 10:40 AM EDT Routine [facility] OB [address] [place] [address] Giovany Gross, DO Third trimester ; 29 weeks gestation of ; H/O pre-eclampsia in prior , currently ; H/O delivery, currently ; Heart palpitations; Shortness of breath; Seizures (CMS/HCC); Syncope, near 11/05/2024 Bamboo flowsheet [facility] OB [address] [place] [address] [place] [address] Giovany Gross, DO 10/31/2024 Travel 10/15/2024 Clinisync Result Encounter [facility]OMS External Department Unsolicited Giovany Gross, DO 10/14/2024 Telephone [facility] [address] [place] [address] Suzanna Oneal, EVENT MARKETING COORDINATOR 10/01/2024 11:40 AM EDT Routine [facility]OM[facility] [address] [place] [address] Giovany Gross, Anemia, unspecified type (Primary Dx); Second trimester ; 24 weeks gestation of 10/01/2024 10:30 AM EDT Ancillary Procedure NOM[facility] [address] [place] [address] Low-lying placenta 09/29/2024 Travel 09/29/2024 Clinisync Result Encounter NOMS External Department Unsolicited Goivany Gross, 09/23/2024 Telephone [facility] [address] [place] [address] Suzanna Oneal, EVENT MARKETING COORDINATOR 09/14/2024 Telephone [facility] [address] [place] [address] Giovany Gross, 09/10/2024 8:40 AM EST Routine NOM[facility] [address] [place] [address] Giovany Gross, Second trimester ; 21 weeks gestation of ; Diabetes mellitus screening; Low-lying placenta 09/10/2024 Bamboo flowsheet NOM[facility] [address] [place] [address] Giovany Gross, 09/09/2024 Clinisync Result Encounter [facility]OMS External Department Unsolicited Giovany Gross, 09/09/2024 Travel from Last 3 Months Family History Medical History Relation Name Comments Cancer Father Achalasia Mother Hypertension Mother Migraines Mother Relation Name Status Comments Father Mother Social History Tobacco Use Types Packs/Day Years [...] PM EDT Sexual Orientation Not on file Last Filed Vital Signs Vital Sign Reading Time Taken Comments Blood Pressure 130/80 12/03/2024 9:58 AM EDT Pulse 94 11/18/2023 11:23 AM EDT Temperature - - Respiratory Rate 16 10/18/2022 5:53 PM EDT Oxygen Saturation 99% 11/18/2023 11:23 AM EDT Inhaled Oxygen Concentration - - Weight 98.4 kg (217 lb) 12/03/2024 9:58 AM EDT Height 167.6 cm (5' 6 ) 11/18/2023 11:23 AM EDT Body Mass Index 35.02 11/18/2023 11:23 AM EDT Plan of Treatment Upcoming Encounters Date Type Department Care Team (Late st Contact Info) Description 12/17/2024 10:20 AM EDT Routine [facility] OB [address] [facility] [address] Paz Varela PA [address] [facility] [place] [address] Health Maintenance Due Date Last Done Comments Influenza Vaccine (Season Ended) 2025 04/27/2021, 04/26/2020, 04/16/2019, Additional history exists Goals Goal Patient Goal Type Associated Problems Recent Progress Patient-Stated? Author Reminders Care Plan OB Reminders No Open Scheduling, Background Procedures Procedure Name Priority Date/Time Associated Diagnosis Comments POCT URINALYSIS DIPSTICK Routine 12/03/2024 10:05 AM EDT Third trimester US OB BPP W NON-STRESS 11/26/2024 11:47 AM EDT POCT URINALYSIS DIPSTICK Routine 11/19/2024 11:51 AM EDT Third trimester US OB FOLLOW UP TRANSABDOMINAL APPROACH Routine 11/19/2024 11:16 AM EDT H/O pre-eclampsia in prior , currently H/O delivery, currently US OB BPP W NON-STRESS 11/19/2024 10:59 AM EDT US OB BPP W NON-STRESS 11/12/2024 10:32 AM EDT POCT URINALYSIS DIPSTICK Routine 11/05/2024 11:03 AM EDT Third trimester TRANSFERRIN Routine 10/15/2024 8:50 AM EDT [facility] FERRITIN Routine 10/15/2024 8:50 AM EDT ALL CBC WITH AUTO DIFF Routine 8:50 AM EDT POCT URINALYSIS DIPSTICK Routine 10/01/2024 10:47 AM EDT Second trimester US OB LIMITED 1+ FETUSES Routine 10/01/2024 10:36 AM EDT Low-lying placenta GLUCOSE 1 HOUR Routine 09/29/2024 7:35 AM EDT ALL CBC WITH AUTO DIFF Routine 7:35 AM EDT AFP, SERUM, OPEN SPINA BIFIDA Routine 09/09/2024 6:42 AM EST from Last 3 Months Results * (ABNORMAL) POCT urinalysis dipstick manually resulted (12/03/2024 10:05 AM EDT) Only the most recent of4 resultswithin the time period is included. Color, UA Yellow Clarity, UA Clear Glucose, [...] Positive Urine 12/03/2024 10:0 5 AM EDT us Giovany Gross DO POINT OF CARE TEST ENTER/EDIT OR DERABLES Final Result * US OB BPP W NON-STRESS (11/26/2024 11:47 AM EDT) Only the most recent of3 resultswithin the time period is included. Anatomical Region Laterality Modality Other 11/26/2024 11:4 7 AM EDT Narrative 11/26/2024 11:50 [place] [address] Ultrasound Report Signed Patient: POP HESS MR#: [id number] : 1995 Acct:[id number] Age/Sex: 29 / F ADM Date: 11/26/24 Loc: US Attending Dr: Giovany Gross D.O. Ordering Physician: Giovany Gross D.O. Date of Service: 11/26/24 Procedure(s): US OB BPP w non-stress Accession Number(s): [id number] cc: MACHELLE VIVEROS; Giovany Gross D.O. [address] [address] Patient Name: POP HESS MRN: [id number] date: 1995 Sex: F Assigned Patient Location: [facility] Current Patient Location: Accession/Order Number: [id number] Exam Date: 11/26/2024 11:46 Report Date: 11/26/2024 11:47 At the request of: GIOVANY GROSS DO Procedure: US OB BPP w non-stress US OB BPP w non-stress 11/26/2024 10:31 AM SIGNS AND SYMPTOMS: H/O PRE-ECLAMPSIA O09.299 COMPARISON: None. TECHNIQUE: Limited pelvic ultrasound using transvesical sonography. FINDINGS: A heart rate is identified at 169 bpm. A normal amount of amniotic fluid is present. The amniotic fluid index is 12.56 cm. Biophysical profile: Gross movements: 2/2 tone: 2/2 breathin/2 Amniotic fluid volume: 2/2 (amniotic fluid index 12.56 cm) US/US OB BPP w non-stress IMPRESSION: The amniotic fluid index is 12.56 cm. Biophysical profile score: 8/8 Impression dictated by: Addison Costello M.D. 11/26/2024 11:47 AM Dictation Location: [place] [address] Electronically authenticated by: [id number] Y Date: 11/26/2024 11:47 Dictated By: Addison Costello M.D. Signed By: 11/26/24 1150 DD/ 1147 TD/TT: Cold Roll Packer Sheet Iron: Procedure Note Radiology, Radiologist, MD - 11/26/2024 [place] [address] Ultrasound Report Signed Patient: POP HESS RMR#: [id number] : 1995Acct:[id number] Age/Sex: 29 / FADM Date: 11/26/24 Loc: US Attending Dr: Giovany Gross D.O. Ordering Physician: Giovany Gross D.O. Date of Service: 11/26/24 Procedure(s): US OB BPP w non-stress Accession Number(s): [id number] cc: MACHELLE VIVEROS; Giovany Gross D.O. The [place] [address] Patient Name: POP HESS MRN: [facility]:[id number] date: 1995 Sex: F Assigned Patient Location: [facility] Current Patient Location: Accession/Order Number: [id number] Exam Date: 11/26/2024 11:46 Report Date: 11/26/2024 11:47 At the request of: GIOVANY GROSS DO Procedure: US OB BPP w non-stress US OB BPP w non-stress 11/26/2024 10:31 AM SIGNS AND SYMPTOMS: H/O PRE-ECLAMPSIA O09.299 COMPARISON: None. TECHNIQUE: Limited pelvic ultrasound using transvesical sonography. FINDINGS: A heart rate is identified at 169 bpm. A normal amount of amniotic fluidis present. The amniotic fluid index is 12.56 cm. Biophysical profile: Gross movements: 2/2 tone: 2/2 breathin/2 Amniotic fluid volume: 2/2 (amniotic fluid index 12.56 cm) US/US OB BPP w non-stress IMPRESSION: The amniotic fluid index is 12.56 cm. Biophysical profile score: 8/8 Impression dictated by: Adidson Costello M.D. 11/26/2024 11:47 AM Dictation Location: [place] [address] Electronically authenticated by: [id number] Y Date: 1:47 Dictated By: Addison Costello M.D. Signed By:11/26/24 1150 DD/ 1147 TD/TT: Cold Roll Packer Sheet Iron: us Giovany Gross DO [facility] Final Result * US OB follow up transabdominal approach [...] percentile. Interpreted by: Electronically signed by TONE WALLACE II, MD, PHD at 22-Nov-2024 08:21:01 PM [facility] Procedure Note Tone Wallace MD - 11/22/2024 EXAM: US OB FOLLOW [...] percentile. Interpreted by: Electronically signed by TONE WALLACE II, MD, PHD 08:21:01 PM [facility] us Giovany Ginny DO IMG OB US PROCEDURES Final Resul t * (ABNORMAL) TRANSFERRIN (10/15/2024 8:50 AM EDT) TRANSFERRIN 418(A) 192 - 364 mg/dL [facility] Comment: Performed at: - [place] [id number] Senior Process Control Tech: Randall Dumont PhD, Phone: [phone] 10/15/2024 8:50 AM EDT 10/15/2024 8:50 AM EDT Narrative [facility] - 10/16/2024 5:07 AM EDT us Giovany Ginny DO LAB BLOOD ORDERABLES Final Resul t Performing Organization Address City/[facility] Co de Phone Number [facility] * [facility] FERRITIN (10/15/2024 8:50 AM EDT) FERRITIN 8.0 8.0 - 252.0 ng/mL [facility] 10/15/2024 8:50 AM EDT 10/15/2024 8:50 AM EDT Narrative [facility] - 10/15/2024 11:11 AM EDT us Giovany Ginny DO [facility] Final Result Performing Organization Address City/[facility] Co de Phone Number [facility] TB * (ABNORMAL) ALL CBC WITH AUTO DIFF (10/15/2024 8:50 AM EDT) Only the most recent of2 resultswithin the time period is included. [facility] WBC 10.5 4.0 - 11.0 10 3/uL [facility] RBC 3.62(L) 4.20 - 5.40 10 6/uL [facility] HGB 10.7(L) 12.0 - 16.0 g/dL [facility] TB[facility] HCT 32.5(L) 36.0 - 48.0 % [facility] MCV 89.8 81.0 - 99.0 fL [facility]H TBH MCH 29.6 26.7 - 34.0 pg TBH TBH MCHC 32.9 29.9 - 35.2 g/dL [facility] TBH RDW 14.6 11.0 - 15.0 % [facility] TBH PLT 188 150 - 450 10 3/uL [facility] TBH MPV 12.0 9.5 - 13.5 fL [facility] NEUTROPHILS PERCENT AUTO 74.3 43.0 - 75.0 % [facility] LYMPHOCYTES PERCENT AUTO 18.0(L) 20.5 - 60.0 % [facility] MONOCYTES PERCENT AUTO 6.0 1.7 - 12.0 % [facility] EO % 0.3(L) 0.9 - 7.0 % [facility] BASOPHILS PERCENT AUTO 0.1(L) 0.2 - 2.0 % [facility] IMMATURE GRANULOCYTES PCT AUTO 1.3(H) 0.0 - 0.5 % [facility] NEUTROPHILS ABSOLUTE AUTO 7.8(H) 1.4 - 6.5 10 3/uL [facility] LYMPHOCYTES ABSOLUTE AUTO 1.9 1.2 - 3.8 10 3/uL [facility] MONOCYTES ABSOLUTE AUTO 0.6 0.3 - 0.8 10 3/uL [facility] TBH EO # 0.0 0.0 - 0.7 10 3/uL [facility] BASOPHILS ABSOLUTE AUTO 0.0 0.0 - 0.1 10 3/uL [facility] IMMATURE GRANULOCYTES ABS AUTO 0.14(H) 0.00 - 0.03 10 3/uL [facility] 10/15/2024 8:50 AM EDT 10/15/2024 8:50 AM EDT Narrative MALIKA - 10/15/2024 9:01 AM EDT us Giovany Gross DO MALIKA Final Result MALIK[facility] * US OB limited 1+ fetuses (10/01/2024 10:36 AM EDT) Anatomical Region Laterality Modality Body Ultrasound 10/02/2024 8:31 PM EDT Narrative 10/02/2024 8:31 PM EDT EXAM: US OB LIMITED 1+ FETUSES HISTORY: [...] low-lying placenta. Electronically Signed:Electronically signed by TONE WALLACE II, MD, PHD at 02-Oct-2024 08:30:32 PM [facility] Procedure Note Tone Wallace MD - 10/02/2024 EXAM: US OB LIMITED 1+ FETUSES HISTORY: Low-lying placenta. COMPARISON: Ob ultrasound 09/01/2024. TECHNIQUE: Two-dimensional transabdominal grayscale ultrasound imaging ofthe pelvis was performed. FINDINGS: Gestation: Single Presentation: Cephalic Cardiac Activity: 145 beats per minute Placental Location: Anterior with no sonographic abnormalitiesidentified. Distance from Placental Tip to Cervix: 6.5 cm Cervical Length: 5 cm Amniotic Fluid: Appears adequate IMPRESSION: 1. Single, live intrauterine gestation 24 weeks, 3 days by LMP. PRICE is01/18/2025. 2. Placenta location is within normal limits. No evidence of low-lyingplacenta. Electronically Signed:Electronically signed by TONE WALLACE II, MD, PHDat 02-Oct-2024 08:30:32 PM [facility] us Giovany Ginny DO IMG OB US PROCEDURES Final Resul t * (ABNORMAL) GLUCOSE 1 HOUR (09/29/2024 7:35 AM EDT) GLUCOSE 1 HOUR 131(H) <130 mg/dL [facility] 09/29/2024 7:35 AM EDT 09/29/2024 7:36 AM EDT Narrative [facility] - 09/29/2024 9:44 AM EDT us Giovany Ginny DO LAB BLOOD ORDERABLES Final Resul t [facility] * AFP, SERUM, OPEN SPINA BIFIDA (09/09/2024 6:42 AM EST) RESULTS Report . [facility] TEST RESULTS: *Screen Negative* . [facility] GEST. AGE ON COLLECTION DATE 21.3 . weeks [facility] GESTAT. AGE BASED ON LMP . [facility] Comment: Recalculations are not recommended when gestational dating by LMP and ultrasound are within 10 days. MATERNAL AGE AT PRICE 29.8 [age] [facility] RACE . [facility] WEIGHT 186 . lbs [facility] INSULIN DEP DIABETES No . TB MULTIPLE GESTATION No . [facility] AFP VALUE 47.8 . ng/mL [facility] AFP MOM 0.83 . [facility] [place] [address] [place] [address] . [facility] INTERPRETATION Comment . [facility] Comment: Interpretation: Screen Negative This result is screen negative for [...] Customer Services to discuss available options. The [employer] recommends amniocentesis be offered to women age 35 and older. COMMENT: Comment . [facility] Comment: Marci Cox, Ph.D., [facility] Director References: Available Upon Request. Multiples Of Median Cutoffs For AFP Elevations Webster 2.5 Black 2.8 IDD 2.0 Twins 4.5 Abbreviation Definitions IDD - Insulin Dep Diabetes OSBR - Open Spina Bifida Risk For further inquiries contact [employer] [facility] at [phone]. This test was developed and its performance characteristics determined by [employer]. It has not been cleared or approved by the Food and Drug Administration. Performed at: [facility] [address], [place], [place] [id number] Senior Process Control Tech: Arie Shipman [facility], Phone: [phone] 09/09/2024 6:42 AM EST 09/09/2024 6:43 AM EST Narrative [facility] - 09/11/2024 1:08 AM EST N N LMP [id number] 3 17 N 1 186 N N N N N White/ us Giovany Gross DO LAB BLOOD ORDERABLES Final Resul t [facility] Months Additional Health Concerns Active Problems Noted Date Diagnosed Date OB Reminders 06/27/2024 Insurance [employer] Care Teams Communication Center Coordinator Relationship Specialty Start Date End Date Lan Malcolm MD [address] [place] [address] PCP - General Family Medicine 11/18/23
--- OUTSIDE RECORDS SUMMARY | 2024-12-03 10:41 | XMS_ITS | Encounter Summary ---
Author Organization [facility] Address [address] [facility] [place] [address] Care Team Providers Care Asphalt Paver Name Role Phone Lan Malcolm MD Primary Care Provider [phone] Encounter Details Date Type Department Care Team (Late st Contact Info) Description 12/02/2024 Abstract [facility] OB [address] [place] [address] Baltazar Gross, DO [address] [facility] [address] [place]iano, [place] [address] Social History Tobacco Use Types Packs/Day Years [...] AM EDT Routine [facility] OB [address] [place] [address] Paz Varela PA [address] [facility] [place] [address] documented as of this encounter Goals Goal Patient Goal Type Associated Problems Recent Progress Patient-Stated? Author Reminders Care Plan OB Reminders No Open Scheduling, Background documented as of this encounter Visit Diagnoses Not on filedocumented in this encounter Additional Health Concerns Active Problems Noted Date Diagnosed Date OB Reminders 06/27/2024 documented as of this encounter Care Teams Asphalt Paver Relationship Specialty Start Date End Date Lan Malcolm MD [address] [place] [address] PCP - General Family Medicine 11/18/23 documented as of this encounter
--- OUTSIDE RECORDS SUMMARY | 2024-12-03 10:41 | XMS_ITS | Encounter Summary ---
Author Organization [facility] Address [address] [facility] [place] [address] Care Team Providers Care Health Science Specialist Name Role Phone Lan Malcolm MD Primary Care Provider [phone] Encounter Details Date Type Department Care Team (Late st Contact Info) Description 12/03/2024 Bamboo flowsheet [facility] [address] [place] [phone] Baltazar Gross, DO [address] [facility] [address] [place] Soriano, [facility] Social History Tobacco Use Types Packs/Day Years [...] AM EDT Routine [facility] OB [address] [place] [address] Paz Varela PA [address] [facility] [place] [address] documented as of this encounter Goals Goal Patient Goal Type Associated Problems Recent Progress Patient-Stated? Author Reminders Care Plan OB Reminders No Open Scheduling, Background documented as of this encounter Visit Diagnoses Not on filedocumented in this encounter Additional Health Concerns Active Problems Noted Date Diagnosed Date OB Reminders 06/27/2024 documented as of this encounter Care Teams Health Science Specialist Relationship Specialty Start Date End Date Lan [place] [address] PCP - General Family Medicine 11/18/23 documented as of this encounter
--- OUTSIDE RECORDS SUMMARY | 2024-12-03 10:41 | XMS_ITS | Encounter Summary ---
Author Organization [facility] Address [address] [place] [address] Care Team Providers Care Interventional Technologist Name Role Phone Lan Malcolm MD Primary Care Provider [phone] Encounter Details Date Type Department Care Team (Late st Contact Info) Description 11/19/2024 Clinisync Result Encounter [facility] External Department Unsolicited Giovany Gross, DO [address] [facility] [place] [address] Social History Tobacco Use Types Packs/Day Years [...] AM EDT Routine [facility] BCP OB [address] [facility] [place] [place] [address] Paz Varela PA [address] [facility] [place] [address] documented as of this encounter Goals Goal Patient Goal Type Associated Problems Recent Progress Patient-Stated? Author Reminders Care Plan OB Reminders No Open Scheduling, Background documented as of this encounter Procedures Procedure Name Priority Date/Time Associated Diagnosis Comments US OB BPP W NON-STRESS 11/19/2024 10:59 AM EDT documented in this encounter Results * US OB BPP W NON-STRESS (11/19/2024 10:59 AM EDT) Anatomical Region Laterality Modality Other 11/19/2024 10:5 9 AM EDT Narrative 11/19/2024 11:02 AM EDT The [address] [address] Ultrasound Report Signed Patient: STEPHON ZULETA MR#: [id number] : 1995 Acct:[id number] Age/Sex: 29 / F ADM Date: 11/19/24 Loc: US Attending Dr: Giovany Gross D.O. Ordering Physician: Giovany Gross D.O. Date of Service: 11/19/24 Procedure(s): US OB BPP w non-stress Accession Number(s): [id number] cc: MACHELLE VIVEROS; Giovany Gross D.O. The [address] [address] Patient Name: STEPHON ZULETA MRN: [id number] date: 1995 Sex: F Assigned Patient Location: US Current Patient Location: Accession/Order Number: [id number] Exam Date: 11/19/2024 10:58 Report Date: 11/19/2024 10:59 At the request of: GIOVANY GROSS DO Procedure: US OB BPP w non-stress Biophysical profile. History of preeclampsia. COMPARISON: 11/12/2024 TECHNIQUE: Transabdominal imaging of the gravid uterus was obtained Findings: Gear Repair Supervisor reports a biophysical profile 8 out of 8. AIME is normal at 13.3 cm. heart rate 148 bpm. US/US OB BPP w non-stress Impression: BPP 8 out of 8. Impression dictated by: Dirk Chaves Jr., D.O. 11/19/2024 10:59 AM Dictation Location: [place] [address] Electronically authenticated by: [id number] Y Date: 11/19/2024 10:59 Dictated By: Dirk Chaves M.D. Signed By: 11/19/24 1102 DD/ 1059 TD/TT: Cosmetic Account Coordinator: Procedure Note Radiology, Radiologist, MD - 11/19/2024 [place] [address] Ultrasound Report Signed Patient: STEPHON ZULETA RMR#: [id number] : 1995Acct:[id number] Age/Sex: 29 FADM Date: 11/19/24 Loc: US Attending Dr: Giovany Gross D.O. Ordering Physician: Giovany Gross D.O. Date of Service: 11/19/24 Procedure(s): US OB BPP w non-stress Accession Number(s): [id number] cc: MACHELLE VIVEROS; Giovany Gross D.O. The [place] [address] Patient Name: STEPHON ZULETA MRN: [id number] date: 1995 Sex: F Assigned Patient Location: US Current Patient Location: Accession/Order Number: [id number] Exam Date: 11/19/2024 10:58 Report Date: 11/19/2024 10:59 At the request of: GIOVANY GROSS DO Procedure: US OB BPP w non-stress Biophysical profile. History of preeclampsia. COMPARISON: 11/12/2024 TECHNIQUE: Transabdominal imaging of the gravid uterus was obtained Findings: Gear Repair Supervisor reports a biophysical profile 8 out of 8. AIME isnormal at 13.3 cm. heart rate 148 bpm. US/US OB BPP w non-stress Impression: BPP 8 out of 8. Impression dictated by: Dirk Chaves Jr., D.O. 11/19/2024 10:59 AM Dictation Location: [facility] Electronically authenticated by: [id number] Y Date: 0:59 Dictated By: Dirk Chaves M.D. Signed By:11/19/24 1102 DD/ 1059 TD/TT: Cosmetic Account Coordinator: us Giovany Ginny DO [facility] Final Result documented in this encounter Visit Diagnoses Not on filedocumented in this encounter Additional Health Concerns Active Problems Noted Date Diagnosed Date OB Reminders 06/27/2024 documented as of this encounter Care Teams Interventional Technologist Relationship Specialty Start Date End Date Lan Malcolm MD [address] [facility] [place] [place] [address] PCP - General Family Medicine 11/18/23 documented as of this encounter
--- OUTSIDE RECORDS SUMMARY | 2024-12-03 10:41 | XMS_ITS | Encounter Summary ---
Author Organization [facility] Address [address] [facility] [place] [address] Care Team Providers Care Movie Theater Manager Name Role Phone Lan Malcolm MD Primary Care Provider [phone] Encounter Details Date Type Department Care Team (Late st Contact Info) Description 06/26/2024 Abstract [facility] OB [address] [place] [address] Baltazar Gross, DO [address] Columba Soriano, [place] [address] Social History Tobacco Use Types Packs/Day Years [...] [address] [facility] [place] [place] [address] Paz Varela PA [address] [place] [address] documented as of this encounter Visit Diagnoses Not on filedocumented in this encounter Care Teams Movie Theater Manager Relationship Specialty Start Date End Date Lan Malcolm MD [address] [place] [address] PCP - General Family Medicine 11/18/23 documented as of this encounter
--- OUTSIDE RECORDS SUMMARY | 2024-12-03 10:41 | XMS_ITS | Encounter Summary ---
Author Organization [facility] Address [address] [facility] [place] [address] Care Team Providers Care Bullion Weigher Name Role Phone Lan Malcolm MD Primary Care Provider [phone] Encounter Details Date Type Department Care Team (Late st Contact Info) Description 08/25/2024 Orders Only [facility] BCP OB [address] [place] [address] Radha Munoz LPN [address] [place] [id number] Social History Tobacco Use Types Packs/Day Years [...] AM EDT Routine [facility] BCP OB [address] [facility] [place] [address] Paz Varela PA [address] [facility] [place] [address] documented as of this encounter Goals Goal Patient Goal Type Associated Problems Recent Progress Patient-Stated? Author Reminders Care Plan OB Reminders No Open Scheduling, Background documented as of this encounter Procedures Procedure Name Priority Date/Time Associated Diagnosis Comments PAP SMEAR Routine 08/13/2024 12:00 AM EST documented in this encounter Results * Pap Smear (08/13/2024 12:00 AM EST) Swab Cervical swab / Unknown us [facility] Bcp Ob Ginny Nurse LAB CYTOLOGY ORDERABLES Final Result EXTERNAL LAB documented in this encounter Visit Diagnoses Not on filedocumented in this encounter Additional Health Concerns Active Problems Noted Date Diagnosed Date OB Reminders 06/27/2024 documented as of this encounter Care Teams Bullion Weigher Relationship Specialty Start Date End Date Lan Malcolm MD [address] [place] [address] PCP - General Family Medicine 11/18/23 documented as of this encounter
--- OUTSIDE RECORDS SUMMARY | 2024-12-03 10:41 | XMS_ITS | Encounter Summary ---
Author Organization [facility] Address [address] [place] [address] Care Team Providers Care Paper Sorter Name Role Phone Lan Malcolm MD Primary Care Provider [phone] Encounter Details Date Type Department Care Team (Latest Contact Info) Description 12/01/2024 Travel Social History Tobacco Use Types Packs/Day Years [...] 10:20 AM EDT Routine [facility] BCP OB [address] [place] [address] [place] [address] Paz Varela PA [address] [place] [address] [place] [address] documented as of this encounter Goals Goal Patient Goal Type Associated Problems Recent Progress Patient-Stated? Author Reminders Care Plan OB Reminders No Open Scheduling, Background documented as of this encounter Visit Diagnoses Not on filedocumented in this encounter Additional Health Concerns Active Problems Noted Date Diagnosed Date OB Reminders 06/27/2024 documented as of this encounter Care Teams Paper Sorter Relationship Specialty Start Date End Date Lan Malcolm MD [address] [place] [address] PCP - General Family Medicine 11/18/23 documented as of this encounter
--- OUTSIDE RECORDS SUMMARY | 2024-12-03 10:41 | XMS_ITS | Encounter Summary ---
Author Organization [facility] Address [address] [facility] [place] [address] Care Team Providers Care Hydro Generation Supervisor Name Role Phone Lan Malcolm MD Primary Care Provider [phone] Encounter Details Date Type Department Care Team (Late st Contact Info) Description 06/26/2024 Abstract [facility] OB [address] [place] [address] Baltazar Gross, DO [address] Columba Soriano, [place] [address] Social History Tobacco Use Types Packs/Day Years [...] EDT Routine [facility] BCP OB [address] [facility] [place] [address] Paz Varela PA [address] [facility] [place] [address] documented as of this encounter Visit Diagnoses Not on filedocumented in this encounter Care Teams Hydro Generation Supervisor Relationship Specialty Start Date End Date Lan Malcolm MD [address] [place] [address] PCP - General Family Medicine 11/18/23 documented as of this encounter
--- OUTSIDE RECORDS SUMMARY | 2024-12-03 10:41 | XMS_ITS | Encounter Summary ---
Author Organization [facility] Address [address] [place] [address] Care Team Providers Care Hydropulper Operator Name Role Phone Lan Malcolm MD Primary Care Provider [phone] Encounter Details Date Type Department Care Team (Late st Contact Info) Description 11/21/2023 Clinisync Result Encounter [facility] External Department Unsolicited Elsa Putnam NP [address] [place] [address] Social History Tobacco Use Types Packs/Day Years [...] more drinks on one occasion? Never 11/16/2023 Comments Unknown Sex and Gender Information Value Date Recorded Sex Assigned at Female 04/15/2024 3:55 PM EDT Legal Sex Female 10:14 PM EDT Gender Identity Female 04/15/2024 3:55 PM EDT Sexual Orientation Not on file documented as of this encounter Plan of Treatment Upcoming Encounters Date Type Department Care Team (Late Contact Info) Description 12/17/2024 10:20 AM EDT Routine [facility] BCP OB [address] [facility] [place] [address] aPz Varela PA [address] [facility] [place] [address] documented as of this encounter Procedures Procedure Name Priority Date/Time Associated Diagnosis Comments MRI BRAIN WO CON 11/21/2023 6:55 PM EDT documented in this encounter Results * MRI BRAIN WO CON (11/21/2023 6:55 PM EDT) Anatomical Region Laterality Modality Radiographic Sona ging 11/21/2023 6:55 PM EDT Narrative 11/24/2023 1:01 PM EDT Exam Date/Time: 11/21/2023 19:49 EDT Reason for [...] Galaviz DO Transcribed by: TEJAL Technologist: KALYN Procedure Note Radiology, Radiologist, - 11/24/2023 Exam Date/Time: 11/21/2023 19:49 EDT Reason for Exam: R41.3 Report IMPRESSION: NO ACUTE INTRACRANIAL PROCESS. EXAM: MRI of the brain without contrast History: Changes and memory Technique: Multiplanar multisequence MRI of the brain was performedwithout contrast. Comparison: None available Findings: Brain volume is age-appropriate. Ventricular morphology is within normallimits. No edema, hemorrhage, mass, mass effect, midline shift, or abnormalextra-axial fluid collection. Midline structures are within normal limits. The posteriorfossa is within normal limits. There is no diffusion restriction. No susceptibility artifact isidentified on the gradient echo sequence. The major intracranial vascular flow voids are maintained. Cranial nerves7/8 complexes appear grossly unremarkable. The visualized paranasal sinusesand bilateral mastoid air cells are clear. Ordering Provider: , FINAL REPORT Dictated: 11/24/2023 12:58 pm Ralph Galaviz DO Signed (Electronic Signature): 11/24/2023 12:58 pm Signed by: Ralph Galaviz DO Transcribed by: TEJAL Technologist: KALYN us Elsa Putnam VAN CDL DRIVER IMG XR PROCEDURES Final Result documented in this encounter Visit Diagnoses Not on filedocumented in this encounter Care Teams Hydropulper Operator Relationship Specialty Start Date End Date Lan Malcolm MD [address] [place] [address] PCP - General Family Medicine 11/18/23 documented as of this encounter
--- OUTSIDE RECORDS SUMMARY | 2024-12-03 10:41 | XMS_ITS | Encounter Summary ---
Author Organization [facility] Address [address] [place] [address] Care Team Providers Care Oracle Security Consultant Name Role Phone Lan Malcolm MD Primary Care Provider [phone] Encounter Details Date Type Department Care Team (Late Contact Info) Description 05/29/2024 Clinisync Result Encounter [facility] External Department Unsolicited Giovany Gross, DO [address] [facility] [place] [address] Social History Tobacco Use Types Packs/Day Years [...] EDT Routine [facility] BCP OB [address] [place] [address] Paz Varela PA [address] [facility] [place] [address] documented as of this encounter Procedures Procedure Name Priority Date/Time Associated Diagnosis Comments US OB TRANSVAGINAL 05/29/2024 4: 13 AM EST documented in this encounter Results * US OB TRANSVAGINAL (05/29/2024 4:13 AM EST) Anatomical Region Laterality Modality Other 05/29/2024 4:13 AM EST Narrative 05/29/2024 4:15 AM EST [address] [address] Ultrasound Report Signed Patient: Stephon Zuleta MR#: [id number] : 1995 Acct:[id number] Age/Sex: 29 / F ADM Date: 05/28/24 Loc: NOMS Attending Dr: Giovany Gross D.O. Ordering Physician: Giovany Gross D.O. Date of Service: 05/28/24 Procedure(s): US OB transvaginal Accession Number(s): [id number] cc: Giovany Gross D.O.; Lan Malcolm [address] [address] Patient Name: STEPHON ZULETA MRN: [id number] date: 1995 Sex: F Assigned Patient Location: [facility] Current Patient Location: Accession/Order Number: [id number] Exam Date: 05/28/2024 10:20 Report Date: 05/29/2024 04:13 At the request of: GIOVANY GROSS Procedure: US OB transvaginal EXAMINATION: US OB transvaginal HISTORY: ABDOMINAL CRAMPING IN EARLY COMPARISON: No relevant comparison available. FINDINGS: GESTATIONAL SAC: Present and normal appearing. YOLK SAC: Present and normal appearing. POLE: Present and normal appearing. CARDIAC: Present. UTERUS: Normal size and appearance. OVARIES: Right: Corpus lutein cyst. Left: Normal. CERVIX: 3.6 cm in length and closed. CUL-DE-SAC: Normal. OTHER: None. AGE BY LMP: 6 weeks 3 days PRICE BY LMP: 01/18/2025 AGE BY US CRL: 6 weeks 0 days PRICE BY US CRL: 01/21/2025 US/US OB transvaginal IMPRESSION: 1. Single live intrauterine . Electronically authenticated by: CONSUELO FERRER Date: 05/29/2024 04:13 Dictated By: Consuelo Ferrer M.D. Signed By: 05/29/24414 DD/ 2 TD/TT: Senior Animator: Procedure Note Radiology, Radiologist, MD - 05/29/2024 [place] [address] Ultrasound Report Signed Patient: Stephon Zuleta RMR#: [id number] : 1995Acct:[id number] Age/Sex: 29 / FADM Date: 05/28/24 Loc: [facility]OMS Attending Dr: Giovany Gross D.O. Ordering Physician: Giovany Gross D.O. Date of Service: 05/28/24 Procedure(s): US OB transvaginal Accession Number(s): [id number] cc: Giovany Gross D.O.; Lan Malcolm NP The [place] [id number] Patient Name: STEPHON ZULETA MRN: [id number] date: 1995 Sex: F Assigned Patient Location: [facility] Current Patient Location: Accession/Order Number: [id number] Exam Date: 05/28/2024 10:20 Report Date: 05/29/2024 04:13 At the request of: GIOVANY GROSS Procedure: US OB transvaginal EXAMINATION: US OB transvaginal HISTORY: ABDOMINAL CRAMPING IN EARLY COMPARISON: No relevant comparison available. FINDINGS: GESTATIONAL SAC: Present and normal appearing. YOLK SAC: Present and normal appearing. POLE: Present and normal appearing. CARDIAC: Present. UTERUS: Normal size and appearance. OVARIES: Right: Corpus lutein cyst. Left: Normal. CERVIX: 3.6 cm in length and closed. CUL-DE-SAC: Normal. OTHER: None. AGE BY LMP: 6 weeks 3 days PRICE BY LMP: 01/18/2025 AGE BY US CRL: 6 weeks 0 days PRICE BY US CRL: 01/21/2025 US/US OB transvaginal IMPRESSION: 1. Single live intrauterine . Electronically authenticated by: CONSUELO FERRER Date: 05/29/2024 04:13 Dictated By: Consuelo Ferrer M.D. Signed By:05/29/24414 DD/ 2 TD/TT: Senior Animator: us Giovany Ginny DO [facility] Final Result documented in this encounter Visit Diagnoses Not on filedocumented in this encounter Care Teams Oracle Security Consultant Relationship Specialty Start Date End Date Lan Malcolm MD [address] [place] [address] PCP - General Family Medicine 11/18/23 documented as of this encounter
--- OUTSIDE RECORDS SUMMARY | 2024-12-03 10:41 | XMS_ITS | Encounter Summary ---
Author Organization [facility] Address [address] [facility] [place] [address] Care Team Providers Care Seo Expert Name Role Phone Lan Malcolm MD Primary Care Provider [phone] Encounter Details Date Type Department Care Team (Late st Contact Info) Description 05/28/2024 Abstract [facility] OB [address] [place] [address] Baltazar Gross, DO [address] [facility] [address] [place]a [place], [place] [address] Social History Tobacco Use Types Packs/Day Years [...] AM EDT Routine [facility] BCP OB [address] [facility] [place] [address] Paz Varela PA [address] [facility] [place] [address] documented as of this encounter Visit Diagnoses Not on filedocumented in this encounter Care Teams Seo Expert Relationship Specialty Start Date End Date Lan Malcolm MD [address] [place] [address] PCP - General Family Medicine 11/18/23 documented as of this encounter
--- OUTSIDE RECORDS SUMMARY | 2024-12-03 10:41 | XMS_ITS | Encounter Summary ---
Author Organization [facility] Address [address] [facility] [place] [address] Care Team Providers Care Light Industrial Name Role Phone Lan Malcolm MD Primary Care Provider [phone] Encounter Details Date Type Department Care Team (Late st Contact Info) Description 07/02/[address] [facility] OB [address] [place] [address] Baltazar Gross, DO [address] Columba Soriano, [place] [address] Social History Tobacco Use Types Packs/Day Years [...] AM EDT Routine [facility] BCP OB [address] [facility] [place] [address] Paz Varela PA [address] [facility] [place] [address] documented as of this encounter Goals Goal Patient Goal Type Associated Problems Recent Progress Patient-Stated? Author Reminders Care Plan OB Reminders No Open Scheduling, Background documented as of this encounter Visit Diagnoses Not on filedocumented in this encounter Additional Health Concerns Active Problems Noted Date Diagnosed Date OB Reminders 06/27/2024 documented as of this encounter Care Teams Light Industrial Relationship Specialty Start Date End Date Lan Malcolm MD [address] [place] [address] PCP - General Family Medicine 11/18/23 documented as of this encounter
--- OUTSIDE RECORDS SUMMARY | 2024-12-03 10:41 | XMS_ITS ---
Author Organization [facility] Source Produ ction (ClinicalSummary Clone) Address Unknown Care Team Providers Care Eye Care Professional Name Role Phone Unavailable Primary Care Physician Unavailab le Results * [UNITY] CARRIER SCREEN Performed by: [employer] Component Value Range Date Sickle Cell Disease/Beta-Thalassemia/Hemo globinopathies carrier screen NEGATIVE 07/07/2024 02:33 am [facility] Alpha-Thalassemia carrier screen NEGATIVE 07/07/2024 02:33 am [facility] Cystic Fibrosis carrier screen NEGATIVE 07/07/2024 02:33 am [facility] Spinal Muscular Atrophy carrier screen NEGATIVE 2 SMN1 copies, SNP not present 07/07/2024 02:33 am [facility] For detailed report, see PDF See PDF 07/07/2024 02:33 am [place] 07/07/2024 02:3 3 am [facility] Social History Observation Value Start Date End Date
--- OUTSIDE RECORDS SUMMARY | 2024-12-03 10:41 | XMS_ITS | Encounter Summary ---
Author Organization [facility] Address [address] [facility] [place] [address] Care Team Providers Care Insurance Job Titles Name Role Phone Lan Malcolm MD Primary Care Provider [phone] Encounter Details Date Type Department Care Team (Late st Contact Info) Description 06/26/2024 Abstract [facility] OB [address] [place] [address] Baltazar Gross, DO [address] [place], [place] [address] Social History Tobacco Use Types Packs/Day Years [...] EDT Routine [facility] BCP OB [address] [facility] [place] [address] Paz Varela PA [address] [facility] [place] [address] documented as of this encounter Visit Diagnoses Not on filedocumented in this encounter Care Teams Insurance Job Titles Relationship Specialty Start Date End Date Lan Malcolm MD [address] [place] [address] PCP - General Family Medicine 11/18/23 documented as of this encounter
--- OUTSIDE RECORDS SUMMARY | 2024-12-03 10:41 | XMS_ITS | Encounter Summary ---
Author Organization [facility] Address [address] [facility] [place] [address] Care Team Providers Care Clinical Account Executive Name Role Phone Lan Malcolm MD Primary Care Provider [phone] Encounter Details Date Type Department Care Team (Late st Contact Info) Description 07/22/2024 Abstract [facility] OB [address] [place] [address] Baltazar Gross, DO [address] [facility] [address]a Soriano, [place] [address] Social History Tobacco Use Types Packs/Day Years [...] OB [address] [facility] [place] [address] Paz Varela PA [address] [facility] [place] [address] documented as of this encounter Goals Goal Patient Goal Type Associated Problems Recent Progress Patient-Stated? Author Reminders Care Plan OB Reminders No Open Scheduling, Background documented as of this encounter Visit Diagnoses Not on filedocumented in this encounter Additional Health Concerns Active Problems Noted Date Diagnosed Date OB Reminders 06/27/2024 documented as of this encounter Care Teams Clinical Account Executive Relationship Specialty Start Date End Date Lan Malcolm MD [address] [place] [address] PCP - General Family Medicine 11/18/23 documented as of this encounter
--- OUTSIDE RECORDS SUMMARY | 2024-12-03 10:41 | XMS_ITS | Patient Health Record ---
Author Organization [facility] PresentationTubeic es Address [address] [place] [address] Care Team Providers Care Soda Maker Name Role Phone Evelyn West Primary Care Provider Corine Hendrickson Unavailable [phone] Germania Yusuf Unavailable [phone] Allergies Allergen (clinical drug ingredient) Drug/Non Drug Allergy documented on EMR Reaction Allergy Type Onset Date Status losartan Cozaar Unknown Drug Allergy Active Reason For Referral No Information Medications Medication SIG (Take, Route, Frequency, Duration) Notes Start Date End Date Status Pen [place] 30G X 5 MM 1 pen needle subcutaneously once a day for 30 days 12/27/2022 Not-Taking Alcohol Swabs 70 % as directed as direc suzanna for 30 days 11/21/2022 Not-Taking Xanax 0.5 MG 1 tablet Orally Twic e a day 12/25/2023 Not-Taking Loestrin Fe 08/03 1-20 MG-MCG 1 tablet Orally Once a day for 28 day(s) 11/05/2022 Not-Taking Demetfcgb-Uqforsnt-IB 30-2-10 MG/5ML 10mL Orally every 6 hrs 10/29/2023 No t-Taking Albuterol Sulfate HFA 108 (90 Base) MCG/ACT 2 puff as needed Inhalation every 4 hrs 10/29/2023 Not-Takin g dexAMETHasone 4 MG 1 tablet twice a day for 3 days then 1 tablet a day Orally as directed for 6 days 10/29/2023 Not-Taking Xanax 0.25 MG 1 tablet Orally at bedtime As needed 07/31/2022 Not-Taking Oseltamivir Phosphate 75 MG 1 capsule Orally Twice a day for 5 day(s) 09/10/2023 Not-Taking Ondansetron 4 MG 1 tablet on the tong ue and allow to dissolve Orally every 8 hours 09/10/2023 Not-Taking busPIRone HCl 10 MG 1 tablet Orally Twic e a day 05/02/2023 Not-Taking Social History Tobacco Use: Social History Observation Description Date Details (start date - stop date) Never Smoker NA - NA Alcohol Screening: Question Answer Notes Did you have a drink contain ing alcohol in the past year? Yes How often did you have a dri nk containing alcohol in the past year? Monthly or less (1 point) Points 1 Interpretation Negative Tobacco Control (Standard) Question Answer Notes Tobacco use: Nonsmoker Problems Problem Type SNOMED Code ICD Code Onset Dates Problem Status W/U Status Risk Notes Problem 27887756 Attention-defici t hyperactivity disorder, predominantly inattentive type (F90.0) Active confirmed Problem 956611610798288 Obesity (BMI 30.0-34.9) (E66.9) Active confirmed Problem 57756933 Chronic fatigue (R53.82) Active confirmed Problem 48796090597221 Episodic mood disorder (F39) Active confirmed Problem 155954395 Status migrainosus (G43.901) Active confirmed Problem Acute sciatica (656126679) Acute sciatica (M54.30) Active confirmed Problem 60172561 Seizure, petit mal (G40.A09) Active confirmed Problem 18490336 Generalized anxiety disorder (F41.1) Active confirmed Problem 99287927 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 Vital Signs Heart Rate 94 /min 05/15/2024 Temperature 98.1 degrees Fahrenheit 05/15/2024 Blood pressure diastolic 82 mm Hg 05/15/2024 Oximetry 99 % 05/15/2024 Height 65.5 in 05/15/2024 Blood pressure systolic 129 mm Hg 05/15/2024 Weight 172.6 lbs 05/15/2024 BMI 28.28 kg/m2 05/15/2024 Encounters Encounter Location Date Provider Diagnosis [address] [address] 12/25/2023 Corine Hendrickson Generalized anxiety disorder F41.1 ; Chronic fatigue R53.82 and Attention-deficit hyperactivity disorder, predominantly inattentive type F90.[address] [address] 01/10/2024 Corine Slingwine Generalized anxiety disorder F41.1 ; Attention-deficit hyperactivity disorder, predominantly inattentive type F90.0 ; Episodic mood disorder F39 and Insomnia due to mental disorder F51.[address] [address] 01/28/2024 Corine Slingwine Generalized anxiety disorder F41.1 ; Chronic fatigue R53.82 ; Attention-deficit hyperactivity disorder, predominantly inattentive type F90.0 ; Episodic mood disorder F39 and Insomnia due to mental disorder F51.[address] [address] 03/05/2024 Corine Slingwine Generalized anxiety disorder F41.1 ; Chronic fatigue R53.82 ; Attention-deficit hyperactivity disorder, predominantly inattentive type F90.0 ; Episodic mood disorder F39 and Insomnia due to mental disorder F51.[address] [address] 05/15/2024 Corine Slingwine Attention-deficit hyperactivity disorder, predominantly inattentive type F90.0 ; Episodic mood disorder F39 ; Generalized anxiety disorder F41.1 ; Chronic fatigue R53.82 and Insomnia due to mental disorder F51.05 [facility] [address] [place] [address] 12/16/2023 Evelyn West [facility] [address] [place] [address] 12/18/2023 Evelyn West Obesity (BMI 30.0-34.9) E66.9 [facility] [address] [place] [address] 12/18/2023 [facility] [address] [place] [address] 12/25/2023 Corine [facility] [address] [place] [address] [facility] [address] [place] [address] 02/20/2024 Germania Yusuf [facility] [address] [place] [address] 03/27[facility] [address] [place] [address] 04/29/2024 [facility] Assessments Encounter Date Diagnosis (ICD Code) Assessment Notes Treatment Notes Treatment Clinical Notes Section Notes 12/18/2023 Obesity (BMI 30.0-34.9) (ICD-10 - E66.9) 12/25/2023 Generalized anxiety disorder (ICD-10 - F41.1) 01/10/2024 Generalized anxiety disorder (ICD-10 - F41.1) 01/28/2024 Generalized anxiety disorder (ICD-10 - F41.1) 03/05/2024 Generalized anxiety disorder (ICD-10 - F41.1) 05/15/2024 Attention-deficit hyperactivity disorder, predominantly inattentive type (ICD-10 - F90.0) 05/15/2024 Episodic mood disorder (ICD-10 - F39) 03/05/2024 Chronic fatigue (ICD-10 - R53.82) 01/28/2024 Chronic fatigue (ICD-10 - R53.82) 12/25/2023 Chronic fatigue (ICD-10 - R53.82) 01/10/2024 Attention-deficit hyperactivity disorder, predominantly inattentive type (ICD-10 - F90.0) 12/25/2023 Attention-deficit hyperactivity disorder, predominantly inattentive type (ICD-10 - F90.0) 01/28/2024 Attention-deficit hyperactivity disorder, predominantly inattentive type (ICD-10 - F90.0) 05/15/2024 Generalized anxiety disorder (ICD-10 - F41.1) 03/05/2024 Attention-deficit hyperactivity disorder, predominantly inattentive type (ICD-10 - F90.0) 05/15/2024 Chronic fatigue (ICD-10 - R53.82) 01/10/2024 Episodic mood disorder (ICD-10 - F39) 01/28/2024 Episodic mood disorder (ICD-10 - F39) 03/05/2024 Episodic mood disorder (ICD-10 - F39) 03/05/2024 Insomnia due to mental disorder (ICD-10 - F51.05) 01/28/2024 Insomnia due to mental disorder (ICD-10 - F51.05) 01/10/2024 Insomnia due to mental disorder (ICD-10 - F51.05) 05/15/2024 Insomnia due to mental disorder (ICD-10 - F51.05) 12/25/2023 Other follow up in 2 weeks . Discussed seriousness of taking benzodiazepine medication daily and as needed, risks and benefits discussed including risk of addiction and accidental . Pt verbalized understanding. . High risk medications are drugs that have a heightened risk of causing significant patient harm when they are used in error. High risk medicines include medicines: with a low therapeutic index. that present a high risk when administered by the wrong route or when other system errors occur. Please notify provider for any concerns about your medications. . . FDA approved stimulant medication for this age group. Discussed/Denies adverse effects from medication including HTN, tachycardia, insomnia, irritability, headache, or decreased appetite. . All relevant and serious adverse effects were discussed. Standard precautions and potential benefits were discussed. Patient/Guardian consented to begin medication/ continue treatment plan . Patient continues to meet criteria for attention deficit hyperactivity disorder. Pt does not meet criteria for bipolar disorder, major depressive disorder, or other persistent mood disorders. Will continue to monitor the patient for presentation of new symptoms or behaviors. . Continue current treatment; tolerating meds well, compliant; call for problems; questions answered satisfactorily, agreeable to treatment plan . GOALS: . Maintain medication regimen _Improve social and interpersonal functioning _Improve attention and or hyperactivity . . Crisis Intervention plan was discussed and agreed upon. Patient/Guardian will call 911 in case of emergency. Emergency contact information was provided to the patient/guardian. . OARRS reviewed Educated on new antidepressant. Made aware of Black Box Warning that it can increase suicidal thoughts, especially in minors. If this happens go to the ER. Make the office aware or go to the ER, if you experience seizures or an increase in activity and irritability. Made aware to not abruptly stop medication. Medication can cause headache and nausea. . Denies suicidal or homicidal ideation or plan. No morbid thoughts. Interpersonal issues discussed. Support provided Insight oriented/ Behavior modifying/ Supportive therapy . . Buspar is a medication used for anxiety. The medication can cause dizziness, sedation, and restless. Please contact the office if you experience these symptoms. The medication typically takes 2-4 weeks to achieve efficacy. Made aware to contact office if symptoms worsen. Patient educated about the importance of adequate sleep to your mental health. The bedroom should be kept dark to promote restful sleep. The patient should not use their phone or watch TV while in bed, these behaviors can be stimulating and keep the patient awake. . Informed consent obtained: YES, we discussed the diagnosis/diagnoses , the treatment options, treatment(s) recommended vs. no treatment. We discussed risks and benefits of treatment options, treatment recommendations vs. no treatment. . 01/10/2024 Other follow up in 3 weeks Buspar is a medication used for anxiety. The medication can cause dizziness, sedation, and restless. Please contact the office if you experience these symptoms. The medication typically takes 2-4 weeks to achieve efficacy. Made aware to contact office if symptoms worsen. Educated on new antidepressant. Made aware of Black Box Warning that it can increase suicidal thoughts, especially in minors. If this happens go to the ER. Make the office aware or go to the ER, if you experience seizures or an increase in activity and irritability. Made aware to not abruptly stop medication. Medication can cause headache and nausea. . Denies suicidal or homicidal ideation or plan. No morbid thoughts. Interpersonal issues discussed. Support provided Insight oriented/ Behavior modifying/ Supportive therapy . Patient educated on new antipsychotic dosing schedule and side effects. Made aware to not abruptly stop the medication. Made aware to notify the office or go to the ER if experience any abnormal repetitive movements. Also, made aware to notify office of any nausea, vomiting, or dizziness. Made aware to not stop medication abruptly. This is an FDA approved use for this medication. Discussed with patient crisis plan. Provided crisis hotline number. [place] has good support [place]. Made aware to contact office if has an increase in suicidal thoughts. If outside of office hours, patient to go to the ER. Patient will call the office with any questions or concerns. . FDA approved stimulant medication for this age group. Discussed/Denies adverse effects from medication including HTN, tachycardia, insomnia, irritability, headache, or decreased appetite. . All relevant and serious adverse effects were discussed. Standard precautions and potential benefits were discussed. Patient/Guardian consented to begin medication/ continue treatment plan . Patient continues to meet criteria for attention deficit hyperactivity disorder. Pt does not meet criteria for bipolar disorder, major depressive disorder, or other persistent mood disorders. Will continue to monitor the patient for presentation of new symptoms or behaviors. . Continue current treatment; tolerating meds well, compliant; call for problems; questions answered satisfactorily, agreeable to treatment plan . GOALS: . Maintain medication regimen _Improve social and interpersonal functioning _Improve attention and or hyperactivity . . Crisis Intervention plan was discussed and agreed upon. Patient/Guardian will call 911 in case of emergency. Emergency contact information was provided to the patient/guardian. . OARRS reviewed Patient educated about the importance of adequate sleep to your mental health. The bedroom should be kept dark to promote restful sleep. The patient should not use their phone or watch TV while in bed, these behaviors can be stimulating and keep the patient awake. . . Informed consent obtained: YES, we discussed the diagnosis/diagnoses , the treatment options, treatment(s) recommended vs. no treatment. We discussed risks and benefits of treatment options, treatment recommendations vs. no treatment. . . Discussed seriousness of taking benzodiazepine medication daily and as needed, risks and benefits discussed including risk of addiction and accidental . Pt verbalized understanding. . High risk medications are drugs that have a heightened risk of causing significant patient harm when they are used in error. High risk medicines include medicines: with a low therapeutic index. that present a high risk when administered by the wrong route or when other system errors occur. Please notify provider for any concerns about your medications. . . Discussed seriousness of taking hypnotic medication daily and as needed, risks and benefits discussed including risk of addiction and accidental . Pt verbalized understanding. . High risk medications are drugs that have a heightened risk of causing significant patient harm when they are used in error. High risk medicines include medicines: with a low therapeutic index. that present a high risk when administered by the wrong route or when other system errors occur. Please notify provider for any concerns about your medications. . 01/28/2024 Other follow up in 1 month Buspar is a medication used for anxiety. The medication can cause dizziness, sedation, and restless. Please contact the office if you experience these symptoms. The medication typically takes 2-4 weeks to achieve efficacy. Made aware to contact office if symptoms worsen. Educated on new antidepressant. Made aware of Black Box Warning that it can increase suicidal thoughts, especially in minors. If this happens go to the ER. Make the office aware or go to the ER, if you experience seizures or an increase in activity and irritability. Made aware to not abruptly stop medication. Medication can cause headache and nausea. . Denies suicidal or homicidal ideation or plan. No morbid thoughts. Interpersonal issues discussed. Support provided Insight oriented/ Behavior modifying/ Supportive therapy . Patient educated on new antipsychotic dosing schedule and side effects. Made aware to not abruptly stop the medication. Made aware to notify the office or go to the ER if experience any abnormal repetitive movements. Also, made aware to notify office of any nausea, vomiting, or dizziness. Made aware to not stop medication abruptly. This is an FDA approved use for this medication. Discussed with patient crisis plan. Provided crisis hotline number. [facility] has good support system. Made aware to contact office if has an increase in suicidal thoughts. If outside of office hours, patient to go to the ER. Patient will call the office with any questions or concerns. . FDA approved stimulant medication for this age group. Discussed/Denies adverse effects from medication including HTN, tachycardia, insomnia, irritability, headache, or decreased appetite. . All relevant and serious adverse effects were discussed. Standard precautions and potential benefits were discussed. Patient/Guardian consented to begin medication/ continue treatment plan . Patient continues to meet criteria for attention deficit hyperactivity disorder. Pt does not meet criteria for bipolar disorder, major depressive disorder, or other persistent mood disorders. Will continue to monitor the patient for presentation of new symptoms or behaviors. . Continue current treatment; tolerating meds well, compliant; call for problems; questions answered satisfactorily, agreeable to treatment plan . GOALS: . Maintain medication regimen _Improve social and interpersonal functioning _Improve attention and or hyperactivity . . Crisis Intervention plan was discussed and agreed upon. Patient/Guardian will call 911 in case of emergency. Emergency contact information was provided to the patient/guardian. . OARRS reviewed Patient educated about the importance of adequate sleep to your mental health. The bedroom should be kept dark to promote restful sleep. The patient should not use their phone or watch TV while in bed, these behaviors can be stimulating and keep the patient awake. . . Informed consent obtained: YES, we discussed the diagnosis/diagnoses , the treatment options, treatment(s) recommended vs. no treatment. We discussed risks and benefits of treatment options, treatment recommendations vs. no treatment. . . Discussed seriousness of taking hypnotic medication daily and as needed, risks and benefits discussed including risk of addiction and accidental . Pt verbalized understanding. . High risk medications are drugs that have a heightened risk of causing significant patient harm when they are used in error. High risk medicines include medicines: with a low therapeutic index. that present a high risk when administered by the wrong route or when other system errors occur. Please notify provider for any concerns about your medications. . . Discussed seriousness of taking benzodiazepine medication daily and as needed, risks and benefits discussed including risk of addiction and accidental . Pt verbalized understanding. . High risk medications are drugs that have a heightened risk of causing significant patient harm when they are used in error. High risk medicines include medicines: with a low therapeutic index. that present a high risk when administered by the wrong route or when other system errors occur. Please notify provider for any concerns about your medications. . 03/05/2024 Other follow up in 2 months . Discussed seriousness of taking benzodiazepine medication daily and as needed, risks and benefits discussed including risk of addiction and accidental . Pt verbalized understanding. . High risk medications are drugs that have a heightened risk of causing significant patient harm when they are used in error. High risk medicines include medicines: with a low therapeutic index. that present a high risk when administered by the wrong route or when other system errors occur. Please notify provider for any concerns about your medications. . . Discussed seriousness of taking hypnotic medication daily and as needed, risks and benefits discussed including risk of addiction and accidental . Pt verbalized understanding. . High risk medications are drugs that have a heightened risk of causing significant patient harm when they are used in error. High risk medicines include medicines: with a low therapeutic index. that present a high risk when administered by the wrong route or when other system errors occur. Please notify provider for any concerns about your medications. . . FDA approved stimulant medication for this age group. Discussed/Denies adverse effects from medication including HTN, tachycardia, insomnia, irritability, headache, or decreased appetite. . All relevant and serious adverse effects were discussed. Standard precautions and potential benefits were discussed. Patient/Guardian consented to begin medication/ continue treatment plan . Patient continues to meet criteria for attention deficit hyperactivity disorder. Pt does not meet criteria for bipolar disorder, major depressive disorder, or other persistent mood disorders. Will continue to monitor the patient for presentation of new symptoms or behaviors. . Continue current treatment; tolerating meds well, compliant; call for problems; questions answered satisfactorily, agreeable to treatment plan . GOALS: . Maintain medication regimen _Improve social and interpersonal functioning _Improve attention and or hyperactivity . . Crisis Intervention plan was discussed and agreed upon. Patient/Guardian will call 911 in case of emergency. Emergency contact information was provided to the patient/guardian. . OARRS reviewed Educated on new antidepressant. Made aware of Black Box Warning that it can increase suicidal thoughts, especially in minors. If this happens go to the ER. Make the office aware or go to the ER, if you experience seizures or an increase in activity and irritability. Made aware to not abruptly stop medication. Medication can cause headache and nausea. . Denies suicidal or homicidal ideation or plan. No morbid thoughts. Interpersonal issues discussed. Support provided Insight oriented/ Behavior modifying/ Supportive therapy . . Patient educated on new antipsychotic dosing schedule and side effects. Made aware to not abruptly stop the medication. Made aware to notify the office or go to the ER if experience any abnormal repetitive movements. Also, made aware to notify office of any nausea, vomiting, or dizziness. Made aware to not stop medication abruptly. This is an FDA approved use for this medication. Discussed with patient crisis plan. Provided crisis hotline number. [facility] has good support system. Made aware to contact office if has an increase in suicidal thoughts. If outside of office hours, patient to go to the ER. Patient will call the office with any questions or concerns. Patient educated about the importance of adequate sleep to your mental health. The bedroom should be kept dark to promote restful sleep. The patient should not use their phone or watch TV while in bed, these behaviors can be stimulating and keep the patient awake. . Informed consent obtained: YES, we discussed the diagnosis/diagnoses , the treatment options, treatment(s) recommended vs. no treatment. We discussed risks and benefits of treatment options, treatment recommendations vs. no treatment. . 05/15/2024 Other Currently not on meds Patient educated about the importance of adequate sleep to your mental health. The bedroom should be kept dark to promote restful sleep. The patient should not use their phone or watch TV while in bed, these behaviors can be stimulating and keep the patient awake. . Informed consent obtained: YES, we discussed the diagnosis/diagnoses , the treatment options, treatment(s) recommended vs. no treatment. We discussed risks and benefits of treatment options, treatment recommendations vs. no treatment. . Plan Of Treatment No Information Insurance Providers Payer Name Payer Address Payer Phone Subscriber Number Group Number Insured Name Patient Relationship to Insured Coverage Start Date Coverage End Date [employer] [place] [employer] [address] [place] [id number] [phone] [id number] JIMENALEXISOPHIE Self - patient is the insured [address] [facility] [address] [place] [address] [phone] [id number] LEXI HESSHillaryCHINOShin Self - patient is the insured 3 [facility] [employer] [place] Medicaid [address] [place] [id number] LEXI HESSHillaryCHINOShin Self - patient is the insured 3 [facility] [address] [place] [address] [id number] LEXI HESSSOPHIE Self - patient is the insured 3 Medical (General) History Medical History History ICD Code Depression Anxiety ADHD petit mal seizures PCOS Surgical History Surgery Date(Month/Year) tonsillectomy and adenoidectomy Hospitalization History Reason Date(Month/Year) see surgical
--- OUTSIDE RECORDS SUMMARY | 2024-12-03 10:41 | XMS_ITS | Encounter Summary ---
Author Organization [facility] Address [address] [place] [address] Care Team Providers Care Surgical Services Director Name Role Phone Lan Malcolm MD Primary Care Provider [phone] Encounter Details Date Type Department Care Team (Late st Contact Info) Description 11/26/2024 Clinisync Result Encounter [facility] External Department Unsolicited Giovany Gross, DO [address] [facility] [place] [address] Social History Tobacco Use Types Packs/Day Years [...] AM EDT Routine [facility] BCP OB [address] [facility] [place] [address] Paz Varela PA [address] [facility] [place] [address] documented as of this encounter Goals Goal Patient Goal Type Associated Problems Recent Progress Patient-Stated? Author Reminders Care Plan OB Reminders No Open Scheduling, Background documented as of this encounter Procedures Procedure Name Priority Date/Time Associated Diagnosis Comments US OB BPP W NON-STRESS 11/26/2024 11:47 AM EDT documented in this encounter Results * US OB BPP W NON-STRESS (11/26/2024 11:47 AM EDT) Anatomical Region Laterality Modality Other 11/26/2024 11:4 7 AM EDT Narrative 11/26/2024 11:50 AM EDT The [address] [address] Ultrasound Report Signed Patient: STEPHON ZULETA MR#: [id number] : 1995 Acct:[id number] Age/Sex: 29 / F ADM Date: 11/26/24 Loc: US Attending Dr: Giovany Gross D.O. Ordering Physician: Giovany Gross D.O. Date of Service: 11/26/24 Procedure(s): US OB BPP w non-stress Accession Number(s): [id number] cc: MACHELLE VIVEROS; Giovany Gross D.O. The [address] [address] Patient Name: STEPHON ZULETA MRN: [id number] date: 1995 Sex: F Assigned Patient Location: [facility] Current Patient Location: Accession/Order Number: [id number] Exam Date: 11/26/2024 11:46 Report Date: 11/26/2024 [...] Costello M.D. 11/26/2024 11:47 AM Dictation Location: [place] [address] Electronically authenticated by: [id number] Y Date: 11/26/2024 11:47 Dictated By: Addison Costello M.D. Signed By: 11/26/24 1150 DD/ 1147 TD/TT: Socket Welder Helper: Procedure Note Radiology, Radiologist, MD - 11/26/2024 [place] [address] Ultrasound Report Signed Patient: STEPHON ZULETA RMR#: [id number] : 1995Acct:[id number] Age/Sex: 29 / FADM Date: 11/26/24 Loc: US Attending Dr: Giovany Gross D.O. Ordering Physician: Giovany Gross D.O. Date of Service: 11/26/24 Procedure(s): US OB BPP w non-stress Accession Number(s): [id number] cc: MACHELLE VIVEROS; Giovany Gross D.O. The [place] [address] Patient Name: STEPHON ZULETA MRN: [facility]:[id number] date: 1995 Sex: F Assigned Patient Location: [facility] Current Patient Location: Accession/Order Number: [id number] Exam Date: 11/26/2024 11:46 Report Date: 11/26/2024 [...] Costello M.D. 11/26/2024 11:47 AM Dictation Location: [place] [address] Electronically authenticated by: [id number] Y Date: 1:47 Dictated By: Addison Costello M.D. Signed By:11/26/24 1150 DD/ 1147 TD/TT: Socket Welder Helper: us Giovany Gross DO [facility] Final Result documented in this encounter Visit Diagnoses Not on filedocumented in this encounter Additional Health Concerns Active Problems Noted Date Diagnosed Date OB Reminders 06/27/2024 documented as of this encounter Care Teams Surgical Services Director Relationship Specialty Start Date End Date Lan Malcolm MD [address] [place] [address] PCP - General Family Medicine 11/18/23 documented as of this encounter
--- NOTE | 2024-12-03 11:20 | PC.NURSE ---
1110- BPP 02/19 AIME 9.5 and cervix 4.0cm per US tech.
[2024-12-03 11:22] VITALS: BP 131/84; PULSE 95
[2024-12-03 11:23] VITALS: TEMP 36.7
[2024-12-03 11:44] LABS: Amnisure NEGATIVE (NEGATIVE); Internal Control Within Normal Limits
[2024-12-03] MEDS: BETAMETHASONE ACE/BETAMETHASONE SOD PHOS 30 MG/5 ML 12 MG IM (13:05)
== END 2024-12-03 13:33 | disposition home or self-care (01) ==
PROVIDERS: Admitting Provider Obstetrics & Gynecology; PCP Nurse Practitioner Family; Visit Provider Obstetrics & Gynecology
DX: O36.8130 Decreased fetal movements, third trimester, not applicable or unspecified (principal); Z3A.33 33 weeks gestation of pregnancy; O26.893 Other specified pregnancy related conditions, third trimester; R10.9 Unspecified abdominal pain
CPT/HCPCS: 59025; 76817; 76818; 84112; 96372; G0378; G0379; J0702

== ENCOUNTER 2024-12-04 12:56 | Outpatient (OUT) | payer OTHER, SELFPAY ==
--- OUTSIDE RECORDS SUMMARY | 2024-12-03 09:35 | XMS_ITS ---
Author Name Auto Generated Organization OHIP Support Name Relationship Address Phone PASTORA, SUHAS Next of Kin Unknown [phone] [address] Evangelista Next of Kin Unknown + PASTORA, SUHAS Next of Kin Unknown [phone] GORJean Carlos, MATTHEW Next of Kin Unknown + PASTORA, SUHAS Next of Kin Unknown [phone] MATTHEW DAVILA Next of Kin Unknown + PASTORA, SUHAS Next of Kin Unknown [phone] MATTHEW DAVILA Next of Kin Unknown + PASTORA, SUHAS Next of Kin Unknown [phone] MATTHEW DAVILA Next of Kin Unknown + PASTORA, SUHAS Next of Kin Unknown [phone] MATTHEW DAVILA Next of Kin Unknown + PASTORA, SUHAS Next of Kin Unknown [phone] MATTHEW DAVILA Next of Kin Unknown + PASTORA, SUHAS Next of Kin Unknown [phone] MATTHEW DAVILA Next of Kin Unknown + PASTORA, SUHAS Next of Kin Unknown [phone] MATTHEW DAVILA Next of Kin Unknown + PASTORA, SUHAS Next of Kin Unknown [phone] MATTHEW DAVILA Next of Kin Unknown + PASTORA, SUHAS Next of Kin Unknown [phone] MATTHEW DAVILA Next of Kin Unknown + PASTORA, SUHAS Next of Kin Unknown [phone] MATTHEW DAVILA Next of Kin Unknown + PASTORA, SUHAS Next of Kin Unknown [phone] SUHAS GUILLORY Next of Kin [address] [place] [address] + Care Team Providers Care Machine Heel Sprayer Name Role Phone NOLBERTO, Giovany R Attending Unavailable ROSHAN VIVEROS Primary Care Unavai lable NOLBERTO, Giovany R Admitting Unavailable NOLBERTO, Giovany R Attending Unavailable ROSHAN VIVEROS Primary Care Unavai lable NOLBERTO, Giovany R Admitting Unavailable DOMENICADENNIS Attending Unavailable NOLBERTO, GIOVANY Attending Unavailable NOLBERTO, GIOVANY Referring Unavailable NOLBERTO, GIOVANY Attending Unavailable NOLBERTO, GIOVANY Attending Unavailable NOLBERTO, GIOVANY Attending Unavailable NOLBERTO, GIOVANY Attending Unavailable DOMENICA, DENNIS Attending Unavailable NOLBERTO, GIOVANY Attending Unavailable PROBLEMS No Problem Records Found PROCEDURES No Procedure Records Found RESULTS US OB FOLLOW UP TRANSABDOMINAL APPROACH Observed: 11/19/2024 10:55 AM Status: F Source: [facility] EP[facility] Order Comment: US OB SCAN FO R GROWTH Estimated Date of Delivery: 01/18/25 Gestational Age as of 11/05/2024: 29w3d EXAM: US OB FOLLOW UP TRANSA BDOMINAL APPROACH HISTORY: History of preeclampsia and delivery [...] II, MD, PHD at 22-Nov-2024 08:21:01 PM [facility] US OB LIMITED 1+ FETUSES Observed: 10/01 10:12 AM Status: F Source: [facility] EPIC Order Comment: US OB INCOMPL ETE ANATOMY W US OB TRANSVAGINAL Estimated Date of Delivery: 01/18/25 Gestational Age as of 09/10/2024: 21w3d EXAM: US OB LIMITED 1+ FETUS ES HISTORY: Low-lying placenta. COMPARISON: Ob ultrasound 09/01/2024. [...] II, MD, PHD at 02-Oct-2024 08:30:32 PM [facility] US OB 14+ WEEKS ANATOMY SCAN Observed: 0 08/13/2024 10:50 AM Status: F Source: [facility] Order Comment: US OB ANATOMY SINGLE W US OB CERVICAL LENGTH Estimated Date of Delivery: 01/18/25 Gestational Age as of 08/13/2024: 17w3d EXAM: US OB 14+ WEEKS ANATOM Y SCAN HISTORY: anatomy. TECHNIQUE: Two-dimensional transabdominal grayscale [...] II, MD, PHD at 02-Sep-2024 08:04:31 AM [facility] Collected: 05/27/2024 5:02 PM Status: F Source: [facility] TYPE CODE TESTS RESULT OUT OF RANGE REFERENCE UNITS LAB 30256-5([facility]) CHORIOGONADOT ROPIN.BETA SUBUNIT:ACNC: PT:SER/PLAS:Q N: [id number] High 1-3 mIU/mL Result Comment: 'F NONPREGNA NT < 1 - 3' ' 0.2 - 1 WEEK = 5 TO 50' ' 1 - 2 WEEKS = 50 - 500' ' 2 - 3 WEEKS = 100 - 5000' ' 3 - 4 WEEKS = 500 - 90014' ' 4 - 5 WEEKS = 1000 - 57527' ' 5 - 6 WEEKS = 32176 - 401699' ' 6 - 8 WEEKS = 72658 - 840221' ' 8 - 12 WEEKS = 69983 - 924590' Performed By: #### [id number] # ### [facility] [address] [place] [address] ALLERGIES DATE TYPE / CODE NAME / CODE REACTION SEVERITY SOURCE [id number](SNOMED CT) No Known Allergies [facility] ENCOUNTERS ADMIT/DISCHARGE ACCOUNT NUMBER ADMITTING ENCOUNTER CLASS LOCATION SOURCE 12/03/2024/12/04/19 [id number] Ambulatory Building:[facility] EPIC 11/19/2024/11/20/19 [id number] Ambulatory Building:[facility] EPIC 11/19/2024/11/20/19 [id number] Ambulatory Building:[facility] EPIC 11/05/2024/11/06/19 [id number] Ambulatory Building:[facility] EPIC 10/01/2024/10/02/19 25 [id number] Ambulatory Building:[facility] EPIC 10/01/2024/10/02/19 25 [id number] Ambulatory Building:[facility] EPIC 09/10/2024/09/10/19 25 [id number] Ambulatory Building:[facility] EPIC 09/01/2024/09/01/19 25 [id number] Ambulatory Building:[facility] EPIC 08/13/2024/08/13/19 25 [id number] Ambulatory Building:[facility] EPIC 07/09/2024/07/09/20 24 [id number] Ambulatory Building:[facility] EPIC 06/25/2024/06/25/20 24 [id number] Ambulatory Building:[facility] EPIC 06/25/2024/06/25/20 24 [id number] Ambulatory Building:[facility] EPIC 05/28/2024/05/28/20 24 [id number] Ambulatory Building:[facility] EPIC 05/27/2024 [id number] Giovany ARVIZU [facility] 05/27/2024/05/27/20 [id number] Giovany ARVIZU [facility] PAYERS ENCOUNTER GUARANTOR PAYER SUBSCRIBER SOURCE 12/03/2024 GREGORIO HESSB: [place], [place] [address]Gmj: (HP) Primary Insurance:[facility] [place] MEDICAIDPolicy Number: [id number] Date:2022-09-12 LEXIHillaryCHINOShin HESSDOB: [id number] [place] [address] [facility] EPIC 11/19/2024 GREGORIO HESSDOB: [place], [place] [address]Zyq: (HP) Primary Insurance:[facility] [place] [place] MEDICAIDPolicy Number: [id number] Date:2022-09-12 GEORGINACHINOShin HESSDOB: [id number] [place] [address] [facility] EPIC 11/19/2024 GREGORIO HESSDOB: [place], [place] [address]Aru: () Primary Insurance:[facility] MEDICAIDPolicy Number: [id number] Date:2022-09-12 GREGORIO HESSDOB: [id number] [place] [address] [facility] EPIC 11/05/2024 GREGORIO HESSDOB: [place], [place] [address]Nnl: (HP) Primary Insurance:[facility] [place] MEDICAIDPolicy Number: [id number] Date:2022-09-12 GREGORIO HESSDOB: [id number] [place] [address] [facility] EPIC 10/01/2024 GREGORIO DIGGSB: [place], [place] [address]Iut: (HP) [facility] Insurance:[facility] MEDICA[facility]Policy Number: [id number] Date:2022-09-12 GREGORIO HESSDOB: [id number] [place] [address] [facility] EPIC 10/01/2024 GREGORIO HESSDOB: [place], [place] [address]Lhh: (HP) Primary Insurance:[facility] MEDICA[place]Policy Number: [id number] Date:2022-09-12 GREGORIO HESSB: [id number] [place] [address] [facility] EPIC 09/10/2024 GREGORIO HESSDOB: [place], [place] [address]Uyp: (HP) Primary Insurance:[facility] MEDICAIDPolicy Number: [id number] Date:2022-09-12 GREGORIO HESSDOB: [id number] [place] [address] [facility] EPIC 09/01/2024 GREGORIO HESSDOB: [place], [place] [address]Iiv: (HP) Primary Insurance:[facility] MEDICAIDPolicy Number: [id number] Date:2022-09-12 GREGORIO HESSDOB: [id number] [place] [address] [facility] EPIC 08/13/2024 DESIRAEShin JIMENADOB: [place], [place] [address]Eeo: (HP) Primary Insurance:[employer] MEDICAIDPolicy Number: [id number] Date:2022-09-12 GREGORIO HESSB: [id number] [place] [address] [facility] EPIC 07/09/2024 GREGORIO HESSDOB: [place], [place] [address]Ftp: (HP) Primary Insurance:[facility] MEDICAIDPolicy Number: [id number] Date:2022-09-12 GREGORIO DIGGSB: [id number] [place] [address] [facility] EPIC 06/25/2024 GREGORIO HESSDOB: [place], [place] [address]Zse: (HP) Primary Insurance:[facility] MEDICAIDPolicy Number: [id number] Date:2022-09-12 GREGORIO HESSDOB: [id number] [place] [address] [facility] EPIC 06/25/2024 LEXIKEANUShin JIMENAB: [place], [place] [address]Byv: (HP) Primary Insurance:[facility] MEDICAIDPolicy Number: [id number] Date:2022-09-12 GREGORIO HESSB: [id number] [place] [address] [facility] EPIC 05/28/2024 GREGORIO DIGGSB: [place], [place] [address]Xck: (HP) Primary Insurance:[facility] MEDICAIDPolicy Number: [id number] Date:2022-09-12 GREGORIO HESSDOB: [id number] [place] [address] [facility] EPIC 05/27/2024 GREGORIO DIGGSB: [facility]el: [phone] (HP) Primary Insurance:CARESOURCEPo licy Number: [id number] Date:[id number] [address]QF: GREGORIO PIERSON [facility]
[2024-12-04 13:10] VITALS: BP 126/79; PULSE 102
[2024-12-04] MEDS: BETAMETHASONE ACE/BETAMETHASONE SOD PHOS 30 MG/5 ML 12 MG IM (13:15)
--- NOTE | 2024-12-04 13:29 | PC.NURSE ---
Denies complaints. Leaves ambulatory after precautions reviewed.
== END 2024-12-04 13:34 | disposition home or self-care (01) ==
LOC: FBCO 12:56 → FBC 12:58
PROVIDERS: PCP Nurse Practitioner Family; Visit Provider Obstetrics & Gynecology
DX: O26.893 Other specified pregnancy related conditions, third trimester (principal)
CPT/HCPCS: 96372; J0702

== ENCOUNTER 2024-12-04 20:35 | Observation (INO) | payer OTHER, SELFPAY ==
--- OUTSIDE RECORDS SUMMARY | 2024-12-03 09:35 | XMS_ITS ---
[...] + PASTORA, SUHAS Next of Kin Unknown [phone] SUHAS GUILLORY Next of Kin [address] [place] [address] + Care Team Providers Care Disposal Worker Name Role Phone DENNIS METZGER Attending Unavailable NOLBERTO, GIOVANY Attending Unavailable NOLBERTO, GIOVANY Referring Unavailable NOLBERTO, GIOVANY Attending Unavailable NOLBERTO, GIOVANY Attending Unavailable NOLBERTO, GIOVANY Attending Unavailable NOLBERTO, GIOVANY Attending Unavailable DOMENICADENNIS Attending Unavailable NOLBERTO, GIOVANY Attending Unavailable NOLBERTO, Giovany R Attending Unavailable NOLBERTO, Giovany R Admitting Unavailable ROSHAN VIVEROS Primary Care Biancavai ROSHAN Malloy Primary Care Unavai lable NOLBERTO, Giovany R Attending Unavailable NOLBERTO, Giovany R Admitting Unavailable PROBLEMS No Problem Records Found PROCEDURES No Procedure Records Found RESULTS US OB FOLLOW UP TRANSABDOMINAL APPROACH Observed: 11/19/2024 10:55 AM Status: F Source: [facility] EPIC Order Comment: US OB [...] II, MD, PHD at 22-Nov-2024 08:21:01 PM [facility] [facility] US OB LIMITED 1+ FETUSES Observed: 10/01 10:12 AM Status: F Source: [facility] EP[facility] Order Comment: US OB INCOMPL ETE [...] II, MD, PHD at 02-Oct-2024 08:30:32 PM [facility] US OB 14+ WEEKS ANATOMY SCAN Observed: 0 08/13/2024 10:50 AM Status: F Source: [facility] Order Comment: US OB ANATOMY SINGLE W [...] II, MD, PHD at 02-Sep-2024 08:04:31 AM [facility] QUANT Collected: 05/27/2024 5:02 PM Status: F Source: [facility] TYPE CODE TESTS RESULT OUT OF RANGE REFERENCE UNITS LAB 62685-6([facility]) CHORIOGONADOT ROPIN.BETA SUBUNIT:ACNC: PT:SER/PLAS:Q N: [id number] High 1-3 mIU/mL Result Comment: 'F NONPREGNA NT < 1 - 3' ' 0.2 - 1 WEEK = 5 TO 50' ' 1 - 2 WEEKS = 50 - 500' ' 2 - 3 WEEKS = 100 - 5000' ' 3 - 4 WEEKS = 500 - 98014' ' 4 - 5 WEEKS = 1000 - 76241' ' 5 - 6 WEEKS = 40667 - 097688' ' 6 - 8 WEEKS = 37234 - 050628' ' 8 - 12 WEEKS = 10678 - 536591' Performed By: #### [id number] # ### [facility] [address] [place] [address] ALLERGIES DATE TYPE / CODE NAME / CODE REACTION SEVERITY SOURCE [id number](SNOMED CT) No Known Allergies [facility] ENCOUNTERS ADMIT/DISCHARGE ACCOUNT NUMBER ADMITTING ENCOUNTER CLASS LOCATION SOURCE 12/03/2024/12/04/19 [id number] Ambulatory Building:[facility] EPIC 11/19/2024/11/20/19 [id number] Ambulatory Building:[facility] EPIC 11/19/2024/11/20/19 [id number] Ambulatory Building:[facility] EPIC 11/05/2024/11/06/19 [id number] Ambulatory Building:[facility] EPIC 10/01/2024/10/02/19 25 [id number] Ambulatory Building:[facility] EPIC 10/01/2024/10/02/19 25 [id number] Ambulatory Building:[facility] EPIC 09/10/2024/09/10/19 25 [id number] Ambulatory Building:[facility] EPIC 09/01/2024/09/01/19 25 [id number] Ambulatory Building:[facility] EPIC 08/13/2024/08/13/19 25 [id number] Ambulatory Building:[facility] EPIC 07/09/2024/07/09/20 24 [id number] Ambulatory Building:[facility] EPIC 06/25/2024/06/25/20 24 [id number] Ambulatory Building:[facility] EPIC 06/25/2024/06/25/20 24 [id number] Ambulatory Building:[facility] EPIC 05/28/2024/05/28/20 24 [id number] Ambulatory Building:[facility] EPIC 05/27/2024 [id number] Giovany ARVIZU [facility]ulatory [facility] 05/27/2024/05/27/20 [id number] Giovany ARVIZU [facility] PAYERS ENCOUNTER GUARANTOR PAYER SUBSCRIBER SOURCE 12/03/2024 GREGORIO HESSB: [place], [place] [address]Vty: (HP) Primary Insurance:[facility] MEDICAIDPolicy Number: [id number] Date:2022-09-12 LEXIHillaryCHINOShin HESSDOB: [id number] [place] [address] [facility] EPIC 11/19/2024 GREGORIO HESSDOB: [place], [place] [address]Ajx: (HP) Primary Insurance:[facility] MEDICAIDPolicy Number: [id number] Date:2022-09-12 GEORGINACHINOShin HESSDOB: [id number] [place] [address] [facility] EPIC 11/19/2024 GREGORIO HESSDOB: [place], [place] [address]Cpt: () [facility] MEDICAIDPolicy Number: [id number] Date:2022-09-12 GREGORIO HESSDOB: [id number] [place] [address] [facility] EPIC 11/05/2024 GREGORIO HESSDOB: [place], [place] [address]Vuc: (HP) Primary Insurance:[facility] MEDICAIDPolicy Number: [id number] Date:2022-09-12 GREGORIO HESSDOB: [id number] [place] [address] [facility] EPIC 10/01/2024 GREGORIO DIGGSB: [place], [place] [address]Eyf: (HP) Primary Insurance:[facility] MEDICAIDPolicy Number: [id number] Date:2022-09-12 GREGORIO HESSDOB: [id number] [place] [address] [facility] EPIC 10/01/2024 GREGORIO HESSDOB: [place], [place] [address]Vhs: (HP) Primary Insurance:[facility] [place] MEDICAIDPolicy Number: [id number] Date:2022-09-12 GREGORIO HESSB: [id number] [place] [address] [facility] EPIC 09/10/2024 GREGORIO HESSDOB: [place], [place] [address]Qjc: (HP) Primary Insurance:[facility] [place] MEDICAIDPolicy Number: [id number] Date:2022-09-12 GREGORIO HESSDOB: [id number] [place] [address] [facility] EPIC 09/01/2024 GREGORIO HESSDOB: [place], [place] [address]Civ: (HP) Primary Insurance:[facility] MEDICAIDPolicy Number: [id number] Date:2022-09-12 GREGORIO HESSDOB: [id number] [place] [address] [facility] EPIC 08/13/2024 DESIRAEShin JIMENADOB: [place], [place] [address]Ayt: (HP) Primary Insurance:[employer] MEDICAIDPolicy Number: [id number] Date:2022-09-12 GREGORIO HESSB: [id number] [place] [address] [facility] EPIC 07/09/2024 GREGORIO HESSDOB: [place], [place] [address]Mdc: (HP) Primary Insurance:[facility] [place] MEDICAIDPolicy Number: [id number] Date:2022-09-12 GREGORIO DIGGSB: [id number] [place] [address] [facility] EPIC 06/25/2024 GREGORIO HESSDOB: [place], [place] [address]Gdo: (HP) Primary Insurance:[facility] [place] MEDICAIDPolicy Number: [id number] Date:2022-09-12 GREGORIO HESSDOB: [id number] [place] [address] [facility] EPIC 06/25/2024 LEXIKEANUShin JIMENAB: [place], [place] [address]Xxv: (HP) Primary Insurance:[facility] [place] MEDICAIDPolicy Number: [id number] Date:2022-09-12 GREGORIO HESSB: [id number] [place] [address] [facility] EPIC 05/28/2024 GREGORIO DIGGSB: [place], [place] [address]Gie: (HP) Primary Insurance:[facility] MEDICAIDPolicy Number: [id number] Date:2022-09-12 GREGORIO HESSDOB: [id number] [place] [address] [facility] EPIC 05/27/2024 GREGORIO DIGGSB: [facility]: [phone] (HP) Primary Insurance:CARESOURCEPo licy Number: [id number] Date:[id number] [address]ID: GREGORIO PIERSON [facility]
[2024-12-04 21:10] VITALS: BP 135/73; PULSE 122; TEMP 37.2
[2024-12-04 21:30] LABS: Bilirubin Urine NEGATIVE (NEGATIVE); Blood Urine TRACE-I (NEGATIVE); Clarity Urine CLEAR (CLEAR); Color Urine LT. YELLOW (YELLOW); Glucose Urine UA >=1000 mg/dL (NEGATIVE); Ketones Urine TRACE mg/dL (NEGATIVE); Leukocyte Esterase Urine NEGATIVE (NEGATIVE); Nitrite Urine NEGATIVE (NEGATIVE); Protein Urine TRACE mg/dL (NEG/TRACE); Specific Gravity Urine 1.015 (1.005-1.025); Urobilinogen Urine 0.2 EU/dL (0.2-1.0)
[2024-12-04 21:35] LABS: Urine Microscopic Indicated YES
[2024-12-04 21:41] LABS: Bacteria Urine LARGE #/HPF (NONE SEEN); Cast Seen? NONE SEEN #/LPF (NONE SEEN); Crystals Seen? None Seen #/HPF (None Seen); Mucus Urine NONE SEEN (NONE SEEN); RBC Urine 0-2 #/HPF (0-2); Squamous Epithelial Cell Urine MANY #/LPF (NONE/RARE); Urine Culture Indicated YES-LC
[2024-12-04 21:42] LABS: Amnisure NEGATIVE (NEGATIVE); Internal Control Within Normal Limits
[2024-12-04] MEDS: 0.9 % SODIUM CHLORIDE 1,000 ML 999 ML IV (22:20)
[2024-12-04 22:27] LABS: Glucometer 117 mg/dL (74-106)
[2024-12-04 22:32] LABS: Hematocrit 28.9 % (36.0-48.0); Hemoglobin 9.3 g/dL (12.0-16.0); Mean Corpuscular HGB Conc 32.2 g/dL (29.9-35.2); Mean Corpuscular Hemoglobin 27.2 pg (26.7-34.0); Mean Corpuscular Volume 84.5 fL (81.0-99.0); Mean Platelet Volume 12.5 fL (9.5-13.5); Platelet Count 176 10^3/uL (150-450); Red Blood Count 3.42 10^6/uL (4.20-5.40); Red Cell Distribution Width 15.1 % (11.0-15.0); White Blood Count 16.3 10^3/uL (4.0-11.0)
[2024-12-04 22:49] VITALS: PULSE 85
[2024-12-04] MEDS: CEFAZOLIN SODIUM/DEXTROSE,ISO 2 GM/50 ML PIGGYBACK IV (23:18)
== END 2024-12-04 23:59 | disposition home or self-care (01) ==
LOC: FBC 20:36
PROVIDERS: Admitting Provider Obstetrics & Gynecology; PCP Nurse Practitioner Family; Visit Provider Obstetrics & Gynecology
DX: O26.893 Other specified pregnancy related conditions, third trimester (principal); Z3A.33 33 weeks gestation of pregnancy
CPT/HCPCS: 36415; 59025; 81001; 82948; 84112; 85027; 87086; 96365; G0378; G0379; J0690

== ENCOUNTER 2024-12-10 09:46 | Outpatient (OUT) | payer OTHER, SELFPAY ==
--- OUTSIDE RECORDS SUMMARY | 2024-07-24 07:30 | XMS_ITS ---
Author Organization [facility] Address [address] [place] [address] Care Team Providers Care Scrap Preparer Name Role Phone Evelyn West Primary Care Provider Corine Hendrickson Unavailable [phone] REASON FOR VISIT 2 month Encounters Encounter Location Date Provider Diagnosis [address] [place] [address] 07/24/2024 Corine Hendrickson Plan Of Treatment No Information Progress Notes * GREGORIO HESS RDOB: 6 (29 yo F)Acc No.[id number]:07/24/2024 Behavioral Health Patient: Torri HARDEN GREGORIO Goyal Appointment Provider: BOB FULLER :1995 A ge:29 Y S ex:Female Date:07/24/2024 Address:[address] [place], [place] [id number] Pcp:Evelyn West Subjective: * Chief Complaints: * 1 . 2 month. * Medical History: Objective: * Vitals: Assessment: Plan: * Treatment: Care Plan: * Problems: * Images: * Electronic signature of MU Sullivan i on 12/10/2024 at 09:49 AM EDT Sign off status: Pending * Appointment Provider: BOB FULLER Date: 07/24/2024 Generated for Tereza herrera/Juan/Zhouitting on: 0 12/10/2024 09:49 AM EDT
--- OUTSIDE RECORDS SUMMARY | 2024-12-03 10:00 | XMS_ITS | Encounter Summary ---
Author Organization [facility] Address [address] [place] [address] Care Team Providers Care Culvert Installer Name Role Phone Lan Malcolm MD Primary Care Provider [phone] Reason for Visit * Reason Comments Routine Visit Encounter Details Date Type Department Care Team (Late Contact Info) Description 12/03/2024 10:00 AM EDT Routine [facility] [address] [place] [phone] Baltazar Gross, DO [address] [place] [address] Third trimester ; 33 weeks gestation of [...] Active Ambulatory Problems Diagnosis Date Noted Seizure ([facility]) 11/16/2023 Migraine 11/16/2023 Intractable migraine without aura and without status migrainosus ([facility]) 11/16/2023 Hypersomnia 11/16/2023 Chronic daily headache 11/18/2023 Resolved Ambulatory Problems Diagnosis Date Noted No Resolved Ambulatory Problems Past Medical History: Diagnosis Date Anxiety Depression ([facility]) History of petit-mal seizures HISTORY PAST MEDICAL HISTORY SOCIAL HISTORY Past Medical History: Diagnosis Date Anxiety Depression ([facility]) History of petit-mal seizures Social History Tobacco [...] nursing note reviewed. Exam conducted with a butadiene compressor operator present. Vitals: Estimated body mass index [...] decreased movement. Patient advised to report to [facility] for assessment. Patient to have NST/BPP/AIME. [...] AM EDT Routine [facility] [address] [place] [phone] Paz Varela PA [address] [place] [address] documented as of this encounter Goals Goal [...] documented as of this encounter Care Teams Culvert Installer Relationship Specialty Start Date End Date [place] [address] PCP - General Family Medicine 11/18/23 documented as of this encounter
--- OUTSIDE RECORDS SUMMARY | 2024-12-10 09:49 | XMS_ITS | Encounter Summary ---
Author Organization [facility] Address [address] [facility] [place] [address] Care Team Providers Care Tripe Washer Name Role Phone Lan Malcolm MD Primary Care Provider [phone] Encounter Details Date Type Department Care Team (Late st Contact Info) Description 08/25/2024 Orders Only [facility] BCP OB [address] [place] [address] Radha Munoz LPN [address] [place] [id number] Social History Tobacco Use Types Packs/Day Years [...] AM EDT Routine [facility] BCP OB [address] [facility] [place] [address] Paz Varela PA [address] [facility] [place] [address] documented as of this encounter Goals Goal [...] documented as of this encounter Care Teams Tripe Washer Relationship Specialty Start Date End Date Lan Malcolm MD [address] [place] [address] PCP - General Family Medicine 11/18/23 documented as of this encounter
--- OUTSIDE RECORDS SUMMARY | 2024-12-10 09:49 | XMS_ITS | Encounter Summary ---
Author Organization [facility] Address [address] [place] [address] Care Team Providers Care Granulating Machine Operator Name Role Phone Lan Malcolm MD Primary Care Provider [phone] Encounter Details Date Type Department Care Team (Late Contact Info) Description 11/21/2023 Clinisync Result Encounter [facility] External Department Unsolicited Elsa Putnam NP [address] [place] [address] Social History Tobacco Use Types Packs/Day Years [...] AM EDT Routine [facility] BCP OB [address] [facility] [place] [address] Paz Varela PA [address] [facility] [place] [address] documented as of this encounter Procedures Procedure [...] by: TEJAL Technologist: KALYN us Elsa Putnam FURNITURE REMOVALIST'S ASSISTANT IMG XR PROCEDURES Final Result documented in this encounter Visit Diagnoses Not on filedocumented in this encounter Care Teams Granulating Machine Operator Relationship Specialty Start Date End Date Lan Malcolm MD [address] [place] [address] PCP - General Family Medicine 11/18/23 documented as of this encounter
--- OUTSIDE RECORDS SUMMARY | 2024-12-10 09:49 | XMS_ITS | Encounter Summary ---
Author Organization [facility] Address [address] [place] [address] Care Team Providers Care Middleware Administrator Name Role Phone Lan Malcolm MD Primary Care Provider [phone] Encounter Details Date Type Department Care Team (Late st Contact Info) Description 12/04/2024 Clinisync Result Encounter [facility] External Department Unsolicited Baltazar Gross, DO [address] [facility] [place] [address] Social History Tobacco Use Types Packs/Day Years [...] AM EDT Routine [facility] BCP OB [address] [facility] [place] [address] Paz Vraela PA [address] [facility] [place] [address] documented as of this encounter Goals Goal Patient Goal Type Associated Problems Recent Progress Patient-Stated? Author Reminders Care Plan OB Reminders No Open Scheduling, Background documented as of this encounter Procedures Procedure Name Priority Date/Time Associated Diagnosis Comments HMHP CBC WITH PLATELET NO DIFFERENTIAL Routine 12/04/2024 10:19 PM EDT AMNISURE Routine 12/04/2024 9:17 PM EDT TBH URINE MICROSCOPIC ONLY Routine 12/04/2024 8:42 PM EDT TBH UA (CLEAN/CATCH) RETAIL CLIENT SOLUTIONS ANALYST/MICRO IF IND. Routine 12/04/2024 8:42 PM EDT documented in this encounter Results * (ABNORMAL) HMHP CBC WITH PLATELET NO DIFFERENTIAL (12/04/2024 10:19 PM EDT) TBH WBC 16.3(H) 4.0 - 11.0 10 3/uL TBH TBH RBC 3.42(L) 4.20 - 5.40 10 6/uL TBH TBH HGB 9.3(L) 12.0 - 16.0 g/dL TBH TBH HCT 28.9(L) 36.0 - 48.0 % TBH TBH MCV 84.5 81.0 - 99.0 fL TBH TBH MCH 27.2 26.7 - 34.0 pg TBH TBH MCHC 32.2 29.9 - 35.2 g/dL TBH TBH RDW 15.1(H) 11.0 - 15.0 % TBH TBH PLT 176 150 - 450 10 3/uL TBH TBH MPV 12.5 9.5 - 13.5 fL TBH 12/04/2024 10:1 9 PM EDT 12/04/2024 10:30 PM EDT Narrative [facility] - 12/04/2024 10:36 PM EDT Baltazar Ginny DO [facility] Final Result Performing Organization Address [facility]/ZIP Co de Phone Number [facility] * AMNISURE (12/04/2024 9:17 PM EDT) Pathologist [facility] AMNISURE NEGATIVE NEGATIVE TB[facility] 12/04/2024 9:17 PM EDT 12/04/2024 9:26 PM EDT Narrative [facility] - 12/04/2024 9:42 PM EDT Baltazar Ginny DO LAB BLOOD ORDERABLES Final Resul t Performing Organization Address [facility] Co de Phone Number [facility] * (ABNORMAL) [facility] URINE MICROSCOPIC ONLY (12/04/2024 8:42 PM EDT) [facility] WBC 5-10(A) NONE SEEN #/HPF TBH TBH RBC 0-2 0 - 2 #/HPF TBH BACTERIA URINE LARGE(A) NONE SEEN #/HPF TBH MUCUS URINE NONE SEEN NONE SEEN TBH SQUAMOUS EPITHELIAL CELL URINE MANY(A) NONE/RARE #/LPF TBH CRYSTALS SEEN? None Seen None Seen #/HPF TBH CAST SEEN? NONE SEEN NONE SEEN #/LPF TBH URINE CULTURE INDICATED YES-LC TBH 12/04/2024 8:42 PM EDT 12/04/2024 9:26 PM EDT Narrative [facility] - 12/04/2024 9:41 PM EDT Baltazar Ginny DO [facility] Final Result Performing Organization Address [facility]/ZIP Co de Phone Number [facility] * (ABNORMAL) TBH UA (CLEAN/CATCH) RETAIL CLIENT SOLUTIONS ANALYST/MICRO IF IND. (12/04/2024 8:42 PM EDT) COLOR URINE LT. YELLOW YELLOW TBH CLARITY URINE CLEAR CLEAR TBH SPECIFIC GRAVITY URINE 1.015 1.005 - 1.025 TBH PH URINE 6.0 5.0 - 9.0 TBH PROTEIN URINE TRACE NEG/TRACE mg/dL TBH GLUCOSE URINE UA >=1000(A) NEGATIVE mg/dL TBH BILIRUBIN URINE NEGATIVE NEGATIVE TBH KETONES URINE TRACE(A) NEGATIVE mg/dL TBH BLOOD URINE TRACE-I NEGATIVE TBH NITRITE URINE NEGATIVE NEGATIVE TBH UROBILINOGEN URINE 0.2 0.2 - 1.0 EU/dL TBH LEUKOCYTE ESTERASE URINE NEGATIVE NEGATIVE TBH URINE MICROSCOPIC INDICATED YES TBH 12/04/2024 8:42 PM EDT 12/04/2024 9:26 PM EDT Narrative [facility] - 12/04/2024 9:41 PM EDT us Baltazar Ginny DO [facility] Final Result Performing Organization Address City/State/[facility] Co de Phone Number [facility] documented in this encounter Visit Diagnoses Not on filedocumented in this encounter Additional Health Concerns Active Problems Noted Date Diagnosed Date OB Reminders 06/27/2024 documented as of this encounter Care Teams Middleware Administrator Relationship Specialty Start Date End Date Lan Malcolm MD [address] [place] [address] PCP - General Family Medicine 11/18/23 documented as of this encounter
--- OUTSIDE RECORDS SUMMARY | 2024-12-10 09:49 | XMS_ITS | Encounter Summary ---
Author Organization [facility] Address [address] [facility] [place] [address] Care Team Providers Care Hot Strip Finisher Name Role Phone Lan Malcolm MD Primary Care Provider [phone] Encounter Details Date Type Department Care Team (Late st Contact Info) Description 07/22/2024 Abstract [facility] OB [address] [place] [address] Baltazar Gross, DO [address] [facility] [address] [place], [place] [address] Social History Tobacco Use Types Packs/Day Years [...] OB [address] [place] [address] Paz Varela PA [address] [facility] [place] [address] documented as of this encounter Goals Goal Patient Goal Type Associated Problems Recent Progress Patient-Stated? Author Reminders Care Plan OB Reminders No Open Scheduling, Background documented as of this encounter Visit Diagnoses Not on filedocumented in this encounter Additional Health Concerns Active Problems Noted Date Diagnosed Date OB Reminders 06/27/2024 documented as of this encounter Care Teams Hot Strip Finisher Relationship Specialty Start Date End Date Lan Malcolm MD [address] [place] [address] PCP - General Family Medicine 11/18/23 documented as of this encounter
--- OUTSIDE RECORDS SUMMARY | 2024-12-10 09:50 | XMS_ITS | Encounter Summary ---
Author Organization [facility] Address [address] [facility] [place] [address] Care Team Providers Care Application Operations Engineer Name Role Phone Lan Malcolm MD Primary Care Provider [phone] Encounter Details Date Type Department Care Team (Late st Contact Info) Description 06/26/2024 Abstract [facility] OB [address] [place] [address] Baltazar Gross, DO [address] [place], [place] [address] Social History Tobacco Use Types Packs/Day Years [...] [address] [facility] [place] [address] Paz Varela PA [address] [facility] [place] [address] documented as of this encounter Visit Diagnoses Not on filedocumented in this encounter Care Teams Application Operations Engineer Relationship Specialty Start Date End Date Lan Malcolm MD [address] [place] [address] PCP - General Family Medicine 11/18/23 documented as of this encounter
--- OUTSIDE RECORDS SUMMARY | 2024-12-10 09:50 | XMS_ITS | Encounter Summary ---
Author Organization [facility] Address [address] [facility] [place] [address] Care Team Providers Care Shorer Name Role Phone Lan Malcolm MD Primary Care Provider [phone] Encounter Details Date Type Department Care Team (Late st Contact Info) Description 12/02/2024 Abstract [facility] OB [address] [place] [address] Baltazar Gross, DO [address] [facility] [address], [place] [address] Social History Tobacco Use Types Packs/Day Years [...] AM EDT Routine [facility] BCP OB [address] [facility] [place] [address] Paz Varela PA [address] [facility] [place] [address] documented as of this encounter Goals Goal Patient Goal Type Associated Problems Recent Progress Patient-Stated? Author Reminders Care Plan OB Reminders No Open Scheduling, Background documented as of this encounter Visit Diagnoses Not on filedocumented in this encounter Additional Health Concerns Active Problems Noted Date Diagnosed Date OB Reminders 06/27/2024 documented as of this encounter Care Teams Shorer Relationship Specialty Start Date End Date Lan Malcolm MD [address] [place] [address] PCP - General Family Medicine 11/18/23 documented as of this encounter
--- OUTSIDE RECORDS SUMMARY | 2024-12-10 09:50 | XMS_ITS | Encounter Summary ---
Author Organization [facility] Address [address] [facility] [place] [address] Care Team Providers Care Manager Technical Training Name Role Phone Lan Malcolm MD Primary Care Provider [phone] Encounter Details Date Type Department Care Team (Late st Contact Info) Description 05/28/2024 Abstract [facility] OB [address] [place] [address] Baltazar Gross, DO [address] [facility] [address] [place], [place] [address] Social History Tobacco Use Types Packs/Day Years [...] Routine [facility] BCP OB [address] [facility] [place] [address] Paz Varela PA [address] [facility] [place] [address] documented as of this encounter Visit Diagnoses Not on filedocumented in this encounter Care Teams Manager Technical Training Relationship Specialty Start Date End Date Lan Malcolm MD [address] [place] [address] PCP - General Family Medicine 11/18/23 documented as of this encounter
--- OUTSIDE RECORDS SUMMARY | 2024-12-10 09:50 | XMS_ITS | Encounter Summary ---
Author Organization [facility] Address [address] [place] [address] Care Team Providers Care Plant Engineer Name Role Phone Lan Malcolm MD Primary Care Provider [phone] Encounter Details Date Type Department Care Team (Late st Contact Info) Description 12/03/2024 Clinisync Result Encounter NOMS External Department Unsolicited Giovany Gross, DO [address] [facility] [place] [address] Social History Tobacco Use Types Packs/Day Years [...] AM EDT Routine [facility] BCP OB [address] [facility] [place] [address] Paz Varela PA [address] [facility] [place] [address] documented as of this encounter Goals Goal Patient Goal Type Associated Problems Recent Progress Patient-Stated? Author Reminders Care Plan OB Reminders No Open Scheduling, Background documented as of this encounter Procedures Procedure Name Priority Date/Time Associated Diagnosis Comments US OB CERVICAL LENGTH 12/03/2024 11:32 AM EDT documented in this encounter Results * US OB CERVICAL LENGTH (12/03/2024 11:32 AM EDT) Anatomical Region Laterality Modality Other 12/03/2024 11:3 2 AM EDT Narrative 12/03/2024 11:34 AM EDT [address] [address] Ultrasound Report Signed Patient: STEPHON ZULETA MR#: [id number] : 1995 Acct:[id number] Age/Sex: 29 / F ADM Date: Loc: [facility] 258-[address]: Giovany Gross D.O. Ordering Physician: Giovany Gross D.O. Date of Service: 12/03/24 Procedure(s): US OB cervical length Accession Number(s): [id number] cc: MACHELLE VIVEROS; Giovany Gross D.O. The [address] [address] Patient Name: STEPHON ZULETA MRN: [facility]:[id number] date: 1995 Sex: F Assigned Patient Location: US Current Patient Location: US Accession/Order Number: [id number] Exam Date: 12/03/2024 11:21 Report Date: 12/03/2024 11:32 At the request of: GIOVANY NOLBERTO DO Procedure: US OB BPP w non-stress CLINICAL DATA: Cramping, leaking and decreased movement. BIOPHYSICAL PROFILE: COMPARISON: 11/26/2024 There is a single live intrauterine gestation in cephalic presentation. The reported gestational age is 33 weeks 3 days. The heart rate [id number] beats per minute. FINDINGS: TONE: 1 or more episodes of activity extension and flexion of extremity or opening and closing of the hand [Y] 2/2 GROSS BODY MOVEMENTS: 3 or more discrete body or limb movements [Y] 2/2 BREATHING MOVEMENTS: 1 or more episodes of breathing lasting at least 30 seconds [Y] 2/2 AIME: A single deepest vertical pocket of amniotic fluid greater than 2 cm [Y] 2/2 AIME: 9.5 cm . The 5th percentile is 8.3 cm. Total score: 8/8 US/US OB cervical length IMPRESSION: NORMAL BIOPHYSICAL PROFILE. ULTRASOUND OB CERVICAL LENGTH COMPARISON: 05/28/2024 The cervix was evaluated using a transvaginal probe. The cervix is closed. Estimated length is 4 cm. There is no evidence of previa. IMPRESSION: CLOSED CERVIX Impression dictated by: Giovanna High M.D. 12/03/2024 11:32 AM Dictation Location: [place] [address] Electronically authenticated by: [id number] Y Date: 12/03/2024 11:32 Dictated By: Giovanna High M.D. Signed By: 12/03/24 1134 DD/ 1132 TD/TT: Quarry Supervisor: Procedure Note Radiology, Radiologist, MD - 12/03/2024 [place] [address] Ultrasound Report Signed Patient: STEPHON ZULETA RMR#: [id number] : 1995Acct:[id number] Age/Sex: Date: Loc: [facility] 258-[address]: Giovany Gross D.O. Ordering Physician: Giovany Gross D.O. Date of Service: 12/03/24 Procedure(s): US OB cervical length Accession Number(s): [id number] cc: MACHELLE VIVEROS; Giovany Gross D.O. The [place] [address] Patient Name: STEPHON ZULETA MRN: [facility]:[id number] date: 1995 Sex: F Assigned Patient Location: Current Patient Location: Accession/Order Number: [id number] Exam Date: 12/03/2024 11:21 Report Date: 12/03/2024 11:32 At the request of: GIOVANY GROSS DO Procedure: US OB BPP w non-stress CLINICAL DATA: Cramping, leaking and decreased movement. BIOPHYSICAL PROFILE: COMPARISON: 11/26/2024 There is a single live intrauterine gestation in cephalic presentation.The reported gestational age is 33 weeks 3 days. The heart [id number] beats per minute. FINDINGS: TONE: 1 or more episodes of activity extension and flexion of extremity or opening and closing of the hand [Y] 2/2 GROSS BODY MOVEMENTS: 3 or more discrete body or limb movements [Y] 2/2 BREATHING MOVEMENTS: 1 or more episodes of breathing lastingat least 30 seconds [Y] 2/2 AIME: A single deepest vertical pocket of amniotic fluid greater than 2 cm [Y] 2/2 AIME: 9.5 cm . The 5th percentile is 8.3 cm. Total score: 8/8 US/US OB cervical length IMPRESSION: NORMAL BIOPHYSICAL PROFILE. ULTRASOUND OB CERVICAL LENGTH COMPARISON: 05/28/2024 The cervix was evaluated using a transvaginal probe. The cervix isclosed. Estimated length is 4 cm. There is no evidence of previa. IMPRESSION: CLOSED CERVIX Impression dictated by: Giovanna High M.D. 12/03/2024 11:32 AM Dictation Location: [place] [address] Electronically authenticated by: [id number] Y Date: 1:32 Dictated By: Giovanna High M.D. Signed By:12/03/24 1134 DD/ 1132 TD/TT: Quarry Supervisor: Giovany Gross DO [facility] Final Result documented in this encounter Visit Diagnoses Not on filedocumented in this encounter Additional Health Concerns Active Problems Noted Date Diagnosed Date OB Reminders 06/27/2024 documented as of this encounter Care Teams Plant Engineer Relationship Specialty Start Date End Date Lan Malcolm MD [address] [place] [address] PCP - General Family Medicine 11/18/23 documented as of this encounter
--- OUTSIDE RECORDS SUMMARY | 2024-12-10 09:50 | XMS_ITS | Encounter Summary ---
Author Organization [facility] Address [address] [facility] [address] Care Team Providers Care Race Starter Name Role Phone Lan Malcolm MD Primary Care Provider [phone] Encounter Details Date Type Department Care Team (Late st Contact Info) Description 12/03/2024 Bamboo flowsheet [facility] BCP OB [address] [place] [phone] Baltazar Gross, DO [address] [facility] [address], [facility] Social History Tobacco Use Types Packs/Day Years [...] AM EDT Routine [facility] BCP OB [address] [facility] [place] [address] Paz Varela PA [address] [facility] [place] [address] documented as of this encounter Goals Goal Patient Goal Type Associated Problems Recent Progress Patient-Stated? Author Reminders Care Plan OB Reminders No Open Scheduling, Background documented as of this encounter Visit Diagnoses Not on filedocumented in this encounter Additional Health Concerns Active Problems Noted Date Diagnosed Date OB Reminders 06/27/2024 documented as of this encounter Care Teams Race Starter Relationship Specialty Start Date End Date [place] [address] PCP - General Family Medicine 11/18/23 documented as of this encounter
--- OUTSIDE RECORDS SUMMARY | 2024-12-10 09:50 | XMS_ITS | Encounter Summary ---
Author Organization [facility] Address [address] [place] [address] Care Team Providers Care Education Associate Name Role Phone Lan Malcolm MD Primary Care Provider [phone] Encounter Details Date Type Department Care Team [...] 10:20 AM EDT Routine [facility] [address] [place] [address] [place] [address] Paz Varela PA [address] [place] [address] [place] [address] documented as of this encounter Goals Goal Patient Goal Type Associated Problems Recent Progress Patient-Stated? Author Reminders Care Plan OB Reminders No Open Scheduling, Background documented as of this encounter Visit Diagnoses Not on filedocumented in this encounter Additional Health Concerns Active Problems Noted Date Diagnosed Date OB Reminders 06/27/2024 documented as of this encounter Care Teams Education Associate Relationship Specialty Start Date End Date Lan Malcolm MD [address] [place] [address] PCP - General Family Medicine 11/18/23 documented as of this encounter
--- OUTSIDE RECORDS SUMMARY | 2024-12-10 09:50 | XMS_ITS | Patient Health Record ---
Author Organization [employer] [facility] Address [address] [place] [address] Care Team Providers Care Ladle Filler Name Role Phone Evelyn West Primary Care Provider Corine Hendrickson Unavailable [phone] Germania Yusuf Unavailable [phone] Allergies Allergen (clinical drug ingredient) Drug/Non Drug Allergy documented on EMR Reaction Allergy Type Onset Date Status losartan Cozaar Unknown Drug Allergy Active Reason For Referral No Information Medications Medication SIG (Take, Route, Frequency, Duration) Notes Start Date End Date Status Pen [place] 30G X 5 MM 1 pen needle subcutaneously once a day for 30 days 12/27/2022 Not-Taking Alcohol Swabs 70 % as directed as direc suzanna for 30 days 11/21/2022 Not-Taking Xanax 0.5 MG 1 tablet Orally Twic e a day 12/25/2023 Not-Taking Loestrin Fe 08/03 1-20 MG-MCG 1 tablet Orally Once a day for 28 day(s) 11/05/2022 Not-Taking Bunlrthxi-Shqjinbj-ES 30-2-10 MG/5ML 10mL Orally every 6 hrs [...] Problem Status W/U Status Risk Notes Problem 79768436 Attention-defici t hyperactivity disorder, predominantly inattentive type (F90.0) Active confirmed Problem 632450852802347 Obesity (BMI 30.0-34.9) (E66.9) Active confirmed Problem 17998172 Chronic fatigue (R53.82) Active confirmed Problem 53550309762056 Episodic mood disorder (F39) Active confirmed Problem 005270760 Status migrainosus (G43.901) Active confirmed Problem Acute sciatica (534132497) Acute sciatica (M54.30) Active confirmed Problem 18568226 Seizure, petit mal (G40.A09) Active confirmed Problem 45425710 Generalized anxiety disorder (F41.1) Active confirmed Problem 81009354 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 Vital Signs Heart Rate 94 /min 05/15/2024 Temperature 98.1 degrees Fahrenheit 05/15/2024 Blood pressure diastolic 82 mm Hg 05/15/2024 Oximetry 99 % 05/15/2024 Height 65.5 in 05/15/2024 Blood pressure systolic 129 mm Hg 05/15/2024 Weight 172.6 lbs 05/15/2024 BMI 28.28 kg/m2 05/15/2024 Encounters Encounter Location Date Provider Diagnosis [facility] [address] [place] [address] 12/16/2023 Evelyn West [facility] [address] [place] [address] 12/18/2023 Evelyn West Obesity (BMI 30.0-34.9) E66.9 [facility] [address] [place] [address] 12/18/2023 Corine Slingwine [facility] [address] [place] [address] 12/25/2023 Corine Slingwine [facility] [address] [place] [address] 01/20/2024 Corine Slingwine [facility] [address] [place] [address] 02/20/2024 Germania Yusuf [facility] [address] [place] [address] 03/27[facility]20[facility] [place] [address] 04/29/2024 Corine Slingwine [address] [address] 05/15/2024 Corine Slingwine Attention-deficit hyperactivity disorder, predominantly inattentive type F90.0 ; Episodic mood disorder F39 ; Generalized anxiety disorder F41.1 ; Chronic fatigue R53.82 and Insomnia due to mental disorder F51.[address] [address] 12/25/2023 Corine Slingwine Generalized anxiety disorder F41.1 ; Chronic fatigue R53.82 and Attention-deficit hyperactivity disorder, predominantly inattentive type F90.[address] [address] 01/10/2024 Corine Slingwine Generalized anxiety disorder F41.1 ; Attention-deficit hyperactivity disorder, predominantly inattentive type F90.0 ; Episodic mood disorder F39 and Insomnia due to mental disorder F51.[address] [address] 01/28/2024 Corine Slingwine Generalized anxiety disorder F41.1 ; Chronic fatigue R53.82 ; Attention-deficit hyperactivity disorder, predominantly inattentive type F90.0 ; Episodic mood disorder F39 and Insomnia due to mental disorder F51.05 [address] [place] [address] 03/05/2024 Corine Hendrickson Generalized anxiety disorder F41.1 ; Chronic fatigue R53.82 ; Attention-deficit hyperactivity disorder, predominantly inattentive type F90.0 ; Episodic mood disorder F39 and Insomnia due to mental disorder F51.05 Assessments Encounter Date Diagnosis (ICD Code) Assessment [...] patient crisis plan. Provided crisis hotline number. [facility] has good support system. Made aware to [...] patient crisis plan. Provided crisis hotline number. [facility] has good support system. Made aware to [...] Date [employer] [place] [employer] [address] [place] [phone] [id number] JIMENALEXISOPHIE Self - patient is the insured 3 [facility] [address] [place] [address] [id number] LEXI HESSHillaryCHINOMelvi Self - patient is the insured 3 [facility] [employer] [place] Medicaid [address] [place] [phone] [id number] LEXI HESSHillaryCHINOMelvi Self - patient is the insured 3 [facility] [address] [place] [address] [id number] LEXI HESSSOPHIE Self - patient is the insured 3 Medical (General) History Medical History History ICD Code Depression Anxiety ADHD petit mal seizures PCOS Surgical History Surgery Date(Month/Year) tonsillectomy and adenoidectomy Hospitalization History Reason Date(Month/Year) see surgical
--- OUTSIDE RECORDS SUMMARY | 2024-12-10 09:50 | XMS_ITS | Encounter Summary ---
Author Organization [facility] Address [address] [facility] [place] [address] Care Team Providers Care Delivery Helper Name Role Phone Lan Malcolm MD Primary Care Provider [phone] Encounter Details Date Type Department Care Team (Late st Contact Info) Description 06/26/2024 Abstract [facility] OB [address] [place] [address] Baltazar Gross, DO [address] Columba Soriano, [place] [address] Social History Tobacco Use Types Packs/Day Years [...] AM EDT Routine [facility] [address] [facility] [place] [address] Paz Varela PA [address] [facility] [place] [address] documented as of this encounter Visit Diagnoses Not on filedocumented in this encounter Care Teams Delivery Helper Relationship Specialty Start Date End Date Lan Malcolm MD [address] [place] [address] PCP - General Family Medicine 11/18/23 documented as of this encounter
--- OUTSIDE RECORDS SUMMARY | 2024-12-10 09:50 | XMS_ITS | Encounter Summary ---
Author Organization [facility] Address [address] [place] [address] Care Team Providers Care Nutritional Assistant Name Role Phone Lan Malcolm MD Primary Care Provider [phone] Encounter Details Date Type Department Care Team (Late st Contact Info) Description 11/26/2024 Clinisync Result Encounter [facility] External Department Unsolicited Giovany Gross, DO [address] [facility] [place] [address] Social History Tobacco Use Types Packs/Day Years [...] OB [address] [facility] [place] [address] Paz Varela PA [address] [facility] [place] [address] documented as of this encounter Goals Goal [...] EDT Narrative 11/26/2024 11:50 AM EDT The [address] [address] Ultrasound Report Signed Patient: STEPHON ZULETA MR#: [id number] : 1995 Acct:[id number] Age/Sex: 29 / F ADM Date: 11/26/24 Loc: US Attending Dr: Giovany Gross D.O. Ordering Physician: Giovany Gross D.O. Date of Service: 11/26/24 Procedure(s): US OB BPP w non-stress Accession Number(s): [id number] cc: MACHELLE VIVEROS; Giovany Gross D.O. The [address] [address] Patient Name: STEPHON ZULETA MRN: [id number] date: 1995 Sex: F Assigned Patient Location: [facility] Current Patient Location: Accession/Order Number: [id number] Exam Date: 11/26/2024 11:46 Report Date: 11/26/2024 [...] Costello M.D. 11/26/2024 11:47 AM Dictation Location: [place] [address] Electronically authenticated by: [id number] Y Date: 11/26/2024 11:47 Dictated By: Addison Costello M.D. Signed By: 11/26/24 1150 DD/ 1147 TD/TT: Financial Assistance Specialist: Procedure Note Radiology, Radiologist, MD - 11/26/2024 [place] [address] Ultrasound Report Signed Patient: STEPHON ZULETA RMR#: [id number] : 1995Acct:[id number] Age/Sex: 29 / FADM Date: 11/26/24 Loc: US Attending Dr: Giovany Gross D.O. Ordering Physician: Giovany Gross D.O. Date of Service: 11/26/24 Procedure(s): US OB BPP w non-stress Accession Number(s): [id number] cc: MACHELLE VIVEROS; Giovany Gross D.O. The [place] [address] Patient Name: STEPHON ZULETA MRN: [facility]:[id number] date: 1995 Sex: F Assigned Patient Location: [facility] Current Patient Location: Accession/Order Number: [id number] Exam Date: 11/26/2024 11:46 Report Date: 11/26/2024 [...] Costello M.D. 11/26/2024 11:47 AM Dictation Location: [place] [address] Electronically authenticated by: [id number] Y Date: 1:47 Dictated By: Addison Costello M.D. Signed By:11/26/24 1150 DD/ 1147 TD/TT: Financial Assistance Specialist: us Giovany Gross DO [facility] Final Result documented in this encounter Visit Diagnoses Not on filedocumented in this encounter Additional Health Concerns Active Problems Noted Date Diagnosed Date OB Reminders 06/27/2024 documented as of this encounter Care Teams Nutritional Assistant Relationship Specialty Start Date End Date Lan Malcolm MD [address] [place] [address] PCP - General Family Medicine 11/18/23 documented as of this encounter
--- OUTSIDE RECORDS SUMMARY | 2024-12-10 09:50 | XMS_ITS | Encounter Summary ---
Author Organization [facility] Address [address] [place] [address] Care Team Providers Care Speech Language Pathologist Travel Name Role Phone Lan Malcolm MD Primary Care Provider Encounter Details Date Type Department Care Team (Late st Contact Info) Description 11/30/2024 Telephone [facility] OB [address] [place] [address] Suzanna Oneal LPN [address] [place] [address] Social History Tobacco Use Types Packs/Day Years [...] she has a history of preeclampsia. The quality control industrial engineer doctor told he to call us to make sure we gotresults. I called pt back to let her know that we had not received anything but I did get on the [employer] site and print off everything. I old her to monitor things and when Dr. Gross got back tomorrow, I would see if he wanted to do anything further. PVU. I also told pt that if symptoms got worse to go straight to [facility] to get evaluated. PVU documented in this encounter Plan of Treatment Upcoming Encounters Date Type Department Care Team (Late st Contact Info) Description 12/17/2024 10:20 AM EDT Routine [facility] OB [address] [facility] [address] Paz Varela PA [address] [facility] [place] [address] documented as of this encounter Goals Goal Patient Goal Type Associated Problems Recent Progress Patient-Stated? Author Reminders Care Plan OB Reminders No Open Scheduling, Background documented as of this encounter Visit Diagnoses Not on filedocumented in this encounter Additional Health Concerns Active Problems Noted Date Diagnosed Date OB Reminders 06/27/2024 documented as of this encounter Care Teams Speech Language Pathologist Travel Relationship Specialty Start Date End Date [place] [address] PCP - General Family Medicine 11/18/23 documented as of this encounter
--- OUTSIDE RECORDS SUMMARY | 2024-12-10 09:50 | XMS_ITS | Clinical Summary ---
Author Organization [facility] Address [address] [place] [address] Care Team Providers Care Emergency Veterinarian Name Role Phone Lan Malcolm MD Primary Care Provider [phone] Allergies Active Allergy Reactions Criticality Noted Date [...] Encounters Date Type Department Care Team Description 12/04/2024 Clinisync Result Encounter NOMS External Department Unsolicited Giovany Gross DO 12/03/2024 10:00 AM EDT Routine [facility] [address] [place] [address] Giovany Gross DO Third trimester ; 33 weeks gestation of ; Decreased appetite 12/03/2024 Clinisync Result Encounter NOMS External Department Unsolicited Giovany Gross, DO 12/03/2024 Clinisync Result Encounter NOMS External Department Unsolicited Giovany Gross, DO 12/03/2024 Bamboo flowsheet [facility] [address] [place] [address] Giovany Gross, DO 12/02/2024 Abstract [facility] OB [address] [place], [place] [address] [address] Giovany Gross, DO 12/01/2024 Travel 11/30/[address] [facility] [address] [place] [address] Suzanna Oneal, DEJAN 11/26/2024 Clinisync Result Encounter NOMS External Department Unsolicited Giovany Gross, DO 11/19/2024 11:30 AM EDT Routine [facility] OB [facility] [place] [address] Paz Varela PA Third trimester ; 31 weeks gestation of 11/19/2024 11:00 AM EDT Ancillary Procedure [facility] [address] [place] [address] H/O pre-eclampsia in prior , currently ; H/O delivery, currently 11/19/2024 Clinisync Result Encounter NOMS External Department Unsolicited Giovany Gross, DO 11/12/2024 Clinisync Result Encounter NOMS External Department Unsolicited Giovany Gross, DO 11/05/2024 10:40 AM EDT Routine [facility] OB [address] [place] [address] Giovany Gross, DO Third trimester ; 29 weeks gestation of ; H/O pre-eclampsia in prior , currently ; H/O delivery, currently ; Heart palpitations; Shortness of breath; Seizures (CMS/HCC); Syncope, near 11/05/2024 Bamboo flowsheet [facility] OB [address] [facility] [place] [address] Giovany Gross, 10/31/2024 Travel 10/15/2024 Clinisync Result Encounter NOMS External Department Unsolicited Giovany Gross, DO 10/14/2024 Telephone [facility] [address] [place] [address] Suzanna Oneal LPN 10/01/2024 11:40 AM EDT Routine [facility] [address] [place] [address] Giovany Gross DO Anemia, unspecified type (Primary Dx); Second trimester ; 24 weeks gestation of 10/01/2024 10:30 AM EDT Ancillary Procedure [facility] [address] [place] [address] Low-lying placenta 09/29/2024 Travel 09/29/2024 Clinisync Result Encounter NOMS External Department Unsolicited Giovany Gross, DO 09/23/2024 Telephone [facility] [address] [place] [address] Suzanna Oneal LPN 09/14/2024 Telephone [facility] [address] [place] [address] Giovany Gross DO from Last 3 Months Family History Medical [...] AM EDT Routine [facility] BCP OB [address] [facility] [place] [address] Paz Varela PA [address] [facility] [place] [address] Health Maintenance Due Date Last Done Comments [...] 12/04/2024 8:42 PM EDT TBH UA (CLEAN/CATCH) DISTANCE EDUCATION FACULTY LIAISON/MICRO IF IND. Routine 12/04/2024 8:42 PM EDT US OB BPP W NON-STRESS 12/03/2024 11:32 AM EDT US OB CERVICAL LENGTH 12/03/2024 11:32 AM EDT AMNISURE Routine 12/03/2024 11:25 AM EDT POCT URINALYSIS DIPSTICK Routine 12/03/2024 10:05 AM [...] WITH AUTO DIFF Routine 7:35 AM EDT from Last 3 Months Results * (ABNORMAL) HP CBC WITH PLATELET NO DIFFERENTIAL (12/04/2024 10:19 PM EDT) TB WBC 16.3(H) 4.0 - 11.0 10 3/uL [...] Narrative CLINISYNC - 12/04/2024 10:36 PM EDT us Giovany Ginny DO CLINISYNC Final Result [facility] * AMNISURE (12/04/2024 9:17 PM EDT) Only the most recent of2 resultswithin the time period is included. TB AMNISURE NEGATIVE NEGATIVE TBH 12/04/2024 9:17 PM EDT 12/04/2024 9:26 PM EDT Narrative CLINISYNC - 12/04/2024 9:42 PM EDT Nambiio DO LAB BLOOD ORDERABLES Final Resul t Performing Organization Address [facility]/ZIP Co de Phone Number CLINISYNC TBH * (ABNORMAL) TBH URINE MICROSCOPIC ONLY (12/04/2024 8:42 PM EDT) TBH WBC 5-10(A) NONE SEEN #/HPF TBH TBH [...] Narrative CLINISYNC - 12/04/2024 9:41 PM EDT Giovany Ginny DO CLINISYNC Final Result Performing Organization Address [facility] Co de Phone Number CLINSACHINNC TBH * (ABNORMAL) TBH UA (CLEAN/CATCH) DISTANCE EDUCATION FACULTY LIAISON/MICRO IF IND. (12/04/2024 8:42 PM EDT) COLOR [...] Narrative CLINISYNC - 12/04/2024 9:41 PM EDT Giovany Gross DO CLINISYTARI Final Result [facility]IKA [facility] * US OB BPP W NON-STRESS (12/03/2024 11:32 AM EDT) Only the most recent of4 resultswithin the time period is included. Anatomical Region Laterality Modality Other 12/03/2024 11:3 2 AM EDT Narrative 12/03/2024 11:34 [place] [address] Ultrasound Report Signed Patient: POP HESS MR#: [id number] : 1995 Acct:[id number] Age/Sex: 29 / F ADM Date: Loc: [facility] 258- Attending Dr: Giovany Gross D.O. Ordering Physician: Giovany Gross D.O. Date of Service: 12/03/24 Procedure(s): US OB BPP w non-stress Accession Number(s): [id number] cc: MACHELLE VIVEROS; Giovany Gross D.O. The [place] [address] Patient Name: POP HESS MRN: [id number]:[id number] date: 1995 Sex: F Assigned Patient Location: US Current Patient Location: US Accession/Order Number: [id number] Exam Date: 12/03/2024 11:21 Report Date: 12/03/2024 11:32 At the request of: GIOVANY GROSS DO Procedure: US OB BPP w non-stress CLINICAL DATA: Cramping, leaking and decreased movement. BIOPHYSICAL PROFILE: COMPARISON: 11/26/2024 There is a single live intrauterine gestation in cephalic presentation. The reported gestational age is 33 weeks 3 days. The heart rate beats per minute. FINDINGS: TONE: 1 or [...] 8.3 cm. Total score: 8/8 US/US OB BPP w non-stress IMPRESSION: NORMAL BIOPHYSICAL PROFILE. ULTRASOUND OB CERVICAL LENGTH COMPARISON: 05/28/2024 The cervix was evaluated using a transvaginal probe. The cervix is closed. Estimated length is 4 cm. There is no evidence of previa. IMPRESSION: CLOSED CERVIX Impression dictated by: Giovanna High M.D. 12/03/2024 11:32 AM Dictation Location: [place] [address] Electronically authenticated by: [id number] Y Date: 12/03/2024 11:32 Dictated By: Giovanna High M.D. Signed By: 12/03/24 1134 DD/ 1132 TD/TT: Rigging Worker: Procedure Note Radiology, Radiologist, MD - 12/03/2024 [place] [address] Ultrasound Report Signed Patient: POP HESS RMR#: [id number] : 1995Acct:[id number] Age/Sex: 29 / FADM Date: Loc: [facility] 258-[address]: Giovany Gross D.O. Ordering Physician: Giovany Gross D.O. Date of Service: 12/03/24 Procedure(s): US OB BPP w non-stress Accession Number(s): [id number] cc: MACHELLE VIVEROS; Giovany Gross D.O. [facility] [place] [address] Patient Name: POP HESS MRN: [id number] date: 1995 Sex: F Assigned Patient Location: US Current Patient Location: US Accession/Order Number: [id number] Exam Date: 12/03/2024 11:21 Report Date: 12/03/2024 11:32 At the request of: GIOVANY GROSS DO Procedure: US OB BPP w non-stress CLINICAL DATA: Cramping, leaking and decreased movement. BIOPHYSICAL PROFILE: COMPARISON: 11/26/2024 There is a single live intrauterine gestation in cephalic presentation.The reported gestational age is 33 weeks 3 days. The heart hauprvxgpfts167 beats per minute. FINDINGS: TONE: 1 or [...] 8.3 cm. Total score: 8/8 US/US OB BPP w non-stress IMPRESSION: NORMAL BIOPHYSICAL PROFILE. ULTRASOUND OB CERVICAL LENGTH COMPARISON: 05/28/2024 The cervix was evaluated using a transvaginal probe. The cervix isclosed. Estimated length is 4 cm. There is no evidence of previa. IMPRESSION: CLOSED CERVIX Impression dictated by: Giovanna High M.D. 12/03/2024 11:32 AM Dictation Location: [place] [address] Electronically authenticated by: [id number] Y Date: 1:32 Dictated By: Giovanna High M.D. Signed By:12/03/24 1134 DD/ 1132 TD/TT: Rigging Worker: us Giovany Gross DO CLINISYNC IMAGING Final Result * US OB CERVICAL LENGTH (12/03/2024 11:32 AM EDT) Anatomical Region Laterality Modality Other 12/03/2024 11:3 2 AM EDT Narrative 12/03/2024 11:34 AM EDT [address] [address] Ultrasound Report Signed Patient: POP HESS MR#: [id number] : 1995 Acct:[id number] Age/Sex: 29 / F ADM Date: Loc: [facility] 258-[address]: Giovany Gross D.O. Ordering Physician: Giovany Gross D.O. Date of Service: 12/03/24 Procedure(s): US OB cervical length Accession Number(s): [id number] cc: MACHELLE VIVEROS; Giovany Gross D.O. [facility] [address] [place], [place] [address] Patient Name: POP HESS MRN: [id number] date: 1995 Sex: F Assigned Patient Location: US Current Patient Location: US Accession/Order Number: [id number] Exam Date: 12/03/2024 11:21 Report Date: 12/03/2024 11:32 At the request of: GIOVANY GROSS DO Procedure: US OB BPP w non-stress CLINICAL DATA: Cramping, leaking and decreased movement. BIOPHYSICAL PROFILE: COMPARISON: 11/26/2024 There is a single live intrauterine gestation in cephalic presentation. The reported gestational age is 33 weeks 3 days. The heart rate beats per minute. FINDINGS: TONE: 1 or [...] 5th percentile is 8.3 cm. Total score: 8/ US/US OB cervical length IMPRESSION: NORMAL BIOPHYSICAL PROFILE. ULTRASOUND OB CERVICAL LENGTH COMPARISON: 05/28/2024 The cervix was evaluated using a transvaginal probe. The cervix is closed. Estimated length is 4 cm. There is no evidence of previa. IMPRESSION: CLOSED CERVIX Impression dictated by: Giovanna High M.D. 12/03/2024 11:32 AM Dictation Location: [place] [address] Electronically authenticated by: [id number] Y Date: 12/03/2024 11:32 Dictated By: Giovanna High M.D. Signed By: 12/03/24 1134 DD/ 1132 TD/TT: Rigging Worker: Procedure Note Radiology, Radiologist, - 12/03/2024 [place] [address] Ultrasound Report Signed Patient: POP HESS RMR#: [id number] : 1995Acct:[id number] Age/Sex: 29 FADM Date: Loc: [facility] 258-[address]: Giovany Gross D.O. Ordering Physician: Giovany Gross D.O. Date of Service: 12/03/24 Procedure(s): US OB cervical length Accession Number(s): [id number] cc: MACHELLE VIVEROS; Giovany Gross D.O. [facility] [place] [address] Patient Name: POP HESS MRN: [facility]:[id number] date: 1995 Sex: F Assigned Patient Location: US Current Patient Location: US Accession/Order Number: [id number] Exam Date: 12/03/2024 11:21 Report Date: 12/03/2024 11:32 At the request of: GIOVANY GROSS DO Procedure: US OB BPP w non-stress CLINICAL DATA: Cramping, leaking and decreased movement. BIOPHYSICAL PROFILE: COMPARISON: 11/26/2024 There is a single live intrauterine gestation in cephalic presentation.The reported gestational age is 33 weeks 3 days. The heart jayhnlphthsb489 beats per minute. FINDINGS: TONE: 1 or [...] High M.D. 12/03/2024 11:32 AM Dictation Location: [place] [address] Electronically authenticated by: [id number] Y Date: 1:32 Dictated By: Giovanna High M.D. Signed By:12/03/24 1134 DD/ 1132 TD/TT: Rigging Worker: us Giovany Ginny DO CLINISYNC IMAGING Final Result * (ABNORMAL) POCT urinalysis dipstick manually resulted [...] 12/03/2024 10:0 5 AM EDT us Giovany Ginny DO POINT OF CARE TEST ENTER/EDIT OR DERABLES Final Result * US OB follow up [...] II, MD, PHD at 22-Nov-2024 08:21:01 PM [facility] Procedure Note Tone Wallace MD - [...] TONE WALLACE II, MD, PHD 08:21:01 PM [facility] us Giovany Ginny DO IMG OB US PROCEDURES Final Resul t * (ABNORMAL) TRANSFERRIN (10/15/2024 8:50 AM EDT) TRANSFERRIN 418(A) 192 - 364 mg/dL TBH Comment: Performed at: [address] [id number] Irrigating Pump Operator: Randall Dumont PhD, Phone: [phone] 10/15/2024 8:50 AM EDT 10/15/2024 8:50 AM EDT Narrative CLINISYNC - 10/16/2024 5:07 AM EDT us Giovany Ginny DO LAB BLOOD ORDERABLES Final Resul t [facility] * [facility] FERRITIN (10/15/2024 8:50 AM EDT) FERRITIN 8.0 8.0 - 252.0 ng/mL TBH 10/15/2024 8:50 AM EDT 10/15/2024 8:50 AM EDT Narrative CLINISYNC - 10/15/2024 11:11 AM EDT us Giovany Gross DO CLINISYNC Final Result CLINISYTARI [facility] * (ABNORMAL) ALL CBC WITH AUTO DIFF (10/15/2024 8:50 AM EDT) Only the most recent of2 resultswithin the time period is included. Pathologist [facility] TBH WBC 10.5 4.0 - 11.0 10 [...] AM EDT 10/15/2024 8:50 AM EDT Narrative CHARLIISYNC - 10/15/2024 9:01 AM EDT us Giovany Ginny DO CLINISYNC Final Result [facility] * US OB limited 1+ fetuses (10/01/2024 [...] II, MD, PHD at 02-Oct-2024 08:30:32 PM [facility] Procedure Note Tone Wallace MD - [...] WALLACE II, MD, PHDat 02-Oct-2024 08:30:32 PM [facility] us Giovany Ginny DO IMG OB US PROCEDURES Final Resul t * (ABNORMAL) GLUCOSE 1 HOUR (09/29/2024 7:35 AM EDT) GLUCOSE 1 HOUR 131(H) <130 mg/dL TBH 09/29/2024 7:35 AM EDT 09/29/2024 7:36 AM EDT Narrative CLINISYNC - 09/29/2024 9:44 AM EDT us Giovany Ginny DO LAB BLOOD ORDERABLES Final Resul t [facility]INISYNC [facility] from Last 3 Months Additional Health Concerns Active Problems Noted Date Diagnosed Date OB Reminders 06/27/2024 Insurance [employer] Care Teams Emergency Veterinarian Relationship Specialty Start Date End Date Lan Malcolm MD [address] [place], [place] [address]jud[place] [address] PCP - General Family Medicine 11/18/23
--- OUTSIDE RECORDS SUMMARY | 2024-12-10 09:50 | XMS_ITS | Encounter Summary ---
Author Organization [facility] Address [address] [facility] [place] [address] Care Team Providers Care Electrical Transmission Engineer Name Role Phone Lan Malcolm MD Primary Care Provider [phone] Encounter Details Date Type Department Care Team (Late st Contact Info) Description 06/26/2024 Abstract [facility] OB [address] [place] [address] Baltazar Gross, DO [address] [place], [place] [address] Social History Tobacco Use Types Packs/Day Years [...] [address] [facility] [place] [address] Pza Varela PA [address] [facility] [place] [address] documented as of this encounter Visit Diagnoses Not on filedocumented in this encounter Care Teams Electrical Transmission Engineer Relationship Specialty Start Date End Date Lan Malcolm MD [address] [place] [address] PCP - General Family Medicine 11/18/23 documented as of this encounter
--- OUTSIDE RECORDS SUMMARY | 2024-12-10 09:50 | XMS_ITS | Encounter Summary ---
Author Organization [facility] Address [address] [place] [address] Care Team Providers Care Money Laundering Investigator Name Role Phone Lan Malcolm MD Primary Care Provider [phone] Encounter Details Date Type Department Care Team (Late Contact Info) Description 05/29/2024 Clinisync Result Encounter NOMS External Department Unsolicited Giovany Gross, DO [address] [facility] [place] [address] Social History Tobacco Use Types Packs/Day Years [...] [address] [facility] [place] [address] Paz Varela PA [address] [facility] [place] [address] documented as of this encounter Procedures Procedure Name Priority Date/Time Associated Diagnosis Comments US OB TRANSVAGINAL 05/29/2024 4: 13 AM EST documented in this encounter Results * US OB TRANSVAGINAL (05/29/2024 4:13 AM EST) Anatomical Region Laterality Modality Other 05/29/2024 4:13 AM EST Narrative 05/29/2024 4:15 AM EST [address] [address] Ultrasound Report Signed Patient: Stephon Zuleta MR#: [id number] : 1995 Acct:[id number] Age/Sex: 29 / F ADM Date: 05/28/24 Loc: [facility] Attending Dr: Giovany Gross D.O. Ordering Physician: Giovany Gross D.O. Date of Service: 05/28/24 Procedure(s): US OB transvaginal Accession Number(s): [id number] cc: Giovany Gross D.O.; Lan Malcolm [address] [address] Patient Name: STEPHON ZULETA MRN: [id number] date: 1995 Sex: F Assigned Patient Location: [facility] Current Patient Location: Accession/Order Number: [id number] Exam Date: 05/28/2024 10:20 Report Date: 05/29/2024 [...] M.D. Signed By: 05/29/24414 DD/ 2 TD/TT: Sand Polisher: Procedure Note Radiology, Radiologist, MD - 05/29/2024 [place] [address] Ultrasound Report Signed Patient: Stephon Zuleta RMR#: [id number] : 1995Acct:[id number] Age/Sex: 29 / FADM Date: 05/28/24 Loc: [facility] Attending Dr: Giovany Gross D.O. Ordering Physician: Giovany Gross D.O. Date of Service: 05/28/24 Procedure(s): US OB transvaginal Accession Number(s): [id number] cc: Giovany Gross D.O.; Lan Malcolm NP [facility] [place] [id number] Patient Name: STEPHON ZULETA MRN: [id number] date: 1995 Sex: F Assigned Patient Location: [facility] Current Patient Location: Accession/Order Number: [id number] Exam Date: 05/28/2024 10:20 Report Date: 05/29/2024 [...] BY US CRL: 6 weeks 0 days PRCIE BY US CRL: 01/21/2025 US/US OB transvaginal IMPRESSION: 1. Single live intrauterine . Electronically authenticated by: CONSUELO FERRER Date: 05/29/2024 04:13 Dictated By: Consuelo Ferrer M.D. Signed By:05/29/24414 DD/ 2 TD/TT: Sand Polisher: us Giovany Ginny DO CLINISYNC IMAGING Final Result documented in this encounter Visit Diagnoses Not on filedocumented in this encounter Care Teams Money Laundering Investigator Relationship Specialty Start Date End Date Lan Malcolm MD [address] [place] [address] PCP - General Family Medicine 11/18/23 documented as of this encounter
--- OUTSIDE RECORDS SUMMARY | 2024-12-10 09:50 | XMS_ITS | Encounter Summary ---
Author Organization [facility] Address [address] [facility] [place] [address] Care Team Providers Care Software Engineer Web Services Name Role Phone Lan Malcolm MD Primary Care Provider [phone] Encounter Details Date Type Department Care Team (Late st Contact Info) Description 07/02/2024 Abstract [facility] OB [address] [place] [address] Baltazar Gross, DO [address] Columba Soriano, [place] [address] Social History Tobacco Use Types Packs/Day Years [...] [address] [facility] [place] [address] Paz Varela PA [address] [facility] [place] [address] documented as of this encounter Goals Goal Patient Goal Type Associated Problems Recent Progress Patient-Stated? Author Reminders Care Plan OB Reminders No Open Scheduling, Background documented as of this encounter Visit Diagnoses Not on filedocumented in this encounter Additional Health Concerns Active Problems Noted Date Diagnosed Date OB Reminders 06/27/2024 documented as of this encounter Care Teams Software Engineer Web Services Relationship Specialty Start Date End Date Lan Malcolm MD [address] [place] [address] PCP - General Family Medicine 11/18/23 documented as of this encounter
--- OUTSIDE RECORDS SUMMARY | 2024-12-10 09:50 | XMS_ITS | Encounter Summary ---
Author Organization [facility] Address [address] [place] [address] Care Team Providers Care Beautician Apprentice Name Role Phone Lan Malcolm MD Primary Care Provider [phone] Encounter Details Date Type Department Care Team (Late st Contact Info) Description 12/03/2024 Clinisync Result Encounter [facility] External Department Unsolicited Giovany Gross, DO [address] [facility] [address] Social History Tobacco Use Types Packs/Day Years [...] [facility] [place] [phone] Paz Varela PA [address] [facility] [place] [address] documented as of this encounter Goals Goal Patient Goal Type Associated Problems Recent Progress Patient-Stated? Author Reminders Care Plan OB Reminders No Open Scheduling, Background documented as of this encounter Procedures Procedure Name Priority Date/Time Associated Diagnosis Comments US OB BPP W NON-STRESS 12/03/2024 11:32 AM EDT AMNISURE Routine 12/03/2024 11:25 AM EDT documented in this encounter Results * US OB BPP W NON-STRESS (12/03/2024 11:32 AM EDT) Anatomical Region Laterality Modality Other 12/03/2024 11:3 2 AM EDT Narrative 12/03/2024 11:34 AM EDT [address] [address] Ultrasound Report Signed Patient: STEPHON ZULETA MR#: [id number] : 1995 Acct:[id number] Age/Sex: 29 / F ADM Date: Loc: [facility] 258- Attending Dr: Giovany Gross D.O. Ordering Physician: Giovany Gross D.O. Date of Service: 12/03/24 Procedure(s): US OB BPP w non-stress Accession Number(s): [id number] cc: MACHELLE VIVEROS; Giovany Gross D.O. The [address] [address] Patient Name: STEPHON ZULETA MRN: [id number] date: 1995 Sex: F Assigned Patient Location: US Current Patient Location: US Accession/Order Number: [id number] Exam Date: 12/03/2024 11:21 Report Date: 12/03/2024 11:32 At the request of: GIOVANY GROSS DO Procedure: US OB BPP w non-stress CLINICAL DATA: Cramping, leaking and decreased movement. BIOPHYSICAL PROFILE: COMPARISON: 11/26/2024 There is a single live intrauterine gestation in cephalic presentation. The reported gestational age is 33 weeks 3 days. The heart rate ebdrtppp023 beats per minute. FINDINGS: TONE: 1 or [...] High M.D. 12/03/2024 11:32 AM Dictation Location: [place] [address] Electronically authenticated by: [id number] Y Date: 12/03/2024 11:32 Dictated By: Giovanna iHgh M.D. Signed By: 12/03/24 1134 DD/ 1132 TD/TT: Summer Analyst: Procedure Note Radiology, Radiologist, MD - 12/03/2024 The [place] [id number] Ultrasound Report Signed Patient: STEPHON ZULETA RMR#: [id number] : 1995Acct:[id number] Age/Sex: 29 / FADM Date: Loc: [facility] 258-[address]: Giovany Gross D.O. Ordering Physician: Giovany Gross D.O. Date of Service: 12/03/24 Procedure(s): US OB BPP w non-stress Accession Number(s): [id number] cc: MACHELLE VIVEROS; Giovany Gross D.O. [place] [id number] Patient Name: STEPHON ZULETA MRN: [facility]:[id number] date: 1995 Sex: F Assigned Patient Location: Current Patient Location: US Accession/Order Number: [id number] Exam Date: 12/03/2024 11:21 Report Date: 12/03/2024 11:32 At the request of: GIOVANY GROSS DO Procedure: US OB BPP w non-stress CLINICAL DATA: Cramping, leaking and decreased movement. BIOPHYSICAL PROFILE: COMPARISON: 11/26/2024 There is a single live intrauterine gestation in cephalic presentation.The reported gestational age is 33 weeks 3 days. The heart cgyrrywlxrnh760 beats per minute. FINDINGS: TONE: 1 or [...] High M.D. 12/03/2024 11:32 AM Dictation Location: [place] [address] Electronically authenticated by: [id number] Y Date: 1:32 Dictated By: Giovanna High M.D. Signed By:12/03/24 1134 DD/ 1132 TD/TT: Summer Analyst: us Giovany Ginny DO CLINISYNC IMAGING Final Result * AMNISURE (12/03/2024 11:25 AM EDT) Pathologist [facility] AMNISURE NEGATIVE NEGATIVE [facility] 12/03/2024 11:2 5 AM EDT 12/03/2024 11:33 AM EDT Narrative CLINISYNC - 12/03/2024 11:45 AM EDT us Giovany Ginny DO LAB BLOOD ORDERABLES Final Resul t [facility] documented in this encounter Visit Diagnoses Not on filedocumented in this encounter Additional Health Concerns Active Problems Noted Date Diagnosed Date OB Reminders 06/27/2024 documented as of this encounter Care Teams Beautician Apprentice Relationship Specialty Start Date End Date Lan Malcolm MD [address] [place] [address] PCP - General Family Medicine 11/18/23 documented as of this encounter
--- NOTE | 2024-12-10 09:52 | US_ITS ---
[facility] [place] [address] Patient Name: GREGORIO HESS MRN: [id number] date: 1995 Sex: F Assigned Patient Location: [facility] Current Patient Location: [facility] Accession/Order Number: [id number] Exam Date: 12/10/2024 10:30 Report Date: 12/10/2024 10:32 At the request of: GIOVANY ARVIZU DO Procedure: US OB BPP w non-stress BIOPHYSICAL PROFILE: CLINICAL INFORMATION: History of pre-eclampsia and delivery COMPARISON: 12/03/2024 There is a single live intrauterine gestation in cephalic presentation. The reported gestational age is 34 weeks 3 days. The heart rate measures 150 beats per minute. FINDINGS: TONE: 1 or more episodes of activity extension and flexion of extremity or opening and closing of the hand [Y] 2/2 GROSS BODY MOVEMENTS: 3 or more discrete body or limb movements [Y] 2/2 BREATHING MOVEMENTS: 1 or more episodes of breathing lasting at least 30 seconds [Y] 2/2 AIME: A single deepest vertical pocket of amniotic fluid greater than 2 cm [Y] 2/2 AIME: 8.2 cm. This is near the 5th percentile. Total score: 8/8 US/US OB BPP w non-stress IMPRESSION: NORMAL BIOPHYSICAL PROFILE. BORDERLINE OLIGOHYDRAMNIOS. Impression dictated by: Giovanna High M.D. 12/10/2024 10:32 AM Dictation Location: [place] [address] Electronically authenticated by: [id number] Y Date: 12/10/2024 10:32
--- OUTSIDE RECORDS SUMMARY | 2024-12-10 09:53 | XMS_ITS | CCD ---
Author Organization [facility] Care Team Providers Care Roofing Layer Name Role Phone Ros Segovia Primary Care Physician DO Reyes Rodriguez Attending Provider [phone] MISTorri, DR BRAGG Primary Care Unavailable EBEN [...] GIOVANY Attending Unavailable PAZ METZGER Attending Unavailable GINNY, GIOVANY Attending Unavailable Allergies Allergy Classification Reported Allergen(s) Allergy Type Date of Onset Reaction(s) Facility (20 sources) Losartan Drug Allergy 06-25-2024 [facility] Healthcare Medications Current Medications Medication Drug Class(es) Dates Sig (Normalized) Sig (Original) cephalexin 500 mg oral capsule (5 sources) Cephalosporin Antibacterial Start: 12-24-2021 take 1 capsule by mouth four times daily cephalexin 500 mg Cap 500 mg = 1 cap(s), Oral, QID, # 40 cap(s), Refills(s) 0, Pharmacy: [facility] 1986, 165.1, cm, 12/24/21 19:35:00 EDT, Height/Length Dosing, 77.5, kg, 12/24/21 19:35:00 EDT, Weight Dosing Start Date: 12/24/21 Status: Ordered ibuprofen 600 mg oral tablet (5 sources) Nonsteroidal Anti-inflammatory Drug Start: 12-24-2021 take 1 tablet by mouth every six hours ibuprofen 600 mg Tab 600 mg = 1 tab(s), Oral, q6hr, # 40 tab(s), Refills(s) 0, Pharmacy: [facility] 1986, 165.1, cm, 12/24/21 19:35:00 EDT, [...] & Min w/FA-DHA ( ADULT GUMMY/DHA/FA PO) (20 sources) take 1 dose by mouth once daily MV & Min w/FA-DHA ( ADULT GUMMY/DHA/FA PO) Take 1 each by mouth Daily Active Vit-Fe Fumarate-FA ( Vitamins) 28-0.8 MG tablet (20 sources) Start: 08-06-2024 End: 08-06-2025 take 1 [...] Drug Class(es) Dates Sig (Normalized) Sig (Original) [id number] 200 actuat albuterol 0.09 mg/actuat metered dose [...] 09-25-2022 Episodic Other aftercare (1 source) 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] Range Facility Urinalysis macro (dipstick) panel (U)on 12-03-2024 Bilirubin, UA Negative Negative - 4(70) +++ mg/dL [facility] Blood, UA Negative Negative - 50 Theodore/mcL [facility] Clarity, UA Clear [facility] Color, UA Yellow [facility] Glucose, UA Positive Negative - 2000(110) ++++ mg/dL [facility] Comment on above: 250 Interpretation and review of laboratory results Abnormal [facility] Ketones, UA Negative Negative - 160(16) ++++ mg/dL [facility] Leukocytes, UA Negative Negative - 500+++ Mike/mcL [facility] Nitrite, UA Negative Negative - Positive [facility] pH, UA 6 5 - 9 [facility] Protein, UA Negative Negative - 2000(20) ++++ mg/dL [facility] Spec Grav, UA 1.005 1 - 1.03 [facility] Urobilinogen, UA 0.2 0.2 - 12 mg/dL [facility] US OB BPP W NON-STRESS on 11-26-2024 [place] [address] Ultrasound Report Signed Patient: GREGORIO HESS MR#: [id number] : 1995 Acct:[id number] Age/Sex: 29 / F ADM Date: 11/26/24 Loc: US Attending Dr: Giovany Gross D.O. Ordering Physician: Giovany Gross D.O. Date of Service: 11/26/24 Procedure(s): US OB BPP w non-stress Accession Number(s): [id number] cc: MACHELLE VIVEROS; Giovany Gross D.O. [place] [address] Patient Name: GREGORIO HESS MRN: [id number] date: 1995 Sex: F Assigned Patient Location: [facility] Current Patient Location: Accession/Order Number: [id number] Exam Date: 11/26/2024 11:46 Report Date: 11/26/2024 [...] Costello M.D. 11/26/2024 11:47 AM Dictation Location: [place] [address] Electronically authenticated by: [id number] Y Date: 11/26/2024 11:47 Dictated By: Addison Costello M.D. Signed By: 11/26/24 1150 DD/ 1147 TD/TT: Heavy Equipment Technician: [facility] Radiology, Radiologist, MD - 11/26/2024 [place] [address] Ultrasound Report Signed Patient: GREGORIO HESS MR#: [id number] : 1995 Acct:[id number] Age/Sex: 29 / F ADM Date: 11/26/24 Loc: US Attending Dr: Giovany Gross D.O. Ordering Physician: Giovany Gross D.O. Date of Service: 11/26/24 Procedure(s): US OB BPP w non-stress Accession Number(s): [id number] cc: MACHELLE VIVEROS; Giovany Gross D.O. The [place] [id number] Patient Name: GREGORIO HESS MRN: [facility]:[id number] date: 1995 Sex: F Assigned Patient Location: [facility] Current Patient Location: Accession/Order Number: [id number] Exam Date: 11/26/2024 11:46 Report Date: 11/26/2024 [...] Costello M.D. 11/26/2024 11:47 AM Dictation Location: [place] Electronically authenticated by: [id number] Y Date: 11/26/2024 11:47 Dictated By: Addison Costello M.D. Signed By: 11/26/24 115 DD/ 1147 TD/TT: Heavy Equipment Technician: [facility] Radiology Study observation (narrative) [facility] US OB BPP W NON-STRESS Ordered By: Radiologist Radiology on 11-26-2024 [facility] Work Phone: US OB BPP W NON-STRESS on 11-19-2024 [place] [address] Ultrasound Report Signed Patient: GREGORIO HESS MR#: [id number] : 1995 Acct:[id number] Age/Sex: 29 / F ADM Date: 11/19/24 Loc: US Attending Dr: Giovany Gross D.O. Ordering Physician: Giovany Gross D.O. Date of Service: 11/19/24 Procedure(s): US OB BPP w non-stress Accession Number(s): [id number] cc: MACHELLE VIVEROS; Giovany Gross D.O. The [place] [id number] Patient Name: GREGORIO HESS MRN: [id number] date: 1995 Sex: F Assigned Patient Location: US Current Patient Location: Accession/Order Number: [id number] Exam Date: 11/19/2024 10:58 Report Date: 11/19/2024 10:59 At the request of: GIOVANY GROSS DO Procedure: US OB BPP w non-stress Biophysical profile. History of preeclampsia. COMPARISON: 11/12/2024 TECHNIQUE: Transabdominal imaging of the gravid uterus was obtained Findings: Plant Operations Worker reports a biophysical profile 8 out of 8. AIME is normal at 13.3 cm. heart rate 148 bpm. US/US OB BPP w non-stress Impression: BPP 8 out of 8. Impression dictated by: Dirk Chaves Jr., D.O. 11/19/2024 10:59 AM Dictation Location: [place] [address] Electronically authenticated by: [id number] Y Date: 11/19/2024 10:59 Dictated By: Dirk Chaves M.D. Signed By: 11/19/24 1102 DD/ 1059 TD/TT: Heavy Equipment Technician: [facility] Radiology, Radiologist, MD - 11/19/2024 [place] [address] Ultrasound Report Signed Patient: GREGORIO HESS MR#: [id number] : 1995 Acct:[id number] Age/Sex: 29 / F ADM Date: 11/19/24 Loc: Attending Dr: Giovany Gross D.O. Ordering Physician: Giovany Gross D.O. Date of Service: 11/19/24 Procedure(s): US OB BPP w non-stress Accession Number(s): [id number] cc: MACHELLE VIVEROS; Giovany Gross D.O. The [address] [id number] Patient Name: GREGORIO HESS MRN: [facility]:[id number] date: 1995 Sex: F Assigned Patient Location: Current Patient Location: Accession/Order Number: [id number] Exam Date: 11/19/2024 10:58 Report Date: 11/19/2024 10:59 At the request of: GIOVANY GROSS DO Procedure: US OB BPP w non-stress Biophysical profile. History of preeclampsia. COMPARISON: 11/12/2024 TECHNIQUE: Transabdominal imaging of the gravid uterus was obtained Findings: Plant Operations Worker reports a biophysical profile 8 out of 8. AIME is normal at 13.3 cm. heart rate 148 bpm. US/US OB BPP w non-stress Impression: BPP 8 out of 8. Impression dictated by: Dirk Chaves Jr., D.O. 11/19/2024 10:59 AM Dictation Location: [employer] Electronically authenticated by: [id number] Y Date: 11/19/2024 10:59 Dictated By: Dirk Chaves M.D. Signed By: 11/19/24 1102 DD/ 1059 TD/TT: Heavy Equipment Technician: [facility] Radiology Study observation (narrative) [facility] US OB BPP W NON-STRESS Ordered By: Radiologist Radiology on 11-19-2024 [facility] Work Phone: US OB FOLLOW UP TRANSABDOMIN [...] II, MD, PHD at 22-Nov-2024 08:21:01 PM [facility] Normal Not Available Comment on above: Order Comment: US OB SCAN FOR GROWTH Estimated Date of Delivery: 01/18/25 Gestational Age as of 11/05/2024: 29w3d Urinalysis macro (dipstick) panel (U)on 11-19-2024 Bilirubin, UA Negative Negative - 4(70) +++ mg/dL [facility] Blood, UA Negative Negative - 50 Theodore/mcL [facility] Clarity, UA Clear [facility] Color, UA Yellow [facility] Glucose, UA Positive Negative - 2000(110) ++++ mg/dL [facility] Comment on above: 100mg/dL Interpretation and review of laboratory results Abnormal [facility] Ketones, UA Negative Negative - 160(16) ++++ mg/dL [facility] Leukocytes, UA Trace Negative - 500+++ Mike/mcL [facility] Nitrite, UA Negative Negative - Positive [facility] pH, UA 6 5 - 9 [facility] Protein, UA Negative Negative - 2000(20) ++++ mg/dL [facility] Spec Grav, UA 1.01 1 - 1.03 [facility] Urobilinogen, UA 0.2 0.2 - 12 mg/dL [facility] US OB BPP W NON-STRESS on 11-12-2024 [place] [address] Ultrasound Report Signed Patient: GREGORIO HESS MR#: [id number] : 1995 Acct:[id number] Age/Sex: 29 / F ADM Date: 11/12/24 Loc: [facility] 250-[address]: Giovany Gross D.O. Ordering Physician: Giovany Gross D.O. Date of Service: 11/12/24 Procedure(s): US OB BPP w non-stress Accession Number(s): [id number] cc: MACHELLE VIVEROS; Giovany Gross D.O. [address] [address] Patient Name: GREGORIO HESS MRN: [facility]:[id number] date: 1995 Sex: F Assigned Patient Location: [facility] Current Patient Location: [facility] Accession/Order Number: [id number] Exam Date: 11/12/2024 10:30 Report Date: 11/12/2024 10:32 At the request of: GIOVANY GROSS DO Procedure: US OB BPP w non-stress Biophysical profile. History of preeclampsia. COMPARISON: None. TECHNIQUE: Transabdominal imaging of the gravid uterus was obtained Findings: Plant Operations Worker reports a biophysical profile 8 out of 8. AIME is normal at 10.2 cm. heart rate 155 bpm. US/US OB BPP w non-stress Impression: BPP 8 out of 8. Impression dictated by: Dirk Chaves Jr., D.O. 11/12/2024 10:32 AM Dictation Location: [place] [address] Electronically authenticated by: [id number] Y Date: 11/12/2024 10:32 Dictated By: Dirk Chaves M.D. Signed By: 11/12/24 1034 DD/ 1032 TD/TT: Heavy Equipment Technician: [facility] Radiology, Radiologist, - 11/12/2024 [place] [address] Ultrasound Report Signed Patient: GREGORIO HESS MR#: [id number] : 1995 Acct:[id number] Age/Sex: 29 / F ADM Date: 11/12/24 Loc: [facility] 250-[address]: Giovany Gross D.O. Ordering Physician: Giovany Gross D.O. Date of Service: 11/12/24 Procedure(s): US OB BPP w non-stress Accession Number(s): [id number] cc: MACHELLE VIVEROS; Giovany Gross D.O. The [place] [id number] Patient Name: GREGORIO HESS MRN: [facility]:[id number] date: 1995 Sex: F Assigned Patient Location: [facility] Current Patient Location: [facility] Accession/Order Number: [id number] Exam Date: 11/12/2024 10:30 Report Date: 11/12/2024 10:32 At the request of: GIOVANY GROSS DO Procedure: US OB BPP w non-stress Biophysical profile. History of preeclampsia. COMPARISON: None. TECHNIQUE: Transabdominal imaging of the gravid uterus was obtained Findings: Plant Operations Worker reports a biophysical profile 8 out of 8. AIME is normal at 10.2 cm. heart rate 155 bpm. US/US OB BPP w non-stress Impression: BPP 8 out of 8. Impression dictated by: Dirk Chaves Jr., D.O. 11/12/2024 10:32 AM Dictation Location: [place] [address] Electronically authenticated by: [id number] Y Date: 11/12/2024 10:32 Dictated By: Dirk Chaves M.D. Signed By: 11/12/24 1034 DD/ 1032 TD/TT: Heavy Equipment Technician: [facility] Radiology Study observation (narrative) [facility] US OB BPP W NON-STRESS Ordered By: Radiologist Radiology on 11-12-2024 [facility] Work Phone: Urinalysis macro (dipstick) panel (U)on 11-05-2024 Bilirubin, UA Negative Negative - 4(70) +++ mg/dL [facility] Blood, UA Negative Negative - 50 Theodore/mcL [facility] Clarity, UA Clear [facility] Color, UA Yellow [facility] Glucose, UA Negative Negative - 2000(110) ++++ mg/dL [facility] Interpretation and review of laboratory results Normal [facility] Ketones, UA Negative Negative - 160(16) ++++ mg/dL [facility] Leukocytes, UA Trace Negative - 500+++ Mike/mcL [facility] Nitrite, UA Negative Negative - Positive [facility] pH, UA 7 5 - 9 [facility] Protein, UA Negative Negative - 2000(20) ++++ mg/dL [facility] Spec Grav, UA 1.015 1 - 1.03 [facility] Urobilinogen, UA 0.2 0.2 - 12 mg/dL [facility] ALL CBC WITH AUTO DIFFon BASOPHILS ABSOLUTE AUTO 0 [facility] Basophils/100 WBC (Bld) 0.1 % Low 0.2 - 2.0 % [facility] Eosinophils/100 WBC (Bld) 0.3 % Low 0.9 - 7.0 % [facility] Erythrocyte distribution width (RBC) [Ratio] 14.6 % 11.0 - 15.0 % [facility] Hematocrit (Bld) [Volume fraction] 32.5 % Low 36.0 - 48.0 % [facility] Hemoglobin (Bld) [Mass/Vol] 10.7 g/dL Low 12.0 - 16.0 g/dL [facility] IMMATURE GRANULOCYTES ABS AUTO 0.14 High [facility] Immature granulocytes/100 WBC (Bld) 1.3 % High 0.0 - 0.5 % [facility] Interpretation and review of laboratory results Abnormal [facility] LYMPHOCYTES ABSOLUTE AUTO 1.9 [facility] Lymphocytes/100 WBC (Bld) 18 % Low 20.5 - 60.0 % [facility] MCH (RBC) [Entitic mass] 29.6 pg 26.7 - 34.0 pg [facility] MCHC (RBC) [Mass/Vol] 32.9 g/dL 29.9 - 35.2 g/dL [facility] MCV (RBC) [Entitic vol] 89.8 fL 81.0 - 99.0 fL [facility] MONOCYTES ABSOLUTE AUTO 0.6 [facility] Monocytes/100 WBC (Bld) 6 % 1.7 - 12.0 % [facility] NEUTROPHILS ABSOLUTE AUTO 7.8 High [facility] Neutrophils/100 WBC (Bld) 74.3 % 43.0 - 75.0 % [facility] Platelet mean volume (Bld) [Entitic vol] 12 fL 9.5 - 13.5 fL [facility] EO # 0 [facility] PLT [facility] RBC 3.62 Low [facility] WBC 10.5 [facility] US OB LIMITED 1+ FETUSESon 0 10-01-2024 [...] II, MD, PHD at 02-Oct-2024 08:30:32 PM [facility] Normal Not Available Comment on above: Order Comment: US OB INCOMPLETE ANATOMY W US OB TRANSVAGINAL Estimated Date of Delivery: 01/18/25 Gestational Age as of 09/10/2024: 21w3d Urinalysis macro (dipstick) panel (U)on 10-01-2024 Bilirubin, UA Positive Negative - 4(70) +++ mg/dL [facility] Comment on above: small Blood, UA Negative Negative - 50 Theodore/mcL [facility] Clarity, UA Clear [facility] Color, UA Yellow [facility] Glucose, UA Positive Negative - 2000(110) ++++ mg/dL [facility] Comment on above: 100mg/dL Interpretation and review of laboratory results Abnormal [facility] Ketones, UA Positive Negative - 160(16) ++++ mg/dL [facility] Comment on above: 15mg/dL Leukocytes, UA Trace Negative - 500+++ Mike/mcL [facility] Nitrite, UA Negative Negative - Positive [facility] pH, UA 5.5 5 - 9 [facility] Protein, UA Positive Negative - 2000(20) ++++ mg/dL [facility] Comment on above: 100mg/dL Spec Grav, UA 1.03 1 - 1.03 [facility] Urobilinogen, UA 1.0 0.2 - 12 mg/dL [facility] AFP, SERUM, OPEN SPINA BIFID Aon 09-11-2024 AFP MOM 0.83 . [facility] AFP VALUE 47.8 ng/mL . [facility] COMMENT: Comment . [facility] Comment on above: Marci Cox , Ph.D., [facility] Director References: Available Upon Request. Multiples Of Median Cutoffs For AFP Elevations Webster 2.5 Black 2.8 IDD 2.0 Twins 4.5 Abbreviation Definitions IDD - Insulin Dep Diabetes OSBR - Open Spina Bifida Risk For further inquiries contact [employer] [facility] at [phone]. This test was developed and its performance characteristics determined by [employer]. It has not been cleared or approved by the Food and Drug Administration. Performed at: [facility] [place], [place] [id number] Special Delivery Carrier: Arie Shipman [facility], Phone: [phone] GEST. AGE ON COLLECTION DATE 21.3 . weeks [facility] GESTAT. AGE BASED ON LMP . [facility] Comment on above: Recalculations are n ot recommended when gestational dating by LMP and ultrasound are within 10 days. INSULIN DEP DIABETES No . [facility] INTERPRETATION Comment . [facility] Comment on above: Interpretation: Scre en Negative [...] Customer Services to discuss available options. The [employer] recommends amniocentesis be offered to women age 35 and older. [age] PR[age] . [age] [facility] MULTIPLE GESTATION No . [facility] [place] [id number] . [facility] RACE . [facility] RESULTS Report . [facility] TEST RESULTS: Negative . [facility] WEIGHT 186 . lbs [facility] N N LMP [id number] 3 17 N 1 186 N N N N N White/ [facility] IGP,APTIMA HPV,AGE GDLNon AGE GDLN ACOG TESTING Note . [facility] Comment on above: TESTS RESULT FLAG UN ITS REF RANGE LAB Clinician Provided Cytology Information Source.............Cervix Other.............. No. of containers..01 ThinPrep Vial Age Devang EVANS Amarilis... FLAG LEGEND: L-Low Normal,H-High Normal,LL-Alert Low,HH-Alert High <-Panic Low,>-Panic High,A-Abnormal,AA-Critical Abnormal Performed at: 01 =G [facility] [address] Huma Hicks MD, IGP, RFX APTIMA HPV ASCU Note . [facility] Comment on above: TESTS RESULT FLAG UN ITS REF RANGE LAB DIAGNOSIS: 02 NEGATIVE FOR INTRAEPITHELIAL LESION OR MALIGNANCY. REACTIVE CELLULAR CHANGES AND/OR REPAIR ARE PRESENT. Specimen adequacy: 02 Satisfactory for evaluation. No endocervical component is identified. An endocervical component is not commonly seen in the patient. Performed by: 03 Yolanda Winter, Poultry Husbandry Worker (ASC) Electronically si... 02 Keara Campos MD, [...] do occur. Test Methodology: Note 02 The [employer] Team Member was unable to read this specimen. Therefore a manual review was performed. FLAG LEGEND: L-Low Normal,H-High Normal,LL-Alert Low,HH-Alert High <-Panic Low,>-Panic High,A-Abnormal,AA-Critical Abnormal Performed at: [address] [address] Huma Hicks MD, 03 [facility] [address] [place] [address] Georgina Romeo MD, . 02 The HPV DNA reflex criteria were not met with this specimen result therefore, no HPV testing was performed. The HPV DNA reflex criteria were not met with this specimen result therefore, no HPV testing was performed. Performed at: = - [address] [id number] Special Delivery Carrier: Huma Hicks MD, Phone: [phone] Performed at: [facility] [address] [id number] Special Delivery Carrier: Huma Hicks MD, Phone: [phone] [facility]IX [facility] RECURRENT VAGINITIS (HTRX)on 08-14-2024 ATOPOBIUM VAGINAE 0 [facility] ATOPOBIUM VAGINAE Not detected [facility] BVAB 2,3 (BACTERIAL VAGINOSIS ASSOCIATED BACTERIA 2, 3); MOBILUNCUS SPP 27.061 Abnormal [facility] Healthcare BVAB 2,3 (BACTERIAL VAGINOSIS ASSOCIATED [...] II, MD, PHD at 02-Sep-2024 08:04:31 AM [facility] Normal Not Available Comment on above: Order Comment: US OB ANATOMY SINGLE W US OB CERVICAL LENGTH Estimated Date of Delivery: 01/18/25 Gestational Age as of 08/13/2024: 17w3d Urinalysis macro (dipstick) panel (U)on 08-13-2024 Bilirubin, UA Negative Negative - 4(70) +++ mg/dL [facility] Blood, UA Negative Negative - 50 Theodore/mcL [facility] Clarity, UA Clear [facility] Color, UA Yellow [facility] Glucose, UA Positive Negative - 1999(110) ++++ mg/dL [facility] Comment on above: 100 Interpretation and review of laboratory results Abnormal [facility] Ketones, UA Negative Negative - 160(16) ++++ mg/dL [facility] Leukocytes, UA Negative Negative - 500+++ Mike/mcL [facility] Nitrite, UA Negative Negative - Positive [facility] pH, UA 5.5 5 - 9 [facility] Protein, UA Trace Negative - 2000(20) ++++ mg/dL [facility] Spec Grav, UA 1.03 1 - 1.03 [facility] Urobilinogen, UA 0.2 0.2 - 12 mg/dL [facility] Urinalysis macro (dipstick) panel (U)on 07-09-2024 Bilirubin, UA Negative Negative - 4(70) +++ mg/dL [facility] Blood, UA Negative Negative - 50 Theodore/mcL [facility] Clarity, UA Clear [facility] Color, UA Yellow [facility] Glucose, UA Negative Negative - 1999(110) ++++ mg/dL [facility] Interpretation and review of laboratory results Abnormal [facility] Ketones, UA Positive Negative - 160(16) ++++ mg/dL [facility] Comment on above: trace Leukocytes, UA Negative Negative - 500+++ Mike/mcL [facility] Nitrite, UA Negative Negative - Positive [facility] pH, UA 6 5 - 9 [facility] Protein, UA Trace Negative - 2000(20) ++++ mg/dL [facility] Spec Grav, UA 1.025 1 - 1.03 [facility] Urobilinogen, UA 1.0 0.2 - 12 mg/dL [facility] HCG ( test) Ql (U)o n 06-26-2024 Interpretation and review of laboratory results Abnormal [facility] Preg Test, Ur Positive Negative [facility] DRUG SCREEN RAPID (URINE )on 06-26-2024 AMPHETAMINE SCREEN URINE Negative NEGATIVE [facility] BARBITURATES SCREEN URINE Negative NEGATIVE [facility] BENZODIAZEPINES SCREEN URINE Negative NEGATIVE [facility] BUPRENORPHINE SCREEN URINE Negative NEGATIVE [facility] Comment on above: DRUG CLASS TEST SYST [...] 300 ng/mL CANNABINOID SCREEN URINE Negative NEGATIVE [facility] COCAINE SCREEN URINE Negative NEGATIVE [facility] METHADONE SCREEN URINE Negative NEGATIVE [facility] METHAMPHETAMINES SCREEN URINE Negative NEGATIVE [facility] OPIATE SCREEN URINE Negative NEGATIVE [facility] OXYCODONE SCREEN URINE Negative NEGATIVE [facility] PHENCYCLIDINE SCREEN URINE Negative NEGATIVE [facility] TRICYCLIC ANTIDEPRESSANT URINE Negative NEGATIVE [facility] Urinalysis macro (dipstick) panel (U)on 06-26-2024 Bilirubin, UA Negative Negative - 4(70) +++ mg/dL [facility] Blood, UA Negative Negative - 50 Theodore/mcL [facility] Clarity, UA Clear [facility] Color, UA Yellow [facility] Glucose, UA Negative Negative - 1999(110) ++++ mg/dL [facility] Interpretation and review of laboratory results Abnormal [facility] Ketones, UA Negative Negative - 160(16) ++++ mg/dL [facility] Leukocytes, UA Trace Negative - 500+++ Mike/mcL [facility] Nitrite, UA Negative Negative - Positive [facility] pH, UA 7 5 - 9 [facility] Protein, UA Negative Negative - 1999(20) ++++ mg/dL [facility] Spec Grav, UA 1.015 1 - 1.03 [facility] Urobilinogen, UA 1.0 0.2 - 12 mg/dL [facility] Urinalysis macro (dipstick) panel (U)on 05-28-2024 Bilirubin, UA Negative Negative - 4(70) +++ mg/dL [facility] Blood, UA Negative Negative - 50 Theodore/mcL [facility] Clarity, UA Clear [facility] Color, UA Yellow [facility] Glucose, UA Negative Negative - 1999(110) ++++ mg/dL [facility] Interpretation and review of laboratory results Normal [facility] Ketones, UA Negative Negative - 160(16) ++++ mg/dL [facility] Leukocytes, UA Negative Negative - 500+++ Mike/mcL [facility] Nitrite, UA Negative Negative - Positive [facility] pH, UA 7 5 - 9 [facility] Protein, UA Negative Negative - 1999(20) ++++ mg/dL [facility] Spec Grav, UA 1.025 1 - 1.03 [facility] Urobilinogen, UA 0.2 0.2 - 12 mg/dL [facility] BhCG Quanton 05-27-2024 [place] [address] m[IU]/mL High 1-[address] [facility] Comment on above: Result Comment: 'F N ON < 1 - 3' ' 0.2 - 1 WEEK = 5 TO 50' ' 1 - 2 WEEKS = 50 - 500' ' 2 - 3 WEEKS = 100 - 5000' ' 3 - 4 WEEKS = 500 - 38269' ' 4 - 5 WEEKS = 1000 - 41391' ' 5 - 6 WEEKS = 83202 - 536861' ' 6 - 8 WEEKS = 30177 - 926994' ' 8 - 12 WEEKS = 40735 - 127620' Performed By: #### 2 [id number] #### [facility] [address] [place] [address] CHEMISTRYOrdered By: SYSTEM SYSTEM on 05-27-2024 [place] [address] m[IU]/mL High 1 - 3 mIU/mL [facility] Comment on above: Result Comment: 'F N ON < 1 - 3' ' 0.2 - 1 WEEK = 5 TO 50' ' 1 - 2 WEEKS = 50 - 500' ' 2 - 3 WEEKS = 100 - 5000' ' 3 - 4 WEEKS = 500 - 82844' ' 4 - 5 WEEKS = 1000 - 47367' ' 5 - 6 WEEKS = 87436 - 925024' ' 6 - 8 WEEKS = 92241 - 854966' ' 8 - 12 WEEKS = 60149 - 541272' MRI Brain w/o Contraston MRI Brain w/o [...] Galaviz DO Transcribed by: TEJAL Technologist: KALYN Watt [facility] Consent for Treatmenton Consent for Treatment [phone] [id number] .00TIFF Normal [facility] RAD - MRI Screening Formon 0 11-21-2023 RAD - MRI Screening Form [id number] 1.00TIFF Normal [facility] Physician Orderon 11-20-2023 Physician Order [id number]#1 .00TIFF Normal [facility] CHEMISTRYOrdered By: SYSTEM SYSTEM on 10-29-2022 Cobalamin (Vitamin B12) [Mass/Vol] 460 pg/mL Normal 50 - 1500 pg/mL [facility] Remisol Folate [Mass/Vol] 8.4 ng/mL Normal >=6.7ng/mL [facility] Re misol Magnesium [Mass/Vol] 2.1 mg/dL Normal 1.3 - 2 .4 mg/dL [facility] Remisol AMYLASEon 09-25-2022 Amylase [Catalytic activity/Vol] 65 U/L Normal 25-115 [facility] Comment on above: Performed By: #### L IPA, PAZ, CMP #### [facility] [address] [place] [address] Dr. Flores Arroyo CBC AUTO DIFFon 09-25-2022 BASO # 0.0 103/ul Normal 0.0-0.1 [facility] Comment on above: Performed By: #### C BC #### [facility] [address] [place] [address] Dr. Flores Arroyo Basophils/100 WBC (Bld) 0.2 % Normal 0.2-2.0 [facility] Comment on above: Performed By: #### C BC #### [facility] [address] [place] [address] Dr. Flores Arroyo EO # 0.1 103/ul Normal 0.0-0.7 [facility] Comment on above: Performed By: #### C BC #### [facility] [address] [place] [address] Dr. Flores Arroyo Eosinophils/100 WBC (Bld) 0.3 % Critically low 0.9-7.0 [facility] Comment on above: Performed By: #### C BC #### [facility] [address] [place] [address] Dr. Flores Arroyo Erythrocyte distribution width (RBC) [Ratio] 13.7 % Normal 11.0-15.0 [facility] Comment on above: Performed By: #### C BC #### [facility] [address] [place] [address] Dr. Flores Arroyo Hematocrit (Bld) [Volume fraction] 44.0 % Normal 36.0-48.0 [facility] Comment on above: Performed By: #### C BC #### [facility] [address] [place] [address] Dr. Flores Arroyo Hemoglobin (Bld) [Mass/Vol] 14.7 g/dL Normal 12.0-16.0 [facility] Comment on above: Performed By: #### C BC #### [facility] [address] [place] [address] Dr. Flores Arroyo IG # 0.07 10e3/ul Critically high 0.00-0.03 [facility] Comment on above: Performed By: #### C BC #### [facility] [address] [place] [address] Dr. Flores Arroyo IG % 0.4 % Normal 0.0-0.5 [facility] Comment on above: Performed By: #### C BC #### [facility] [address] [place] [address] Dr. lFores Arroyo LYMPH # 2.4 103/ul Normal 1.2-3.8 [facility] Comment on above: Performed By: #### C BC #### [facility] [address] [place] [address] Dr. Flores Arroyo Lymphocytes/100 WBC (Bld) 12.7 % Critically low 20.5-60.0 [facility] Comment on above: Performed By: #### C BC #### [facility] [address] [place] [address] Dr. Flores Arroyo MANUAL DIFF REQ NO Normal [facility] Comment on above: Performed By: #### C BC #### [facility] [address] [address] [address] Flores Arroyo MCH (RBC) [Entitic mass] 29.5 pg Normal 26.7-34.0 [facility] Comment on above: Performed By: #### C BC #### [facility] [address] [place] [address] Dr. Flores Arroyo MCHC (RBC) [Mass/Vol] 33.4 g/dL Normal 29.9-35.2 [facility] Comment on above: Performed By: #### C BC #### [facility] [address] [place] [address] Dr. Flores Arroyo MCV (RBC) [Entitic vol] 88.4 fL Normal 81.0-99.0 [facility] Comment on above: Performed By: #### C BC #### [facility] [address] [place] [address] Dr. Flores Arroyo MONO # 1.3 103/ul Critically high 0.3-0.8 [facility] Comment on above: Performed By: #### C BC #### [facility] [address] [place] [address] Dr. Flores Arroyo Monocytes/100 WBC (Bld) 7.2 % Normal 1.7-12.0 [facility] Comment on above: Performed By: #### C BC #### [facility] [address] [place] [address] Dr. Flores Arroyo NEUT # 14.8 103/ul Critically high 1.4-6.5 [facility] Comment on above: Performed By: #### C BC #### [facility] [address] [place] [address] Dr. Flores Arroyo Neutrophils/100 WBC (Bld) 79.2 % Critically high 43.0-75.0 [facility] Comment on above: Performed By: #### C BC #### [facility] [address] [place] [address] Dr. Flores Arroyo Platelet mean volume (Bld) [Entitic vol] 10.8 fL Normal 9.5-13.5 [facility] Comment on above: Performed By: #### C BC #### [facility] [address] [place] [address] Dr. Flores Arroyo PLT 306 103/ul Normal 150-450 [facility] Comment on above: Performed By: #### C BC #### [facility] [address] [place] [address] Dr. Flores Arroyo RBC 4.98 106/ul Normal 4.20-5.40 [facility] Comment on above: Performed By: #### C BC #### [facility] [address] [place] [address] Dr. Flores Arroyo WBC 18.7 103/ul Critically high 4.0-11.0 [facility] Comment on above: Performed By: #### C BC #### [facility] [address] [place] [address] Dr. Flores Arroyo CULTURE URINEon 09-25-2022 CULTURE URINE Culture Observations : MODERATE GROWTH OF MIXED GENITAL MIS. NO POTENTIAL PATHOGENS SEEN. Normal [facility] Comment on above: Performed By: #### U RCX #### [facility] [address] [place] [address] Dr. Flores Arroyo ER URINE PROFILEon 3 Bilirubin Ql (U) Negative Normal NEGATIVE [facility] Comment on above: Performed By: #### U MICRO, ERUR #### [facility] [address] [place] [address] Dr. Flores Arroyo Clarity (U) CLEAR Normal CLEAR [facility] Comment on above: Performed By: #### U MICRO, ERUR #### [facility] [address] [place] [address] Dr. Flores Arroyo Color (U) YELLOW Normal YELLOW [facility] Comment on above: Performed By: #### U MICRO, ERUR #### [facility] [address] [place] [address] Dr. Flores MCHUGH A micrscopic examination will be performed if indicated. Normal [facility] Comment on above: Performed By: #### U MICRO, ERUR #### [facility] [address] [place] [address] Dr. Flores Arroyo Glucose Ql (U) Negative Normal NEGATIVE [facility] Comment on above: Performed By: #### U MICRO, ERUR #### [facility] [address] [address] [address] Flores Arroyo Hemoglobin Ql (U) Negative Normal NEGATIVE [facility] Comment on above: Performed By: #### U MICRO, ERUR #### [facility] [address] [address] [address] Flores Arroyo Ketones Ql (U) Negative Normal NEGATIVE [facility] Comment on above: Performed By: #### U MICRO, ERUR #### [facility] [address] [place] [address] Dr. Flores Arroyo LEUKOCYTES Negative Normal NEGATIVE [facility] Comment on above: Performed By: #### U MICRO, ERUR #### [facility] [address] [place] [address] Dr. Flores Arroyo Nitrite Ql (U) Negative Normal NEGATIVE [facility] Comment on above: Performed By: #### U MICRO, ERUR #### [facility] [address] [place] [address] Dr. Flores Arroyo pH (U) 5.5 [pH] Normal 5-9 [facility] Comment on above: Performed By: #### U MICRO, ERUR #### [facility] [address] [place] [address] Dr. Flores Arroyo Protein (U) [Mass/Vol] 30 mg/dL Abnormal NEGATIVE/ TRACE [facility] Comment on above: Performed By: #### U MICRO, ERUR #### [facility] [address] [place] [address] Dr. Flores Arroyo SPEC GRAVITY >=1.030 Abnormal 1.005-<=1.025 [facility] Comment on above: Performed By: #### U MICRO, ERUR #### [facility] [address] [place] [address] Dr. Flores Arroyo UR MICRO IND INDICATED Normal [facility] Comment on above: Performed By: #### U MICRO, ERUR #### [facility] [address] [place] [address] Dr. Flores Arroyo Urobilinogen Qn (U) 0.2 {Salty'U}/dL Normal 0.2 - 1. 0 [facility] Comment on above: Performed By: #### U MICRO, ERUR #### [facility] [address] [place] [address] Dr. Flores Arroyo LACTATE/LACTIC ACIDon 2022 Lactate [Moles/Vol] 1.6 mmol/L Normal 0.4-2.0 [facility] Comment on above: Performed By: #### L ACT #### [facility] [address] [place] [address] Dr. Flores Arroyo LIPASEon 09-25-2022 Lipase [Catalytic activity/Vol] 95.0 U/L Normal 73.0-393.0 [facility] Comment on above: Performed By: #### L IPA APZ, CMP #### [facility] [address] [place] [address] Dr. Flores Arroyo PROF 14(COMP METB)on 023 Albumin [Mass/Vol] 4.4 g/dL Normal 3.4-5.0 [facility] Comment on above: Performed By: #### L IPA PAZ, CMP #### [facility] [address] [place] [address] Dr. Flores Arroyo Albumin/Globulin [Mass ratio] 1.2 {ratio} Normal [facility] Comment on above: Performed By: #### L IPA PAZ, CMP #### [facility] [address] [place] [address] Dr. Flores Arroyo ALP [Catalytic activity/Vol] 86 U/L Normal 46-116 [facility] Comment on above: Performed By: #### L IPA PAZ, CMP #### [facility] [address] [place] [address] Dr. Flores Arroyo ALT [Catalytic activity/Vol] 41 U/L Normal 14-59 [facility] Comment on above: Performed By: #### L IPA PAZ, CMP #### [facility] [address] [place] [address] Dr. Flores Arroyo Anion gap [Moles/Vol] 11.4 mmol/L Normal [facility] Comment on above: Performed By: #### L PAZ MARTINES, CMP #### [facility] [address] [place] [address] Dr. Flores Arroyo AST [Catalytic activity/Vol] 29 U/L Normal 15-37 [facility] Comment on above: Performed By: #### L PAZ MARTINES, CMP #### [facility] [address] [place] [address] Dr. Flores Arroyo Bilirubin [Mass/Vol] 0.3 mg/dL Normal 0.2-1.0 [facility] Comment on above: Performed By: #### L PAZ MARTINES, CMP #### [facility] [address] [place] [address] Dr. Flores Arroyo Calcium [Mass/Vol] 9.3 mg/dL Normal 8.5-10.1 [facility] Comment on above: Performed By: #### L PAZ MARTINES, CMP #### [facility] [address] [place] [address] Dr. Flores Arroyo Chloride [Moles/Vol] 102 mmol/L Normal 98-107 [facility] Comment on above: Performed By: #### L PAZ MARTINES, CMP #### [facility] [address] [place] [address] Dr. Flores Arroyo CO2 [Moles/Vol] 26.3 mmol/L Normal 21.0-32.0 [facility] Comment on above: Performed By: #### L PAZ MARTINES, CMP #### [facility] [address] [place] [address] Dr. Flores Arroyo Creatinine [Mass/Vol] 0.85 mg/dL Normal 0.55-1.02 [facility] Comment on above: Performed By: #### L PAZ MARTINES, CMP #### [facility] [address] [place] [address] Dr. Flores Arroyo EGFR-AF GERMAN >60 Normal >=60 [facility] Comment on above: Performed By: #### L PAZ MARTINES, CMP #### [facility] [address] [place] [address] Dr. Flores Arroyo EGFR-NON AF GERMAN >60 Normal >=60 [facility] Comment on above: Performed By: #### L PAZ MARTINES, CMP #### [facility] [address] [address] [address] Flores Arroyo Globulin (S) [Mass/Vol] 3.8 g/dL Normal [facility] Comment on above: Performed By: #### L PAZ MARTINES, CMP #### [facility] [address] [address] [address] Flores Arroyo Glucose [Mass/Vol] 159 mg/dL Critically high 74-[address] [facility] Comment on above: Performed By: #### L PAZ MARTINES, CMP #### [facility] [address] [address] [address] Flores Arroyo Potassium [Moles/Vol] 3.7 mmol/L Normal 3.5-5.1 [facility] Comment on above: Performed By: #### L PAZ MARTINES, CMP #### [facility] [address] [place] [address] Dr. Flores Arroyo Protein [Mass/Vol] 8.2 g/dL Normal 6.4-8.2 [facility] Comment on above: Performed By: #### L PAZ MARTINES, CMP #### [facility] [address] [place] [address] Dr. Flores Arroyo Sodium [Moles/Vol] 136 mmol/L Normal 136-145 [facility] Comment on above: Performed By: #### L PAZ MARTINES, CMP #### [facility] [address] [place] [address] Dr. Flores Arroyo Urea nitrogen [Mass/Vol] 11.0 mg/dL Normal 7.0-18.0 [facility] Comment on above: Performed By: #### L PAZ MARTINES, CMP #### [facility] [address] [place] [address] Dr. Flores Arroyo Urea nitrogen/Creatinine [Mass ratio] 12.9 mg/mg Normal [facility] Comment on above: Performed By: #### L PAZ MARTINES, CMP #### [facility] [address] [address] [address] Flores Arroyo URINE MICROSCOPIC ONLYon BACTERIA SMALL Abnormal NONE SEEN [facility] Comment on above: Performed By: #### U MICRO, ERUR #### [facility] [address] [address] [address] Flores Arroyo Bacteria identified Cx Nom (U) INDICATED Normal [facility] Comment on above: Performed By: #### U MICRO, ERUR #### [facility] [address] [address] [address] Flores Arroyo CAST NONE SEEN Normal NONE SEEN [facility] Comment on above: Performed By: #### U MICRO, ERUR #### [facility] [address] [address] [address] Flores Arroyo Crystals LM Nom (Urine sed) NONE SEEN Normal NONE SEEN [facility] Comment on above: Performed By: #### U MICRO, ERUR #### [facility] [address] [address] [address] Flores Arroyo Epithelial cells LM Ql (Urine sed) MODERATE Abnormal NONE SEEN /RARE [facility] Comment on above: Performed By: #### U MICRO, ERUR #### [facility] [address] [place] [address] Dr. Flores Arroyo MUCOUS MODERATE Abnormal NONE SEEN [facility] Comment on above: Performed By: #### U MICRO, ERUR #### [facility] [address] [address] [address] Flores Arroyo RBC 0-2 Normal 0-2 [facility] Comment on above: Performed By: #### U MICRO, ERUR #### [facility] [address] [address] [address] Flores Arroyo WBC 2-5 Abnormal NONE SEEN [facility] Comment on above: Performed By: #### U MICRO, ERUR #### [facility] [address] [place] [address] Dr. Flores Arroyo XR chest 1Von 10-31-2021 XR chest 1V [facility] [place] [address] [place] [address] XRay Report Signed Patient: GREGORIO HESS MR#: [id number] : 1995 Acct:[id number] Age/Sex: 26 / F ADM Date: 10/31/21 Loc: [place] Room: Type: [facility] Attending Dr: Reyes Rodriguez DO, [facility] Ordering Provider: Reyes Rodriguez DO Date of Service: 10/31/21 XR/XR chest 1V: POSITIVE PPD TEST Copies to: Reyes Rodriguez DO PA CHEST: CLINICAL HISTORY: Positive Tspot. COMPARISON: None FINDINGS: Heart is normal in size. Lungs are clear. No free air. XR/XR chest 1V IMPRESSION: NEGATIVE CHEST. Impression dictated by: Dirk Chaves Jr., D.O.10/31/2021 12:11 PM Dictation Location: [place] [address] Transcribed By: [facility] 10/31/21 1211 Dictated By: Dirk Chaves Jr, DO 10/31/21 1210 Signed By: 10/31/[address] [facility] MICRO OTHER TESTSOrdered By: Ines Michel on 07-21-2021 Rapid COV Int NEG [facility]l [facility] (07/21/21 11:06 AM) Normal [facility] Man Sero Rapid COV Int POS Ctl Pass (07/21/21 11:06 AM) Normal [facility] Man Sero SARS-CoV+SARS-CoV-2 (COVID-19) Ag IA.rapid Ql (Resp) Not Detected (07/21/21 11:06 AM) Normal Not Detected [facility] Man Sero Vital Signs Date Time Vital Sign Value Performing Clinician Facility 12-03-2024 09:58-0400 Body mass index (BMI) [Ratio] 35.02 kg/m2 [facility] Work Phone: [facility] 12-03-2024 09:58-0400 Body weight 98.43 kg [facility] Work Phone: [facility] 12-03-2024 09:58-0400 Diastolic blood pressure 80 mm[Hg] [facility] Work Phone: [facility] 12-03-2024 09:58-0400 Systolic blood pressure 130 mm[Hg] Giovany Ginny DO Work Phone: [facility] 11-19-2024 11:41-0400 Body mass index (BMI) [Ratio] 35.27 kg/m2 Paz Metzger PA Work Phone: [facility] 11-19-2024 11:41-0400 Body weight 99.11 kg Paz Metzger PA Work Phone: [facility] 11-19-2024 11:41-0400 Diastolic blood pressure 72 mm[Hg] Paz Metzger PA Work Phone: [facility] 11-19-2024 11:41-0400 Systolic blood pressure 114 mm[Hg] Paz Metzger PA Work Phone: [facility] 11-05-2024 10:51-0400 Body mass index (BMI) [Ratio] 34.06 kg/m2 Giovany Ginny DO Work Phone: [facility] 11-05-2024 10:51-0400 Body weight 95.71 kg Giovany Ginny DO Work Phone: [facility] 11-05-2024 10:51-0400 Diastolic blood pressure 78 mm[Hg] Giovany Ginny DO Work Phone: [facility] 11-05-2024 10:51-0400 Systolic blood pressure 124 mm[Hg] Giovany Ginny DO Work Phone: [facility] 10-01-2024 10:43-0400 Body mass index (BMI) [Ratio] 32.3 kg/m2 Giovany Ginny DO Work Phone: [facility] 10-01-2024 10:43-0400 Body weight 90.77 kg Giovany Ginny DO Work Phone: [facility] 10-01-2024 10:43-0400 Diastolic blood pressure 82 mm[Hg] Giovany Ginny DO Work Phone: [facility] 10-01-2024 10:43-0400 Systolic blood pressure 110 mm[Hg] Giovany Ginny DO Work Phone: [facility] 09-10-2024 08:35-0500 Body mass index (BMI) [Ratio] 31.28 kg/m2 Giovany Ginny DO Work Phone: [facility] 09-10-2024 08:35-0500 Body weight 87.91 kg Giovany Ginny DO Work Phone: [facility] 09-10-2024 08:35-0500 Diastolic blood pressure 74 mm[Hg] Giovany Ginny DO Work Phone: [facility] 09-10-2024 08:35-0500 Systolic blood pressure 118 mm[Hg] Giovany Ginny DO Work Phone: [facility] 08-13-2024 10:59-0500 Body mass index (BMI) [Ratio] 29.99 kg/m2 Paz SHIELDS Work Phone: [facility] 08-13-2024 10:59-0500 Body weight 84.28 kg Paz Metzger PA Work Phone: [facility] 08-13-2024 10:59-0500 Diastolic blood pressure 82 mm[Hg] Paz Metzger PA Work Phone: [facility] 08-13-2024 10:59-0500 Systolic blood pressure 120 mm[Hg] Paz Metzger PA Work Phone: [facility] 07-09-2024 11:53-0500 Body mass index (BMI) [Ratio] 29.02 kg/m2 Giovany Ginny DO Work Phone: [facility] 07-09-2024 11:53-0500 Body weight 81.56 kg Giovany Ginny DO Work Phone: [facility] 07-09-2024 11:53-0500 Diastolic blood pressure 70 mm[Hg] Giovany Ginny DO Work Phone: [facility] 07-09-2024 11:53-0500 Systolic blood pressure 120 mm[Hg] Giovany Ginny DO Work Phone: [facility] 05-28-2024 09:39-0500 Body mass index (BMI) [Ratio] 27.66 kg/m2 Giovany Ginny DO Work Phone: [facility] 05-28-2024 09:39-0500 Body weight 77.75 kg Givoany Ginny DO Work Phone: [facility] 05-28-2024 09:39-0500 Diastolic blood pressure 68 mm[Hg] Giovany Ginny DO Work Phone: [facility] 05-28-2024 09:39-0500 Systolic blood pressure 110 mm[Hg] Giovany Ginny DO Work Phone: [facility] 12-24-2021 21:08-0400 Diastolic blood pressure 81 mm[Hg] Jalen Ezekiel [facility] 12-24-2021 21:08-0400 Heart rate 79 /min Jalen Ezekiel [facility] 12-24-2021 21:08-0400 Respiratory rate 18 /min Jalen Ezekiel [facility] 12-24-2021 21:08-0400 SaO2% (BldA) [Mass fraction] 100 % Jlaen Ezekiel [facility] 12-24-2021 21:08-0400 Systolic blood pressure 114 mm[Hg] Jalen Ezekiel [facility] 12-24-2021 19:32-0400 Body temperature 98.06 [degF] Jalen Ezekiel [facility] 12-24-2021 19:32-0400 Diastolic blood pressure 85 mm[Hg] Jalen Ezekiel [facility] 12-24-2021 19:32-0400 Heart rate 100 /min Jalen Ezekiel [facility] 12-24-2021 19:32-0400 Respiratory rate 16 /min Jalen Falcon [facility] 12-24-2021 19:32-0400 SaO2% (BldA) [Mass fraction] 100 % Jalen Falcon [facility] 12-24-2021 19:32-0400 Systolic blood pressure 121 mm[Hg] Jalen Falcon [facility] Encounters Encounter Date Encounter Type Care Provider Facility Start: 12-03-2024 End: 12-03-2024 Office outpatient visit 15 minutes Giovany Ginny DO Work Phone: [facility] Comment on above: Third trimester preg angelica; 33 weeks gestation of ; Decreased appetite Start: 12-03-2024 End: 12-03-2024 ambulatory GIOVANY GINNY Not Available Start: 11-26-2024 End: 11-26-2024 Clinisync Result Encounter Giovany Ginny DO Work Phone: [facility] Department Unsolicited Start: 11-26-2024 End: 11-26-2024 Clinisync Result Encounter Giovany Ginny DO Work Phone: [facility] Unsolicited Start: 11-19-2024 End: 11-19-2024 Clinisync Result Encounter Giovany Ginny DO Work Phone: [facility] Unsolicited Start: 11-19-2024 End: 11-19-2024 Clinisync Result Encounter Giovany Ginny DO Work Phone: [facility] Unsolicited Start: 11-19-2024 End: 11-19-2024 Office outpatient visit 15 minutes Paz Metzger PA Work Phone: [facility] Comment on above: Third trimester preg angelica; 31 weeks gestation of Start: 11-19-2024 End: 11-19-2024 ambulatory PAZ METZGER Not Available Start: 11-12-2024 End: 11-12-2024 Clinisync Result Encounter Giovany Ginny DO Work Phone: [facility] External Department Unsolicited Start: 11-12-2024 End: 11-12-2024 Clinisync Result Encounter Giovany Ginny DO Work Phone: [facility] External Department Unsolicited Start: 11-05-2024 End: 11-05-2024 Bamboo flowsheet Giovany Ginny DO Work Phone: [facility] Start: 11-05-2024 End: 11-05-2024 Bamboo flowsheet Giovany Ginny DO Work Phone: [facility] Start: 11-05-2024 End: 11-05-2024 Office outpatient visit 15 minutes Giovany Ginny DO Work Phone: [facility] Comment on above: Third trimester preg angelica; 29 weeks gestation of ; H/O pre-eclampsia in prior , currently ; H/O delivery, currently ; Heart palpitations; Shortness of breath; Seizures (CMS/HCC); Syncope, near Start: 11-05-2024 End: 11-05-2024 ambulatory GIOVANY GINNY Not Available Start: 10-15-2024 End: 10-15-2024 Clinisync Result Encounter Giovany Ginny DO Work Phone: [facility] External Department Unsolicited Start: 10-15-2024 End: 10-15-2024 Clinisync Result Encounter Giovany Ginny DO Work Phone: [facility] External Department Unsolicited Start: 10-01-2024 End: 10-01-2024 Office outpatient visit 15 minutes Giovany Ginny DO Work Phone: [facility] Comment on above: Anemia, unspecified type (Primary Dx); Second trimester ; 24 weeks gestation of Start: 10-01-2024 End: 10-01-2024 ambulatory GIOVANY GINNY Not Available Start: 09-10-2024 End: 09-10-2024 Bamboo flowsheet Giovany Ginny DO Work Phone: [facility] Start: 09-10-2024 End: 09-10-2024 Bamboo flowsheet Giovany Ginny DO Work Phone: [facility] Start: 09-10-2024 End: 09-10-2024 Office outpatient visit 15 minutes Giovany Ginny DO Work Phone: [facility] Comment on above: Second trimester pre gnancy; 21 weeks gestation of ; Diabetes mellitus screening; Low-lying placenta Start: 09-10-2024 End: 09-10-2024 ambulatory GIOVANY GINNY Not Available Start: 09-09-2024 End: 09-11-2024 Clinisync Result Encounter Giovany Ginny DO Work Phone: [facility] Unsolicited Start: 09-09-2024 End: 09-11-2024 Clinisync Result Encounter Giovany Ginny DO Work Phone: [facility] External Department Unsolicited Start: 09-01-2024 End: 09-01-2024 ambulatory PAZ METZGER Not Available Start: 08-13-2024 End: 08-13-2024 Bamboo flowsheet Paz SHIELDS Work Phone: [facility] Start: 08-13-2024 End: 08-24-2024 Bamboo flowsheet Paz SHIELDS Work Phone: [facility] Start: 08-13-2024 End: 08-24-2024 Clinisync Result Encounter Paz SHIELDS Work Phone: [facility] External Department Unsolicited Start: 08-13-2024 End: 08-14-2024 External Result Encounter Paz SHIELDS Work Phone: [facility] Unsolicited Start: 08-13-2024 End: 08-13-2024 Patient encounter procedure Paz SHIELDS Work Phone: [facility] Start: 08-13-2024 End: 08-13-2024 Periodic preventive med est patient 18-39 yrs Paz SHIELDS Work Phone: [facility] Comment on above: Screening, , [...] trimester Start: 07-09-2024 End: 07-09-2024 ambulatory GIOVANY IGNNY Not Available Start: 06-26-2024 End: 06-26-2024 Clinisync [...] 05-28-2024 Office outpatient visit 15 minutes Giovany Ginyn DO Work Phone: [facility] Comment on above: Abdominal cramping a ffecting ; Missed menses Start: 05-28-2024 End: 05-28-2024 ambulatory GIOVANY GINNY Not Available Start: 05-27-2024 End: 05-27-2024 ambulatory Giovany R GINNY Facility:[facility] Start: 05-27-2024 End: 05-27-2024 Patient encounter procedure Giovany R GINNY [facility] Start: 11-21-2023 End: 11-21-2023 ambulatory AMELIA HAYWARD Facility:[facility] Start: 11-21-2023 End: 11-21-2023 Patient encounter procedure AMELIA HAYWARD [facility] Start: 11-19-2023 End: 11-19-2023 ambulatory AMELIA HAYWARD Not Available Start: 11-18-2023 End: 11-18-2023 ambulatory AMELIA HAYWARD Not Available Start: 10-29-2022 End: 10-29-2022 Lab Drop off MACHELLE VIVEROS [facility] Start: 09-25-2022 End: 09-25-[address] [facility]G [facility] [place]: Start: 02-06-2022 End: 02-06-2022 Lab Drop off TIESHA FINLEY [facility] Start: 12-24-2021 End: 12-24-2021 Emergency department patient visit Jalen MalachiBeka Falcon [facility] Start: 10-31-2021 End: 10-31-2021 Departed Referred DO Reyes Rodriguez Work Phone: [facility] [address] Start: 07-20-2021 End: 10-19-2021 Recurring Sumit C Link [facility] Procedures Date Procedure Procedure Detail Performing Clinician Start: 12-03-2024 Urnls dip stick/tabl et rgnt non-auto w/o micrscp Giovany Ginny DO Work Phone: Start: 11-26-2024 US OB BPP W NON-STRESS Giovany Ginny DO Work Phone: Start: 11-19-2024 Urnls dip stick/tabl et rgnt [...] stick/tabl et rgnt non-auto w/o micrscp Giovany Gross DO Work Phone: Tonsillectomy [facility] Link Plan of Treatment Date Care Activity Detail Author Start: 03-15-2025 Influenza vaccination Influenz a Vaccine (Season Ended) [facility] Start: 12-17-2024 End: 12-17-2024 Patient encounter procedure 12/17/2024 10:20 AM EDT Routine [facility] [address] [place] [address] Paz Metzger PA [address] [place], [place] [id number] [facility] Start: 12-03-2024 End: 12-03-2024 Patient encounter procedure 12/03/2024 10:00 AM EDT Routine [facility] [address] [place] [id number] Giovany Gross, [address] [place], [place] [id number] [facility] Start: 11-19-2024 End: 11-19-2024 Patient encounter procedure 11/19/2024 11:30 AM EDT Routine [facility] [address] [place] [id number] Paz Metzger PA [address] [place] [address] [facility] Start: 11-19-2024 End: 11-19-2024 Professional / ancillary services management 11/19/2024 11:00 AM EDT Ancillary Procedure [facility] [address] [place] [address] [facility] Start: 11-05-2024 End: 05-07-2025 [...] AM EDT Routine [facility] [address] [facility] [phone] Giovany Gross, DO [address] [place], [facility] Arrived [facility] Comment on above: Arrived Start: 10-29-2024 End: 10-29-2024 Patient encounter procedure 10/29/2024 8:30 AM EDT Routine [facility] [address] [place] [address] Paz Metzger, PA [address] [place] [address] [facility] Start: 10-01-2024 End: 10-01-2024 Patient encounter procedure 10/01/2024 11:40 AM EDT Routine [facility] [address] [place] [id number] Giovany Gross, DO [address] [place] [address] [facility] Start: 10-01-2024 End: 10-01-2024 Professional / ancillary services management 10/01/2024 10:30 AM EDT Ancillary Procedure [facility] [address] [place] [address] [facility] Start: 09-10-2024 End: 09-10-2025 CBC [...] mellitus screening Expected: 09/10/2024 (Approximate), Expires: 09/10/2025 [facility] Comment on above: Expected: 09/10/2024 (Approximate), Expires: 09/10/2025 Start: 09-10-2024 End: 09-10-2025 US for US OB limited 1+ fetuses Imaging Routine Low-lying placenta Expected: 09/10/2024, Expires: 09/10/2025 [facility] Comment on above: Expected: 09/10/2024 , Expires: 09/10/2025 Start: 09-10-2024 End: 09-10-2024 Patient encounter procedure [facility] Comment on above: Arrived Start: 09-01-2024 End: 09-01-2024 Professional / ancillary services management 09/01/2024 2:30 PM EST Ancillary Procedure [facility] [address] [place] [phone] [facility] Start: 08-13-2024 End: 09-11-2024 Alpha [...] Routine [facility] [address] [place] [address] Paz Metzger, PA [address] [place] [address] Arrived [facility] Comment on above: Arrived Start: 08-10-2024 End: 08-10-2024 Patient encounter procedure 08/10/2024 9:50 AM EST Routine [facility] [address] [place] [address] Paz Metzger, PA [address] [place] [address] [facility] Start: 07-09-2024 End: 07-09-2024 Patient encounter procedure [facility] Comment on above: Arrived Start: 06-25-2024 End: 06-25-2024 ambulatory 06/25/2024 2:30 PM EST Initial [facility] [address] [place] [phone] [facility] Start: 06-25-2024 End: 06-25-2025 [...] first trimester Expected: 06/25/2024 (Approximate), Expires: 06/25/2025 [facility] Comment on above: Expected: 06/25/2024 (Approximate), Expires: 06/25/2025 Start: 06-25-2024 End: 06-25-2024 Professional / ancillary services management 06/25/2024 2:00 PM EST Ancillary Procedure [facility] [address] [facility] [place] [id number] [facility] Start: 06-25-2024 End: 06-25-2025 US Pelvis transvaginal US OB transvaginal Imaging Routine Missed menses Expected: 06/25/2024 (Approximate), Expires: 06/25/2025 [facility] Comment on above: Expected: 06/25/2024 (Approximate), Expires: 06/25/2025 Start: 05-28-2024 End: 05-28-2025 US for US OB > 14 WEEKS Imaging Routine Abdominal cramping affecting Missed menses Expected: 05/28/2024 (Approximate), Expires: 05/28/2025 [facility] Comment on above: Expected: 05/28/2024 (Approximate), Expires: 05/28/2025 Start: 05-28-2024 End: 05-28-2025 US Pelvis transvaginal US OB transvaginal Imaging Routine Abdominal cramping affecting Missed menses Expected: 05/28/2024 (Approximate), Expires: 05/28/2025 [facility] Work Phone: Comment on above: Expected: 05/28/2024 (Approximate), Expires: 05/28/2025 Start: 03-15-2024 Influenza vaccination Influenza Vacc ine (#1) [facility] Bacteria identified in Urine by Culture Urine culture Microbiology Routine Missed menses Ordered: 06/25/2024 [facility] Comment on above: Ordered: 06/25/2024 CBC W Auto Different ial panel - Blood CBC and differential Lab Routine Missed menses , unspecified gestational age Ordered: 06/25/2024 [facility] Comment on above: Ordered: 06/25/2024 CBC W Auto Different ial panel - Blood CBC and differential Lab Routine Anemia, unspecified type Ordered: 10/01/2024 [facility] Work Phone: Comment on above: Ordered: 10/01/2024 CHLAMYDIA TRACHOMATI S (GENITO/STI) CHLAMYDIA TRACHOMATIS (GENITO/STI) Lab Routine Exposure to STD Ordered: 08/13/2024 [facility] Comment on above: Ordered: 08/13/2024 Cytology Cervical or vaginal smear or scraping study Pap Smear Pathology and Cytology Routine Well woman exam with routine gynecological exam Ordered: 08/13/2024 [facility] Comment on above: Ordered: 08/13/2024 Hemoglobin A1c/Hemoglobin.total in Blood Hemoglobin A1c Lab Routine Missed menses , unspecified gestational age Ordered: 06/25/2024 [facility] Comment on above: Ordered: 06/25/2024 Hepatitis B virus surface Ag [Presence] in Serum or Plasma by Immunoassay Hepatitis B surface antigen Lab Routine Missed menses , unspecified gestational age Ordered: 06/25/2024 [facility] Comment on above: Ordered: 06/25/2024 Hepatitis C virus Ab [Presence] in Serum or Plasma by Immunoassay Hepatitis C antibody Lab Routine Missed menses , unspecified gestational age Ordered: 06/25/2024 [facility] Comment on above: Ordered: 06/25/2024 HIV-1/HIV-2 antigen/antibody combination immunoassay HIV-1 and HIV-2 antibodies Lab Routine Missed menses , unspecified gestational age Ordered: 06/25/2024 [facility] Comment on above: Ordered: 06/25/2024 Neisseria gonorrhoea e DNA [Presence] in Unspecified specimen by DONALD with probe detection Neisseria gonorrhea DNA probe, direct Lab Routine Exposure to STD Ordered: 08/13/2024 [facility] Comment on above: Ordered: 08/13/2024 Reagin Ab [Presence] in Serum by RPR RPR Lab Routine Missed menses , unspecified gestational age Ordered: 06/25/2024 [facility] Comment on above: Ordered: 06/25/2024 Rubella antibody, IgG Rubella an tibody, IgG Lab Routine Missed menses , unspecified gestational age Ordered: 06/25/2024 [facility] Comment on above: Ordered: 06/25/2024 SURESWAB(R) ADVANCED VAGINITIS PLUS, TMA SURESWAB(R) ADVANCED VAGINITIS PLUS, TMA Pathology and Cytology Routine Vaginal discharge Ordered: 08/13/2024 [facility] Work Phone: Comment on above: Ordered: 08/13/2024 Immunizations Immunization Date Immunization Notes Care Provider Fa sharla 04-27-2021 influenza virus vaccine, unspecified formulation Giovany Ginny DO Work Phone: [facility] 01-15-2015 measles, mumps and rubella virus vaccine Sumit Link [facility] Comment on above: Reason for Medicatio n: Other (see comment) 01-15-2015 tetanus toxoid, redu carly diphtheria toxoid, and acellular pertussis vaccine, adsorbed Sumit Link [facility] Comment on above: Reason for Medicatio n: Other (see comment) Payers Date Payer Category Payer Private Health Insurance [facility] .[id number] 1996 Unknown [id number] [id number]. 593 1996 Unknown [id number] 2.16.840.1.164059.3.579.2. 1258 1996 Unknown [id number] 2.16.840.1.916780.3.579.2. 1258 1996 Unknown [id number] 2.16.840.1.907921.3.579.2. 727 1996 Unknown [id number] 2.16.840.1.001298.3.579.2. 72 1996 Unknown [id number] 2.16.840.1.800891.3.579.2. 1258 1996 Unknown [id number] 2.16.840.1.212892.3.579.2. 1258 1996 Unknown [id number] 2.16.840.1.433292.3.579.2. 1258 1996 Unknown [id number] 2.16.840.1.250477.3.579.2. 1258 1996 Unknown [id number] 2.16.840.1.331756.3.579.2. 1258 1996 Unknown [id number] 2.16.840.1.990397.3.579.2. 1258 1996 Unknown [id number] 2.16.840.1.105562.3.579.2. 1258 1996 Unknown [id number] 2.16.840.1.686362.3.579.2. 1258 1996 Unknown [id number] 2.16.840.1.116913.3.579.2. 1258 1996 Unknown [id number] 2.16.840.1.605710.3.579.2. 1258 1996 Unknown [id number] 2.16.840.1.046113.3.579.2. 1258 1996 Unknown [id number] 2.16.840.1.125084.3.579.2. 1258 1996 Unknown [id number] 2.16.840.1.885493.3.579.2. 1259 1959 Unknown [id number] Self-pay Self Pay [id number] Social History Date Type Detail Facility Tobacco smoking status Unknown if ever sm oked [facility] Start: 11-16-2023 End: 05-28-2024 Sex Assigned At Female [facility] Start: 1995 Sex Assigned At Female [facility] Tobacco smoking status No Smokin g Status Entered [facility] Tobacco smoking status No Smokin g Status Entered [facility] Start: 11-18-2023 [facility] Start: 11-18-2023 Tobacco use and exposure Smokeless tobacco non-user [facility] Start: 05-28-2024 End: 12-03-2024 Alcoholic beverage intake Current drinker of alcohol (finding) [facility] Start: 11-16-2023 End: 05-28-2024 History of Social function [facility] How [...] Assessment Result Facility 12-24-2021 Functional Status No [facility] Clinical Notes 12-24-2021 to 12-03-2024 Nano Reyez LPN - 12/03/2024 10:00 AM Rojelio Patel NP - 11/19/2024 11:30 AM Jyothi Pandey MA - 11/05/2024 10:40 AM Vance Reyez LPN - 09/10/2024 8:40 AM EST Note Date & Type Note Facility 12-03-2024 History of Presen t illness Narrative Reason [...] Active Ambulatory Problems Diagnosis Date Noted Seizure ([facility]) 11/16/2023 Migraine 11/16/2023 Intractable migraine without aura and without status migrainosus ([facility]) 11/16/2023 Hypersomnia 11/16/2023 Chronic daily headache 11/18/2023 Resolved Ambulatory Problems Diagnosis Date Noted No Resolved Ambulatory Problems Past Medical History: Diagnosis Date Anxiety Depression ([facility]) History of petit-mal seizures HISTORY PAST MEDICAL HISTORY SOCIAL HISTORY Past Medical History: Diagnosis Date Anxiety Depression ([facility]) History of petit-mal seizures Social [...] note reviewed. Exam conducted with a insurance marketing specialist present. Vitals: Estimated body mass index is 35.02 kg/m as calculated from the following: Height [...] decreased movement. Patient advised to report to [facility] for assessment. Patient to have NST/BPP/AIME. Patient has also been having cramps for the past 2 days. Discussed diet and increasing protein. Patient to return to clinic in 2 weeks for routine OB appointment. Documented by Nano Reyez LPN on behalf of: Giovany Gross DO documented in this encounter [facility] 11-19-2024 History of Presen t illness Narrative [...] Active Ambulatory Problems Diagnosis Date Noted Seizure ([facility]) 11/16/2023 Migraine 11/16/2023 Intractable migraine without aura and without status migrainosus ([facility]) 11/16/2023 Hypersomnia 11/16/2023 Chronic daily [...] note reviewed. Exam conducted with a insurance marketing specialist present. Vitals: Estimated body mass index is [...] Sana Patel NP on behalf of: Sana Patel, MSN, DIGGING MACHINE OPERATOR-BC documented in this encounter [facility] 11-05-2024 History of Presen t illness Narrative [...] Active Ambulatory Problems Diagnosis Date Noted Seizure ([facility]) 11/16/2023 Migraine 11/16/2023 Intractable migraine without aura and without status migrainosus ([facility]) 11/16/2023 Hypersomnia 11/16/2023 Chronic daily headache 11/18/2023 Resolved Ambulatory Problems Diagnosis Date Noted No Resolved Ambulatory Problems Past Medical History: Diagnosis Date Anxiety Depression ([facility]) History of petit-mal seizures HISTORY PAST MEDICAL HISTORY SOCIAL HISTORY Past Medical History: Diagnosis Date Anxiety Depression ([facility]) History of petit-mal seizures Social [...] were given to patient to schedule at [facility]. Documented by Hazel Pandey MA on behalf of: Giovany Gross DO documented in this encounter [facility] 09-10-2024 History of Presen t illness Narrative [...] Active Ambulatory Problems Diagnosis Date Noted Seizure ([facility]) 11/16/2023 Migraine ([facility]) 11/16/2023 Intractable migraine without aura and without status migrainosus ([facility]) 11/16/2023 Hypersomnia 11/16/2023 Chronic daily headache 11/18/2023 Resolved Ambulatory Problems Diagnosis Date Noted No Resolved Ambulatory Problems Past Medical History: Diagnosis Date Anxiety Depression ([facility]) History of petit-mal seizures HISTORY PAST MEDICAL HISTORY SOCIAL HISTORY Past Medical History: Diagnosis Date Anxiety Depression ([facility]) History of petit-mal seizures Social [...] note reviewed. Exam conducted with a insurance marketing specialist present. Vitals: Estimated body mass index is [...] Giovany Gross DO documented in this encounter [facility] 08-13-2024 History of Presen t illness Narrative [...] Active Ambulatory Problems Diagnosis Date Noted Seizure ([facility]) 11/16/2023 Migraine (CMS/HCC) 11/16/2023 Intractable migraine without aura and without status migrainosus (CMS/HCC) 11/16/2023 Hypersomnia 11/16/2023 Chronic daily headache 11/18/2023 Resolved Ambulatory Problems Diagnosis Date Noted No Resolved Ambulatory Problems Past Medical History: Diagnosis Date Anxiety Depression ([facility]) History of petit-mal seizures HISTORY [...] note reviewed. Exam conducted with a insurance marketing specialist present. Vitals: Estimated body mass index is [...] obtained without difficulty and patient was given [facility] order to have obtained. Orders Placed This Encounter Procedures US OB 14+ weeks anatomy scan CHLAMYDIA TRACHOMATIS (GENITO/STI) Neisseria gonorrhea DNA probe, direct Alpha fetoprotein, maternal POCT urinalysis dipstick manually resulted Follow Up: Patient is to return to our office in 4 weeks for routine OB appointment Documented by Suzanna Oneal LPN on behalf of: CORNELIUS Crenshaw documented in this encounter [facility] 07-09-2024 History of Presen t illness Narrative Reason for Appointment: Patient ID: Gregorio Hess is a 29 y.o. female who presents for Routine Visit Patient presents today for Return OB appointment. MEDICATIONS No current outpatient medications ALLERGIES Allergies Allergen Reactions Losartan Other Reaction(s): Unknown PROBLEMS Active Ambulatory Problems Diagnosis Date Noted Seizure ([facility]) 11/16/2023 Migraine ([facility]) 11/16/2023 Intractable migraine without aura and without status migrainosus ([facility]) 11/16/2023 Hypersomnia 11/16/2023 Chronic daily headache 11/18/2023 Resolved Ambulatory Problems Diagnosis Date Noted No Resolved Ambulatory Problems Past Medical History: Diagnosis Date Anxiety Depression ([facility]) History of petit-mal seizures HISTORY PAST MEDICAL HISTORY SOCIAL HISTORY Past Medical History: Diagnosis Date Anxiety Depression ([facility]) History of petit-mal seizures Social [...] note reviewed. Exam conducted with a insurance marketing specialist present. Vitals: Estimated body mass index is [...] or undercooked meat, and stay away from [facility]. Patient has been consulted regarding any further do's and don'ts of . Patient voiced understanding and all questions and concerns were answered. Orders Placed This Encounter Procedures POCT urinalysis dipstick manually resulted Follow Up: Patient is to return in 4 weeks for routine OB appointment. Documented by Giovanna Wise LPN on behalf of: Giovany Gross DO documented in this encounter [facility] 06-25-2024 History of Presen t illness Narrative [...] Active Ambulatory Problems Diagnosis Date Noted Seizure ([facility]) 11/16/2023 Migraine ([facility]) 11/16/2023 Intractable migraine without aura and without status migrainosus ([facility]) 11/16/2023 Hypersomnia 11/16/2023 Chronic daily headache 11/18/2023 Resolved Ambulatory Problems Diagnosis Date Noted No Resolved Ambulatory Problems Past Medical History: Diagnosis Date Anxiety Depression ([facility]) History of petit-mal seizures Family History Problem [...] or undercooked meat, and stay away from [facility]. Patient has also been advised [...] Suzanna Oneal LPN documented in this encounter [facility] 05-28-2024 History of Presen t illness Narrative Reason for Appointment: Patient ID: Gregorio Hess is a 29 y.o. female who presents for cramping in Patient presents today for Consult appointment. MEDICATIONS No current outpatient medications ALLERGIES No Known Allergies PROBLEMS Active Ambulatory Problems Diagnosis Date Noted Seizure ([facility]) 11/16/2023 Migraine ([facility]) 11/16/2023 Intractable migraine without aura and without status migrainosus ([facility]) 11/16/2023 Hypersomnia 11/16/2023 Chronic daily [...] note reviewed. Exam conducted with a insurance marketing specialist present. Vitals: Estimated body mass index is [...] Giovany Gross DO documented in this encounter [facility] 10-29-2022 Evaluation + Plan note Diagnostic Tests PendingDHEAS 10/29/22Testosterone F&T 10/29/22Insulin Level Total 10/29/22FSH and LH 10/29/22Cortisol 10/29/22Estradiol Level 10/29/22 [facility] 02-06-2022 Evaluation + Plan note Diagnostic Tests PendingCOVID-19 ([facility]) 02/06/22 [facility] 12-24-2021 Hospital Discharg e instructions Patient Education 12/24/2021 21:12:52 Cellulitis, Adult, [id number] Cellulitis, Adult Cellulitis is a skin infection. [...] Follow these instructions at home: Medicines Take [id number] and prescription medicines only as told by [...] 12/17/2008 Document Revised: 11/20/2018 Document Reviewed: 11/20/2018 [employer] Patient Education 2020 [employer]. Follow Up Care 12/24/2021 19:31:22 With:Ros Segovia Address: [address] [facility] [address] [place] [address]- Business (1) When:12/27/2021 20:50:34 [facility] Evaluation + Plan note No data available for this section [facility] Evaluation note No assessment inform ation available [facility] Work Phone: Evaluation note Diagnosis Abdominal [...] HealthcareEvaluation note* Diagnosis Third trimester state, incidental 33 weeks gestation of Decreased appetite Anorexia [facility] of [...] Active Ambulatory Problems Diagnosis Date Noted Seizure ([facility]) 11/16/2023 Migraine ([facility]) 11/16/2023 Intractable migraine without aura and without status migrainosus ([facility]) 11/16/2023 Hypersomnia 11/16/2023 Chronic daily headache 11/18/2023 Resolved Ambulatory Problems Diagnosis Date Noted No Resolved Ambulatory Problems Past Medical History: Diagnosis Date Anxiety Depression ([facility]) History of petit-mal seizures HISTORY PAST MEDICAL HISTORY SOCIAL HISTORY Past Medical History: Diagnosis Date Anxiety Depression ([facility]) History of petit-mal seizures Social [...] of: Giovany Gross DO [facility] No data available for this section [facility] available for this section [facility] Chief Complaint and Reason for Visit Chief [...] Member Role Status Dates Reyes Rodriguez DO [facility] Attending Provider Active Roofing Layer Relationship Specialty Start Date End Date Lan Malcolm MD [address] [place] [address] PCP - General Family Medicine 11/18/23 Roofing Layer Relationship Specialty Start Date End Date Lan Malcolm MD [address] [place] [address] PCP - General Family Medicine 11/18/23 Roofing Layer Relationship Specialty Start Date End Date Lan Malcolm MD [address] [place] [address] PCP - General Family Medicine 11/18/23 Roofing Layer Relationship Specialty Start Date End Date Lan Malcolm MD [address] [place] [address] PCP - General Family Medicine 11/18/23 Roofing Layer Relationship Specialty Start Date End Date Lan Malcolm MD [address] [place] [address] PCP - General Family Medicine 11/18/23 Roofing Layer Relationship Specialty Start Date End Date Lan Malcolm MD [address] [place] [address] PCP - General Family Medicine 11/18/23 Roofing Layer Relationship Specialty Start Date End Date Lan Malcolm MD [address] [place] [address] PCP - General Family Medicine 11/18/23 Roofing Layer Relationship Specialty Start Date End Date Lan Malcolm MD [address] [place] [id number] PCP - General Family Medicine 11/18/23 Roofing Layer Relationship Specialty Start Date End Date Lan Malcolm MD [address] [place] [address] PCP - General Family Medicine 11/18/23 Roofing Layer Relationship Specialty Start Date End Date Lan Malcolm MD [address] [place] [address] PCP - General Family Medicine 11/18/23 Roofing Layer Relationship Specialty Start Date End Date Lan Malcolm MD [address] [place] [address] PCP - General Family Medicine 11/18/23 Roofing Layer Relationship Specialty Start Date End Date Lan Malcolm MD [address] [place] [address] PCP - General Family Medicine 11/18/23 Roofing Layer Relationship Specialty Start Date End Date Lan Malcolm MD [address] [place] [address] PCP - General Family Medicine 11/18/23 Goals (unrecognized section and content) Goals may be documented in a n alternate section INFORMATION SOURCE (unrecogn ized section and content) DATE CREATED AUTHOR 11/01/2021 [facility] DATE CREATED AUTHOR AUTHOR'S ORGANIZ ATION 10/01/2022 [facility] DATE CREATED AUTHOR AUTHOR'S ORGANIZ ATION 11/20/2023 [facility] DATE CREATED AUTHOR AUTHOR'S ORGANIZ ATION 05/30/2024 [facility] DATE CREATED AUTHOR AUTHOR'S ORGANIZ ATION 06/02/2024 [facility] DATE CREATED AUTHOR AUTHOR'S ORGANIZ ATION 12/09/2024 [facility] Reason for Visit [...] BE BASED ON THE PRIMARY CLINICAL RECORDS. [facility] provides no warranty or guarantee of the accuracy or completeness of information in this document.
[2024-12-10 10:08] VITALS: BP 128/71; PULSE 106
== END 2024-12-10 10:35 | disposition home or self-care (01) ==
LOC: US 09:46 → FBC 09:48
PROVIDERS: PCP Nurse Practitioner Family; Visit Provider Obstetrics & Gynecology
DX: O09.293 Supervision of pregnancy with other poor reproductive or obstetric history, third trimester (principal); O09.893 Supervision of other high risk pregnancies, third trimester; Z3A.34 34 weeks gestation of pregnancy
CPT/HCPCS: 76818

== ENCOUNTER 2024-12-14 18:47 | Outpatient (OUT) | payer OTHER, SELFPAY ==
--- OUTSIDE RECORDS SUMMARY | 2024-12-14 18:51 | XMS_ITS | CCD ---
Author Organization [facility] Care Team Providers Care [employer] Ground Operations Supervisor Name Role Phone Ros Segovia Primary Care Physician [phone] DO Reyes Rodriguez Attending Provider MISTorri, DR BRAGG Primary Care Unavailable EBEN BRUNNER Admitting Unavailable EBEN BRUNNER Attending Unavailable EBEN BRUNNER Consulting Unavailable AMELIA HAYWARD Attending Unavailable AMELIA HAYWARD Referring Unavailable MACHELLE VIVEROS Primary Care Physician [phone] AMELIA HAYWARD Admitting Unavailable AMELIA HAYWARD Attending [...] Facility (20 sources) Losartan Drug Allergy 06-25-2024 [facility] Healthcare Medications Current Medications Medication Drug Class(es) Dates Sig (Normalized) Sig (Original) cephalexin 500 mg oral capsule (5 sources) Cephalosporin Antibacterial Start: 12-24-2021 take 1 capsule by mouth four times daily cephalexin 500 mg Cap 500 mg = 1 cap(s), Oral, QID, # 40 cap(s), Refills(s) 0, Pharmacy: [facility] 1986, 165.1, cm, 12/24/21 19:35:00 EDT, Height/Length Dosing, 77.5, kg, 12/24/21 19:35:00 EDT, Weight Dosing Start Date: 12/24/21 Status: Ordered ibuprofen 600 mg oral tablet (5 sources) Nonsteroidal Anti-inflammatory Drug Start: 12-24-2021 take 1 tablet by mouth every six hours ibuprofen 600 mg Tab 600 mg = 1 tab(s), Oral, q6hr, # 40 tab(s), Refills(s) 0, Pharmacy: [facility] 1986, 165.1, cm, 12/24/21 19:35:00 EDT, [...] Drug Class(es) Dates Sig (Normalized) Sig (Original) [id number] actuat albuterol 0.09 mg/actuat metered dose [...] 09-25-2022 Episodic Other aftercare (1 source) Other intermediate designer (current) drug therapy; Translations: [OTH LONGTERM CURRENT DRUG THERAPY] Onset: 09-27-2022 Episodic Other [...] Test Name Value Interpretation Reference Range Facility US OB BPP W NON-STRESS on 12-10-[address] [address] Ultrasound Report Signed Patient: GREGORIO HESS MR#: [id number] : 1995 Acct:[id number] Age/Sex: 29 / F ADM Date: 12/10/24 Loc: [facility] 250-[address]: Giovany Gross D.O. Ordering Physician: Giovany Gross D.O. Date of Service: 12/10/24 Procedure(s): US OB BPP w non-stress Accession Number(s): [id number] cc: MACHELLE VIVEROS; Giovany Gross D.O. [place] [address] Patient Name: GREGORIO HESS MRN: [facility]:[id number] date: 1995 Sex: F Assigned Patient Location: [facility] Current Patient Location: [facility] Accession/Order Number: [id number] Exam Date: 12/10/2024 10:30 Report Date: 12/10/2024 10:32 At the request of: GIOVANY GROSS DO Procedure: US OB BPP w non-stress BIOPHYSICAL PROFILE: CLINICAL INFORMATION: History of pre-eclampsia and delivery COMPARISON: 12/03/2024 There is a single live intrauterine gestation in cephalic presentation. The reported gestational age is 34 weeks 3 days. The heart rate measures 150 beats per minute. FINDINGS: TONE: 1 or [...] greater than 2 cm [Y] 2/2 AIME: 8.2 cm. This is near the 5th percentile. Total score: 8/8 US/US OB BPP w non-stress IMPRESSION: NORMAL BIOPHYSICAL PROFILE. BORDERLINE OLIGOHYDRAMNIOS. Impression dictated by: Giovanna High M.D. 12/10/2024 10:32 AM Dictation Location: [place] [address] Electronically authenticated by: [id number] Y Date: 12/10/2024 10:32 Dictated By: Giovanna High M.D. Signed By: 12/10/24 1035 DD/ 1032 TD/TT: Socket Welder Helper: [facility] Radiology, Radiologist, - 12/10/2024 [place] [address] Ultrasound Report Signed Patient: GREGORIO HESS MR#: [id number] : 1995 Acct:[id number] Age/Sex: 29 / F ADM Date: 12/10/24 Loc: [facility] 250-[address]: Giovany Gross D.O. Ordering Physician: Giovany Gross D.O. Date of Service: 12/10/24 Procedure(s): US OB BPP w non-stress Accession Number(s): [id number] cc: MACHELLE VIVEROS; Giovany Gross D.O. The [place] [address] Patient Name: GREGORIO HESS MRN: [id number] date: 1995 Sex: F Assigned Patient Location: [facility] Current Patient Location: [facility] Accession/Order Number: [id number] Exam Date: 12/10/2024 10:30 Report Date: 12/10/2024 10:32 At the request of: GIOVANY GROSS DO Procedure: US OB BPP w non-stress BIOPHYSICAL PROFILE: CLINICAL INFORMATION: History of pre-eclampsia and delivery COMPARISON: 12/03/2024 There is a single live intrauterine gestation in cephalic presentation. The reported gestational age is 34 weeks 3 days. The heart rate measures 150 beats per minute. FINDINGS: TONE: 1 or [...] greater than 2 cm [Y] 2/2 AIME: 8.2 cm. This is near the 5th percentile. Total score: 8/ US/US OB BPP w non-stress IMPRESSION: NORMAL BIOPHYSICAL PROFILE. BORDERLINE OLIGOHYDRAMNIOS. Impression dictated by: Giovanna High M.D. 12/10/2024 10:32 AM Dictation Location: [place] [address] Electronically authenticated by: [id number] Y Date: 12/10/2024 10:32 Dictated By: Giovanna High M.D. Signed By: 12/10/24 1035 DD/ 1032 TD/TT: Socket Welder Helper: [facility] Radiology Study observation (narrative) [facility] US OB BPP W NON-STRESS Ordered By: Radiologist Radiology on 12-10-[address] [facility] Work Phone: Urinalysis macro (dipstick) panel (U)on 12-03-2024 Bilirubin, UA Negative Negative - 4(70) +++ mg/dL [facility] Blood, UA Negative Negative - 50 Theodore/mcL [facility] Clarity, UA Clear [facility] Color, UA Yellow [facility] Glucose, UA Positive Negative - 2000(110) ++++ mg/dL [facility] Comment on above: 250 Interpretation and review of laboratory results Abnormal [facility] Ketones, UA Negative Negative - 160(16) ++++ mg/dL [facility] Leukocytes, UA Negative Negative - 500+++ Mike/mcL [facility] Nitrite, UA Negative Negative - Positive [facility] pH, UA 6 5 - 9 [facility] Protein, UA Negative Negative - 2000(20) ++++ mg/dL [facility] Spec Grav, UA 1.005 1 - 1.03 [facility] Urobilinogen, UA 0.2 0.2 - 12 mg/dL [facility] US OB BPP W NON-STRESS on 11-26-2024 [place] [address] Ultrasound Report Signed Patient: GREGORIO HESS MR#: [id number] : 1995 Acct:[id number] Age/Sex: 29 / F ADM Date: 11/26/24 Loc: US Attending Dr: Giovany Gross D.O. Ordering Physician: Giovany Gross D.O. Date of Service: 11/26/24 Procedure(s): US OB BPP w non-stress Accession Number(s): [id number] cc: MACHELLE VIVEROS; Givoany Gross D.O. The [address] [address] Patient Name: GREGORIO HESS MRN: [facility]:[id number] date: 1995 Sex: F Assigned Patient Location: [facility] Current Patient Location: Accession/Order Number: [id number] Exam Date: 11/26/2024 11:46 Report Date: 11/26/2024 [...] Costello M.D. 11/26/2024 11:47 AM Dictation Location: [place] [address] Electronically authenticated by: [id number] Y Date: 11/26/2024 11:47 Dictated By: Addison Costello M.D. Signed By: 11/26/24 1150 DD/ 1147 TD/TT: Socket Welder Helper: [facility] Radiology, Radiologist, MD - 11/26/2024 [place] [address] Ultrasound Report Signed Patient: GREGORIO HESS MR#: [id number] : 1995 Acct:[id number] Age/Sex: 29 / F ADM Date: 11/26/24 Loc: US Attending Dr: Giovany Gross D.O. Ordering Physician: Giovany Gross D.O. Date of Service: 11/26/24 Procedure(s): US OB BPP w non-stress Accession Number(s): [id number] cc: MACHELLE VIVEROS; Giovany Gross D.O. [place] [id number] Patient Name: GREGORIO HESS MRN: [id number] date: 1995 Sex: F Assigned Patient Location: [facility] Current Patient Location: Accession/Order Number: [id number] Exam Date: 11/26/2024 11:46 Report Date: 11/26/2024 [...] Costello M.D. 11/26/2024 11:47 AM Dictation Location: [place] [address] Electronically authenticated by: [id number] Y Date: 11/26/2024 11:47 Dictated By: Addison Costello M.D. Signed By: 11/26/24 1150 DD/ 1147 TD/TT: Socket Welder Helper: [facility] Radiology Study observation (narrative) [facility] US OB BPP W NON-STRESS Ordered By: Radiologist Radiology on 11-26-2024 [facility] Work Phone: US OB BPP W NON-STRESS on 11-19-2024 [place] [address] Ultrasound Report Signed Patient: GREGORIO HESS MR#: [id number] : 1995 Acct:[id number] Age/Sex: 29 / F ADM Date: 11/19/24 Loc: US Attending Dr: Giovany Gorss D.O. Ordering Physician: Giovany Gross D.O. Date of Service: 11/19/24 Procedure(s): US OB BPP w non-stress Accession Number(s): [id number] cc: MACHELLE VIVEROS; Giovany Gross D.O. The [address] [address] Patient Name: GREGORIO HESS MRN: [facility]:[id number] date: 1995 Sex: F Assigned Patient Location: US Current Patient Location: Accession/Order Number: [id number] Exam Date: 11/19/2024 10:58 Report Date: 11/19/2024 10:59 At the request of: GIOVANY GROSS DO Procedure: US OB BPP w non-stress Biophysical profile. History of preeclampsia. COMPARISON: 11/12/2024 TECHNIQUE: Transabdominal imaging of the gravid uterus was obtained Findings: [employer] Applications Analyst reports a biophysical profile 8 out of 8. AIME is normal at 13.3 cm. heart rate 148 bpm. US/US OB BPP w non-stress Impression: BPP 8 out of 8. Impression dictated by: Dirk Chaves Jr., D.O. 11/19/2024 10:59 AM Dictation Location: [place] [address] Electronically authenticated by: [id number] Y Date: 11/19/2024 10:59 Dictated By: Dirk Chaves M.D. Signed By: 11/19/24 1102 DD/ 1059 TD/TT: Socket Welder Helper: [facility] Radiology, Radiologist, MD - 11/19/2024 The [place] [id number] Ultrasound Report Signed Patient: GREGORIO HESS MR#: [id number] : 1995 Acct:[id number] Age/Sex: 29 / F ADM Date: 11/19/24 Loc: US Attending Dr: Giovany Gross D.O. Ordering Physician: Giovany Gross D.O. Date of Service: 11/19/24 Procedure(s): US OB BPP w non-stress Accession Number(s): [id number] cc: MACHELLE VIVEROS; Giovany Gross D.O. [place] [address] Patient Name: GREGORIO HESS MRN: [id number] date: 1995 Sex: F Assigned Patient Location: US Current Patient Location: Accession/Order Number: [id number] Exam Date: 11/19/2024 10:58 Report Date: 11/19/2024 10:59 At the request of: GIOVANY GROSS DO Procedure: US OB BPP w non-stress Biophysical profile. History of preeclampsia. COMPARISON: 11/12/2024 TECHNIQUE: Transabdominal imaging of the gravid uterus was obtained Findings: [employer] Analyst reports a biophysical profile 8 out of 8. AIME is normal at 13.3 cm. heart rate 148 bpm. US/US OB BPP w non-stress Impression: BPP 8 out of 8. Impression dictated by: Dirk Chaves Jr., D.O. 11/19/2024 10:59 AM Dictation Location: [place] [address] Electronically authenticated by: [id number] Y Date: 11/19/2024 10:59 Dictated By: Dirk Chaves M.D. Signed By: 11/19/24 1102 DD/ 1059 TD/TT: Socket Welder Helper: [facility] Radiology Study observation (narrative) [facility] US OB BPP W NON-STRESS Ordered By: Radiologist Radiology on 11-19-2024 [facility] Work Phone: US OB FOLLOW UP TRANSABDOMIN [...] II, MD, PHD at 22-Nov-2024 08:21:01 PM [facility] Normal Not Available Comment on above: Order Comment: US OB SCAN FOR GROWTH Estimated Date of Delivery: 01/18/25 Gestational Age as of 11/05/2024: 29w3d Urinalysis macro (dipstick) panel (U)on 11-19-2024 Bilirubin, UA Negative Negative - 4(70) +++ mg/dL [facility] Blood, UA Negative Negative - 50 Theodore/mcL [facility] Healthcare Clarity, UA Clear [facility] Color, UA Yellow [facility] Glucose, UA Positive Negative - 2000(110) ++++ mg/dL [facility] Healthcare Comment on above: 100mg/dL Interpretation and review of laboratory results Abnormal [facility] Ketones, UA Negative Negative - 160(16) ++++ mg/dL [facility] Leukocytes, UA Trace Negative - 500+++ Mike/mcL [facility] Healthcare Nitrite, UA Negative Negative - Positive [facility] pH, UA 6 5 - 9 [facility] Protein, UA Negative Negative - 1999(20) ++++ mg/dL [facility] Spec Grav, UA 1.01 1 - 1.03 [facility] Urobilinogen, UA 0.2 0.2 - 12 mg/dL [facility] US OB BPP W NON-STRESS on 11-12-2024 [place] [address] Ultrasound Report Signed Patient: GREGORIO HESS MR#: [id number] : 1995 Acct:[id number] Age/Sex: 29 / F ADM Date: 11/12/24 Loc: [facility] 250-[address]: Giovany Gross D.O. Ordering Physician: Giovany Gross D.O. Date of Service: 11/12/24 Procedure(s): US OB BPP w non-stress Accession Number(s): [id number] cc: MACHELLE VIVEROS; Giovany Gross D.O. [place] [address] Patient Name: GREGORIO HESS MRN: [id number] date: 1995 Sex: F Assigned Patient Location: [facility] Current Patient Location: [facility] Accession/Order Number: [id number] Exam Date: 11/12/2024 10:30 Report Date: 11/12/2024 10:32 At the request of: GIOVANY GROSS DO Procedure: US OB BPP w non-stress Biophysical profile. History of preeclampsia. COMPARISON: None. TECHNIQUE: Transabdominal imaging of the gravid uterus was obtained Findings: [employer] Analyst reports a biophysical profile 8 out of 8. AIME is normal at 10.2 cm. heart rate 155 bpm. US/US OB BPP w non-stress Impression: BPP 8 out of 8. Impression dictated by: Dirk Chaves Jr., D.O. 11/12/2024 10:32 AM Dictation Location: [place] [address] Electronically authenticated by: [id number] Y Date: 11/12/2024 10:32 Dictated By: Dirk Chaves M.D. Signed By: 11/12/244 DD/ 103 TD/TT: Socket Welder Helper: [facility] Radiology, Radiologist, - 11/12/2024 [place] [address] Ultrasound Report Signed Patient: GREGORIO HESS MR#: [id number] : 1995 Acct:[id number] Age/Sex: 29 / F ADM Date: 11/12/24 Loc: [facility] 250-[address]: Giovany Gross D.O. Ordering Physician: Giovany Gross D.O. Date of Service: 11/12/24 Procedure(s): US OB BPP w non-stress Accession Number(s): [id number] cc: MACHELLE VIVEROS; Giovany Gross D.O. The [place] [address] Patient Name: GREGORIO HESS MRN: [facility]:[id number] date: 1995 Sex: F Assigned Patient Location: [facility] Current Patient Location: [facility] Accession/Order Number: [id number] Exam Date: 11/12/2024 10:30 Report Date: 11/12/2024 10:32 At the request of: GIOVANY GROSS DO Procedure: US OB BPP w non-stress Biophysical profile. History of preeclampsia. COMPARISON: None. TECHNIQUE: Transabdominal imaging of the gravid uterus was obtained Findings: [employer] Analyst reports a biophysical profile 8 out of 8. AIME is normal at 10.2 cm. heart rate 155 bpm. US/US OB BPP w non-stress Impression: BPP 8 out of 8. Impression dictated by: Dirk Chaves Jr., D.O. 11/12/2024 10:32 AM Dictation Location: [place] [address] Electronically authenticated by: [id number] Y Date: 11/12/2024 10:32 Dictated By: Dirk Chaves M.D. Signed By: 11/12/244 DD/ 1032 TD/TT: Socket Welder Helper: [facility] Radiology Study observation (narrative) [facility] US OB BPP W NON-STRESS Ordered By: Radiologist Radiology on 11-12-2024 [facility] Work Phone: Urinalysis macro (dipstick) panel (U)on 11-05-2024 Bilirubin, UA Negative Negative - 4(70) +++ mg/dL [facility] Blood, UA Negative Negative - 50 Theodore/mcL [facility] Clarity, UA Clear [facility] Color, UA Yellow [facility] Glucose, UA Negative Negative - 1999(110) ++++ mg/dL [facility] Interpretation and review of laboratory results Normal [facility] Ketones, UA Negative Negative - 160(16) ++++ mg/dL [facility] Leukocytes, UA Trace Negative - 500+++ Mike/mcL [facility] Nitrite, UA Negative Negative - Positive [facility] pH, UA 7 5 - 9 [facility] Protein, UA Negative Negative - 1999(20) ++++ mg/dL [facility] Spec Grav, UA 1.015 1 - 1.03 [facility] Urobilinogen, UA 0.2 0.2 - 12 mg/dL [facility] ALL CBC WITH AUTO DIFFon BASOPHILS ABSOLUTE AUTO 0 [facility] Basophils/100 WBC (Bld) 0.1 % Low 0.2 - 2.0 % [facility] Eosinophils/100 WBC (Bld) 0.3 % Low 0.9 - 7.0 % [facility] Erythrocyte distribution width (RBC) [Ratio] 14.6 % 11.0 - 15.0 % [facility] Hematocrit (Bld) [Volume fraction] 32.5 % Low 36.0 - 48.0 % [facility] Hemoglobin (Bld) [Mass/Vol] 10.7 g/dL Low 12.0 - 16.0 g/dL [facility] IMMATURE GRANULOCYTES ABS AUTO 0.14 High [facility] Immature granulocytes/100 WBC (Bld) 1.3 % High 0.0 - 0.5 % [facility] Interpretation and review of laboratory results Abnormal [facility] LYMPHOCYTES ABSOLUTE AUTO 1.9 [facility] Lymphocytes/100 WBC (Bld) 18 % Low 20.5 - 60.0 % [facility] MCH (RBC) [Entitic mass] 29.6 pg 26.7 - 34.0 pg [facility] MCHC (RBC) [Mass/Vol] 32.9 g/dL 29.9 - 35.2 g/dL [facility] MCV (RBC) [Entitic vol] 89.8 fL 81.0 - 99.0 fL [facility] MONOCYTES ABSOLUTE AUTO 0.6 [facility] Monocytes/100 WBC (Bld) 6 % 1.7 - 12.0 % [facility] NEUTROPHILS ABSOLUTE AUTO 7.8 High [facility] Neutrophils/100 WBC (Bld) 74.3 % 43.0 - 75.0 % [facility] Platelet mean volume (Bld) [Entitic vol] 12 fL 9.5 - 13.5 fL [facility] TBH EO # 0 [facility] TBH PLT 188 [facility] TB RBC 3.62 Low [facility] WBC 10.5 [facility] US OB LIMITED 1+ FETUSESon 0 10-01-2024 [...] II, MD, PHD at 02-Oct-2024 08:30:32 PM [facility] Normal Not Available Comment on above: Order Comment: US OB INCOMPLETE ANATOMY W US OB TRANSVAGINAL Estimated Date of Delivery: 01/18/25 Gestational Age as of 09/10/2024: 21w3d Urinalysis macro (dipstick) panel (U)on 10-01-2024 Bilirubin, UA Positive Negative - 4(70) +++ mg/dL [facility] Comment on above: small Blood, UA Negative Negative - 50 Theodore/mcL [facility] Clarity, UA Clear [facility] Color, UA Yellow [facility] Glucose, UA Positive Negative - 2000(110) ++++ mg/dL [facility] Comment on above: 100mg/dL Interpretation and review of laboratory results Abnormal [facility] Ketones, UA Positive Negative - 160(16) ++++ mg/dL [facility] Comment on above: 15mg/dL Leukocytes, UA Trace Negative - 500+++ Mike/mcL [facility] Nitrite, UA Negative Negative - Positive [facility] pH, UA 5.5 5 - 9 [facility] Protein, UA Positive Negative - 2000(20) ++++ mg/dL [facility] Comment on above: 100mg/dL Spec Grav, UA 1.03 1 - 1.03 [facility] Urobilinogen, UA 1.0 0.2 - 12 mg/dL [facility] AFP, SERUM, OPEN SPINA BIFID Aon 09-11-2024 AFP MOM 0.83 . [facility] AFP VALUE 47.8 ng/mL . [facility] COMMENT: Comment . [facility] Comment on above: Marci Cox , Ph.D., [facility] Director References: Available Upon Request. Multiples Of Median Cutoffs For AFP Elevations Webster 2.5 Black 2.8 IDD 2.0 Twins 4.5 Abbreviation Definitions IDD - Insulin Dep Diabetes OSBR - Open Spina Bifida Risk For further inquiries contact [employer] [facility] at [phone]. This test was developed and its performance characteristics determined by [employer]. It has not been cleared or approved by the Food and Drug Administration. Performed at: [facility] [address] [place], [place] [id number] Technical Writer: Arie Shipman [facility], Phone: [phone] GEST. AGE ON COLLECTION DATE 21.3 . weeks [facility] GESTAT. AGE BASED ON LMP . [facility] Comment on above: Recalculations are n ot recommended when gestational dating by LMP and ultrasound are within 10 days. INSULIN DEP DIABETES No . [facility] INTERPRETATION Comment . [facility] Comment on above: Interpretation: Scre en Negative [...] Customer Services to discuss available options. The [place] [employer] recommends amniocentesis be offered to women age 35 and older. [age] PRICE [age] [facility] MULTIPLE GESTATION No . [facility] [place] [address] . [facility] RACE . [facility] RESULTS Report . [facility] TEST RESULTS: Negative . [facility] WEIGHT 186 . lbs [facility] N N LMP [id number] 3 17 N 1 186 N N N N N White/ [facility] IGP,APTIMA HPV,AGE GDLNon AGE GDLN ACOG TESTING Note . [facility] Comment on above: TESTS RESULT FLAG UN ITS REF RANGE LAB Clinician Provided Cytology Information Source.............Cervix Other.............. No. of containers..01 ThinPrep Vial Age Algo ACOG Amarilis... -12 08 FLAG LEGEND: L-Low Normal,H-High Normal,LL-Alert Low,HH-Alert High <-Panic Low,>-Panic High,A-Abnormal,AA-Critical Abnormal Performed at: 01 =G [address] [address] Huma Hicks MD, IGP, RFX APTIMA HPV ASCU Note . [facility] Comment on above: TESTS RESULT FLAG UN ITS REF RANGE LAB DIAGNOSIS: 02 NEGATIVE FOR INTRAEPITHELIAL LESION OR MALIGNANCY. REACTIVE CELLULAR CHANGES AND/OR REPAIR ARE PRESENT. Specimen adequacy: 02 Satisfactory for evaluation. No endocervical component is identified. An endocervical component is not commonly seen in the patient. Performed by: 03 Yolanda Winter, Switching Clerk ([facility]) Electronically si... Keara Campos MD, Pathologist . [...] do occur. Test Methodology: Note 02 The [employer] (PICA)(R) It Corporate Recruiter was unable to read this specimen. Therefore a manual review was performed. FLAG LEGEND: L-Low Normal,H-High Normal,LL-Alert Low,HH-Alert High <-Panic Low,>-Panic High,A-Abnormal,AA-Critical Abnormal Performed at: 02 [address] [facility] [address] [address] Huma Hicks MD, 03 CRSTX [facility] [place] [address] [address] Georgina Romeo MD, . 02 The HPV DNA reflex criteria were not met with this specimen result therefore, no HPV testing was performed. The HPV DNA reflex criteria were not met with this specimen result therefore, no HPV testing was performed. Performed at: =[address] [id number] Technical Writer: Huma Hicks MD, Phone: [phone] Performed at: [address] [id number] Technical Writer: Huma Hicks MD, Phone: [phone] [facility] Healthcare RECURRENT VAGINITIS (HTRX)on 08-14-2024 ATOPOBIUM VAGINAE 0 [facility] ATOPOBIUM VAGINAE Not detected [facility] BVAB 2,3 (BACTERIAL VAGINOSIS ASSOCIATED BACTERIA 2, 3); MOBILUNCUS SPP 27.061 Abnormal [facility] BV[facility] 2,3 (BACTERIAL VAGINOSIS ASSOCIATED BACTERIA 2, [...] II, MD, PHD at 02-Sep-2024 08:04:31 AM [facility] Normal Not Available Comment on above: Order Comment: US OB ANATOMY SINGLE W US OB CERVICAL LENGTH Estimated Date of Delivery: 01/18/25 Gestational Age as of 08/13/2024: 17w3d Urinalysis macro (dipstick) panel (U)on 08-13-2024 Bilirubin, UA Negative Negative - 4(70) +++ mg/dL [facility] Healthcare Blood, UA Negative Negative - 50 Theodore/mcL [facility] Clarity, UA Clear [facility] Color, UA Yellow [facility] Glucose, UA Positive Negative - 2000(110) ++++ mg/dL [facility] Comment on above: 100 Interpretation and review of laboratory results Abnormal [facility] Ketones, UA Negative Negative - 160(16) ++++ mg/dL [facility] Leukocytes, UA Negative Negative - 500+++ Mike/mcL [facility] Nitrite, UA Negative Negative - Positive [facility] pH, UA 5.5 5 - 9 [facility] Protein, UA Trace Negative - 1999(20) ++++ mg/dL [facility] Spec Grav, UA 1.03 1 - 1.03 [facility] Urobilinogen, UA 0.2 0.2 - 12 mg/dL [facility] Urinalysis macro (dipstick) panel (U)on 07-09-2024 Bilirubin, UA Negative Negative - 4(70) +++ mg/dL [facility] Blood, UA Negative Negative - 50 Theodore/mcL [facility] Clarity, UA Clear [facility] Color, UA Yellow [facility] Glucose, UA Negative Negative - 1999(110) ++++ mg/dL [facility] Interpretation and review of laboratory results Abnormal [facility] Ketones, UA Positive Negative - 160(16) ++++ mg/dL [facility] Comment on above: trace Leukocytes, UA Negative Negative - 500+++ Mike/mcL [facility] Nitrite, UA Negative Negative - Positive [facility] pH, UA 6 5 - 9 [facility] Protein, UA Trace Negative - 1999(20) ++++ mg/dL [facility] Spec Grav, UA 1.025 1 - 1.03 [facility] Urobilinogen, UA 1.0 0.2 - 12 mg/dL [facility] HCG ( test) Ql (U)o n 06-26-2024 Interpretation and review of laboratory results Abnormal [facility] Preg Test, Ur Positive Negative [facility] TBH DRUG SCREEN RAPID (URINE )on 06-26-2024 AMPHETAMINE SCREEN URINE Negative NEGATIVE [facility] BARBITURATES SCREEN URINE Negative NEGATIVE [facility] BENZODIAZEPINES SCREEN URINE Negative NEGATIVE [facility] BUPRENORPHINE SCREEN URINE Negative NEGATIVE [facility] Comment on above: DRUG CLASS TEST SYST [...] 300 ng/mL CANNABINOID SCREEN URINE Negative NEGATIVE [facility] COCAINE SCREEN URINE Negative NEGATIVE [facility] METHADONE SCREEN URINE Negative NEGATIVE [facility] METHAMPHETAMINES SCREEN URINE Negative NEGATIVE [facility] OPIATE SCREEN URINE Negative NEGATIVE [facility] OXYCODONE SCREEN URINE Negative NEGATIVE [facility] PHENCYCLIDINE SCREEN URINE Negative NEGATIVE [facility] TRICYCLIC ANTIDEPRESSANT URINE Negative NEGATIVE [facility] CLINISYNC [facility] Urinalysis macro (dipstick) panel (U)on 06-26-2024 Bilirubin, UA Negative Negative - 4(70) +++ mg/dL [facility] Blood, UA Negative Negative - 50 Theodore/mcL [facility] Clarity, UA Clear [facility] Color, UA Yellow [facility] Glucose, UA Negative Negative - 1999(110) ++++ mg/dL [facility] Interpretation and review of laboratory results Abnormal [facility] Ketones, UA Negative Negative - 160(16) ++++ mg/dL [facility] Leukocytes, UA Trace Negative - 500+++ Mike/mcL [facility] Nitrite, UA Negative Negative - Positive [facility] pH, UA 7 5 - 9 [facility] Protein, UA Negative Negative - 1999(20) ++++ mg/dL [facility] Spec Grav, UA 1.015 1 - 1.03 [facility] Urobilinogen, UA 1.0 0.2 - 12 mg/dL [facility] Urinalysis macro (dipstick) panel (U)on 05-28-2024 Bilirubin, UA Negative Negative - 4(70) +++ mg/dL [facility] Blood, UA Negative Negative - 50 Theodore/mcL [facility] Clarity, UA Clear [facility] Color, UA Yellow [facility] Glucose, UA Negative Negative - 1999(110) ++++ mg/dL [facility] Interpretation and review of laboratory results Normal [facility] Ketones, UA Negative Negative - 160(16) ++++ mg/dL [facility] Leukocytes, UA Negative Negative - 500+++ Mike/mcL [facility] Nitrite, UA Negative Negative - Positive [facility] pH, UA 7 5 - 9 [facility] Protein, UA Negative Negative - 2000(20) ++++ mg/dL [facility] Spec Grav, UA 1.025 1 - 1.03 [facility] Urobilinogen, UA 0.2 0.2 - 12 mg/dL [facility] BhCG Quanton 05-27-2024 [place] [address] m[IU]/mL High 1-3 [facility] Comment on above: Result Comment: 'F N ON < 1 - 3' ' 0.2 - 1 WEEK = 5 TO 50' ' 1 - 2 WEEKS = 50 - 500' ' 2 - 3 WEEKS = 100 - 5000' ' 3 - 4 WEEKS = 500 - 95446' ' 4 - 5 WEEKS = 1000 - 15735' ' 5 - 6 WEEKS = 38004 - 028197' ' 6 - 8 WEEKS = 95909 - 464527' ' 8 - 12 WEEKS = 65722 - 748159' Performed By: #### 2 [id number] #### [facility] [address] [place] [address] CHEMISTRYOrdered By: SYSTEM SYSTEM on 05-27-2024 [place] [address] m[IU]/mL High 1 - 3 mIU/mL [facility] Comment on above: Result Comment: 'F N ON < 1 - 3' ' 0.2 - 1 WEEK = 5 TO 50' ' 1 - 2 WEEKS = 50 - 500' ' 2 - 3 WEEKS = 100 - 5000' ' 3 - 4 WEEKS = 500 - 91270' ' 4 - 5 WEEKS = 1000 - 95150' ' 5 - 6 WEEKS = 22998 - 014161' ' 6 - 8 WEEKS = 23017 - 284851' ' 8 - 12 WEEKS = 93396 - 916582' MRI Brain w/o Contraston MRI Brain w/o [...] Transcribed by: TEJAL Technologist: KALYN [facility] Consent for Treatmenton Consent for Treatment [id number]#1 .00TIFF [facility] RAD - MRI Screening Formon 0 11-21-2023 RAD - MRI Screening Form [id number]# 1.00TIFF [facility] Physician Orderon 11-20-2023 Physician Order [id number]#1 .00TIFF [facility] CHEMISTRYOrdered By: SYSTEM SYSTEM on 10-29-2022 Cobalamin (Vitamin B12) [Mass/Vol] 460 pg/mL Normal 50 - 1500 pg/mL [facility] Remisol Folate [Mass/Vol] 8.4 ng/mL Normal >=6.7ng/mL [facility] Re misol Magnesium [Mass/Vol] 2.1 mg/dL Normal 1.3 - 2 .4 mg/dL [facility] Remisol AMYLASEon 09-25-2022 Amylase [Catalytic activity/Vol] 65 U/L Normal 25-115 [facility] Comment on above: Performed By: #### L IPA, PAZ, CMP #### [facility] [address] [place] [address] Dr. Flores Arroyo CBC AUTO DIFFon 09-25-2022 BASO # 0.0 103/ul Normal 0.0-0.1 [facility] Comment on above: Performed By: #### C BC #### [facility] [address] [address] [address] Flores Arroyo Basophils/100 WBC (Bld) 0.2 % Normal 0.2-2.0 [facility] Comment on above: Performed By: #### C BC #### [facility] [address] [address] [address] Flores Arroyo EO # 0.1 103/ul Normal 0.0-0.7 [facility] Comment on above: Performed By: #### C BC #### [facility] [address] [place] [address] Dr. Flores Arroyo Eosinophils/100 WBC (Bld) 0.3 % Critically low 0.9-7.0 [facility] Comment on above: Performed By: #### C BC #### [facility] [address] [place] [address] Dr. Flores Arroyo Erythrocyte distribution width (RBC) [Ratio] 13.7 % Normal 11.0-15.0 [facility] Comment on above: Performed By: #### C BC #### [facility] [address] [place] [address] Dr. Flores Arroyo Hematocrit (Bld) [Volume fraction] 44.0 % Normal 36.0-48.0 [facility] Comment on above: Performed By: #### C BC #### [facility] [address] [place] [address] Dr. Flores Arroyo Hemoglobin (Bld) [Mass/Vol] 14.7 g/dL Normal 12.0-16.0 [facility] Comment on above: Performed By: #### C BC #### [facility] [address] [place] [address] Dr. Flores Arroyo IG # 0.07 10e3/ul Critically high 0.00-0.03 [facility] Comment on above: Performed By: #### C BC #### [facility] [address] [place] [address] Dr. Flores Arroyo IG % 0.4 % Normal 0.0-0.5 [facility] Comment on above: Performed By: #### C BC #### [facility] [address] [place] [address] Dr. Flores Arroyo LYMPH # 2.4 103/ul Normal 1.2-3.8 [facility] Comment on above: Performed By: #### C BC #### [facility] [address] [place] [address] Dr. Flores Arroyo Lymphocytes/100 WBC (Bld) 12.7 % Critically low 20.5-60.0 [facility] Comment on above: Performed By: #### C BC #### [facility] [address] [place] [address] Dr. Flores Arroyo MANUAL DIFF REQ NO Normal [facility] Comment on above: Performed By: #### C BC #### [facility] [address] [place] [address] Dr. Flores Arroyo MCH (RBC) [Entitic mass] 29.5 pg Normal 26.7-34.0 [facility] Comment on above: Performed By: #### C BC #### [facility] [address] [place] [address] Dr. Flores Arroyo MCHC (RBC) [Mass/Vol] 33.4 g/dL Normal 29.9-35.2 [facility] Comment on above: Performed By: #### C BC #### [facility] [address] [place] [address] Dr. Flores Arroyo MCV (RBC) [Entitic vol] 88.4 fL Normal 81.0-99.0 [facility] Comment on above: Performed By: #### C BC #### [facility] [address] [place] [address] Dr. Flores Arroyo MONO # 1.3 103/ul Critically high 0.3-0.8 [facility] Comment on above: Performed By: #### C BC #### [facility] [address] [place] [address] Dr. Flores Arroyo Monocytes/100 WBC (Bld) 7.2 % Normal 1.7-12.0 [facility] Comment on above: Performed By: #### C BC #### [facility] [address] [place] [address] Dr. Flores Arroyo NEUT # 14.8 103/ul Critically high 1.4-6.5 [facility] Comment on above: Performed By: #### C BC #### [facility] [address] [place] [address] Dr. Flores Arroyo Neutrophils/100 WBC (Bld) 79.2 % Critically high 43.0-75.0 [facility] Comment on above: Performed By: #### C BC #### [facility] [address] [place] [address] Dr. Flores Arroyo Platelet mean volume (Bld) [Entitic vol] 10.8 fL Normal 9.5-13.5 [facility] Comment on above: Performed By: #### C BC #### [facility] [address] [place] [address] Dr. Flores Arroyo PLT 306 103/ul Normal 150-450 [facility] Comment on above: Performed By: #### C BC #### [facility] [address] [place] [address] Dr. Flores Arroyo RBC 4.98 106/ul Normal 4.20-5.40 [facility] Comment on above: Performed By: #### C BC #### [facility] [address] [place] [address] Dr. Flores Arroyo WBC 18.7 103/ul Critically high 4.0-11.0 [facility] Comment on above: Performed By: #### C BC #### [facility] [address] [place] [address] Dr. Flores Arroyo CULTURE URINEon 09-25-2022 CULTURE URINE Culture Observations : MODERATE GROWTH OF MIXED GENITAL MIS. NO POTENTIAL PATHOGENS SEEN. Normal [facility] Comment on above: Performed By: #### U RCX #### [facility] [address] [place] [address] Dr. Flores Arroyo ER URINE PROFILEon 03-14-202 3 Bilirubin Ql (U) Negative Normal NEGATIVE [facility] Comment on above: Performed By: #### U MICRO, ERUR #### [facility] [address] [address] [address] Flores Arroyo Clarity (U) CLEAR Normal CLEAR [facility] Comment on above: Performed By: #### U MICRO, ERUR #### [facility] [address] [address] [address] Flores Arroyo Color (U) YELLOW Normal YELLOW [facility] Comment on above: Performed By: #### U MICRO, ERUR #### [facility] [address] [address] [address] Floers Arroyo ERUAHD A micrscopic examination will be performed if indicated. Normal [facility] Comment on above: Performed By: #### U MICRO, ERUR #### [facility] [address] [place] [address] Dr. Flores Arroyo Glucose Ql (U) Negative Normal NEGATIVE [facility] Comment on above: Performed By: #### U MICRO, ERUR #### [facility] [address] [address] [address] Flores Arroyo Hemoglobin Ql (U) Negative Normal NEGATIVE [facility] Comment on above: Performed By: #### U MICRO, ERUR #### [facility] [address] [address] [address] Flores Arroyo Ketones Ql (U) Negative Normal NEGATIVE [facility] Comment on above: Performed By: #### U MICRO, ERUR #### [facility] [address] [address] [address] Flores Arroyo LEUKOCYTES Negative Normal NEGATIVE [facility] Comment on above: Performed By: #### U MICRO, ERUR #### [facility] [address] [address] [address] Flores Arroyo Nitrite Ql (U) Negative Normal NEGATIVE [facility] Comment on above: Performed By: #### U MICRO, ERUR #### [facility] [address] [address] [address] Flores Arroyo pH (U) 5.5 [pH] Normal 5-9 [facility] Comment on above: Performed By: #### U MICRO, ERUR #### [facility] [address] [address] [address] Flores Arroyo Protein (U) [Mass/Vol] 30 mg/dL Abnormal NEGATIVE/ TRACE [facility] Comment on above: Performed By: #### U MICRO, ERUR #### [facility] [address] [place] [address] Dr. Flores Arroyo SPEC GRAVITY >=1.030 Abnormal 1.005-<=1.025 [facility] Comment on above: Performed By: #### U MICRO, ERUR #### [facility] [address] [place] [address] Dr. Flores Arroyo UR MICRO IND INDICATED Normal [facility] Comment on above: Performed By: #### U MICRO, ERUR #### [facility] [address] [place] [address] Dr. Flores Arroyo Urobilinogen Qn (U) 0.2 {Salty'U}/dL Normal 0.2 - 1. 0 [facility] Comment on above: Performed By: #### U MICRO, ERUR #### [facility] [address] [place] [address] Dr. Flores Arroyo LACTATE/LACTIC ACIDon 2022 Lactate [Moles/Vol] 1.6 mmol/L Normal 0.4-2.0 [facility] Comment on above: Performed By: #### L ACT #### [facility] [address] [place] [address] Dr. Flores Arroyo LIPASEon 09-25-2022 Lipase [Catalytic activity/Vol] 95.0 U/L Normal 73.0-393.0 [facility] Comment on above: Performed By: #### L IPA, PAZ, CMP #### [facility] [address] [place] [address] Dr. Flores Arroyo PROF 14(COMP METB)on 023 Albumin [Mass/Vol] 4.4 g/dL Normal 3.4-5.0 [facility] Comment on above: Performed By: #### L IPA, PAZ, CMP #### [facility] [address] [address] [address] Flores Arroyo Albumin/Globulin [Mass ratio] 1.2 {ratio} Normal [facility] Comment on above: Performed By: #### L IPA, PAZ, CMP #### [facility] [address] [address] [address] Flores Arroyo ALP [Catalytic activity/Vol] 86 U/L Normal 46-116 [facility] Comment on above: Performed By: #### L IPA, PAZ, CMP #### [facility] [address] [address] [address] Flores Arroyo ALT [Catalytic activity/Vol] 41 U/L Normal 14-59 [facility] Comment on above: Performed By: #### L IPA, PAZ, CMP #### [facility] [address] [address] [address] Flores Arroyo Anion gap [Moles/Vol] 11.4 mmol/L Normal [facility] Comment on above: Performed By: #### L IPA PAZ, CMP #### [facility] [address] [address] [address] Flores Arroyo AST [Catalytic activity/Vol] 29 U/L Normal 15-37 [facility] Comment on above: Performed By: #### L IPA, PAZ, CMP #### [facility] [address] [address] [address] Flores Arroyo Bilirubin [Mass/Vol] 0.3 mg/dL Normal 0.2-1.0 [facility] Comment on above: Performed By: #### L IPA, PAZ, CMP #### [facility] [address] [address] [address] Flores Arroyo Calcium [Mass/Vol] 9.3 mg/dL Normal 8.5-10.1 [facility] Comment on above: Performed By: #### L IPA, PAZ, CMP #### [facility] [address] [address] [address] Flores Arroyo Chloride [Moles/Vol] 102 mmol/L Normal 98-107 [facility] Comment on above: Performed By: #### L IPA PAZ, CMP #### [facility] [address] [address] [address] Flores Arroyo CO2 [Moles/Vol] 26.3 mmol/L Normal 21.0-32.0 [facility] Comment on above: Performed By: #### L IPA, PAZ, CMP #### [facility] [address] [address] [address] Flores Arroyo Creatinine [Mass/Vol] 0.85 mg/dL Normal 0.55-1.02 [facility] Comment on above: Performed By: #### L IPA, PAZ, CMP #### [facility] [address] [address] [address] Flores Arroyo EGFR-AF IRISH >60 Normal >=60 [facility] Comment on above: Performed By: #### L IPA PAZ, CMP #### [facility] [address] [address] [address] Flores Arroyo EGFR-NON AF IRISH >60 Normal >=60 [facility] Comment on above: Performed By: #### L IPA PAZ, CMP #### [facility] [address] [address] [address] Flores Arroyo Globulin (S) [Mass/Vol] 3.8 g/dL Normal [facility] Comment on above: Performed By: #### L IPA PAZ, CMP #### [facility] [address] [address] [address] Flores Arroyo Glucose [Mass/Vol] 159 mg/dL Critically high 74-106 [facility] Comment on above: Performed By: #### L IPA PAZ, CMP #### [facility] [address] [address] [address] Flores Arroyo Potassium [Moles/Vol] 3.7 mmol/L Normal 3.5-5.1 [facility] Comment on above: Performed By: #### L IPA, PAZ, CMP #### [facility] [address] [address] [address] Flores Arroyo Protein [Mass/Vol] 8.2 g/dL Normal 6.4-8.2 [facility] Comment on above: Performed By: #### L PAZ MARTINES, CMP #### [facility] [address] [place] [address] Dr. Flores Arroyo Sodium [Moles/Vol] 136 mmol/L Normal 136-145 [facility] Comment on above: Performed By: #### L PAZ MARTINES, CMP #### [facility] [address] [place] [address] Dr. Flores Arroyo Urea nitrogen [Mass/Vol] 11.0 mg/dL Normal 7.0-18.0 [facility] Comment on above: Performed By: #### L PAZ MARTINES, CMP #### [facility] [address] [place] [address] Dr. Flores Arroyo Urea nitrogen/Creatinine [Mass ratio] 12.9 mg/mg Normal [facility] Comment on above: Performed By: #### L PAZ MARTINES, CMP #### [facility] [address] [place] [address] Dr. Flores Arroyo URINE MICROSCOPIC ONLYon BACTERIA SMALL Abnormal NONE SEEN [facility] Comment on above: Performed By: #### U MICRO, ERUR #### [facility] [address] [place] [address] Dr. Flores Arroyo Bacteria identified Cx Nom (U) INDICATED Normal [facility] Comment on above: Performed By: #### U MICRO, ERUR #### [facility] [address] [place] [address] Dr. Flores Arroyo CAST NONE SEEN Normal NONE SEEN [facility] Comment on above: Performed By: #### U MICRO, ERUR #### [facility] [address] [place] [address] Dr. Flores Arroyo Crystals LM Nom (Urine sed) NONE SEEN Normal NONE SEEN [facility] Comment on above: Performed By: #### U MICRO, ERUR #### [facility] [address] [place] [address] Dr. Flores Arroyo Epithelial cells LM Ql (Urine sed) MODERATE Abnormal NONE SEEN /RARE [facility] Comment on above: Performed By: #### U MICRO, ERUR #### [facility] [address] [address] [address] Flores Arroyo MUCOUS MODERATE Abnormal NONE SEEN [facility] Comment on above: Performed By: #### U MICRO, ERUR #### [facility] [address] [address] [address] Flores Arroyo RBC 0-2 Normal 0-2 [facility] Comment on above: Performed By: #### U MICRO, ERUR #### [facility] [address] [address] [address] Flores Arroyo WBC 2-5 Abnormal NONE SEEN [facility] Comment on above: Performed By: #### U MICRO, ERUR #### [facility] [address] [address] [address] Flores Arroyo XR chest 1Von 10-31-2021 XR chest 1V [facility] [place] [address] XRay Report Signed Patient: GREGORIO HESS MR#: [id number] : 1995 Acct:[id number] Age/Sex: 26 / F ADM Date: 10/31/21 Loc: [place] Room: Type: [facility] Attending Dr: Reyes Rodriguez [facility] Ordering Provider: Reyes Rodriguez DO Date of Service: 10/31/21 XR/XR chest 1V: POSITIVE PPD TEST Copies to: Reyes Rodriguez DO DE CHEST: CLINICAL HISTORY: Positive Tspot. COMPARISON: None FINDINGS: Heart is normal in size. Lungs are clear. No free air. XR/XR chest 1V IMPRESSION: NEGATIVE CHEST. Impression dictated by: Dirk Chaves Jr., D.O.10/31/2021 12:11 PM Dictation Location: [place] [address] Transcribed By: CHARO 10/31/21 1211 Dictated By: Dirk Chaves Jr, DO 10/31/21 1210 Signed By: 10/31/21 1211 [facility] MICRO OTHER TESTSOrdered By: Ines Michel on 07-21-2021 Rapid COV Int NEG Ctl Pass (07/21/21 11:06 AM) Normal [facility] Man Sero Rapid COV Int POS Ctl Pass (07/21/21 11:06 AM) Normal [facility] Man Sero SARS-CoV+SARS-CoV-2 (COVID-19) Ag IA.rapid Ql (Resp) Not Detected (07/21/21 11:06 AM) Normal Not Detected [facility] Man Sero Vital Signs Date Time Vital Sign Value Performing Clinician Facility 12-03-2024 09:58-0400 Body mass index (BMI) [Ratio] 35.02 kg/m2 [facility] Work Phone: [facility] 12-03-2024 09:58-0400 Body weight 98.43 kg [facility] Work Phone: [facility] 12-03-2024 09:58-0400 Diastolic blood pressure 80 mm[Hg] [facility] Work Phone: [facility] 12-03-2024 09:58-0400 Systolic blood pressure 130 mm[Hg] [facility] Work Phone: [facility] 11-19-2024 11:41-0400 Body mass index (BMI) [Ratio] 35.27 kg/m2 [employer] Work Phone: [facility] 11-19-2024 11:41-0400 Body weight 99.11 kg Paz SHIELDS Work Phone: [facility] 11-19-2024 11:41-0400 Diastolic blood pressure 72 mm[Hg] Paz SHIELDS Work Phone: [facility] 11-19-2024 11:41-0400 Systolic blood pressure 114 mm[Hg] Paz SHIELDS Work Phone: [facility] 11-05-2024 10:51-0400 Body mass index (BMI) [Ratio] 34.06 kg/m2 [employer] Work Phone: [facility] 11-05-2024 10:51-0400 Body weight 95.71 kg [facility] Work Phone: [facility] 11-05-2024 10:51-0400 Diastolic blood pressure 78 mm[Hg] Giovany Ginny DO Work Phone: [facility] 11-05-2024 10:51-0400 Systolic blood pressure 124 mm[Hg] Giovany Ginny DO Work Phone: [facility] 10-01-2024 10:43-0400 Body mass index (BMI) [Ratio] 32.3 kg/m2 Giovany Ginny DO Work Phone: [facility] 10-01-2024 10:43-0400 Body weight 90.77 kg Giovany Ginny DO Work Phone: [facility] 10-01-2024 10:43-0400 Diastolic blood pressure 82 mm[Hg] Giovany Ginny DO Work Phone: [facility] 10-01-2024 10:43-0400 Systolic blood pressure 110 mm[Hg] Giovany Ginny DO Work Phone: [facility] 09-10-2024 08:35-0500 Body mass index (BMI) [Ratio] 31.28 kg/m2 Giovany Ginny DO Work Phone: [facility] 09-10-2024 08:35-0500 Body weight 87.91 kg Giovany Ginny DO Work Phone: [facility] 09-10-2024 08:35-0500 Diastolic blood pressure 74 mm[Hg] Giovany Ginny DO Work Phone: [facility] 09-10-2024 08:35-0500 Systolic blood pressure 118 mm[Hg] Giovany Ginny DO Work Phone: [facility] 08-13-2024 10:59-0500 Body mass index (BMI) [Ratio] 29.99 kg/m2 [employer] Work Phone: [facility] 08-13-2024 10:59-0500 Body weight 84.28 kg Paz SHIELDS Work Phone: [facility] 08-13-2024 10:59-0500 Diastolic blood pressure 82 mm[Hg] Paz SHIELDS Work Phone: [facility] 08-13-2024 10:59-0500 Systolic blood pressure 120 mm[Hg] Paz SH[employer]ELDS Work Phone: [facility] 07-09-2024 11:53-0500 Body mass index (BMI) [Ratio] 29.02 kg/m2 Giovany Ginny DO Work Phone: [facility] 07-09-2024 11:53-0500 Body weight 81.56 kg Giovany Ginny DO Work Phone: [facility] 07-09-2024 11:53-0500 Diastolic blood pressure 70 mm[Hg] Giovany Ginny DO Work Phone: [facility] 07-09-2024 11:53-0500 Systolic blood pressure 120 mm[Hg] Giovany Ginny DO Work Phone: [facility] 05-28-2024 09:39-0500 Body mass index (BMI) [Ratio] 27.66 kg/m2 Giovany Ginny DO Work Phone: [facility] 05-28-2024 09:39-0500 Body weight 77.75 kg Giovany Ginny DO Work Phone: [facility] 05-28-2024 09:39-0500 Diastolic blood pressure 68 mm[Hg] Giovany Ginny DO Work Phone: [facility] 05-28-2024 09:39-0500 Systolic blood pressure 110 mm[Hg] Giovany Ginny DO Work Phone: [facility] 12-24-2021 21:08-0400 Diastolic blood pressure 81 mm[Hg] Jalen Ezekiel [facility] 12-24-2021 21:08-0400 Heart rate 79 /min Jalen Ezekiel [facility] 12-24-2021 21:08-0400 Respiratory rate 18 /min Jalen Ezekiel [facility] 12-24-2021 21:08-0400 SaO2% (BldA) [Mass fraction] 100 % Jalen Ezekiel [facility] 12-24-2021 21:08-0400 Systolic blood pressure 114 mm[Hg] Jalen Ezekiel [facility] 12-24-2021 19:32-0400 Body temperature 98.06 [degF] Jalen Ezekiel [facility] 12-24-2021 19:32-0400 Diastolic blood pressure 85 mm[Hg] Jalen Ezekiel [facility] 12-24-2021 19:32-0400 Heart rate 100 /min Jalen Ezekiel [facility] 12-24-2021 19:32-0400 Respiratory rate 16 /min Jalen Ezekiel [facility] 12-24-2021 19:32-0400 SaO2% (BldA) [Mass fraction] 100 % Jalen Ezekiel [facility] 12-24-2021 19:32-0400 Systolic blood pressure 121 mm[Hg] Jalen Ezekiel [facility] Encounters Encounter Date Encounter Type Care Provider Facility Start: 12-10-2024 End: 12-10-2024 Clinisync Result Encounter Giovany Ginny DO Work Phone: [facility] External [facility] Unsolicited Start: 12-10-2024 End: 12-10-2024 Clinisync Result Encounter Giovany Ginny DO Work Phone: [facility] Unsolicited Start: 12-03-2024 End: 12-03-2024 Office outpatient visit [...] Result Encounter Giovany Ginny DO Work Phone: [facility] External Department Unsolicited Start: 10-15-2024 End: 10-15-2024 Clinisync Result Encounter Giovany Ginny DO Work Phone: [facility] External Department Unsolicited Start: 10-01-2024 End: 10-01-2024 Office outpatient visit 15 minutes Giovany Ginny DO Work Phone: [facility] OB Comment on above: Anemia, unspecified type (Primary Dx); Second trimester ; 24 weeks gestation of Start: 10-01-2024 End: 10-01-2024 ambulatory GIOVANY GINNY Not Available Start: 09-10-2024 End: 09-10-2024 Bamboo flowsheet Giovany Ginny DO Work Phone: [facility] Start: 09-10-2024 End: 09-10-2024 Bamboo flowsheet Giovany Ginny DO Work Phone: [facility] Start: 09-10-2024 End: 09-10-2024 Office outpatient visit 15 minutes Giovany Ginny DO Work Phone: [facility] OB Comment on above: Second trimester pre gnancy; 21 weeks gestation of ; Diabetes mellitus screening; Low-lying placenta Start: 09-10-2024 End: 09-10-2024 ambulatory GIOVANY GINNY Not Available Start: 09-09-2024 End: 09-11-2024 Clinisync Result Encounter Giovany Ginny DO Work Phone: [facility] External Department Unsolicited Start: 09-09-2024 End: 09-11-2024 [...] Clinisync Result Encounter Paz SHIELDS Work Phone: [facility] External Department Unsolicited Start: 08-13-2024 End: 08-14-2024 External Result Encounter Paz SHIELDS Work Phone: [facility] External Department Unsolicited Start: 08-13-2024 End: 08-13-2024 Patient encounter procedure Paz SHIELDS Work Phone: [facility] Healthcare Start: 08-13-2024 End: 08-13-2024 Periodic preventive [...] 05-27-2024 End: 05-27-2024 ambulatory Giovany R GINNY Facility:[facility] Start: 05-27-2024 End: 05-27-2024 Patient encounter procedure Giovany R GINNY [facility] Start: 11-21-2023 End: 11-21-2023 ambulatory AMELIA HAYWARD Facility:[facility] Start: 11-21-2023 End: 11-21-2023 Patient encounter procedure AMELIA HAYWARD [facility] Start: 11-19-2023 End: 11-19-2023 ambulatory AMELIA BOTELLOR Not Available Start: 11-18-2023 End: 11-18-2023 ambulatory AMELIA BOTELLOR Not Available Start: 10-29-2022 End: 10-29-2022 Lab Drop off MACHELLE VIVEROS [facility] Start: 09-25-2022 End: 09-25-[address] DOCTOR BAILEY Facility:[facility] Start: 02-06-2022 End: 02-06-2022 Lab Drop off TIESHA FINLEY [facility] Start: 12-24-2021 End: 12-24-2021 Emergency department patient visit Jalen Falcon [facility] Start: 10-31-2021 End: 10-31-2021 Departed Referred DO Reyes Rodriguez Work Phone: [facility] [address] Start: 07-20-2021 End: 10-19-[address] Wild Link [facility] Procedures Date Procedure Procedure Detail Performing Clinician Start: 12-10-2024 OB BPP W NON-STRESS Giovany Ginny DO Work Phone: Start: 12-03-2024 Urnls dip stick/tabl et rgnt non-auto w/o micrscp Giovany Ginny DO Work Phone: Start: 11-26-2024 US OB BPP W NON-STRESS Giovany Ginny DO Work Phone: Start: 11-19-2024 Urnls dip stick/tabl et rgnt non-auto w/o micrscp Giovany Ginny DO Work Phone: Start: 11-19-2024 US OB BPP W NON-STRESS Giovany Ginny DO Work Phone: Start: 11-12-2024 OB BPP W NON-STRESS Giovany Ginny DO [...] Routine [facility] [address] [place] [address] Paz Metzger, PA [address] [place] [address] [facility] Start: 12-03-2024 End: 12-03-2024 Patient encounter procedure 12/03/2024 10:00 AM EDT Routine [facility] [address] [place] [phone] Giovany Gross DO [address] [place] [address] [facility] Start: 11-19-2024 End: 11-19-2024 Patient encounter procedure 11/19/2024 11:30 AM EDT Routine [facility] [address] [place] [phone] Paz Metzger, PA [address] [place] [address] [facility] Start: 11-19-2024 End: 11-19-2024 Professional / ancillary services management 11/19/2024 11:00 AM EDT Ancillary Procedure [facility] [address] [place] [id number] [facility] Start: 11-05-2024 End: 05-07-2025 US biophysical profile w non stress test US biophysical profile w non stress test Imaging Routine H/O pre-eclampsia in prior , currently H/O delivery, currently Expected: 11/05/2024 (Approximate), Expires: 05/07/2025 [facility] Healthcare Comment on above: Expected: 11/05/2024 (Approximate), [...] AM EDT Routine [facility] [address] [place] [id number] Giovany Gross, DO [address] [place] [address] Arrived [facility] Comment on above: Arrived Start: 10-29-2024 End: 10-29-2024 Patient encounter procedure 10/29/2024 8:30 AM EDT Routine [facility] [address] [place] [phone] Paz Metzger PA [address] [place], [place] [id number] [facility] Start: 10-01-2024 End: 10-01-2024 Patient encounter procedure 10/01/2024 11:40 AM EDT Routine [facility] [address] [place] [phone] Giovany Gross, DO [address] [place] [address] [facility] Start: 10-01-2024 End: 10-01-2024 Professional / ancillary services management 10/01/2024 10:30 AM EDT Ancillary Procedure [facility] [address] [place] [address] [facility] Start: 09-10-2024 End: [...] Expected: 09/10/2024 (Approximate), Expires: 09/10/2025 [facility] Comment on above: Expected: 09/10/2024 (Approximate), Expires: 09/10/2025 Start: 09-10-2024 End: 09-10-2025 US for US OB limited 1+ fetuses Imaging Routine Low-lying placenta Expected: 09/10/2024, Expires: 09/10/2025 [facility] Comment on above: Expected: 09/10/2024 , Expires: 09/10/2025 Start: 09-10-2024 End: 09-10-2024 Patient encounter procedure [facility] Comment on above: Arrived Start: 09-01-2024 End: 09-01-2024 Professional / ancillary services management 09/01/2024 2:30 PM EST Ancillary Procedure [facility] [address] [place] [address] [facility] Start: 08-13-2024 End: 09-11-2024 [...] Routine [facility] [address] [place] [address] Paz Metzger PA [address] [place] [address] Arrived [facility] Comment on above: Arrived Start: 08-10-2024 End: 08-10-2024 Patient encounter procedure 08/10/2024 9:50 AM EST Routine [facility] [address] [place] [phone] Paz Metzger PA [address] [place] [address] [facility] Start: 07-09-2024 End: 07-09-2024 Patient encounter procedure [facility] Comment on above: Arrived Start: 06-25-2024 End: 06-25-2024 ambulatory 06/25/2024 2:30 PM EST Initial [facility] [address] [place] [phone] [facility] Start: 06-25-2024 End: 06-25-2025 ABO/Rh ABO/Rh Lab Routine Missed menses , unspecified gestational age Expected: 06/25/2024 (Approximate), Expires: 06/25/2025 [facility] Healthcare Comment on above: Expected: 06/25/2024 (Approximate), Expires: 06/25/2025 Start: 06-25-2024 End: 06-25-2025 Blood type and Indirect antibody screen panel - Blood Type and screen Lab Routine Missed menses , unspecified gestational age Expected: 06/25/2024 (Approximate), Expires: 06/25/2025 [facility] Healthcare Work Phone: Comment on above: Expected: 06/25/2024 (Approximate), Expires: 06/25/2025 Start: 06-25-2024 End: 06-25-2025 Drugs of abuse panel - Urine by Screen method Rapid drug screen, urine Lab Routine , unspecified gestational age Encounter for supervision of normal first in first trimester Expected: 06/25/2024 (Approximate), Expires: 06/25/2025 [facility] Healthcare Comment on above: Expected: 06/25/2024 (Approximate), Expires: 06/25/2025 Start: 06-25-2024 End: 06-25-2024 Professional / ancillary services management 06/25/2024 2:00 PM EST Ancillary Procedure [facility] [address] [place] [address] [facility] Start: 06-25-2024 End: 06-25-2025 US Pelvis transvaginal US OB transvaginal Imaging Routine Missed menses Expected: 06/25/2024 (Approximate), Expires: 06/25/2025 [facility] Comment on above: Expected: 06/25/2024 (Approximate), Expires: 06/25/2025 Start: 05-28-2024 End: 05-28-2025 US for US OB > 14 WEEKS Imaging Routine Abdominal cramping affecting Missed menses Expected: 05/28/2024 (Approximate), Expires: 05/28/2025 [facility] Healthcare Comment on above: Expected: 05/28/2024 (Approximate), Expires: 05/28/2025 Start: 05-28-2024 End: 05-28-2025 US Pelvis transvaginal US OB transvaginal Imaging Routine Abdominal cramping affecting Missed menses Expected: 05/28/2024 (Approximate), Expires: 05/28/2025 [facility] Healthcare Work Phone: Comment on above: Expected: 05/28/2024 (Approximate), Expires: 05/28/2025 Start: 03-15-2024 Influenza vaccination Influenza Vacc ine (#1) [facility] Bacteria identified in Urine by Culture Urine culture Microbiology Routine Missed menses Ordered: 06/25/2024 [facility] Comment on above: Ordered: 06/25/2024 CBC W Auto Different ial panel - Blood CBC and differential Lab Routine Missed menses , unspecified gestational age Ordered: 06/25/2024 [facility] Healthcare Comment on above: Ordered: 06/25/2024 CBC W Auto Different ial panel - Blood CBC and differential Lab Routine Anemia, unspecified type Ordered: 10/01/2024 [facility] Healthcare Work Phone: Comment on above: Ordered: 10/01/2024 CHLAMYDIA TRACHOMATI S (GENITO/STI) CHLAMYDIA TRACHOMATIS (GENITO/STI) Lab Routine Exposure to STD Ordered: 08/13/2024 [facility] Comment on above: Ordered: 08/13/2024 Cytology Cervical or vaginal smear or scraping study Pap Smear Pathology and Cytology Routine Well woman exam with routine gynecological exam Ordered: 08/13/2024 [facility] Comment on above: Ordered: 08/13/2024 Hemoglobin A1c/Hemoglobin.total in Blood Hemoglobin A1c Lab Routine Missed menses , unspecified gestational age Ordered: 06/25/2024 [facility] Comment on above: Ordered: 06/25/2024 Hepatitis B virus surface Ag [Presence] in Serum or Plasma by Immunoassay Hepatitis B surface antigen Lab Routine Missed menses , unspecified gestational age Ordered: 06/25/2024 [facility] Comment on above: Ordered: 06/25/2024 Hepatitis C virus Ab [Presence] in Serum or Plasma by Immunoassay Hepatitis C antibody Lab Routine Missed menses , unspecified gestational age Ordered: 06/25/2024 [facility] Comment on above: Ordered: 06/25/2024 HIV-1/HIV-2 antigen/antibody combination immunoassay HIV-1 and HIV-2 antibodies Lab Routine Missed menses , unspecified gestational age Ordered: 06/25/2024 [facility] Comment on above: Ordered: 06/25/2024 Neisseria gonorrhoea e DNA [Presence] in Unspecified specimen by DONALD with probe detection Neisseria gonorrhea DNA probe, direct Lab Routine Exposure to STD Ordered: 08/13/2024 [facility] Comment on above: Ordered: 08/13/2024 Reagin Ab [Presence] in Serum by RPR RPR Lab Routine Missed menses , unspecified gestational age Ordered: 06/25/2024 [facility] Comment on above: Ordered: 06/25/2024 Rubella antibody, IgG Rubella an tibody, IgG Lab Routine Missed menses , unspecified gestational age Ordered: 06/25/2024 [facility] Comment on above: Ordered: 06/25/2024 SURESWAB(R) ADVANCED VAGINITIS PLUS, TMA SURESWAB(R) ADVANCED VAGINITIS PLUS, TMA Pathology and Cytology Routine Vaginal discharge Ordered: 08/13/2024 [facility] Work Phone: Comment on above: Ordered: 08/13/2024 Immunizations Immunization Date Immunization Notes Care Provider Fa cility 04-27-2021 influenza virus vaccine, unspecified formulation Giovany Gross DO Work Phone: [facility] 01-15-2015 measles, mumps and rubella virus vaccine Sumit Link [facility] Comment on above: Reason for Medicatio n: Other (see comment) 01-15-2015 tetanus toxoid, redu carly diphtheria toxoid, and acellular pertussis vaccine, adsorbed Sumit Link [facility] Comment on above: Reason for Medicatio n: Other (see comment) Payers Date Payer Category Payer Private Health Insurance [facility] MEDICA[facility] [id number] 1996 Unknown [id number] [id number]. 593 1996 Unknown [id number] 2.16840.1.395515.3.579.2. 1259 1996 Unknown [id number] 2.16840.1.232865.3.579.2. 1259 1996 Unknown [id number] 2.16.840.1.531016.3.579.2. 727 1996 Unknown [id number] 2.16.840.1.620655.3.579.2. 727 1996 Unknown [id number] 2.16840.1.090382.3.579.2. 1258 1996 Unknown [id number] 2.16.840.1.382519.3.579.2. 1258 1996 Unknown [id number] 2.16.840.1.234893.3.579.2. 1258 1996 Unknown [id number] 2.16.840.1.837619.3.579.2. 1258 1996 Unknown [id number] 2.16.840.1.570691.3.579.2. 1258 1996 Unknown [id number] 2.16.840.1.715653.3.579.2. 1258 1996 Unknown [id number] 2.16.840.1.447785.3.579.2. 1258 1996 Unknown [id number] 2.16.840.1.908021.3.579.2. 1258 1996 Unknown [id number] 2.16.840.1.855714.3.579.2. 1258 1996 Unknown [id number] 2.16.840.1.910857.3.579.2. 1258 1996 Unknown [id number] 2.16.840.1.121979.3.579.2. 1258 1996 Unknown [id number] 2.16.840.1.592449.3.579.2. 1258 1996 Unknown [id number] 2.16.840.1.416492.3.579.2. 9 1959 Unknown [id number] Self-pay Self Pay [id number] Social History Date Type Detail Facility Tobacco smoking status Unknown if ever sm oked [facility] Start: 11-16-2023 End: 05-28-2024 Sex Assigned At Female [facility] Start: 1995 Sex Assigned At Female F [facility] Tobacco smoking status No Smokin g Status Entered [facility] Tobacco smoking status No Smokin g Status Entered [facility] Start: 11-18-2023 Tobacco smoking stat us NHIS [...] Assessment Result Facility 12-24-2021 Functional Status No [facility] Clinical Notes 12-24-2021 to 12-03-2024 Nano Reyez [...] migraine without aura and without status migrainosus ([facility]) 11/16/2023 Hypersomnia 11/16/2023 Chronic daily headache 11/18/2023 Resolved Ambulatory Problems Diagnosis Date Noted No Resolved Ambulatory Problems Past Medical History: Diagnosis Date Anxiety Depression ([facility]) History of petit-mal seizures HISTORY PAST MEDICAL HISTORY SOCIAL HISTORY Past Medical History: Diagnosis Date Anxiety Depression ([facility]) History of petit-mal seizures Social [...] nursing note reviewed. Exam conducted with a surveyor's assistant present. Vitals: Estimated body mass index is [...] decreased movement. Patient advised to report to [facility] for assessment. Patient to have NST/BPP/AIME. Patient has also been having cramps for the past 2 days. Discussed diet and increasing protein. Patient to return to clinic in 2 weeks for routine OB appointment. Documented by Nano Reyez LPN on behalf of: Giovany Gross DO documented in this encounter [facility] 11-19-2024 History of Presen t illness Narrative [...] Active Ambulatory Problems Diagnosis Date Noted Seizure ([facility]) 11/16/2023 Migraine 11/16/2023 Intractable migraine without aura and without status migrainosus ([facility]) 11/16/2023 Hypersomnia 11/16/2023 Chronic daily headache 11/18/2023 Resolved Ambulatory Problems Diagnosis Date Noted No Resolved Ambulatory Problems Past Medical History: Diagnosis Date Anxiety Depression ([facility]) History of petit-mal seizures HISTORY PAST MEDICAL HISTORY SOCIAL HISTORY Past Medical History: Diagnosis Date Anxiety Depression ([facility]) History of petit-mal seizures Social [...] nursing note reviewed. Exam conducted with a surveyor's assistant present. Vitals: Estimated body mass index is [...] by Sana Patel NP on behalf of: FIORDALIZA Bhandari, SENIOR [employer] DEVELOPER-BC documented in this encounter [facility] 11-05-2024 History of Presen t illness Narrative [...] Active Ambulatory Problems Diagnosis Date Noted Seizure ([facility]) 11/16/2023 Migraine 11/16/2023 Intractable migraine without aura and without status migrainosus ([facility]) 11/16/2023 Hypersomnia 11/16/2023 Chronic daily headache 11/18/2023 Resolved Ambulatory Problems Diagnosis Date Noted No Resolved Ambulatory Problems Past Medical History: Diagnosis Date Anxiety Depression ([facility]) History of petit-mal seizures HISTORY PAST MEDICAL HISTORY SOCIAL HISTORY Past Medical History: Diagnosis Date Anxiety Depression ([facility]) History of petit-mal seizures Social [...] were given to patient to schedule at [facility]. Documented by Hazel Pandey MA on behalf of: Giovany Gross DO documented in this encounter [facility] 09-10-2024 History of Presen t illness Narrative [...] migraine without aura and without status migrainosus ([facility]) 11/16/2023 Hypersomnia 11/16/2023 Chronic daily headache 11/18/2023 Resolved Ambulatory Problems Diagnosis Date Noted No Resolved Ambulatory Problems Past Medical History: Diagnosis Date Anxiety Depression ([facility]) History of petit-mal seizures HISTORY PAST MEDICAL HISTORY SOCIAL HISTORY Past Medical History: Diagnosis Date Anxiety Depression ([facility]) History of petit-mal seizures Social [...] nursing note reviewed. Exam conducted with a surveyor's assistant present. Vitals: Estimated body mass index is [...] Giovany Gross DO documented in this encounter [facility] 08-13-2024 History of Presen t illness Narrative [...] Active Ambulatory Problems Diagnosis Date Noted Seizure ([facility]) 11/16/2023 Migraine ([facility]) 11/16/2023 Intractable migraine without aura and without status migrainosus ([facility]) 11/16/2023 Hypersomnia 11/16/2023 Chronic daily headache 11/18/2023 Resolved Ambulatory Problems Diagnosis Date Noted No Resolved Ambulatory Problems Past Medical History: Diagnosis Date Anxiety Depression ([facility]) History of petit-mal seizures HISTORY PAST MEDICAL HISTORY SOCIAL HISTORY Past Medical History: Diagnosis Date Anxiety Depression ([facility]) History of petit-mal seizures Social [...] nursing note reviewed. Exam conducted with a surveyor's assistant present. Vitals: Estimated body mass index is [...] obtained without difficulty and patient was given [facility] order to have obtained. Orders Placed This Encounter Procedures US OB 14+ weeks anatomy scan CHLAMYDIA TRACHOMATIS (GENITO/STI) Neisseria gonorrhea DNA probe, direct Alpha fetoprotein, maternal POCT urinalysis dipstick manually resulted Follow Up: Patient is to return to our office in 4 weeks for routine OB appointment Documented by Suzanna Oneal LPN on behalf of: CORNELIUS Crenshaw documented in this encounter [facility] 07-09-2024 History of Presen t illness Narrative [...] nursing note reviewed. Exam conducted with a surveyor's assistant present. Vitals: Estimated body mass index is [...] or undercooked meat, and stay away from [facility]. Patient has been consulted regarding any further do's and don'ts of . Patient voiced understanding and all questions and concerns were answered. Orders Placed This Encounter Procedures POCT urinalysis dipstick manually resulted Follow Up: Patient is to return in 4 weeks for routine OB appointment. Documented by Giovanna Wise LPN on behalf of: Giovany Gross DO documented in this encounter [facility] 06-25-2024 History of Presen t illness Narrative [...] Active Ambulatory Problems Diagnosis Date Noted Seizure ([facility]) 11/16/2023 Migraine ([facility]) 11/16/2023 Intractable migraine without aura and without status migrainosus ([facility]) 11/16/2023 Hypersomnia 11/16/2023 Chronic daily headache 11/18/2023 Resolved Ambulatory Problems Diagnosis Date Noted No Resolved Ambulatory Problems Past Medical History: Diagnosis Date Anxiety Depression ([facility]) History of petit-mal seizures Family [...] or undercooked meat, and stay away from [facility]. Patient has also been advised to [...] Suzanna Oneal LPN documented in this encounter [facility] 05-28-2024 History of Presen t illness Narrative Reason for Appointment: Patient ID: Gregorio Hess is a 29 y.o. female who presents for cramping in Patient presents today for Consult appointment. MEDICATIONS No current outpatient medications ALLERGIES No Known Allergies PROBLEMS Active Ambulatory Problems Diagnosis Date Noted Seizure ([facility]) 11/16/2023 Migraine ([facility]) 11/16/2023 Intractable migraine without aura and without status migrainosus ([facility]) 11/16/2023 Hypersomnia 11/16/2023 Chronic daily headache 11/18/2023 Resolved Ambulatory Problems Diagnosis Date Noted No Resolved Ambulatory Problems Past Medical History: Diagnosis Date Anxiety Depression (CMS/HCC) HISTORY PAST MEDICAL HISTORY SOCIAL HISTORY Past Medical History: Diagnosis Date Anxiety Depression ([facility]) Social History Tobacco Use Smoking status: Never [...] nursing note reviewed. Exam conducted with a surveyor's assistant present. Vitals: Estimated body mass index is [...] Giovany Gross DO documented in this encounter [facility] 10-29-2022 Evaluation + Plan note Diagnostic Tests PendingDHEAS 10/29/22Testosterone F&T 10/29/22Insulin Level Total 10/29/22FSH and LH 10/29/22Cortisol 10/29/22Estradiol Level 10/29/22 [facility] 02-06-2022 Evaluation + Plan note Diagnostic Tests PendingCOVID-19 ([facility]) 02/06/22 [facility] 12-24-2021 Hospital Discharg e instructions Patient Education 12/24/2021 21:12:52 Cellulitis, Adult, Aojk-ss-Vnyl Cellulitis, Adult Cellulitis is a skin infection. [...] Follow these instructions at home: Medicines Take gaoo-yie-ynqdhoj and prescription medicines only as told by [...] 12/17/2008 Document Revised: 11/20/2018 Document Reviewed: 11/20/2018 [employer] Patient Education 2020 [employer]. Follow Up Care 12/24/2021 19:31:22 With:Ros Segovia Address: [address] [facility] [address] [place] [address]- Business (1) When:12/27/2021 20:50:34 [facility] Evaluation + Plan note No data available for this section [facility] Evaluation note No assessment inform ation available [facility] Work Phone: Evaluation note Diagnosis Abdominal cramping [...] Heart palpitations Palpitations Shortness of breath Seizures ([facility]) Other convulsions Syncope, near documented in this [...] History: Diagnosis Date Anxiety Depression ([facility]) History of petit-mal seizures HISTORY [...] of: Giovany Gross DO [facility] No data available for this section [facility] No data available for this section 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 [address] PCP - General Family Medicine 11/18/23 [employer] Supervisor Relationship Specialty Start Date End Date Lan Malcolm MD [address] [place] [address] PCP - General Family Medicine 11/18/23 [employer] Supervisor Relationship Specialty Start Date End Date Lan Malcolm MD [address] [place] [address] PCP - General Family Medicine 11/18/23 [employer] Supervisor Relationship Specialty Start Date End Date Lan Malcolm MD [address] [place] [address] PCP - General Family Medicine 11/18/23 [employer] Supervisor Relationship Specialty Start Date End Date Lan Malcolm MD [address] [place] [address] PCP - General Family Medicine 11/18/23 [employer] Supervisor Relationship Specialty Start Date End Date Lan Malcolm MD [address] [place] [address] PCP - General Family Medicine 11/18/23 [employer] Supervisor Relationship Specialty Start Date End Date Lan Malcolm MD [address] [place] [address] PCP - General Family Medicine 11/18/23 [employer] Supervisor Relationship Specialty Start Date End Date Lan Malcolm MD [address] [place] [address] PCP - General Family Medicine 11/18/23 [employer] Supervisor Relationship Specialty Start Date End Date Lan Malcolm MD [address] [place] [address] PCP - General Family Medicine 11/18/23 [employer] Supervisor Relationship Specialty Start Date End Date Lan Malcolm MD [address] [place] [address] PCP - General Family Medicine 11/18/23 [employer] Supervisor Relationship Specialty Start Date End Date Lan Malcolm MD [address] [place] [address] PCP - General Family Medicine 11/18/23 [employer] Supervisor Relationship Specialty Start Date End Date Lan Malcolm MD [address] [place] [id number] PCP - General Family Medicine 11/18/23 [employer] Supervisor Relationship Specialty Start Date End Date Lan Malcolm MD [address] [place] [address] PCP - General Family Medicine 11/18/23 Goals (unrecognized section and content) Goals may be documented in a n alternate section INFORMATION SOURCE (unrecogn ized section and content) DATE CREATED AUTHOR 11/01/2021 [facility] DATE CREATED AUTHOR AUTHOR'S ORGANIZ ATION 10/01/2022 [facility] DATE CREATED AUTHOR AUTHOR'S ORGANIZ ATION 11/20/2023 [facility] EPIC DATE CREATED AUTHOR AUTHOR'S ORGANIZ ATION [facility] DATE CREATED AUTHOR AUTHOR'S ORGANIZ ATION 06/02/2024 [place] [facility] DATE CREATED AUTHOR AUTHOR'S ORGANIZ ATION 12/09/2024 [facility] EPIC Reason for Visit [...] BE BASED ON THE PRIMARY CLINICAL RECORDS. [facility] [employer] [facility]. provides no warranty or guarantee of the accuracy or completeness of information in this document.
--- NOTE | 2024-12-14 18:53 | US_ITS ---
[place] [address] Patient Name: GREGORIO HESS MRN: [id number] date: 1995 Sex: F Assigned Patient Location: [facility] Current Patient Location: Accession/Order Number: [id number] Exam Date: 12/14/2024 20:07 Report Date: 12/14/2024 20:08 At the request of: GIOVANY ARVIZU DO Procedure: US OB BPP w non-stress Ultrasound biophysical profile HISTORY: The amniotic fluid index Adequate breathing movement, gross body movement, tone and amniotic fluid volume for total score of 8 out of 8. The amniotic fluid index is 10.9cm within normal limits. The heart rate 148 bpm. US/US OB BPP w non-stress IMPRESSION: Adequate ultrasound biophysical profile Impression dictated by: Andrew Mehta M.D. 12/14/2024 8:08 PM Dictation Location: [place] [address] Electronically authenticated by: [id number] Y Date: 12/14/2024 20:08
[2024-12-14 18:54] VITALS: BP 141/80; PULSE 108
[2024-12-14 19:17] VITALS: BP 129/71; PULSE 103
== END 2024-12-14 19:47 | disposition home or self-care (01) ==
LOC: FBCO 18:47 → FBC 18:50
PROVIDERS: PCP Nurse Practitioner Family; Visit Provider Obstetrics & Gynecology
DX: O10.913 Unspecified pre-existing hypertension complicating pregnancy, third trimester (principal)
CPT/HCPCS: 76818

== ENCOUNTER 2024-12-17 11:20 | Outpatient (OUT) | payer OTHER, SELFPAY ==
--- OUTSIDE RECORDS SUMMARY | 2024-05-07 08:30 | XMS_ITS ---
Author Organization [facility] Address [address] [place] [address] Care Team Providers Care Office Support Associate Name Role Phone Evelyn West Primary Care Provider [phone] Corine Hendrickson Unavailable [phone] REASON FOR VISIT 2 month do not change to tele Encounters Encounter Location Date Provider Diagnosis [place] [place] [address] 05/07/2024 Corine Hendrickson Plan Of Treatment No Information Progress Notes * GREGORIO HESS RDOB: [birth year] (29 yo F)Acc No.[id number]:05/07/2024 [facility]al [facility] Patient: Torri BridgetKEESHAGREGORIO Appointment Provider: BOB FULLER :1995 A ge:29 Y S ex:Female Date:05/07/2024 Address:[address] [place], [place] [id number] Pcp:Evelyn West Subjective: * Chief Complaints: * 1 . 2 month do not change to tele. * Medical History: Objective: * Vitals: Assessment: Plan: * Treatment: * Images: * Electronic signature of MU Sullivan i on 12/17/2024 at 09:52 AM EDT Sign off status: Pending * Appointment Provider: BOB FULLER Date: Generated for Tereza herrera/Juan/Zhouitting on: 0 12/17/2024 09:52 AM EDT
--- OUTSIDE RECORDS SUMMARY | 2024-07-24 07:30 | XMS_ITS ---
Author Organization [facility] Address [address] [place] [address] Care Team Providers Care Carton Counter Feeder Name Role Phone Evelyn West Primary Care Provider [phone] Corine Hendrickson Unavailable [phone] REASON FOR VISIT 2 month Encounters Encounter Location Date Provider Diagnosis [address] [place] [address] 07/24/2024 Corine Hendrickson Plan Of Treatment No Information Progress Notes * GREGORIO HESS RDOB: 6 (29 yo F)Acc No.[id number]:07/24/2024 Behavioral Health Patient: Torri HARDEN GREGORIO Goyal Appointment Provider: BOB FULLER :1995 A ge:29 Y S ex:Female Date:07/24/2024 Address:[address] [place], [place] [id number] Pcp:Evelyn West Subjective: * Chief Complaints: * 1 . 2 month. * Medical History: Objective: * Vitals: Assessment: Plan: * Treatment: Care Plan: * Problems: * Images: * Electronic signature of MU Sullivan i on 12/17/2024 at 09:52 AM EDT Sign off status: Pending * Appointment Provider: BOB FULLER Date: 07/24/2024 Generated for Tereza herrera/Juan/Zhouitting on: 0 12/17/2024 09:52 AM EDT
--- OUTSIDE RECORDS SUMMARY | 2024-12-03 10:00 | XMS_ITS | Encounter Summary ---
Author Organization [facility] Address [address] [place] [address] Care Team Providers Care Jelly Maker Name Role Phone Lan Malcolm MD Primary Care Provider [phone] Reason for Visit * Reason Comments Routine Visit Encounter Details Date Type Department Care Team (Late Contact Info) Description 12/03/2024 10:00 AM EDT Routine [facility] [address] [place] [phone] Baltazar Gross, DO [address] [place] [address] Third trimester ; 33 weeks gestation of [...] documented in this encounter Progress Notes * Nano Reyez LPN - 12/03/2024 10:00 AM EDT Reason for Appointment: Patient ID: Stephon Zuleta is a 29 y.o. female who presents for Routine Visit Patient presents today for Return OB appointment. MEDICATIONS Current Outpatient Medications Medication Instructions MV & Min w/FA-DHA ( ADULT GUMMY/DHA/FA PO) 1 each, Daily Vit-Fe Fumarate-FA ( Vitamins) 28-0.8 MG tablet 1 tablet, Oral, Daily ALLERGIES Allergies Allergen Reactions Losartan Other Reaction(s): Unknown Other Reaction(s): Other PROBLEMS Active Ambulatory Problems Diagnosis Date Noted Seizure ([facility]) 11/16/2023 Migraine 11/16/2023 Intractable migraine without aura and without status migrainosus ([facility]) 11/16/2023 Hypersomnia 11/16/2023 Chronic daily headache 11/18/2023 Resolved Ambulatory Problems Diagnosis Date Noted No Resolved Ambulatory Problems Past Medical History: Diagnosis Date Anxiety Depression ([facility]) History of petit-mal seizures HISTORY PAST MEDICAL HISTORY SOCIAL HISTORY Past Medical History: Diagnosis Date Anxiety Depression ([facility]) History of petit-mal seizures Social History Tobacco [...] nursing note reviewed. Exam conducted with a dough maker present. Vitals: Estimated body mass index is 35.02 kg/m?? as calculated from the following: Height as of 11/18/23: 5' 6 . Weight as of this encounter: 217 lb. BP: 130/80 Patient's last menstrual period was 04/13/2024. ASSESSMENT & PLAN ICD-10-CM 1. Third trimester Z34.93 POCT urinalysis dipstick manually resulted 2. 33 weeks gestation of Z3A.33 3. Decreased appetite R63.0 Patient presents today for a routine obstetrics appointment. Patient is currently 33w3d with a Estimated Date of Delivery: 01/18/25. Patient complaints of decreased movement. Patient advised to report to [facility] for assessment. Patient to have NST/BPP/AIME. Patient has also been having cramps for the past 2 days. Discussed diet and increasing protein. Patient to return to clinic in 2 weeks for routine OB appointment. Documented by Nano Reyez LPN on behalf of: Baltazar Gross DO documented in this encounter Plan of Treatment Upcoming Encounters Date Type Department Care Team (Late st Contact Info) Description 12/24/2024 9:00 AM EDT Routine [facility] [address] [place] [phone] Baltazar Gross, DO [address] [place] [address] documented as of this encounter Goals Goal [...] UA Positive Negative - 2000(110) ++++ mg/dL Comment:250 Bilirubin, UA Negative Negative [...] documented as of this encounter Care Teams Jelly Maker Relationship Specialty Start Date End Date Lan [place] [address] PCP - General Family Medicine 11/18/23 documented as of this encounter
--- OUTSIDE RECORDS SUMMARY | 2024-12-17 10:20 | XMS_ITS | Encounter Summary ---
Author Organization [facility] Address [address] [place] [address] Care Team Providers Care Computer Technology Instructor Name Role Phone Lan Malcolm MD Primary Care Provider [phone] Reason for Visit * Reason Comments Routine Visit Encounter Details Date Type Department Care Team (Late st Contact Info) Description 12/17/2024 10:20 AM EDT Routine [facility] OB [address] [address] Paz Varela PA [address] [place], [place] [address] Third trimester ; 35 weeks gestation of ; induced hypertension, antepartum Social History Tobacco Use Types Packs/Day Years [...] Sign Reading Time Taken Comments Blood Pressure 132/86 12/17/2024 10:35 AM EDT Pulse - - Temperature - - Respiratory Rate - - Oxygen Saturation - - Inhaled Oxygen Concentration - - Weight 101 kg (221 lb 12.8 oz) 12/17/2024 10:35 AM EDT Height - - Body Mass Index 35.8 11/18/2023 11:23 AM EDT documented in this encounter Plan of Treatment Upcoming Encounters Date Type Department Care Team (Late st Contact Info) Description 12/24/2024 9:00 AM EDT Routine [facility] OB [address] [place] [address] GinnyBaltazar rhodes, DO [address] [place] [address] [address] [place], [place] [address] Scheduled Orders Name Type Priority Associated Diagnoses Orde r Schedule Creatinine Lab Routine induced hypertension, antepartum Expected: 12/17/2024 (Approximate), Expires: 12/17/2025 Protein, urine, 24 hour Lab Routine induced hypertension, antepartum Expected: 12/17/2024 (Approximate), Expires: 12/17/2025 Pt and ptt Lab Routine induced hypertension, antepartum Expected: 12/17/2024, Expires: 12/17/2025 CBC and differential Lab Routine induced hypertension, antepartum Expected: 12/17/2024 (Approximate), Expires: 12/17/2025 Uric acid Lab Routine induced hypertension, antepartum Expected: 12/17/2024 (Approximate), Expires: 12/17/2025 Lactate dehydrogenase Lab Routine induced hypertension, antepartum Expected: 12/17/2024, Expires: 12/17/2025 ALT Lab Routine induced hypertension, antepartum Expected: 12/17/2024 (Approximate), Expires: 12/17/2025 AST Lab Routine induced hypertension, antepartum Expected: 12/17/2024 (Approximate), Expires: 12/17/2025 BUN Lab Routine induced hypertension, antepartum Expected: 12/17/2024, Expires: 12/17/2025 documented as of this encounter Goals Goal Patient Goal Type Associated Problems Recent Progress Patient-Stated? Author Reminders Care Plan OB Reminders No Open Scheduling, Background documented as of this encounter Procedures Procedure Name Priority Date/Time Associated Diagnosis Comments POCT URINALYSIS DIPSTICK Routine 12/17/2024 10:38 AM EDT Third trimester 35 weeks gestation of documented in this encounter Results * (ABNORMAL) POCT urinalysis dipstick manually resulted (12/17/2024 10:38 AM EDT) Color, UA Yellow Clarity, UA Clear Glucose, UA Positive Negative - 2000(110) ++++ mg/dL Bilirubin, UA Negative Negative - 4(70) +++ mg/dL Ketones, UA Negative Negative - 160(16) ++++ mg/dL Spec Grav, UA 1.030 1 - 1.03 Blood, UA Negative Negative - 50 Theodore/mcL pH, UA 6.0 5 - 9 Protein, UA Positive Negative - 2000(20) ++++ mg/dL Urobilinogen, UA 1.0 0.2 - 12 mg/dL Leukocytes, UA Negative Negative - 500+++ Mike/mcL Nitrite, UA Negative Negative - Positive Urine 12/17/2024 10:3 8 AM EDT Baltazar Gross DO POINT OF CARE TEST ENTER/EDIT OR DERABLES Final Result documented in this encounter Visit Diagnoses Diagnosis Third trimester state, incidental 35 weeks gestation of induced hypertension, antepartum Transient hypertension of , antepartum documented in this encounter Additional Health Concerns Active Problems Noted Date Diagnosed Date OB Reminders 06/27/2024 documented as of this encounter Care Teams Computer Technology Instructor Relationship Specialty Start Date End Date Lan Malcolm MD [address] [place] [address] PCP - General Family Medicine 11/18/23 documented as of this encounter
--- OUTSIDE RECORDS SUMMARY | 2024-12-17 11:24 | XMS_ITS | Encounter Summary ---
Author Organization [facility] Address [address] [place] [address] Care Team Providers Care Mainframe Programmer Name Role Phone Lan Malcolm MD Primary Care Provider [phone] Encounter Details Date Type Department Care Team (Late st Contact Info) Description 12/17/2024 Bamboo flowsheet [facility] OB [address] [place] [phone] Paz Varela PA [address] [address] [place], [facility] Social History Tobacco Use Types Packs/Day [...] EDT Routine [facility] OB [address] [place] [address] Baltazar Gross, DO [address] [place] [address] documented as of this encounter Goals Goal Patient Goal Type Associated Problems Recent Progress Patient-Stated? Author Reminders Care Plan OB Reminders No Open Scheduling, Background documented as of this encounter Visit Diagnoses Not on filedocumented in this encounter Additional Health Concerns Active Problems Noted Date Diagnosed Date OB Reminders 06/27/2024 documented as of this encounter Care Teams Mainframe Programmer Relationship Specialty Start Date End Date Lan [place] [address] PCP - General Family Medicine 11/18/23 documented as of this encounter
--- OUTSIDE RECORDS SUMMARY | 2024-12-17 11:24 | XMS_ITS | Encounter Summary ---
Author Organization [facility] Address [address] [facility] [place] [address] Care Team Providers Care Social Worker Assistant Name Role Phone Lan Malcolm MD Primary Care Provider Encounter Details Date Type Department Care Team (Late st Contact Info) Description 07/22/2024 Abstract [facility] OB [address] [place] [address] Baltazar Gross, DO [address] [facility] [address] [place], [place] [address] Social History Tobacco Use Types Packs/Day Years [...] BCP OB [address] [place] [address] Baltazar Gross, DO [address] [facility] [address] [place] [address] documented as of this encounter Goals Goal Patient Goal Type Associated Problems Recent Progress Patient-Stated? Author Reminders Care Plan OB Reminders No Open Scheduling, Background documented as of this encounter Visit Diagnoses Not on filedocumented in this encounter Additional Health Concerns Active Problems Noted Date Diagnosed Date OB Reminders 06/27/2024 documented as of this encounter Care Teams Social Worker Assistant Relationship Specialty Start Date End Date [place] [address] PCP - General Family Medicine 11/18/23 documented as of this encounter
--- OUTSIDE RECORDS SUMMARY | 2024-12-17 11:24 | XMS_ITS | Encounter Summary ---
Author Organization [facility] Address [address] [place] [address] Care Team Providers Care Final Canoe Inspector Name Role Phone Lan Malcolm MD Primary Care Provider [phone] Encounter Details Date Type Department Care Team (Late st Contact Info) Description 12/04/2024 Clinisync Result Encounter [facility] External Department Unsolicited Baltazar Gross, DO [address] [place] [address] Social History Tobacco Use Types Packs/Day Years [...] OB [address] [place] [address] Baltazar Gross, DO [address] [place] [address] documented as of this encounter Goals Goal [...] 12/04/2024 8:42 PM EDT [facility] UA (CLEAN/CATCH) METAL MOLDER/MICRO IF IND. Routine 12/04/2024 8:42 PM EDT [...] EDT Baltazar Ginny DO CLINISYNC Final Result [facility] * AMNISURE (12/04/2024 9:17 PM EDT) Pathologist [facility] AMNISURE NEGATIVE NEGATIVE [facility] 12/04/2024 9:17 PM EDT 12/04/2024 9:26 PM EDT Narrative CLINISYNC - 12/04/2024 9:42 PM EDT Baltazar Ginny DO LAB BLOOD ORDERABLES Final Resul t Performing Organization Address [facility]/ZIP Co de Phone Number CL[facility]IS[facility]NC [facility] * (ABNORMAL) [facility] URINE MICROSCOPIC ONLY (12/04/2024 8:42 PM EDT) [facility] WBC 5-10(A) NONE SEEN #/HPF [facility] TBH [...] EDT Baltazar Ginny DO CLINISYNC Final Result CLIN[facility]NC [facility] * (ABNORMAL) [facility] UA (CLEAN/CATCH) METAL MOLDER/MICRO IF IND. (12/04/2024 8:42 PM EDT) COLOR [...] DO CLINISYNC Final Result Performing Organization Address City/State/[facility] documented in this encounter Visit Diagnoses Not on filedocumented in this encounter Additional Health Concerns Active Problems Noted Date Diagnosed Date OB Reminders 06/27/2024 documented as of this encounter Care Teams Final Canoe Inspector Relationship Specialty Start Date End Date Lan Malcolm MD [address] [place] [address] PCP - General Family Medicine 11/18/23 documented as of this encounter
--- OUTSIDE RECORDS SUMMARY | 2024-12-17 11:24 | XMS_ITS | Encounter Summary ---
Author Organization [facility] Address [address] [place] [address] Care Team Providers Care Length Control Tester Name Role Phone Lan Malcolm MD Primary Care Provider [phone] Encounter Details Date Type Department Care Team (Late st Contact Info) Description 12/03/2024 Clinisync Result Encounter [facility] External Department Unsolicited Giovany Gross, DO [address] [facility] [place] [address] Social History Tobacco Use Types Packs/Day Years [...] BCP OB [address] [facility] [place] [address] Giovany Gross DO [address] [facility] [place] [address] documented as of this encounter Goals Goal [...] AM EDT Narrative 12/03/2024 11:34 AM EDT [address] [address] Ultrasound Report Signed Patient: STEPHON ZULETA MR#: [id number] : 1995 Acct:[id number] Age/Sex: 29 / F ADM Date: Loc: [facility] 258- Attending Dr: Giovany Gross D.O. Ordering Physician: Giovany Gross D.O. Date of Service: 12/03/24 Procedure(s): US OB BPP w non-stress Accession Number(s): [id number] cc: MACHELLE VIVEROS; Giovany Gross D.O. The [address] [address] Patient Name: STEPHON ZULETA MRN: [id number] date: 1995 Sex: F Assigned Patient Location: US Current Patient Location: US Accession/Order Number: [id number] Exam Date: 12/03/2024 11:21 Report Date: 12/03/2024 11:32 At the request of: GIOVANY GROSS DO Procedure: US OB BPP w non-stress CLINICAL DATA: Cramping, leaking and decreased movement. BIOPHYSICAL PROFILE: COMPARISON: 11/26/2024 There is a single live intrauterine gestation in cephalic presentation. The reported gestational age is 33 weeks 3 days. The heart rate [id number] beats per minute. FINDINGS: TONE: 1 or [...] High M.D. 12/03/2024 11:32 AM Dictation Location: [place] [address] Electronically authenticated by: [id number] Y Date: 12/03/2024 11:32 Dictated By: Giovanna High M.D. Signed By: 12/03/24 1134 DD/ 1132 TD/TT: Java Websphere Developer: Procedure Note Radiology, Radiologist, - 12/03/2024 The [place] [id number] Ultrasound Report Signed Patient: STEPHON ZULETA RMR#: [id number] : 1995Acct:[id number] Age/Sex: 29 / FADM Date: Loc: [facility] 258-[address]: Giovany Gross D.O. Ordering Physician: Giovany Gross D.O. Date of Service: 12/03/24 Procedure(s): US OB BPP w non-stress Accession Number(s): [id number] cc: MACHELLE VIVEROS; Giovany Gross D.O. [place] [address] Patient Name: STEPHON ZULETA MRN: [facility]:[id number] date: 1995 Sex: F Assigned Patient Location: Current Patient Location: US Accession/Order Number: [id number] Exam Date: 12/03/2024 11:21 Report Date: 12/03/2024 11:32 At the request of: GIOVANY GROSS DO Procedure: US OB BPP w non-stress CLINICAL DATA: Cramping, leaking and decreased movement. BIOPHYSICAL PROFILE: COMPARISON: 11/26/2024 There is a single live intrauterine gestation in cephalic presentation.The reported gestational age is 33 weeks 3 days. The heart [id number] beats per minute. FINDINGS: TONE: 1 or [...] High M.D. 12/03/2024 11:32 AM Dictation Location: [place] [address] Electronically authenticated by: [id number] Y Date: 1:32 Dictated By: Giovanna High M.D. Signed By:12/03/24 1134 DD/ 1132 TD/TT: Java Websphere Developer: us Giovany Ginny DO [facility] Final Result * AMNISURE (12/03/2024 11:25 AM EDT) Pathologist [facility] AMNISURE NEGATIVE NEGATIVE TB 12/03/2024 11:2 5 AM EDT 12/03/2024 11:33 AM EDT Narrative [facility] - 12/03/2024 11:45 AM EDT us Giovany Ginny DO LAB BLOOD ORDERABLES Final Resul t [facility] documented in this encounter Visit Diagnoses Not on filedocumented in this encounter Additional Health Concerns Active Problems Noted Date Diagnosed Date OB Reminders 06/27/2024 documented as of this encounter Care Teams Length Control Tester Relationship Specialty Start Date End Date Lan Malcolm MD [address] [place] [address] PCP - General Family Medicine 11/18/23 documented as of this encounter
--- OUTSIDE RECORDS SUMMARY | 2024-12-17 11:24 | XMS_ITS | Encounter Summary ---
Author Organization [facility] Address [address] [facility] [place] [address] Care Team Providers Care Community Fundraiser Name Role Phone Lan Malcolm MD Primary Care Provider Encounter Details Date Type Department Care Team (Late st Contact Info) Description 07/02/2024 Abstract [facility] OB [address] [place] [address] Baltazar Gross, DO [address] [place], [place] [address] Social History Tobacco Use Types Packs/Day Years [...] OB [address] [place] [address] Baltazar Gross, DO [address] [facility] [place] [address] documented as of this encounter Goals Goal Patient Goal Type Associated Problems Recent Progress Patient-Stated? Author Reminders Care Plan OB Reminders No Open Scheduling, Background documented as of this encounter Visit Diagnoses Not on filedocumented in this encounter Additional Health Concerns Active Problems Noted Date Diagnosed Date OB Reminders 06/27/2024 documented as of this encounter Care Teams Community Fundraiser Relationship Specialty Start Date End Date Lan [place] [address] PCP - General Family Medicine 11/18/23 documented as of this encounter
--- OUTSIDE RECORDS SUMMARY | 2024-12-17 11:24 | XMS_ITS | Encounter Summary ---
Author Organization [facility] Address [address] [facility] [place] [address] Care Team Providers Care Collar Stitcher Name Role Phone Lan Malcolm MD Primary Care Provider [phone] Encounter Details Date Type Department Care Team (Late st Contact Info) Description 08/25/2024 Orders Only [facility] BCP OB [address] [place] [address] Radha Munoz LPN [address] [place] [id number] Social History Tobacco Use Types Packs/Day Years [...] OB [address] [facility] [place] [address] GinnyBaltazar rhodes, DO [address] [facility] [place] [address] documented as of this encounter Goals Goal [...] documented as of this encounter Care Teams Collar Stitcher Relationship Specialty Start Date End Date Lan Malcolm MD [address] [place] [address] PCP - General Family Medicine 11/18/23 documented as of this encounter
--- OUTSIDE RECORDS SUMMARY | 2024-12-17 11:24 | XMS_ITS | Encounter Summary ---
Author Organization [facility] Address [address] [place] [address] Care Team Providers Care Neurology Teacher Name Role Phone Lan Malcolm MD Primary Care Provider [phone] Encounter Details Date Type Department Care Team (Late Contact Info) Description 11/21/2023 Clinisync Result Encounter [facility] External Department Unsolicited Elsa Putnam NP Social History Tobacco Use Types Packs/Day Years [...] Department Care Team (Late Contact Info) Description 12/24/2024 9:00 AM EDT Routine [facility] BCP OB [address] [place] [address] [place] [address] Baltazar Gross DO [address] [place] [address] [place] [address] documented as of this encounter Procedures Procedure [...] by: TEJAL Technologist: KALYN us Elsa Putnam NP IMG XR PROCEDURES Final Result documented in this encounter Visit Diagnoses Not on filedocumented in this encounter Care Teams Neurology Teacher Relationship Specialty Start Date End Date Lan Malcolm MD [address] [place], [place] [address], [place] [address] PCP - General Family Medicine 11/18/23 documented as of this encounter
--- OUTSIDE RECORDS SUMMARY | 2024-12-17 11:25 | XMS_ITS | Encounter Summary ---
Author Organization [facility] Address [address] [facility] [place] [address] Care Team Providers Care Night Auditor Name Role Phone Lan Malcolm MD Primary Care Provider Encounter Details Date Type Department Care Team (Late st Contact Info) Description 06/26/2024 Abstract [facility] OB [address] [place] [address] Baltazar Gross, DO [address] [place], [place] [address] Social History Tobacco Use Types Packs/Day Years [...] AM EDT Routine [facility] BCP OB [address] [place] [address] Baltazar Gross, [address] [facility] [address] [place], [place] [id number] documented as of this encounter Visit Diagnoses Not on filedocumented in this encounter Care Teams Night Auditor Relationship Specialty Start Date End Date Lan Malcolm MD [address] [place] [address] PCP - General Family Medicine 11/18/23 documented as of this encounter
--- OUTSIDE RECORDS SUMMARY | 2024-12-17 11:25 | XMS_ITS | Encounter Summary ---
Author Organization [facility] Address [address] [place] [address] Care Team Providers Care Clinical Rehabilitation Coordinator Name Role Phone Lan Malcolm MD Primary Care Provider [phone] Encounter Details Date Type Department Care Team (Late Contact Info) Description 05/29/2024 Clinisync Result Encounter [facility] External Department Unsolicited Giovany Gross, DO [address] [facility] [place] [address] Social History Tobacco Use Types Packs/Day Years [...] [facility] BCP OB [address] [facility] [place] [address] Giovany Gross DO [address] [place] [address] [place] [address] documented as of this encounter Procedures Procedure Name Priority Date/Time Associated Diagnosis Comments US OB TRANSVAGINAL 05/29/2024 4: 13 AM EST documented in this encounter Results * US OB TRANSVAGINAL (05/29/2024 4:13 AM EST) Anatomical Region Laterality Modality Other 05/29/2024 4:13 AM EST Narrative 05/29/2024 4:15 AM EST [address] [address] Ultrasound Report Signed Patient: Stephon Zuleta MR#: [id number] : 1995 Acct:[id number] Age/Sex: 29 / F ADM Date: 05/28/24 Loc: [facility] Attending Dr: Giovany Gross D.O. Ordering Physician: Giovany Gross D.O. Date of Service: 05/28/24 Procedure(s): US OB transvaginal Accession Number(s): [id number] cc: Giovany Gross D.O.; Lan Malcolm NP [address] [address] Patient Name: STEPHON ZULETA MRN: [id number] date: 1995 Sex: F Assigned Patient Location: [facility] Current Patient Location: Accession/Order Number: [id number] Exam Date: 05/28/2024 10:20 Report Date: 05/29/2024 [...] M.D. Signed By: 05/29/24414 DD/ 2 TD/TT: Ross Lift Operator: Procedure Note Radiology, Radiologist, MD - 05/29/2024 [place] [address] Ultrasound Report Signed Patient: Stephon Zuleta RMR#: [id number] : 1995Acct:[id number] Age/Sex: 29 / FADM Date: 05/28/24 Loc: [facility] Attending Dr: Giovany Gross D.O. Ordering Physician: Giovany Gross D.O. Date of Service: 05/28/24 Procedure(s): US OB transvaginal Accession Number(s): [id number] cc: Giovany Gross D.O.; Lan Malcolm NP The [place] [id number] Patient Name: STEPHON ZULETA MRN: [id number] date: 1995 Sex: F Assigned Patient Location: [facility] Current Patient Location: Accession/Order Number: [id number] Exam Date: 05/28/2024 10:20 Report Date: 05/29/2024 [...] Ferrer M.D. Signed By:05/29/24414 DD/ 2 TD/TT: Ross Lift Operator: us Giovany Ginny DO [facility] Final Result documented in this encounter Visit Diagnoses Not on filedocumented in this encounter Care Teams Clinical Rehabilitation Coordinator Relationship Specialty Start Date End Date Lan Malcolm MD [address] [place] [address] PCP - General Family Medicine 11/18/23 documented as of this encounter
--- OUTSIDE RECORDS SUMMARY | 2024-12-17 11:25 | XMS_ITS | Clinical Summary ---
Author Organization [facility] Address [address] [place] [address] Care Team Providers Care Licensed Marriage And Family Therapist Name Role Phone Lan Malcolm MD Primary Care Provider [phone] Allergies Active Allergy Reactions Criticality Noted Date [...] Encounters Date Type Department Care Team Description 12/17/2024 10:20 AM EDT Routine [facility] [address] [facility] [place] [address] Paz Varela PA Third trimester ; 35 weeks gestation of ; induced hypertension, antepartum 12/17/2024 Bamboo flowsheet [facility] OB [address] [place] [address] Paz Varela PA 12/15/2024 Travel 12/14/2024 Clinisync Result Encounter NOMS External Department Unsolicited Ginny, Giovany, DO 12/10/2024 Clinisync Result Encounter NOMS External Department Unsolicited Ginny, Giovany, DO 12/04/2024 Clinisync Result Encounter NOMS External Department Unsolicited Ginny, Giovany, DO 12/03/2024 10:00 AM EDT Routine [facility] [address] [place] [address] Giovany Gross, DO Third trimester ; 33 weeks gestation of ; Decreased appetite 12/03/2024 Clinisync Result Encounter NOMS External Department Unsolicited Ginny, Giovany, DO 12/03/2024 Clinisync Result Encounter NOMS External Department Unsolicited Ginny, Giovany, DO 12/03/2024 Bamboo flowsheet [facility] [address] [place] [address] Giovany Gross, DO 12/02/2024 Abstract [facility] [address] [place] [address] Giovany Gross, DO 12/01/2024 Travel 11/30/2024 Telephone [facility] [address] [place] [address] Suzanna Oneal LPN 11/26/2024 Clinisync Result Encounter NOMS External Department Unsolicited GinnyGiovany, DO 11/19/2024 11:30 AM EDT Routine [facility] [address] [place] [address] Paz Varela PA Third trimester ; 31 weeks gestation of 11/19/2024 11:00 AM EDT Ancillary Procedure [facility] [address] [place] [address] H/O pre-eclampsia in prior , currently ; H/O delivery, currently 11/19/2024 Clinisync Result Encounter NOMS External Department Unsolicited Giovany Gross, DO 11/12/2024 Clinisync Result Encounter NOMS External Department Unsolicited Giovany Gross, DO 11/05/2024 10:40 AM EDT Routine [facility] OB [address] [place] [address] Giovany Gross, Third trimester ; 29 weeks gestation of ; H/O pre-eclampsia in prior , currently ; H/O delivery, currently ; Heart palpitations; Shortness of breath; Seizures (CMS/HCC); Syncope, near 11/05/2024 Bamboo flowsheet [facility] OB [address] [place] [address] Giovany Gross, DO 10/31/2024 Travel 10/15/2024 Clinisync Result Encounter NOMS External Department Unsolicited Giovany Gross, DO 10/14/2024 Telephone [facility] OB [address] [place] [address] Suzanna Oneal LPN 10/01/2024 11:40 AM EDT Routine [facility] [place] [facility] [place] [address] Giovany Gross, Anemia, unspecified type (Primary Dx); Second trimester ; 24 weeks gestation of 10/01/2024 10:30 AM EDT Ancillary Procedure [facility] OB [facility] [place] [address] Low-lying placenta 09/29/2024 Travel 09/29/2024 Clinisync Result Encounter NOMS External Department Unsolicited Giovany Gross, DO 09/23/2024 Telephone [facility] [address] [place] [address] Suzanna Oneal LPN from Last 3 Months Family History Medical [...] Pressure 132/86 12/17/2024 10:35 AM EDT Pulse 94 11/18/2023 11:23 AM EDT Temperature - - Respiratory Rate 16 10/18/2022 5:53 PM EDT Oxygen Saturation 99% 11/18/2023 11:23 AM EDT Inhaled Oxygen Concentration - - Weight 101 kg (221 lb 12.8 oz) 12/17/2024 10:35 AM EDT Height 167.6 cm (5' 6 ) 11/18/2023 11:23 AM EDT Body Mass Index 35.8 11/18/2023 11:23 AM EDT Plan of Treatment Upcoming Encounters Date Type Department Care Team (Late st Contact Info) Description 12/24/2024 9:00 AM EDT Routine [facility] [address] [place] [address] Giovany Gross, [address], [place] [id number] Health Maintenance Due Date Last Done Comments Influenza Vaccine (Season Ended) 2025 04/27/2021, 04/26/2020, 04/16/2019, Additional history exists Goals Goal Patient Goal Type Associated Problems Recent Progress Patient-Stated? Author Reminders Care Plan OB Reminders No Open Scheduling, Background Procedures Procedure Name Priority Date/Time Associated Diagnosis Comments POCT URINALYSIS DIPSTICK Routine 12/17/2024 10:38 AM EDT Third trimester 35 weeks gestation of US OB BPP W NON-STRESS 12/14/2024 8:08 PM EDT US OB BPP W NON-STRESS 12/10/2024 10:32 AM EDT HMHP CBC WITH PLATELET NO DIFFERENTIAL Routine 12/04/2024 10:19 PM EDT AMNISURE Routine 12/04/2024 9:17 PM EDT TBH URINE MICROSCOPIC ONLY Routine 12/04/2024 8:42 PM EDT TBH UA (CLEAN/CATCH) CABLE ASSEMBLER/MICRO IF IND. Routine 12/04/2024 8:42 PM EDT [...] dipstick manually resulted (12/17/2024 10:38 AM EDT) Only the most recent of5 resultswithin the time period is included. Color, UA Yellow Clarity, UA Clear Glucose, UA Positive Negative - 1999(110) ++++ mg/dL Bilirubin, UA Negative Negative - 4(70) +++ mg/dL Ketones, UA Negative Negative - 160(16) ++++ mg/dL Spec Grav, UA 1.030 1 - 1.03 Blood, UA Negative Negative - 50 Theodore/mcL pH, UA 6.0 5 - 9 Protein, UA Positive Negative - 1999(20) ++++ mg/dL Urobilinogen, UA 1.0 0.2 - 12 mg/dL Leukocytes, UA Negative Negative - 500+++ Mike/mcL Nitrite, UA Negative Negative - Positive Urine 12/17/2024 10:3 8 AM EDT Giovany Gross DO POINT OF CARE TEST ENTER/EDIT OR DERABLES Final Result * US OB BPP W NON-STRESS (12/14/2024 8:08 PM EDT) Only the most recent of6 resultswithin the time period is included. Anatomical Region Laterality Modality Other 12/14/2024 8:08 PM EDT Narrative 12/14/2024 8:11 [place] [address] Ultrasound Report Signed Patient: POP HESS MR#: [id number] : 1995 Acct:[id number] Age/Sex: 29 / F ADM Date: 12/14/24 Loc: [facility] Attending Dr: Giovany Gross D.O. Ordering Physician: Giovany Gross D.O. Date of Service: 12/14/24 Procedure(s): US OB BPP w non-stress Accession Number(s): [id number] cc: MACHELLE VIVEROS; Giovany Gross D.O. [place] [id number] Patient Name: POP HESS MRN: [id number] date: 1995 Sex: F Assigned Patient Location: [facility] [place] Current Patient Location: Accession/Order Number: [id number] Exam Date: 12/14/2024 20:07 Report Date: 12/14/2024 20:08 At the request of: GIOVANY GROSS DO Procedure: US OB BPP w non-stress Ultrasound biophysical profile HISTORY: The amniotic fluid index Adequate breathing movement, gross body movement, tone and amniotic fluid volume for total score of 8 out of 8. The amniotic fluid index is 10.9cm within normal limits. The heart rate 148 bpm. US/US OB BPP w non-stress IMPRESSION: Adequate ultrasound biophysical profile Impression dictated by: Andrew Mehta M.D. 12/14/2024 8:08 PM Dictation Location: [place] [address] Electronically authenticated by: [id number] Y Date: 12/14/2024 20:08 Dictated By: Andrew Mehta D.O. Signed By: 12/14/242010 DD/ 07 TD/TT: Machine Chocolate Molder: Procedure Note Radiology, Radiologist, MD - 12/14/2024 [place] [address] Ultrasound Report Signed Patient: POP HESS RMR#: [id number] : 1995Acct:[id number] Age/Sex: 29 / FADM Date: 12/14/24 Loc: [facility] Attending Dr: Giovany Gross D.O. Ordering Physician: Giovany Gross D.O. Date of Service: 12/14/24 Procedure(s): US OB BPP w non-stress Accession Number(s): [id number] cc: MACHELLE VIVEROS; Giovany Gross D.O. The [place] [address] Patient Name: POP HESS MRN: [id number] date: 1995 Sex: F Assigned Patient Location: [facility] [place] Current Patient Location: Accession/Order Number: [id number] Exam Date: 12/14/2024 20:07 Report Date: 12/14/2024 20:08 At the request of: GIOVANY GROSS DO Procedure: US OB BPP w non-stress Ultrasound biophysical profile HISTORY: The amniotic fluid index Adequate breathing movement, gross body movement, tone and amniotic fluid volume for total score of 8 out of 8. The amniotic fluidindex is 10.9cm within normal limits. The heart rate 148 bpm. US/US OB BPP w non-stress IMPRESSION: Adequate ultrasound biophysical profile Impression dictated by: Andrew Mehta M.D. 12/14/2024 8:08 PM Dictation Location: [place] [address] Electronically authenticated by: [id number] Y Date: 0:08 Dictated By: Andrew Mehta D.O. Signed By:12/14/242010 DD/ 07 TD/TT: Machine Chocolate Molder: us Giovany Ginny DO [facility] IMAGING Final Result * (ABNORMAL) HP CBC WITH PLATELET NO [...] us Giovany Ginny DO [facility] Final Result [facility] * AMNISURE (12/04/2024 9:17 PM EDT) Only the most recent of2 resultswithin the time period is included. TB AMNISURE NEGATIVE NEGATIVE TBH 12/04/2024 9:17 PM EDT 12/04/2024 9:26 PM EDT Narrative CLINISYNC - 12/04/2024 9:42 PM EDT Giovany Ginny DO LAB BLOOD ORDERABLES Final Resul t Performing Organization Address [facility] Co de Phone Number CLINISYNC TBH [...] Narrative CLINISYNC - 12/04/2024 9:41 PM EDT [email or web address] DO CLINISYNC Final Result Performing Organization Address [facility] de Phone Number MALIKA TB * (ABNORMAL) TBH UA (CLEAN/CATCH) CABLE ASSEMBLER/MICRO IF IND. (12/04/2024 8:42 PM EDT) COLOR [...] 12/04/2024 9:41 PM EDT Giovany Gross DO CLINISYNC Final Result MALIKA TB * US OB CERVICAL LENGTH (12/03/2024 11:32 AM EDT) Anatomical Region Laterality Modality Other 12/03/2024 11:3 2 AM EDT Narrative 12/03/2024 11:34 [place] [address] Ultrasound Report Signed Patient: POP HESS MR#: [id number] : 1995 Acct:[id number] Age/Sex: 29 / F ADM Date: Loc: [facility] [address]- Attending Dr: Giovany Gross D.O. Ordering Physician: Giovany Gross D.O. Date of Service: 12/03/24 Procedure(s): US OB cervical length Accession Number(s): [id number] cc: MACHELLE VIVEROS; Giovany Gross D.O. [address] [address] Patient Name: POP HESS MRN: [id number] date: 1995 Sex: F Assigned Patient Location: US Current Patient Location: US Accession/Order Number: [id number] Exam Date: 12/03/2024 11:21 Report Date: 12/03/2024 11:32 At the request of: GIOVANY GROSS DO Procedure: US OB BPP w non-stress CLINICAL DATA: Cramping, leaking and decreased movement. BIOPHYSICAL PROFILE: COMPARISON: 11/26/2024 There is a single live intrauterine gestation in cephalic presentation. The reported gestational age is 33 weeks 3 days. The heart rate [id number] beats per minute. FINDINGS: TONE: 1 or [...] High M.D. 12/03/2024 11:32 AM Dictation Location: [place] [address] Electronically authenticated by: [id number] Y Date: 12/03/2024 11:32 Dictated By: Giovanna High M.D. Signed By: 12/03/24 1134 DD/ 1132 TD/TT: Machine Chocolate Molder: Procedure Note Radiology, Radiologist, MD - 12/03/2024 [place] [address] Ultrasound Report Signed Patient: POP HESS RMR#: [id number] : 1995Acct:[id number] Age/Sex: 29 / FADM Date: Loc: [facility] [address]: Giovany Gross D.O. Ordering Physician: Giovany Gross D.O. Date of Service: 12/03/24 Procedure(s): US OB cervical length Accession Number(s): [id number] cc: MACHELLE VIVEROS; Giovany Gross D.O. The [place] [id number] Patient Name: POP HESS MRN: [id number] date: 1995 Sex: F Assigned Patient Location: US Current Patient Location: US Accession/Order Number: [id number] Exam Date: 12/03/2024 11:21 Report Date: 12/03/2024 11:32 At the request of: GIOVANY GROSS DO Procedure: US OB BPP w non-stress CLINICAL DATA: Cramping, leaking and decreased movement. BIOPHYSICAL PROFILE: COMPARISON: 11/26/2024 There is a single live intrauterine gestation in cephalic presentation.The reported gestational age is 33 weeks 3 days. The heart stsmnazdoafe683 beats per minute. FINDINGS: TONE: 1 or [...] High M.D. 12/03/2024 11:32 AM Dictation Location: [place] [address] Electronically authenticated by: [id number] Y Date: 511:32 Dictated By: Giovanna High M.D. Signed By:12/03/24 1134 DD/ 1132 TD/TT: Machine Chocolate Molder: us Giovany Gross DO [facility] IMAGING Final [...] II, MD, PHD at 22-Nov-2024 08:21:01 PM [facility] Procedure Note Tone Wallace MD - [...] signed by TONE WALLACE II, MD, PHD [id number] 08:21:01 PM [facility] us Giovany Ginny DO IMG OB US PROCEDURES Final Resul t * (ABNORMAL) TRANSFERRIN (10/15/2024 8:50 AM EDT) TRANSFERRIN 418(A) 192 - 364 mg/dL TBH Comment: Performed at: [address] [id number] Car Dumper Operator: Randall Dumont PhD, Phone: [phone] 10/15/2024 8:50 AM EDT 10/15/2024 8:50 AM EDT Narrative CLINISYNC - 10/16/2024 5:07 AM EDT us Giovany Ginny DO LAB BLOOD ORDERABLES Final Resul t CLINISYMO [facility]H * [facility] FERRITIN (10/15/2024 8:50 AM EDT) FERRITIN 8.0 8.0 - 252.0 ng/mL TBH 10/15/2024 8:50 AM EDT 10/15/2024 8:50 AM EDT Narrative CLINISYNC - 10/15/2024 11:11 AM EDT us Giovany Ginny DO CLINISYNC Final Result CLINISYMO [facility]H * (ABNORMAL) ALL CBC WITH AUTO DIFF [...] 8:50 AM EDT Narrative CLINISYNC - 10/15/2024 9:01 AM EDT us Giovany Ginny DO CLINROGELIO Final Result CLINISYNC TBH * US OB limited 1+ fetuses [...] II, MD, PHD at 02-Oct-2024 08:30:32 PM [facility] Procedure Note Tone Wallace MD - [...] WALLACE II, MD, PHDat 02-Oct-2024 08:30:32 PM [facility] us Giovany Ginny DO IMG OB US PROCEDURES Final Resul t * (ABNORMAL) GLUCOSE 1 HOUR (09/29/2024 7:35 AM EDT) GLUCOSE 1 HOUR 131(H) <130 mg/dL TBH 09/29/2024 7:35 AM EDT 09/29/2024 7:36 AM EDT Narrative CLINISYNC - 09/29/2024 9:44 AM EDT us Giovany Ginny DO LAB BLOOD ORDERABLES Final Resul t [facility] from Last 3 Months Additional Health Concerns Active Problems Noted Date Diagnosed Date OB Reminders 06/27/2024 Insurance [employer] Care Teams Licensed Marriage And Family Therapist Relationship Specialty Start Date End Date Lan Malcolm MD [address] [place] [address] PCP - General Family Medicine 11/18/23
--- OUTSIDE RECORDS SUMMARY | 2024-12-17 11:25 | XMS_ITS | Encounter Summary ---
Author Organization [facility] Address [address] [place] [address] Care Team Providers Care Survey Statistician Name Role Phone Lan Malcolm MD Primary Care Provider [phone] Encounter Details Date Type Department Care Team (Latest Contact Info) Description 12/15/2024 Travel Social History Tobacco Use Types Packs/Day [...] 9:00 AM EDT Routine [facility] [address] [place] [address] [place] [address] Baltazar Gross, DO [address] [facility] [place] [address] documented as of this encounter Goals Goal Patient Goal Type Associated Problems Recent Progress Patient-Stated? Author Reminders Care Plan OB Reminders No Open Scheduling, Background documented as of this encounter Visit Diagnoses Not on filedocumented in this encounter Additional Health Concerns Active Problems Noted Date Diagnosed Date OB Reminders 06/27/2024 documented as of this encounter Care Teams Survey Statistician Relationship Specialty Start Date End Date Lan Malcolm MD [address] [place] [address] PCP - General Family Medicine 11/18/23 documented as of this encounter
--- OUTSIDE RECORDS SUMMARY | 2024-12-17 11:25 | XMS_ITS | Encounter Summary ---
Author Organization [facility] Address [address] [place] [address] Care Team Providers Care Brine Tank Operator Name Role Phone Lan Malcolm MD Primary Care Provider [phone] Encounter Details Date Type Department Care Team (Late st Contact Info) Description 06/26/2024 Abstract [facility] OB [address] [place] [address] Baltazar Gross, DO [address] [place], [place] [address] Social History Tobacco Use Types Packs/Day Years [...] EDT Routine [facility] OB [address] [facility] [place] [address] Baltazar Gross, [address] [facility] [address] [place], [place] [address] documented as of this encounter Visit Diagnoses Not on filedocumented in this encounter Care Teams Brine Tank Operator Relationship Specialty Start Date End Date Lan Malcolm MD [address] [place] [address] PCP - General Family Medicine 11/18/23 documented as of this encounter
--- OUTSIDE RECORDS SUMMARY | 2024-12-17 11:25 | XMS_ITS | Patient Health Record ---
Author Organization [email or web address] Address [address] [place] [address] Care Team Providers Care Applications Developer Name Role Phone Evelyn West Primary Care Provider Corine Hendrickson Unavailable [phone] Germania Yusuf Unavailable [phone] Allergies Allergen (clinical drug ingredient) Drug/Non Drug Allergy documented on EMR Reaction Allergy Type Onset Date Status losartan Cozaar Unknown Drug Allergy Active Reason For Referral No Information Medications Medication SIG (Take, Route, Frequency, Duration) Notes Start Date End Date Status Pen [place] 30G X 5 MM 1 pen needle subcutaneously once a day for 30 days 12/27/2022 Not-Taking Alcohol Swabs 70 % as directed as direc suzanna for 30 days 11/21/2022 Not-Taking Xanax 0.5 MG 1 tablet Orally Twic e a day 12/25/2023 Not-Taking Loestrin Fe 08/03 1-20 MG-MCG 1 tablet Orally Once a day for 28 day(s) 11/05/2022 Not-Taking Zyyhzlbgu-Uvhrbyoa-FM 30-2-10 MG/5ML 10mL Orally every 6 hrs [...] Problem Status W/U Status Risk Notes Problem 15022927 Attention-defici t hyperactivity disorder, predominantly inattentive type (F90.0) Active confirmed Problem 451709102785378 Obesity (BMI 30.0-34.9) (E66.9) Active confirmed Problem 76586257 Chronic fatigue (R53.82) Active confirmed Problem 33045288187661 Episodic mood disorder (F39) Active confirmed Problem 957244441 Status migrainosus (G43.901) Active confirmed Problem Acute sciatica (522581052) Acute sciatica (M54.30) Active confirmed Problem 66255305 Seizure, petit mal (G40.A09) Active confirmed Problem 89284623 Generalized anxiety disorder (F41.1) Active confirmed Problem 04761876 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 Vital Signs Heart Rate 94 /min 05/15/2024 Temperature 98.1 degrees Fahrenheit 05/15/2024 Blood pressure diastolic 82 mm Hg 05/15/2024 Oximetry 99 % 05/15/2024 Height 65.5 in 05/15/2024 Blood pressure systolic 129 mm Hg 05/15/2024 Weight 172.6 lbs 05/15/2024 BMI 28.28 kg/m2 05/15/2024 Encounters Encounter Location Date Provider Diagnosis [facility] [address] [place] [address] 12/18/2023 Evelyn West Obesity (BMI 30.0-34.9) E66.9 [facility] [address] [place] [address] 12/18/2023 Corine Slingwine [facility] [address] [place] [address] 12/25/2023 Corine Slingwine [facility] [address] [place] [address] 01/20/2024 Corine Slingwine [facility] [address] [place] [address] 02/20/2024 Germania Yusuf [facility] [address] [place] [address] 03/27/2024 Corine Slingwine [facility] [address] [place] [address] 04/29/[address]ine Slingwine [address] [address] 05/15/2024 Corine Slingwine Attention-deficit hyperactivity disorder, predominantly inattentive type F90.0 ; Episodic mood disorder F39 ; Generalized anxiety disorder F41.1 ; Chronic fatigue R53.82 and Insomnia due to mental disorder F51.[address] [address] 12/25/2023 Corine Slingwine Generalized anxiety disorder F41.1 ; Chronic fatigue R53.82 and Attention-deficit hyperactivity disorder, predominantly inattentive type F90.[address] [address] 01/10/2024 Corine Slingwine Generalized anxiety disorder F41.1 ; Attention-deficit hyperactivity disorder, predominantly inattentive type F90.0 ; Episodic mood disorder F39 and Insomnia due to mental disorder F51.[address] [address] 01/28/2024 Corine Slingwine Generalized anxiety disorder F41.1 ; Chronic fatigue R53.82 ; Attention-deficit hyperactivity disorder, predominantly inattentive type F90.0 ; Episodic mood disorder F39 and Insomnia due to mental disorder F51.[address] [address] 03/05/2024 Corine Hendrickson Generalized anxiety disorder F41.1 [...] patient crisis plan. Provided crisis hotline number. [facility] has good support system. Made aware to [...] patient crisis plan. Provided crisis hotline number. [facility] has good support system. Made aware to [...] Date [employer] [place] [employer] [address] [place] [address] [phone] [id number] JIMENALEXISOPHIE Self - patient is the insured 3 [facility] [address] [place] [phone] [id number] LEXI HESSSOPHIE Self - patient is the insured 3 [facility] [employer] [place] Medicaid [address] [place] [phone] [id number] LEXI HESSSOPHIE Self - patient is the insured 3 [facility] [address] [place] [address] [id number] LEXI HESSSOPHIE Self - patient is the insured 3 Medical (General) History Medical History History ICD Code Depression Anxiety ADHD petit mal seizures PCOS Surgical History Surgery Date(Month/Year) tonsillectomy and adenoidectomy Hospitalization History Reason Date(Month/Year) see surgical
--- OUTSIDE RECORDS SUMMARY | 2024-12-17 11:25 | XMS_ITS | Encounter Summary ---
Author Organization [facility] Address [address] [facility] [address] Care Team Providers Care Fitter Up Name Role Phone Lan Malcolm MD Primary Care Provider [phone] Encounter Details Date Type Department Care Team (Late st Contact Info) Description 12/02/2024 Abstract [facility] OB [address] [place] [address] Baltazar Gross, DO [address] [facility] [address] [place], [place] [address] Social History Tobacco Use Types Packs/Day Years [...] BCP OB [address] [place] [address] Baltazar Gross, DO [address] [facility] [place] [address] documented as of this encounter Goals Goal Patient Goal Type Associated Problems Recent Progress Patient-Stated? Author Reminders Care Plan OB Reminders No Open Scheduling, Background documented as of this encounter Visit Diagnoses Not on filedocumented in this encounter Additional Health Concerns Active Problems Noted Date Diagnosed Date OB Reminders 06/27/2024 documented as of this encounter Care Teams Fitter Up Relationship Specialty Start Date End Date [place] [address] PCP - General Family Medicine 11/18/23 documented as of this encounter
--- OUTSIDE RECORDS SUMMARY | 2024-12-17 11:25 | XMS_ITS | Encounter Summary ---
Author Organization [facility] Address [address] [place] [address] Care Team Providers Care End Touching Machine Operator Name Role Phone Lan Malcolm MD Primary Care Provider [phone] Encounter Details Date Type Department Care Team (Late st Contact Info) Description 12/03/2024 Clinisync Result Encounter [facility] External Department Unsolicited Giovany Gross, DO [address] [facility] [place] [address] Social History Tobacco Use Types Packs/Day Years [...] [address] [facility] [place] [phone] Giovany Gross DO [address] [facility] [address] [place] [address] documented as of this encounter Goals Goal [...] AM EDT Narrative 12/03/2024 11:34 AM EDT [address] [address] Ultrasound Report Signed Patient: STEPHON ZULETA MR#: [id number] : 1995 Acct:[id number] Age/Sex: 29 / F ADM Date: Loc: [facility] 258-[address]: Giovany Gross D.O. Ordering Physician: Giovany Gross D.O. Date of Service: 12/03/24 Procedure(s): US OB cervical length Accession Number(s): [id number] cc: MACHELLE VIVEROS; Giovany Gross D.O. The [address] [address] Patient Name: STEPHON ZULETA MRN: [id number] date: 1995 Sex: F Assigned Patient Location: US Current Patient Location: US Accession/Order Number: [id number] Exam Date: 12/03/2024 11:21 Report Date: 12/03/2024 11:32 At the request of: GIOVANY NOLBERTO DO Procedure: US OB BPP w non-stress CLINICAL DATA: Cramping, leaking and decreased movement. BIOPHYSICAL PROFILE: COMPARISON: 11/26/2024 There is a single live intrauterine gestation in cephalic presentation. The reported gestational age is 33 weeks 3 days. The heart rate [id number] beats per minute. FINDINGS: TONE: 1 or [...] High M.D. 12/03/2024 11:32 AM Dictation Location: [place] [address] Electronically authenticated by: [id number] Y Date: 12/03/2024 11:32 Dictated By: Giovanna High M.D. Signed By: 12/03/24 1134 DD/ 1132 TD/TT: Engine Assembler: Procedure Note Radiology, Radiologist, - 12/03/2024 [place] [address] Ultrasound Report Signed Patient: STEPHON ZULETA RMR#: [id number] : 1995Acct:[id number] Age/Sex: 29 M Date: Loc: [facility] 258-[address]: Giovany Gross D.O. Ordering Physician: Giovany Gross D.O. Date of Service: 12/03/24 Procedure(s): US OB cervical length Accession Number(s): [id number] cc: MACHELLE VIVEROS; Giovany Gross D.O. The [place] [id number] Patient Name: STEPHON ZULETA MRN: [id number] date: 1995 Sex: F Assigned Patient Location: Current Patient Location: Accession/Order Number: [id number] Exam Date: 12/03/2024 11:21 Report Date: 12/03/2024 11:32 At the request of: GIOVANY GROSS DO Procedure: US OB BPP w non-stress CLINICAL DATA: Cramping, leaking and decreased movement. BIOPHYSICAL PROFILE: COMPARISON: 11/26/2024 There is a single live intrauterine gestation in cephalic presentation.The reported gestational age is 33 weeks 3 days. The heart [id number] beats per minute. FINDINGS: TONE: 1 or [...] High M.D. 12/03/2024 11:32 AM Dictation Location: [place] [address] Electronically authenticated by: [id number] Y Date: 1:32 Dictated By: Giovanna High M.D. Signed By:12/03/24 1134 DD/ 1132 TD/TT: Engine Assembler: Giovany Gross DO [facility] Final Result documented in this encounter Visit Diagnoses Not on filedocumented in this encounter Additional Health Concerns Active Problems Noted Date Diagnosed Date OB Reminders 06/27/2024 documented as of this encounter Care Teams End Touching Machine Operator Relationship Specialty Start Date End Date Lan Malcolm MD [address] [place] [address] PCP - General Family Medicine 11/18/23 documented as of this encounter
--- OUTSIDE RECORDS SUMMARY | 2024-12-17 11:25 | XMS_ITS | Encounter Summary ---
Author Organization [facility] Address [address] [place] [address] Care Team Providers Care Plasma Table Operator Name Role Phone Lan Malcolm MD Primary Care Provider [phone] Encounter Details Date Type Department Care Team (Late st Contact Info) Description 12/10/2024 Clinisync Result Encounter [facility] External Department Unsolicited Giovany Gross, DO [address] [facility] [place] [address] Social History Tobacco Use Types Packs/Day Years [...] Routine [facility] BCP OB [address] [facility] [place] [phone] Giovany Gross, DO [address] [facility] [place] [address] documented as of this encounter Goals Goal Patient Goal Type Associated Problems Recent Progress Patient-Stated? Author Reminders Care Plan OB Reminders No Open Scheduling, Background documented as of this encounter Procedures Procedure Name Priority Date/Time Associated Diagnosis Comments US OB BPP W NON-STRESS 12/10/2024 10:32 AM EDT documented in this encounter Results * US OB BPP W NON-STRESS (12/10/2024 10:32 AM EDT) Anatomical Region Laterality Modality Other 12/10/2024 10:3 2 AM EDT Narrative 12/10/2024 10:35 AM EDT The [address] [address] Ultrasound Report Signed Patient: STEPHON ZULETA MR#: [id number] : 1995 Acct:[id number] Age/Sex: 29 / F ADM Date: 12/10/24 Loc: [facility] 250-[address]: Giovany Gross D.O. Ordering Physician: Giovany Gross D.O. Date of Service: 12/10/24 Procedure(s): US OB BPP w non-stress Accession Number(s): [id number] cc: MACHELLE VIVEROS; Giovany Gross D.O. The [address] [address] Patient Name: STEPHON ZULETA MRN: [id number] date: 1995 Sex: F Assigned Patient Location: [facility] Current Patient Location: [facility] Accession/Order Number: [id number] Exam Date: 12/10/2024 10:30 Report Date: 12/10/2024 [...] High M.D. 12/10/2024 10:32 AM Dictation Location: [place] [address] Electronically authenticated by: [id number] Y Date: 12/10/2024 10:32 Dictated By: Giovanna High M.D. Signed By: 12/10/24 1035 DD/ 1032 TD/TT: Plant Physiology Teacher: Procedure Note Radiology, Radiologist, - 12/10/2024 [place] [address] Ultrasound Report Signed Patient: STEPHON ZULETA RMR#: [id number] : 1995Acct:[id number] Age/Sex: 29 FADM Date: 12/10/24 Loc: [facility] 250-[address]: Giovany Gross D.O. Ordering Physician: Giovany Gross D.O. Date of Service: 12/10/24 Procedure(s): US OB BPP w non-stress Accession Number(s): [id number] cc: MACHELLE VIVEROS; Giovany Gross D.O. [place] [id number] Patient Name: STEPHON ZULETA MRN: [facility]:[id number] date: 1995 Sex: F Assigned Patient Location: [facility] Current Patient Location: [facility] Accession/Order Number: [id number] Exam Date: 12/10/2024 10:30 Report Date: 12/10/2024 10:32 At the request of: GIOVANY GROSS DO Procedure: US OB BPP w non-stress BIOPHYSICAL PROFILE: CLINICAL INFORMATION: History of pre-eclampsia and delivery COMPARISON: 12/03/2024 There is a single live intrauterine gestation in cephalic presentation.The reported gestational age is 34 weeks 3 days. The heart ratemeasures 150 beats per minute. FINDINGS: TONE: 1 [...] High M.D. 12/10/2024 10:32 AM Dictation Location: [place] [address] Electronically authenticated by: [id number] Y Date: 510:32 Dictated By: Giovanna High M.D. Signed By:12/10/24 1035 DD/ 1032 TD/TT: Plant Physiology Teacher: Giovany Gross DO [facility] Final Result documented in this encounter Visit Diagnoses Not on filedocumented in this encounter Additional Health Concerns Active Problems Noted Date Diagnosed Date OB Reminders 06/27/2024 documented as of this encounter Care Teams Plasma Table Operator Relationship Specialty Start Date End Date Lan Malcolm MD [address] [place] [address] PCP - General Family Medicine 11/18/23 documented as of this encounter
--- OUTSIDE RECORDS SUMMARY | 2024-12-17 11:25 | XMS_ITS | Encounter Summary ---
Author Organization [facility] Address [address] [facility] [place] [address] Care Team Providers Care Manager Education Name Role Phone Lan Malcolm MD Primary Care Provider [phone] Encounter Details Date Type Department Care Team (Late st Contact Info) Description 05/28/2024 Abstract [facility] OB [address] [place] [address] Baltazar Gross, DO [address] [facility] [address] [place], [place] [address] Social History Tobacco Use Types Packs/Day Years [...] [address] [facility] [place] [phone] Baltazar Gross, [address] [facility] [place] [address] documented as of this encounter Visit Diagnoses Not on filedocumented in this encounter Care Teams Manager Education Relationship Specialty Start Date End Date Lan Malcolm MD [address] [place] [address] PCP - General Family Medicine 11/18/23 documented as of this encounter
--- OUTSIDE RECORDS SUMMARY | 2024-12-17 11:25 | XMS_ITS | Encounter Summary ---
Author Organization [facility] Address [address] [facility] [place] [address] Care Team Providers Care Funeral Prearrangement Counselor Name Role Phone Lan Malcolm MD Primary Care Provider [phone] Encounter Details Date Type Department Care Team (Late st Contact Info) Description 12/03/2024 Bamboo flowsheet [facility] BCP OB [address] [place] [phone] Baltazar Gross, DO [address] [facility] [address] [place], [facility] Social History Tobacco Use Types Packs/Day Years [...] EDT Routine [facility] BCP OB [address] [place] [phone] Baltazar Gross, DO [address] [facility] [address] documented as of this encounter Goals Goal Patient Goal Type Associated Problems Recent Progress Patient-Stated? Author Reminders Care Plan OB Reminders No Open Scheduling, Background documented as of this encounter Visit Diagnoses Not on filedocumented in this encounter Additional Health Concerns Active Problems Noted Date Diagnosed Date OB Reminders 06/27/2024 documented as of this encounter Care Teams Funeral Prearrangement Counselor Relationship Specialty Start Date End Date [place] [address] PCP - General Family Medicine 11/18/23 documented as of this encounter
--- OUTSIDE RECORDS SUMMARY | 2024-12-17 11:25 | XMS_ITS | Encounter Summary ---
Author Organization [facility] Address [address] [facility] [place] [address] Care Team Providers Care Rn Appeals Name Role Phone Lan Malcolm MD Primary Care Provider [phone] Encounter Details Date Type Department Care Team (Late st Contact Info) Description 06/26/2024 Abstract [facility] OB [address] [place] [address] Baltazar Gross, DO [address] [place], [place] [address] Social History Tobacco Use Types Packs/Day Years [...] [address] [facility] [place] [address] Baltazar Gross, [address] [facility] [address] [place], [place] [phone] documented as of this encounter Visit Diagnoses Not on filedocumented in this encounter Care Teams Rn Appeals Relationship Specialty Start Date End Date Lan Malcolm MD [address] [place] [address] PCP - General Family Medicine 11/18/23 documented as of this encounter
--- OUTSIDE RECORDS SUMMARY | 2024-12-17 11:25 | XMS_ITS | Encounter Summary ---
Author Organization [facility] Address [address] [place] [address] Care Team Providers Care Community Health Advisor Name Role Phone Lan Malcolm MD Primary Care Provider [phone] Encounter Details Date Type Department Care Team (Late st Contact Info) Description 12/14/2024 Clinisync Result Encounter [facility] External Department Unsolicited Giovany Gross, DO [address] [facility] [place] [address] Social History Tobacco Use Types Packs/Day Years [...] AM EDT Routine [facility] BCP OB [address] [facility] [address] Giovany Gross, DO [address] [facility] [place] [address] documented as of this encounter Goals Goal Patient Goal Type Associated Problems Recent Progress Patient-Stated? Author Reminders Care Plan OB Reminders No Open Scheduling, Background documented as of this encounter Procedures Procedure Name Priority Date/Time Associated Diagnosis Comments US OB BPP W NON-STRESS 12/14/2024 8:08 PM EDT documented in this encounter Results * US OB BPP W NON-STRESS (12/14/2024 8:08 PM EDT) Anatomical Region Laterality Modality Other 12/14/2024 8:08 PM EDT Narrative 12/14/2024 8:11 PM EDT The [address] [address] Ultrasound Report Signed Patient: STEPHON ZULETA MR#: [id number] : 1995 Acct:[id number] Age/Sex: 29 / F ADM Date: 12/14/24 Loc: [facility] Attending Dr: Giovany Gross D.O. Ordering Physician: Giovany Gross D.O. Date of Service: 12/14/24 Procedure(s): US OB BPP w non-stress Accession Number(s): [id number] cc: MACHELLE VIVEROS; Giovany Gross D.O. The [address] [address] Patient Name: STEPHON ZULETA MRN: [id number] date: 1995 Sex: F Assigned Patient Location: [facility] Current Patient Location: Accession/Order Number: [id number] Exam Date: 12/14/2024 20:07 Report Date: 12/14/2024 [...] Mehta M.D. 12/14/2024 8:08 PM Dictation Location: [employer] Electronically authenticated by: [id number] Y Date: 12/14/2024 20:08 Dictated By: Andrew Mehta D.O. Signed By: 12/14/242010 DD/ 07 TD/TT: Hoop Bending Machine Operator: Procedure Note Radiology, Radiologist, MD - 12/14/2024 [place] [address] Ultrasound Report Signed Patient: STEPHON ZULTEA RMR#: [id number] : 1995Acct:[id number] Age/Sex: 29 FADM Date: 12/14/24 Loc: [facility] Attending Dr: Giovany Gross D.O. Ordering Physician: Giovany Gross D.O. Date of Service: 12/14/24 Procedure(s): US OB BPP w non-stress Accession Number(s): [id number] cc: MACHELLE VIVEROS; Giovany Gross D.O. The [place] [id number] Patient Name: STEPHON ZULETA MRN: [id number] date: 1995 Sex: F Assigned Patient Location: [facility] Current Patient Location: Accession/Order Number: [id number] Exam Date: 12/14/2024 20:07 Report Date: 12/14/2024 [...] Mehta M.D. 12/14/2024 8:08 PM Dictation Location: [employer] Electronically authenticated by: [id number] Y Date: 0:08 Dictated By: Andrew Mehta D.O. Signed By:12/14/242010 DD/ 07 TD/TT: Hoop Bending Machine Operator: us Giovany Ginny DO [facility] Final Result documented in this encounter Visit Diagnoses Not on filedocumented in this encounter Additional Health Concerns Active Problems Noted Date Diagnosed Date OB Reminders 06/27/2024 documented as of this encounter Care Teams Community Health Advisor Relationship Specialty Start Date End Date Lan Malcolm MD [address] [place] [address] [place] [address] PCP - General Family Medicine 11/18/23 documented as of this encounter
[2024-12-17 11:43] LABS: Basophils Percent Auto 0.2 % (0.2-2.0); Eosinophils Percent Auto 0.2 % (0.9-7.0); Hematocrit 31.9 % (36.0-48.0); Hemoglobin 10.2 g/dL (12.0-16.0); Immature Granulocytes Abs Auto 0.26 10^3/uL (0.00-0.03); Immature Granulocytes Pct Auto 2.1 % (0.0-0.5); Lymphocytes Absolute Auto 2.3 10^3/uL (1.2-3.8); Lymphocytes Percent Auto 18.9 % (20.5-60.0); Mean Corpuscular Hemoglobin 26.5 pg (26.7-34.0); Mean Corpuscular Volume 82.9 fL (81.0-99.0); Mean Platelet Volume 10.9 fL (9.5-13.5); Monocytes Absolute Auto 0.9 10^3/uL (0.3-0.8); Neutrophils Absolute Auto 8.8 10^3/uL (1.4-6.5); Neutrophils Percent Auto 71.6 % (43.0-75.0); Platelet Count 177 10^3/uL (150-450); Red Blood Count 3.85 10^6/uL (4.20-5.40); Red Cell Distribution Width 16.2 % (11.0-15.0); White Blood Count 12.2 10^3/uL (4.0-11.0)
[2024-12-17 12:05] LABS: Partial Thromboplastin Time 23.5 sec (22.3-36.2); Prothrombin Time 9.6 sec (9.0-11.6)
[2024-12-17 12:06] LABS: INR <0.93
[2024-12-17 12:21] LABS: Aspartate Amino Transferase 16 U/L (15-37); Estimated GFR (African America >60 (>=60 mL/min/1.73m^2); Estimated GFR (Non-African Ame >60 (>=60 mL/min/1.73m^2); Lactate Dehydrogenase 165 U/L (81-234)
== END 2024-12-17 11:21 | disposition home or self-care (01) ==
LOC: LAB 11:21
PROVIDERS: PCP Nurse Practitioner Family; Visit Provider Physician Assistant
DX: O13.9 Gestational [pregnancy-induced] hypertension without significant proteinuria, unspecified trimester (principal)
CPT/HCPCS: 36415; 82565; 83615; 84450; 84520; 84550; 85025; 85610; 85730

== ENCOUNTER 2024-12-17 11:41 | Outpatient (OUT) | payer OTHER, SELFPAY ==
--- NOTE | 2024-12-17 11:45 | US_ITS ---
The [place] [id number] Patient Name: GREGORIO HESS MRN: [id number] date: 1995 Sex: F Assigned Patient Location: [facility] Current Patient Location: [facility] Accession/Order Number: [id number] Exam Date: 12/17/2024 12:49 Report Date: 12/17/2024 12:51 At the request of: GIOVANY ARVIZU DO Procedure: US OB BPP w non-stress BIOPHYSICAL PROFILE: CLINICAL INFORMATION: Increased BP COMPARISON: 12/14/2024 There is a single live intrauterine gestation in cephalic presentation. The reported gestational age is 35 weeks 3 days. The heart rate measures 136 beats per minute. FINDINGS: TONE: 1 or more episodes of activity extension and flexion of extremity or opening and closing of the hand [Y] 2/2 GROSS BODY MOVEMENTS: 3 or more discrete body or limb movements [Y] 2/2 BREATHING MOVEMENTS: 1 or more episodes of breathing lasting at least 30 seconds [Y] 2/2 AIME: A single deepest vertical pocket of amniotic fluid greater than 2 cm [Y] 2/2 AIME: 10.2 cm. This is in low-normal range. Total score: 8/8 US/ OB BPP w non-stress IMPRESSION: NORMAL BIOPHYSICAL PROFILE. Impression dictated by: Giovanna High M.D. 12/17/2024 12:51 PM Dictation Location: [place] [address] Electronically authenticated by: [id number] Y Date: 12/17/2024 12:51
[2024-12-17 12:04] VITALS: BP 137/80; PULSE 104
== END 2024-12-17 13:00 | disposition home or self-care (01) ==
LOC: US 11:41 → FBC 11:44
PROVIDERS: PCP Nurse Practitioner Family; Visit Provider Obstetrics & Gynecology
DX: O16.3 Unspecified maternal hypertension, third trimester (principal); Z3A.35 35 weeks gestation of pregnancy
CPT/HCPCS: 36415; 59025; 76818; 82565; 83615; 84450; 84520; 84550; 85025; 85610; 85730

== ENCOUNTER 2024-12-18 13:26 | Outpatient (REF) | payer OTHER, SELFPAY ==
[2024-12-18 14:32] LABS: Total Protein Urine Random 8.8 mg/dL (<=11.9)
[2024-12-18 14:43] LABS: Total Protein 24 Hour Urine 202.4 mg/24hr (<=149.1); Total Volume 24 Hour Urine 2300 mL/24hr
== END 2024-12-18 13:27 | disposition home or self-care (01) ==
LOC: LAB 13:26
PROVIDERS: PCP Nurse Practitioner Family; Visit Provider Physician Assistant
DX: O13.9 Gestational [pregnancy-induced] hypertension without significant proteinuria, unspecified trimester (principal)
CPT/HCPCS: 84156

== ENCOUNTER 2024-12-21 07:32 | Outpatient (RCR) | payer OTHER, SELFPAY ==
[2024-12-16 07:54] VITALS: BP 137/87; PULSE 107; TEMP 36.7; O2SAT 98
[2024-12-16] MEDS: IRON SUCROSE COMPLEX 100 MG in 0.9 % SODIUM CHLORIDE 100 ML 420 MG IV (08:06)
[2024-12-18 08:00] VITALS: BP 145/63; PULSE 113; TEMP 36.8; O2SAT 97
[2024-12-18] MEDS: IRON SUCROSE COMPLEX 200 MG in 0.9 % SODIUM CHLORIDE 100 ML 220 MG IV (08:15)
[2024-12-21 07:50] VITALS: BP 133/78; PULSE 124; TEMP 36.6; O2SAT 97
[2024-12-21] MEDS: IRON SUCROSE COMPLEX 200 MG in 0.9 % SODIUM CHLORIDE 100 ML 220 MG IV (08:17)
== END 2025-01-11 23:59 | disposition home or self-care (01) ==
LOC: INF 07:32
PROVIDERS: PCP Nurse Practitioner Family; Visit Provider Obstetrics & Gynecology
DX: O13.9 Gestational [pregnancy-induced] hypertension without significant proteinuria, unspecified trimester (principal); O99.019 Anemia complicating pregnancy, unspecified trimester; D64.9 Anemia, unspecified; Z3A.00 Weeks of gestation of pregnancy not specified
CPT/HCPCS: 84156; 96365; J1756

== ENCOUNTER 2024-12-22 18:33 | Inpatient (IN) | payer OTHER, SELFPAY ==
[2024-12-22 18:57] VITALS: BP 130/68; PULSE 112
[2024-12-22 19:28] LABS: Bilirubin Urine NEGATIVE (NEGATIVE); Blood Urine NEGATIVE (NEGATIVE); Clarity Urine SL CLOUDY (CLEAR); Color Urine LT. YELLOW (YELLOW); Glucose Urine UA 100 mg/dL (NEGATIVE); Ketones Urine NEGATIVE (NEGATIVE); Leukocyte Esterase Urine LARGE (NEGATIVE); Nitrite Urine NEGATIVE (NEGATIVE); Protein Urine TRACE mg/dL (NEG/TRACE); Specific Gravity Urine 1.015 (1.005-1.025); pH Urine 7.5 (5.0-9.0)
[2024-12-22 19:30] LABS: Urine Microscopic Indicated YES
[2024-12-22 19:31] LABS: Urine Culture Indicated YES-LC
[2024-12-22 19:38] LABS: Bacteria Urine LARGE #/HPF (NONE SEEN); RBC Urine 0-2 #/HPF (0-2)
[2024-12-22 19:39] LABS: Cast Seen? NONE SEEN #/LPF (NONE SEEN); Crystals Seen? None Seen #/HPF (None Seen); Mucus Urine TRACE (NONE SEEN); Squamous Epithelial Cell Urine MANY #/LPF (NONE/RARE)
[2024-12-22 20:50] VITALS: TEMP 36.9
[2024-12-22 20:56] VITALS: BP 117/68; PULSE 94
[2024-12-22] MEDS: 0.9 % SODIUM CHLORIDE 1,000 ML 125 ML IV (21:30)
[2024-12-22] MEDS: AMPICILLIN SODIUM 2,000 MG in 0.9 % SODIUM CHLORIDE 100 ML 200 MG IV (21:30)
[2024-12-22] MEDS: NALBUPHINE HCL 10 MG/ML AMPULE IV (21:40)
[2024-12-22 21:51] LABS: Hematocrit 32.7 % (36.0-48.0); Hemoglobin 10.4 g/dL (12.0-16.0); Mean Corpuscular HGB Conc 31.8 g/dL (29.9-35.2); Mean Corpuscular Hemoglobin 27.2 pg (26.7-34.0); Mean Corpuscular Volume 85.6 fL (81.0-99.0); Mean Platelet Volume 12.2 fL (9.5-13.5); Platelet Count 186 10^3/uL (150-450); Red Blood Count 3.82 10^6/uL (4.20-5.40); Red Cell Distribution Width 18.6 % (11.0-15.0)
[2024-12-23] VITALS (43 sets, daily range): BP systolic 51–140; BP diastolic 20–88; PULSE 75–157; TEMP 36.6–36.8
[2024-12-23] MEDS: AMPICILLIN SODIUM 1,000 MG in 0.9 % SODIUM CHLORIDE 50 ML 100 MG IV ×2 (01:33→05:24)
[2024-12-23] MEDS: NALBUPHINE HCL 10 MG/ML AMPULE IV (01:43)
[2024-12-23] MEDS: OXYTOCIN/0.9 % SODIUM CHLORIDE 10 UNITS/500 ML PLAST..BAG 6 UNIT IV (09:00)
[2024-12-23] MEDS: 0.9 % SODIUM CHLORIDE 1,000 ML 125 ML IV (09:13)
[2024-12-23] MEDS: AMPICILLIN SODIUM 1,000 MG in 0.9 % SODIUM CHLORIDE 50 ML 125 MG IV (09:25)
[2024-12-23] MEDS: ROPIVACAINE HCL/PF 400 MG/200 ML PREMIX 8 MG EPIDURAL (11:33)
--- NOTE | 2024-12-23 13:01 | PM.OBPRCVD ---
Procedure Intrapartal events: None Induction method: none Delivery augmentation: rupture of membranes and pitocin Delivery monitor: external FHT and external uterine Route of delivery: Episiotomy Description: none L&D Laceration Description: none Estimated blood loss (mL): 200 Anesthesia type: Epidural Disposition: floor Delivery date: 12/23/24 Gender: male presentation: vertex Placental delivery description: Spontaneous cord description: 3 Vessels
[2024-12-23 14:35] LABS: Amphetamine Screen Urine NEGATIVE (NEGATIVE); Barbiturates Screen Urine NEGATIVE (NEGATIVE); Benzodiazepines Screen Urine NEGATIVE (NEGATIVE); Buprenorphine Screen Urine NEGATIVE (NEGATIVE); Cannabinoid Screen Urine NEGATIVE (NEGATIVE); Cocaine Screen Urine NEGATIVE (NEGATIVE); Methadone Screen Urine NEGATIVE (NEGATIVE); Methamphetamines Screen Urine NEGATIVE (NEGATIVE); Opiate Screen Urine NEGATIVE (NEGATIVE); Oxycodone Screen Urine NEGATIVE (NEGATIVE); Phencyclidine Screen Urine NEGATIVE (NEGATIVE); Tricyclic Antidepressant Urine NEGATIVE (NEGATIVE)
[2024-12-23] MEDS: IBUPROFEN 600 MG TABLET PO (17:54)
[2024-12-23] MEDS: ACETAMINOPHEN 325 MG TABLET 650 MG PO (22:51)
[2024-12-24] MEDS: IBUPROFEN 600 MG TABLET PO ×4 (00:50→22:48)
[2024-12-24 01:11] VITALS: BP 121/68; PULSE 86
[2024-12-24 01:15] VITALS: TEMP 36.5
--- NOTE | 2024-12-24 03:06 | PM.OBPN ---
OB - PN: Subj Subjective Patient comments: no complaints and pain well controlled [place] status: doing well Exam Constitutional Vital Signs, click to edit/add: Last Vital Signs Temp 98.1 F 12/23/24 15:48 Pulse 86 12/24/24 01:11 Resp 18 12/23/24 15:48 BP 121/68 12/24/24 01:11 O2 Del Method Room Air 12/23/24 15:48 Documenting provider has reviewed patient's vital signs: yes Common normals: no apparent distress Respiratory Common normals: normal respiratory effort and clear to auscultation bilaterally Cardio Common normals: regular rate and regular rhythm GI Common normals: Normal to inspection, nondistended, normoactive bowel sounds present Extremity Common normals: no clubbing, cyanosis or edema and no calf tenderness OB - PN: A/P Plan - Vaginal Delivery day: 1 Plan: routine care Time Spent with Patient Time: Total time spent is greater than 50% in coordination of care (as documented) at patient's floor/unit and/or counseling patient: Total time spent with greater than 50% in coordination of care (as documented) at patient's floor/unit and/or counseling patient: less than 15 minutes
[2024-12-24 07:28] LABS: Basophils Percent Auto 0.2 % (0.2-2.0); Eosinophils Absolute Auto 0.1 10^3/uL (0.0-0.7); Hematocrit 29.6 % (36.0-48.0); Hemoglobin 9.4 g/dL (12.0-16.0); Immature Granulocytes Abs Auto 0.16 10^3/uL (0.00-0.03); Immature Granulocytes Pct Auto 1.7 % (0.0-0.5); Lymphocytes Absolute Auto 2.6 10^3/uL (1.2-3.8); Lymphocytes Percent Auto 26.7 % (20.5-60.0); Mean Corpuscular HGB Conc 31.8 g/dL (29.9-35.2); Mean Corpuscular Hemoglobin 27.5 pg (26.7-34.0); Mean Corpuscular Volume 86.5 fL (81.0-99.0); Monocytes Absolute Auto 0.6 10^3/uL (0.3-0.8); Monocytes Percent Auto 6.6 % (1.7-12.0); Neutrophils Absolute Auto 6.1 10^3/uL (1.4-6.5); Neutrophils Percent Auto 63.8 % (43.0-75.0); Platelet Count 156 10^3/uL (150-450); Red Blood Count 3.42 10^6/uL (4.20-5.40); Red Cell Distribution Width 19.5 % (11.0-15.0); White Blood Count 9.6 10^3/uL (4.0-11.0)
[2024-12-24] MEDS: DOCUSATE SODIUM 100 MG CAPSULE PO ×2 (08:36→22:49)
[2024-12-24] MEDS: ACETAMINOPHEN 325 MG TABLET 650 MG PO ×3 (08:38→22:48)
[2024-12-24 10:02] VITALS: BP 128/68; PULSE 79
[2024-12-25] VITALS: BP 121/68; PULSE 78; TEMP 37.1
[2024-12-25 09:08] VITALS: BP 111/58; PULSE 86; TEMP 36.6
[2024-12-25] MEDS: IBUPROFEN 600 MG TABLET PO (09:49)
[2024-12-25] MEDS: DOCUSATE SODIUM 100 MG CAPSULE PO (09:49)
--- NOTE | 2024-12-25 11:13 | P.DS_ITS ---
DS: Providers Provider Date of admission: 12/23/24 07:45 Primary care physician: MACHELLE VIVEROS Admitting clinician: Baltazar Gross Attending physician on admission: Baltazar Gross Consults: 12/23/24 Consult to Anesthesiology Routine Consulting Provider: Christiano Sibley Reason for consultation: epidural supply requirements officer physician on discharge: Rafa Davalos Discharging clinician: Rafa Davalos Anticipated date of discharge: 12/25/24 DS: Diagnosis Discharge Diagnosis (1) Antepartum asymptomatic bacteriuria in second trimester: Plan Patient is post primary #2 doing well. Patient is for discharge home today. OB - DS: Summary Hospital Course Hospital Course: Uneventful course. Time spent discussing smoking cessation with patient: 3 to 10 minutes Infant Delivery method: spontaneous vaginal delivery Gender: male Status at Discharge Cognitive/behavioral status at discharge: Good Functional status at discharge: independent ambulation Overall status at discharge: patient is back to baseline Time Spent with Patient Time attestation: Total time spent providing and/or coordinating discharge services: Time spent: less than 30 minutes Specific discharge activities: Normal activity. Exam Constitutional Vital Signs, click to edit/add: Last Vital Signs Temp 97.9 F 12/25/24 09:08 Pulse 86 12/25/24 09:08 Resp 17 12/25/24 09:08 BP 111/58 12/25/24 09:08 O2 Del Method Room Air 12/25/24 08:30 Discharge Plan Discharge Disposition: Home, Self-Care Condition: Good Assessment: Patient is #2 doing well. Health Concerns: None. Plan of Treatment: Routine management. Discharge Medications: New docusate sodium 100 mg Capsule 100 mg PO BID 28 Days Qty: 56 0RF ibuprofen 600 mg Tablet 600 mg PO Q6H PRN (Reason: Moderate Pain) 28 Days Qty: 120 0RF simethicone [Gas Relief 80 (simethicone)] 80 mg Tablet,Chewable 80 mg PO QID PRN (Reason: Abdominal Distention) 28 Days Qty: 120 0RF [employer] Sonya 12.5-50 % Pads, Medicated 1 pad topical Q2H PRN (Reason: Pain) 28 Days Qty: 120 0RF Discontinued nitrofurantoin monohyd/m-cryst [Macrobid] 100 mg capsule 100 mg PO BID 5 Days Qty: 10 0RF Rx Instructions: must administer with a meal/food Print Language: Armenian Forms: Portal Instructions
[2024-12-25] MEDS: ADACEL DIPH,PERTUSS(ACELL),TET VAC/PF 0.5 ML ADULT SYRINGE IM (14:50)
== END 2024-12-25 15:15 | disposition home or self-care (01) | DRG 560 ==
PROVIDERS: Admitting Provider Obstetrics & Gynecology; PCP Nurse Practitioner Family; Visit Provider Obstetrics & Gynecology
DX: O13.4 Gestational [pregnancy-induced] hypertension without significant proteinuria, complicating childbirth (principal); Z3A.36 36 weeks gestation of pregnancy; Z37.0 Single live birth
CPT/HCPCS: 36415; 59025; 59050; 59410; 80307; 81001; 85025; 85027; 86850; 86900; 86901; 87086; 90715; 96365; 96366; 96375; 96376; G0378; J0290; J1756; J2300; J2795